=== PATIENT | female | born 1955 | race Caucasian/White ===

== ENCOUNTER 2021-12-20 07:31 | Outpatient (CLI) | payer MEDICARE, BC, SELFPAY ==
[2021-12-20 11:45] LABS: Albumin* 3.9 g/dL (3.3-5.0); Chloride* 104 mmol/L (96-114)
[2021-12-20 11:46] LABS: Potassium* 4.4 mmol/L (3.6-5.1); Sodium* 138 mmol/L (135-149)
[2021-12-20 11:48] LABS: Alkaline Phosphatase* 66 U/L (40-150); Aspartate Amino Transferase* 27 U/L (12-35); Bilirubin Total* 0.7 mg/dL (0.1-1.5); Blood Urea Nitrogen* 19 mg/dL (7-30); Carbon Dioxide* 28 mmol/L (20-32); Cholesterol* 215 mg/dL (90-199); Creatinine* 0.9 mg/dL (0.5-1.5); Estimated Glomerular Filt Rate 71 ml/min; Glucose* 87 mg/dL (60-115); Total Protein* 6.8 g/dL (6.0-8.3)
[2021-12-20 11:49] LABS: Alanine Aminotransferase* 17 U/L (4-35); Calcium* 8.9 mg/dL (8.4-10.6); Triglycerides* 49 mg/dL (40-149)
[2021-12-20 12:05] LABS: HDL Cholesterol* 75 mg/dL (>=50); LDL Cholesterol Calculated 130 mg/dL (<100)
[2021-12-20 15:29] LABS: Free T4 Free Thyroxine* 1.28 ng/dL (0.70-1.85)
== END 2021-12-20 07:32 | disposition home or self-care (01) ==
PROVIDERS: PCP Family Medicine; Visit Provider Family Medicine
DX: Z01.419 Encounter for gynecological examination (general) (routine) without abnormal findings (principal); E78.5 Hyperlipidemia, unspecified; G56.00 Carpal tunnel syndrome, unspecified upper limb; I10 Essential (primary) hypertension; E03.9 Hypothyroidism, unspecified
CPT/HCPCS: 80053; 80061; 84439; 84443

== ENCOUNTER 2022-01-04 15:16 | Outpatient (CLI) | payer MEDICARE, BC, SELFPAY ==
--- OUTSIDE RECORDS SUMMARY | 2022-01-04 15:18 | XMS_ITS | Encounter Summary ---
:1955 Author [facility] Address [address] [place] [id number] Care Team Providers Name Role Phone Micki Arzate MD Primary Care Provider Reason for Visit Reason Comments Revisit Encounter Details Date Type Department Care Team Description 04/11/2021 Office Visit [facility] [address] Albarado, ropositive [facility] rheumatoid arthritis [address] [facility] (Primary Dx) [place] [address] [place], [place] [phone] Social History Tobacco Use Types Packs/Day Years Used Date Smoking Tobacco: Never Smokeless Tobacco: Never Alcohol Use Standard Drinks/Week Comments Not Currently 0 (1 standard drink = 0.6 oz pure alcoho l) Sex Assigned at Date Recorded Not on file documented as of this encounter Last Filed Vital Signs Vital Sign Reading Time Taken Comments Blood Pressure 161/89 04/11/2021 1:18 PM MANAGER APPLICATION Pulse 62 04/11/2021 1:18 PM MANAGER APPLICATION Temperature - - Respiratory Rate - - Oxygen Saturation - - Inhaled Oxygen Concentration - - Weight 63 kg (139 lb) 04/11/2021 1:18 PM MANAGER APPLICATION Height 154.9 cm (5' 1) 04/11/2021 1:18 PM MANAGER APPLICATION Body Mass Index 26.26 04/11/2021 1:18 PM MANAGER APPLICATION documented in this encounter Patient Instructions Patient InstructionsGiorgio Albarado MD - 04/11/2021 1:20 PM CST Would increase methotrexate to 10 tabs (25mg) per week Can use prednisone if needed Consider Ezetemibe (Zetia) for lowering cholesterol as alternative to statins. For fun also look up PCSK9 inhibitors Call me if you're not improving. GER APPLICATION documented in this encounter Progress Notes Giorgio Ablarado MD - 04/11/2021 1:20 PM CST 66 y.o. old female following up for seropositive rheumatoid arthritis. Current therapy from rheumatology: Methotrexate 17.5 mg weekly, hydroxychloroquine 300mg daily started 02/2020. Prior therapies from rheumatology: Humira stopped 02/2020 when she switched to Medicare Had flare after holding methotrexate for Covid vaccine booster 01/20/21. Took short course prednisone.Joint symptoms have not completely improved and she notes some ongoing left 3rd MCP swelling. Also had flu vaccine 03/16 Has concerns about CVD risk. Exam: BP (!) 161/89 (BP Location: Right Arm, BP Cuff Size: Regular) Pulse 62 Ht 5' 1 (1.549 m) Wt 139 lb (63 kg) BMI 26.26 kg/m?? Gen: No acute distress MSK: Trace to 1+ synovitis at the left 3rd MCP. Question some scattered trace synovitis elsewhere inher MCPs and PIP is. No synovitis bilateral wrists, elbows, knees, ankles. Lab Results Component Value Date/Time WBC 6.5 03/15/2021 09:19 AM HGB 13.9 03/15/2021 09:19 AM MCV 92.3 03/15/2021 09:19 AM PLTS 206 03/15/2021 09:19 AM AST 19 03/15/2021 09:19 AM ALT 14 03/15/2021 09:19 AM CREATININE 0.80 03/15/2021 09:19 AM Assessment/plan: Seropositive rheumatoid arthritis. He has ongoing problems, suggested increasing methotrexate up to 25 mg weekly. Continue hydroxychloroquine. Can use prednisone if needed for ongoing symptoms. Follow up 3 months Orders Placed This Encounter ??? methotrexate 2.5 MG tablet ??? hydroxychloroquine (PLAQUENIL) 200 MG tablet Giorgio Albarado MD GER APPLICATION documented in this encounter Plan of Treatment Upcoming Encounters Date Type Specialty Care Team Description 01/15/2022 Appointment Laboratory 02/22/2022 Appointment Rheumatology Giorgio Albarado M D [address] [place] [address] [phone] (Wo rk) documented as of this encounter Visit Diagnoses Diagnosis Seropositive rheumatoid arthritis ([facility]) - Primary Rheumatoid arthritis documented in this encounter Care Teams [employer] Consultant Relationship Specialty Start Date End Date Micki Arzate MD PCP - General Internal Medicine 01/29/[address] [place] [address] documented as of this encounter
--- OUTSIDE RECORDS SUMMARY | 2022-01-04 15:18 | XMS_ITS | Encounter Summary ---
:1955 Author Organization [facility] Address [address], [place] [address] Care Team Providers Name Role Phone Micki Arzate MD Primary Care Provider Reason for Visit Reason Comments Consult, New Patient Encounter Details Date Type Department Care Team Description 03/14/2020 Office Visit Specialty Center 401 Giorgio Albarado, ropositive [facility]umatology Clinic rheumatoid arthritis [address] [facility] ([facility] Dx[facility] [place] [address] [place], [place] [phone] [id number] Social History Tobacco Use Types Packs/Day Years Used Date Smoking Tobacco: Never Smokeless Tobacco: Never Alcohol Use Standard Drinks/Week Comments Not Currently 0 (1 standard drink = 0.6 oz pure alcoho l) Sex Assigned at Date Recorded Not on file documented as of this encounter Patient Instructions Patient InstructionsSuGiorgio celaya MD - 03/14/2020 9:00 AM CDT Meds: - methotrexate 17.5mg weekly - hydroxychloroquine 1.5 tabs per day [email or web address] - covid studies in rheumatology [email or web address] - med info [email or web address] - watch when Covid vaccines are coming out for recommendations Our clinic number - [phone] Next do labs April documented in this encounter Progress Notes Giorgio Albarado MD - 03/14/2020 9:00 AM CDT 65 y.o. old female who is here to establish ongoing care regarding seropositive rheumatoid arthritis. Current therapy from rheumatology: Methotrexate 15 mg weekly, Humira 40 mg every 2 weeks States that over time she has reduced her dose of methotrexate because she felt it made her nose run. She did have increased joint pain when she had reduce to 12 5 mg per week however. She is concernedthat Humira has extremely helpful, however she is now on Medicare and only has 2 doses left. She wonders about options from this point. She currently denies any significant joint, swelling, stiffness. No side effects Humira. No past medical history on file. Patient Active Problem List Diagnosis ??? Hypothyroidism (HRC) ??? Essential hypertension (HRC) ??? Obesity (HRC) ??? Hyperlipidemia (HRC) ??? S/p nephrectomy ??? Rheumatoid arthritis (HRC) ??? Rheumatoid factor positive ??? Positive anti-CCP test ??? High risk medication use ??? Rheumatoid arthritis with positive rheumatoid factor (HRC) No past surgical history on file. Outpatient Medications Prior to Visit Medication Sig Dispense Refill ??? acetaminophen (TYLENOL EXTRA STRENGTH) 500 MG tablet Take 500-1,000 mg by mouth every 4 hours asneeded for Pain. Maximum acetaminophen dose is 4000 mg in 24 hours ??? Adalimumab 40 MG/0.4ML PNKT Inject 40 mg subcutaneously every 14 days. Please inform patient that this medication is citrate free 2 Each ??? Bioflavonoid Products (VITAMIN C PLUS) 1000 MG 1,000 mg. Once daily ??? Cholecalciferol (VITAMIN D) 50 MCG (2000 UT) CAPS 2,000 mg. Every other day ??? folic acid 1 MG tablet Take 1 Tablet by mouth daily. 90 Tablet 3 ??? lisinopril (ZESTRIL) 10 MG tablet 5 mg/d (Rxed by primary). ??? methotrexate 2.5 MG tablet All at once, one time a week: 17.5 mg/week (8 tabs). New dose instruction, patient will call when needed. 108 Tablet 1 ??? predniSONE (DELTASONE) 5 MG tablet As needed for a flare, all in am: 4 tabs/d x 3 d, 3 tabs/d x 3 d, 2 tabs/d x 3 d, 1 tab/d x 3 d then stop. (Patient not taking: Reported on 03/14/2020) 60 Tablet 2 No facility-administered medications prior to visit. Social History Socioeconomic History ??? Marital status: Spouse name: Not on file ??? Number of children: Not on file ??? Years of education: Not on file ??? Highest education level: Not on file Occupational History ??? Not on file Social Needs ??? Financial resource strain: Not on file ??? Food insecurity Worry: Not on file Inability: Not on file ??? Transportation needs Medical: Not on file Non-medical: Not on file Tobacco Use ??? Smoking status: Never Smoker ??? Smokeless tobacco: Never Used Substance and Sexual Activity ??? Alcohol use: Not Currently ??? Drug use: Not on file ??? Sexual activity: Not on file Lifestyle ??? Physical activity Days per week: Not on file Minutes per session: Not on file ??? Stress: Not on file Relationships ??? Social connections Talks on phone: Not on file Gets together: Not on file Attends scientologist service: Not on file Active member of club or organization: Not on file Attends meetings of clubs or organizations: Not on file Relationship status: Not on file ??? Intimate partner violence Fear of current or ex partner: Not on file Emotionally abused: Not on file Physically abused: Not on file Forced sexual activity: Not on file Other Topics Concern ??? Not on file Social History Narrative ??? Not on file Exam: There were no vitals taken for this visit. Gen: No acute distress MSK: No synovitis of bilateral hands, wrists, elbows, shoulders, knees, ankles. Lab Results Component Value Date/Time WBC 6.1 01/21/2020 10:07 AM HGB 13.8 01/21/2020 10:07 AM MCV 94.1 01/21/2020 10:07 AM PLTS 219 01/21/2020 10:07 AM PMN 3.3 01/21/2020 10:07 AM LYMA 1.9 01/21/2020 10:07 AM MONOA 0.6 01/21/2020 10:07 AM EOSA 0.2 01/21/2020 10:07 AM BASA 0.1 01/21/2020 10:07 AM ALT 17 01/21/2020 10:07 AM CREATININE 0.80 01/21/2020 10:07 AM ESR 64 (H) 02/20/2017 08:47 AM CRP 16.4 (H) 02/20/2017 08:47 AM Lab Results Component Value Date/Time HBSAG Nonreactive 02/20/2017 08:47 AM HBVCOREAB Nonreactive 02/20/2017 08:47 AM Assessment/plan: Seropositive rheumatoid arthritis. She recently switched to Medicare, and will not be able to continue to afford Humira. She hopes to avoid infusions if possible. Suggested continuing methotrexate slightly increasing her dose to 17.5 mg weekly which she tolerated well, and adding hydroxychloroquine 300 mg day. Discussed usage side effects of hydroxychloroquine and eventual need eye exam, and we also discussed other options such as infliximab detail. Answered number of questions regarding vaccinations. If she would have difficulty with hydroxychloroquine, she would be interested infliximab in the future. Update labs in the April. Follow-up 2 months TT 50 min, >30 min spent counseling patient on plan as noted above. Giorgio Albarado MD documented in this encounter Plan of Treatment Upcoming Encounters Date Type Specialty Care Team Description 01/15/2022 Appointment Laboratory 02/22/2022 Appointment Rheumatology Giorgio Albarado M D [address] [place] [address] [phone] (Wo rk) Scheduled Orders Name Type Priority Associated Diagnoses Order S chedule Complete Blood Count-No Lab Routine Seropositive rheu matoid Monthly for 99 Diff arthritis (HRC) Occurrences starting 03/14/2020 unti l 12/09/2022, 6 c ompleted AST Lab Routine Seropositive rheumatoid Berny hly for 99 arthritis (HRC) Occurrences starting 03/14/2020 unti l 12/09/2022, 6 c ompleted ALT (SGPT) Lab Routine Seropositive rheumatoid Berny hly for 99 arthritis (HRC) Occurrences starting 03/14/2020 unti l 12/09/2022, 6 c ompleted Creatinine / GFR Lab Routine Seropositive rheumatoid Monthly for 99 arthritis (HRC) Occurrences starting 03/14/2020 unti l 12/09/2022, 6 c ompleted documented as of this encounter Results Creatinine / GFR (10/13/2021 7:40 AM CDT) athologist Signature Creatinine 0.90 0.55 - 10/13/2021 [facility] 1.02 mg/dL 11:32 AM CDT LABORATORY GFR, Estimated >60 >60 10/13/2021 [facility] mL/min/1.7 11:32 AM CDT LABORATORY 3m2 Specimen Anatomical Collection Method / Collection Time Recei rg Time (Source) Location / Volume Laterality Blood Venipuncture / 10/13/2021 7:40 10/13/2021 7:40 Unknown AM CDT AM CDT Giorgio Albarado MD LAB_1 Performing Organization Address [facility] Code Phon e [facility] LABORATORY [address] [phone] ALT (SGPT) (10/13/2021 7:40 AM CDT) athologist Signature ALT (SGPT) 17 0 - 55 U/L 10/13/2021 [facility] 11:32 AM CDT LABORATORY Specimen Anatomical Collection Method / Collection Time Recei rg Time (Source) Location / Volume Laterality Blood Venipuncture / 10/13/2021 7:40 10/13/2021 7:40 Unknown AM CDT AM CDT Giorgio Albarado MD LAB_1 Performing Organization Address City/[facility]/ZIP Code Phon e Number [facility] [address] [place] [address] AST (10/13/2021 7:40 AM CDT) athologist Signature AST (SGOT) 20 10 - 40 U/L 10/13/2021 [facility] 11:32 AM CDT LABORATORY Specimen Anatomical Collection Method / Collection Time Recei rg Time (Source) Location / Volume Laterality Blood Venipuncture / 10/13/2021 7:40 10/13/2021 7:40 Unknown AM CDT AM CDT Giorgio Albaardo MD LAB_1 Performing Organization Address City/[facility]/ZIP Code Phon e Number [facility] [address] [place], [place] [phone] Complete Blood Count-No Diff (10/13/2021 7:40 AM CDT) athologist Signature WBC 5.5 3.5 - 10.5 10/13/2021 [facility] x10(9)/L 8:05 AM CDT LABORATORY RBC 4.30 3.90 - 10/13/2021 [facility] 5.03 8:05 AM CDT LABORATORY x10(12)/L Hemoglobin 13.2 12.0 - 10/13/2021 [facility] 15.5 g/dL 8:05 AM CDT LABORATORY HCT 39.9 34.9 - 10/13/2021 [facility] 44.5 % 8:05 AM CDT LABORATORY MCV 92.8 80.0 - 10/13/2021 [facility] 100.0 fL 8:05 AM CDT LABORATORY MCH 30.7 27.6 - 10/13/2021 [facility] 33.3 pg 8:05 AM CDT LABORATORY MCHC 33.1 31.5 - 10/13/2021 [facility] 35.2 g/dL 8:05 AM CDT LABORATORY RDW 13.5 11.9 - 10/13/2021 [facility] 15.5 % 8:05 AM CDT LABORATORY Platelets 219 150 - 450 10/13/2021 [facility] x10(9)/L 8:05 AM CDT LABORATORY Automated NRBC 0 <=0 /100 10/13/2021 [facility] WBC 8:05 AM CDT LABORATORY Specimen Anatomical Collection Method / Collection Time Recei rg Time (Source) Location / Volume Laterality Blood Venipuncture / 10/13/2021 7:40 10/13/2021 7:40 Unknown AM CDT AM CDT Giorgio Albarado MD LAB_1 Performing Organization Address City/State/ZIP Code Phon e Number [facility] [address] [place], [place] [phone] Creatinine / GFR (07/04/2021 10:12 AM AUTOMOBILE MECHANIC HELPER) athologist Signature Creatinine 0.90 0.55 - 07/04/2021 [facility] 1.02 mg/dL 11:57 AM AUTOMOBILE MECHANIC HELPER LABORATORY GFR, Estimated >60 >60 07/04/2021 [facility] mL/min/1.7 11:57 AM AUTOMOBILE MECHANIC HELPER LABORATORY 3m2 Specimen Anatomical Collection Method / Collection Time Recei rg Time (Source) Location / Volume Laterality Blood Venipuncture / 07/04/2021 10:12 2 Unknown AM AUTOMOBILE MECHANIC HELPER 10:12 AM AUTOMOBILE MECHANIC HELPER Giorgio Albarado MD LAB_1 Performing Organization Address City/[facility]/ZIP Code Phon e Jyoti [facility] [address] [place] [phone] ALT (SGPT) (07/04/2021 10:12 AM AUTOMOBILE MECHANIC HELPER) athologist Signature ALT (SGPT) 19 0 - 55 U/L 07/04/2021 [facility] 11:57 AM AUTOMOBILE MECHANIC HELPER LABORATORY Specimen Anatomical Collection Method / Collection Time Recei rg Time (Source) Location / Volume Laterality Blood Venipuncture / 07/04/2021 10:12 2 Unknown AM AUTOMOBILE MECHANIC HELPER 10:12 AM AUTOMOBILE MECHANIC HELPER Giorgio Albarado MD LAB_1 Performing Organization Address City/[facility] Phon e Jyoti [facility] [address] [place] [phone] AST (07/04/2021 10:12 AM AUTOMOBILE MECHANIC HELPER) athologist Signature AST (SGOT) 18 10 - 40 U/L 07/04/2021 [facility] 11:57 AM AUTOMOBILE MECHANIC HELPER LABORATORY Specimen Anatomical Collection Method / Collection Time Recei rg Time (Source) Location / Volume Laterality Blood Venipuncture / 07/04/2021 10:12 2 Unknown AM AUTOMOBILE MECHANIC HELPER 10:12 AM AUTOMOBILE MECHANIC HELPER Giorgio Albarado MD LAB_1 Performing Organization Address City/[facility]/ZIP Code Phon e J[facility] [address] [place] [phone] Complete Blood Count-No Diff (07/04/2021 10:12 AM AUTOMOBILE MECHANIC HELPER) athologist Signature WBC 6.0 3.5 - 10.5 07/04/2021 [facility] x10(9)/L 10:15 AM AUTOMOBILE MECHANIC HELPER LABORATORY RBC 4.66 3.90 - 07/04/2021 [facility] 5.03 10:15 AM AUTOMOBILE MECHANIC HELPER LABORATORY x10(12)/L Hemoglobin 14.1 12.0 - 07/04/2021 [facility] 15.5 g/dL 10:15 AM AUTOMOBILE MECHANIC HELPER LABORATORY HCT 43.2 34.9 - 07/04/2021 [facility] 44.5 % 10:15 AM AUTOMOBILE MECHANIC HELPER LABORATORY MCV 92.7 80.0 - 07/04/2021 [facility] 100.0 fL 10:15 AM AUTOMOBILE MECHANIC HELPER LABORATORY MCH 30.3 27.6 - 07/04/2021 [facility] 33.3 pg 10:15 AM AUTOMOBILE MECHANIC HELPER LABORATORY MCHC 32.6 31.5 - 07/04/2021 [facility] 35.2 g/dL 10:15 AM AUTOMOBILE MECHANIC HELPER LABORATORY RDW 13.2 11.9 - 07/04/2021 [facility] 15.5 % 10:15 AM AUTOMOBILE MECHANIC HELPER LABORATORY Platelets 224 150 - 450 07/04/2021 [facility] x10(9)/L 10:15 AM AUTOMOBILE MECHANIC HELPER LABORATORY Automated NRBC 0 <=0 /100 07/04/2021 [facility] WBC 10:15 AM AUTOMOBILE MECHANIC HELPER LABORATORY Specimen Anatomical Collection Method / Collection Time Recei rg Time (Source) Location / Volume Laterality Blood Venipuncture / 07/04/2021 10:12 2 Unknown AM AUTOMOBILE MECHANIC HELPER 10:12 AM AUTOMOBILE MECHANIC HELPER Giorgio Albarado MD LAB_1 Performing Organization Address City/State/ZIP Code Phon e Number [facility] [address] [place] [phone] Creatinine / GFR (03/15/2021 9:19 AM CDT) P athologist Signature Creatinine 0.80 0.55 - 03/15/2021 [facility] 1.02 mg/dL 10:23 AM CDT LABORATORY GFR, Estimated >60 >60 03/15/2021 [facility] mL/min/1.7 10:23 AM CDT LABORATORY 3m2 Specimen Anatomical Collection Method / Collection Time Recei rg Time (Source) Location / Volume Laterality Blood Venipuncture / 03/15/2021 9:19 03/15/2021 9:19 Unknown AM CDT AM CDT Giorgio Albarado MD LAB_1 Performing Organization Address City/[facility]/ZIP Code Phon e [facility] [address] [place], [place] [phone] ALT (SGPT) (03/15/2021 9:19 AM CDT) P athologist Signature ALT (SGPT) 14 0 - 55 U/L 03/15/2021 [facility] 10:23 AM CDT LABORATORY Specimen Anatomical Collection Method / Collection Time Recei rg Time (Source) Location / Volume Laterality Blood Venipuncture / 03/15/2021 9:19 03/15/2021 9:19 Unknown AM CDT AM CDT Giorgio Albarado MD LAB_1 Performing Organization Address [facility]/ZIP Code Phon e J[facility] [address] [place] [phone] AST (03/15/2021 9:19 AM CDT) athologist Signature AST (SGOT) 19 10 - 40 U/L 03/15/2021 [facility] 10:23 AM CDT LABORATORY Specimen Anatomical Collection Method / Collection Time Recei rg Time (Source) Location / Volume Laterality Blood Venipuncture / 03/15/2021 9:19 03/15/2021 9:19 Unknown AM CDT AM CDT Giorgio Albarado MD LAB_1 Performing Organization Address City/[facility] Phon e J[facility] [address] [place], [place] [phone] Complete Blood Count-No Diff (03/15/2021 9:19 AM CDT) P athologist Signature WBC 6.5 3.5 - 10.5 03/15/2021 [facility] x10(9)/L 9:26 AM CDT LABORATORY RBC 4.67 3.90 - 03/15/2021 [facility] 5.03 9:26 AM CDT LABORATORY x10(12)/L Hemoglobin 13.9 12.0 - 03/15/2021 [facility] 15.5 g/dL 9:26 AM CDT LABORATORY HCT 43.1 34.9 - 03/15/2021 [facility] 44.5 % 9:26 AM CDT LABORATORY MCV 92.3 80.0 - 03/15/2021 [facility] 100.0 fL 9:26 AM CDT LABORATORY MCH 29.8 27.6 - 03/15/2021 [facility] 33.3 pg 9:26 AM CDT LABORATORY MCHC 32.3 31.5 - 03/15/2021 [facility] 35.2 g/dL 9:26 AM CDT LABORATORY RDW 13.6 11.9 - 03/15/2021 [facility] 15.5 % 9:26 AM CDT LABORATORY Platelets 206 150 - 450 03/15/2021 [facility] x10(9)/L 9:26 AM CDT LABORATORY Automated NRBC 0 <=0 /100 03/15/2021 [facility] WBC 9:26 AM CDT LABORATORY Specimen Anatomical Collection Method / Collection Time Recei rg Time (Source) Location / Volume Laterality Blood Venipuncture / 03/15/2021 9:19 03/15/2021 9:19 Unknown AM CDT AM CDT Giorgio Albarado MD LAB_1 Performing Organization Address City/[facility] Code Phon e Number [facility] [address] [place], [place] [phone] Creatinine / GFR (11/09/2020 2:28 PM CDT) athologist Signature Creatinine 0.90 0.55 - 11/09/2020 [facility] 1.02 mg/dL 3:33 PM CDT LABORATORY GFR, Estimated >60 >60 11/09/2020 [facility] mL/min/1.7 3:33 PM CDT LABORATORY 3m2 Specimen Anatomical Collection Method / Collection Time Recei rg Time (Source) Location / Volume Laterality Blood Venipuncture / 11/09/2020 2:28 11/09/2020 2:28 Unknown PM CDT PM CDT Giorgio Albarado MD LAB_1 Performing Organization Address City/[facility]/ZIP Code Phon e Number [facility] [address] [place] [address] ALT (SGPT) (11/09/2020 2:28 PM CDT) athologist Signature ALT (SGPT) 17 0 - 55 U/L 11/09/2020 [facility] 3:33 PM CDT LABORATORY Specimen Anatomical Collection Method / Collection Time Recei rg Time (Source) Location / Volume Laterality Blood Venipuncture / 11/09/2020 2:28 11/09/2020 2:28 Unknown PM CDT PM CDT Giorgio Albarado MD LAB_1 Performing Organization Address [facility]/ZIP Code Phon e Number [facility] [address] [place] [phone] AST (11/09/2020 2:28 PM CDT) athologist Signature AST (SGOT) 20 10 - 40 U/L 11/09/2020 [facility] 3:33 PM CDT LABORATORY Specimen Anatomical Collection Method / Collection Time Recei rg Time (Source) Location / Volume Laterality Blood Venipuncture / 11/09/2020 2:28 11/09/2020 2:28 Unknown PM CDT PM CDT Giorgio Albarado MD LAB_1 Performing Organization Address City/[facility] e Number [facility] [address] [place] [address] Complete Blood Count-No Diff (11/09/2020 2:28 PM CDT) athologist Signature WBC 6.2 3.5 - 10.5 11/09/2020 [facility] x10(9)/L 2:31 PM CDT LABORATORY RBC 4.42 3.90 - 11/09/2020 [facility] 5.03 2:31 PM CDT LABORATORY x10(12)/L Hemoglobin 13.3 12.0 - 11/09/2020 [facility] 15.5 g/dL 2:31 PM CDT LABORATORY HCT 40.6 34.9 - 11/09/2020 [facility] 44.5 % 2:31 PM CDT LABORATORY MCV 91.9 80.0 - 11/09/2020 [facility] 100.0 fL 2:31 PM CDT LABORATORY MCH 30.1 27.6 - 11/09/2020 [facility] 33.3 pg 2:31 PM CDT LABORATORY MCHC 32.8 31.5 - 11/09/2020 [facility] 35.2 g/dL 2:31 PM CDT LABORATORY RDW 13.3 11.9 - 11/09/2020 [facility] 15.5 % 2:31 PM CDT LABORATORY Platelets 197 150 - 450 11/09/2020 [facility] x10(9)/L 2:31 PM CDT LABORATORY Automated NRBC 0 <=0 /100 11/09/2020 [facility] WBC 2:31 PM CDT LABORATORY Specimen Anatomical Collection Method / Collection Time Recei rg Time (Source) Location / Volume Laterality Blood Venipuncture / 11/09/2020 2:28 11/09/2020 2:28 Unknown PM CDT PM CDT Giorgio Albarado MD LAB_1 Performing Organization Address City/[facility] e J[facility]oti [facility] [address] [place], [place] [phone] Creatinine / GFR (07/28/2020 9:10 AM AUTOMOBILE MECHANIC HELPER) athologist Signature Creatinine 0.90 0.55 - 07/28/2020 [facility] 1.02 mg/dL 9:42 AM AUTOMOBILE MECHANIC HELPER LABORATORY GFR, Estimated >60 >60 07/28/2020 [facility] mL/min/1.7 9:42 AM AUTOMOBILE MECHANIC HELPER LABORATORY 3m2 Specimen Anatomical Collection Method / Collection Time Recei rg Time (Source) Location / Volume Laterality Blood Venipuncture / 07/28/2020 9:10 07/28/2020 9:10 Unknown AM AUTOMOBILE MECHANIC HELPER AM AUTOMOBILE MECHANIC HELPER Giorgio Albarado MD LAB_1 Performing Organization Address City/[facility] e Number [facility] [address] [place] [address] ALT (SGPT) (07/28/2020 9:10 AM AUTOMOBILE MECHANIC HELPER) P athologist Signature ALT (SGPT) 13 0 - 55 U/L 07/28/2020 [facility] 9:42 AM AUTOMOBILE MECHANIC HELPER LABORATORY Specimen Anatomical Collection Method / Collection Time Recei rg Time (Source) Location / Volume Laterality Blood Venipuncture / 07/28/2020 9:10 07/28/2020 9:10 Unknown AM AUTOMOBILE MECHANIC HELPER AM AUTOMOBILE MECHANIC HELPER Giorgio Albarado MD LAB_1 Performing Organization Address City/[facility]/ZIP Code Phon e Number [facility] [address] [place] [address] AST (07/28/2020 9:10 AM AUTOMOBILE MECHANIC HELPER) athologist Signature AST (SGOT) 16 10 - 40 U/L 07/28/2020 [facility] 9:42 AM AUTOMOBILE MECHANIC HELPER LABORATORY Specimen Anatomical Collection Method / Collection Time Recei rg Time (Source) Location / Volume Laterality Blood Venipuncture / 07/28/2020 9:10 07/28/2020 9:10 Unknown AM AUTOMOBILE MECHANIC HELPER AM AUTOMOBILE MECHANIC HELPER Giorgio Albarado MD LAB_1 Performing Organization Address City/[facility] Code Phon e Number [facility] [address] [place] [address] Complete Blood Count-No Diff (07/28/2020 9:10 AM AUTOMOBILE MECHANIC HELPER) athologist Signature WBC 5.9 3.5 - 10.5 07/28/2020 [facility] x10(9)/L 9:18 AM AUTOMOBILE MECHANIC HELPER LABORATORY RBC 4.44 3.90 - 07/28/2020 [facility] 5.03 9:18 AM AUTOMOBILE MECHANIC HELPER LABORATORY x10(12)/L Hemoglobin 13.6 12.0 - 07/28/2020 [facility] 15.5 g/dL 9:18 AM AUTOMOBILE MECHANIC HELPER LABORATORY HCT 40.8 34.9 - 07/28/2020 [facility] 44.5 % 9:18 AM AUTOMOBILE MECHANIC HELPER LABORATORY MCV 91.9 80.0 - 07/28/2020 [facility] 100.0 fL 9:18 AM AUTOMOBILE MECHANIC HELPER LABORATORY MCH 30.6 27.6 - 07/28/2020 [facility] 33.3 pg 9:18 AM AUTOMOBILE MECHANIC HELPER LABORATORY MCHC 33.3 31.5 - 07/28/2020 [facility] 35.2 g/dL 9:18 AM AUTOMOBILE MECHANIC HELPER LABORATORY RDW 13.0 11.9 - 07/28/2020 [facility] 15.5 % 9:18 AM AUTOMOBILE MECHANIC HELPER LABORATORY Platelets 220 150 - 450 07/28/2020 [facility] x10(9)/L 9:18 AM AUTOMOBILE MECHANIC HELPER LABORATORY Automated NRBC 0 <=0 /100 07/28/2020 [facility] WBC 9:18 AM AUTOMOBILE MECHANIC HELPER LABORATORY Specimen Anatomical Collection Method / Collection Time Recei rg Time (Source) Location / Volume Laterality Blood Venipuncture / 07/28/2020 9:10 07/28/2020 9:10 Unknown AM AUTOMOBILE MECHANIC HELPER AM AUTOMOBILE MECHANIC HELPER Giorgio Albarado MD LAB_1 Performing Organization Address City/[facility]/ZIP Code Phon e Number [facility] [address] [place], [place] [phone] Creatinine / GFR (04/18/2020 9:57 AM AUTOMOBILE MECHANIC HELPER) [facility] gist Method Time Signature Creatinine 0.77 0.55 - 04/18/2020 [facility] 1.02 1:09 PM AUTOMOBILE MECHANIC HELPER CENTRAL LAB mg/dL GFR, Estimated >60 >60 04/18/2020 [facility] mL/min/1. 1:09 PM AUTOMOBILE MECHANIC HELPER CENTRAL LAB 73m2 Specimen Anatomical Collection Method / Collection Time Recei rg Time (Source) Location / Volume Laterality Blood Venipuncture / 04/18/2020 9:57 04/18/2020 9:57 Unknown AM AUTOMOBILE MECHANIC HELPER AM AUTOMOBILE MECHANIC HELPER Giorgio Albarado MD LAB_1 Performing Organization Address [facility] Phon e Number WP EngineUNIVERSITY OF NEW MEXICO HOSPITALSIm[facility] [employer] CENTRAL LAB [address] [address] ALT (SGPT) (04/18/2020 9:57 AM AUTOMOBILE MECHANIC HELPER) athologist Signature ALT (SGPT) 15 0 - 55 U/L 04/18/2020 [facility] 1:09 PM AUTOMOBILE MECHANIC HELPER CENTRAL LAB Specimen Anatomical Collection Method / Collection Time Recei rg Time (Source) Location / Volume Laterality Blood Venipuncture / 04/18/2020 9:57 04/18/2020 9:57 Unknown AM AUTOMOBILE MECHANIC HELPER AM AUTOMOBILE MECHANIC HELPER Giorgio Albarado MD LAB_1 Performing Organization Address City/[facility] Code Phon e Number [facility] CENTRAL LAB [address] [address] AST (04/18/2020 9:57 AM AUTOMOBILE MECHANIC HELPER) athologist Signature AST (SGOT) 19 10 - 40 04/18/2020 [facility]/L 1:09 PM AUTOMOBILE MECHANIC HELPER CENTRAL LAB Specimen Anatomical Collection Method / Collection Time Recei rg Time (Source) Location / Volume Laterality Blood Venipuncture / 04/18/2020 9:57 04/18/2020 9:57 Unknown AM AUTOMOBILE MECHANIC HELPER AM AUTOMOBILE MECHANIC HELPER Giorgio Albarado MD LAB_1 Performing Organization Address [place] [facility]/ZIP [facility] Phon e Number [facility] [address] [address] Complete Blood Count-No Diff (04/18/2020 9:57 AM AUTOMOBILE MECHANIC HELPER) P athologist Signature WBC 6.4 3.5 - 10.5 04/18/2020 [facility] x10(9)/L 10:09 AM [facility] RBC 4.50 3.90 - 5.03 04/18/2020 [facility] x10(12)/L 10:09 AM [facility] Hemoglobin 13.8 12.0 - 15.5 04/18/2020 [facility] g/dL 10:09 AM [facility] HCT 40.8 34.9 - 44.5 04/18/2020 [facility] % 10:09 AM [facility] MCV 90.7 80.0 - 04/18/2020 [facility] 100.0 fL 10:09 AM [facility] MCH 30.7 27.6 - 33.3 04/18/2020 [facility] pg 10:09 AM [facility] MCHC 33.8 31.5 - 35.2 04/18/2020 [facility] g/dL 10:09 AM [facility] RDW 13.6 11.9 - 15.5 04/18/2020 [facility] % 10:09 AM [facility] Platelets 232 150 - 450 04/18/2020 [facility] x10(9)/L 10:09 AM [facility] Specimen Anatomical Collection Method / Collection Time Recei rg Time (Source) Location / Volume Laterality Blood Venipuncture / 04/18/2020 9:57 04/18/2020 9:57 Unknown AM AUTOMOBILE MECHANIC HELPER AM AUTOMOBILE MECHANIC HELPER Giorgio Albarado MD LAB_1 Performing Organization Address City/[place]/ZIP [facility] Phon e Number [facility] [address] [place] [address] documented in this encounter Visit Diagnoses Diagnosis Seropositive rheumatoid arthritis (HRC) - Primary Rheumatoid arthritis documented in this encounter Care Teams Hand Assembler For Puller Over Relationship Specialty Start Date End Date Micki Arzate MD PCP - General Internal Medicine [address] [place] [address] documented as of this encounter
--- OUTSIDE RECORDS SUMMARY | 2022-01-04 15:18 | XMS_ITS | Encounter Summary ---
:1955 Author Organization [facility] Address [address], [place] [address] Care Team Providers Name Role Phone Micki Arzate MD Primary Care Provider Reason for Visit Reason Comments Symptoms Encounter Details Date Type Department Care Team Description 04/12/2020 Telephone Specialty Center 401 Manuel Albarado MD Symptoms [facility] [address] [facility] [place] [address] [place] [address] [phone] Social History Tobacco Use Types Packs/Day Years Used Date Smoking Tobacco: Never Smokeless Tobacco: Never Alcohol Use Standard Drinks/Week Comments Not Currently 0 (1 standard drink = 0.6 oz pure alcoho l) Sex Assigned at Date Recorded Not on file documented as of this encounter Nursing Notes Nanette Sanchez RN - 04/12/2020 1:53 PM CST Client returns call. Accepts appointment time date and location. Darya HUGHES to add client to schedule. Client declines prednisone at this time. States her sx are tolerable and she would rather not take prednisone as she is concerned regarding immunosuppression and covid 19. Advised client to remain diligent with hand washing, masking and social distancing. Nanette Sanchez RN SHOP CLERK Joe, Max Mclaughlin CMA - 04/12/2020 1:32 PM CST Left message for patient to return call back to clinic. Please inform patient with provider's message and offer appt time. Max Diaz CMA 04/12/2020, 1:32 PM SHOP CLERK Giorgio Albarado MD - 04/12/2020 12:50 PM CST Can have her do a short course of prednisone, and then have her schedule next Wednesday 04/18 at 9am for possible injection and/or change or meds. Let me know if she would like the prednisone sent. SHOP CLERK Krissy Ybarra RN - 04/12/2020 11:44 AM CST Routing to Dr. Albarado's care team. Krissy Ybarra RN 04/12/2020, 11:44 AM SHOP CLERK Tee Bray - 04/12/2020 8:11 AM CST Miscellaneous Questions & FYI's [ Appt Center/Non Destructive Testing Inspector: If this call is after 3 p.m., communicate to patient: If we are not able to get back to you by the end of the day and your symptoms worsen please contact the Careline at [phone] OR at .] Is this a symptom? No What is your question or concern? Pt calling reporting swelling and fluid in her left knee. She says the end of Feb. is when she firstnoticed it but it sort of went away. Then last week it came back very Have you recently been seen for this? No Is it okay to leave a detailed message on your voicemail? Yes Tee Bray SHOP CLERK documented in this encounter Plan of Treatment Upcoming Encounters Date Type Specialty Care Team Description 01/15/2022 Appointment Laboratory 02/22/2022 Appointment Rheumatology Giorgio Albarado M D [address] [place], [place] [address] (Wo rk) documented as of this encounter Visit Diagnoses Not on filedocumented in this encounter Care Teams Corporate Librarian Relationship Specialty Start Date End Date Micki Arzate MD PCP - General Internal Medicine 01/[address] [place] [address] documented as of this encounter
--- OUTSIDE RECORDS SUMMARY | 2022-01-04 15:18 | XMS_ITS | Encounter Summary ---
:1955 Author Organization [facility] Address [address] [place] [address] Care Team Providers Name Role Phone Micki Arzate MD Primary Care Provider Encounter Details Date Type Department Care Team Description 10/13/2021 Lab Visit [facility] Seropositive rheumatoid [address] [facility] arthritis ([facility] [place] [address] Social History Tobacco Use Types Packs/Day Years Used Date Smoking Tobacco: Never Smokeless Tobacco: Never Alcohol Use Standard Drinks/Week Comments Not Currently 0 (1 standard drink = 0.6 oz pure alcoho l) Sex Assigned at Date Recorded Not on file documented as of this encounter Plan of Treatment Upcoming Encounters Date Type Specialty Care Team Description 01/15/2022 Appointment Laboratory 02/22/2022 Appointment Rheumatology Giorgio Albarado M D [address] [place] [phone] (Wo rk) documented as of this encounter Procedures Procedure Name Priority Date/Time Associated Diagnosis Comme nts CREATININE / GFR Routine 10/13/2021 7:40 AM Seropositive Resul ts for this CDT rheumatoid arthritis procedu re are in ([facility]) the results section. COMPLETE BLOOD Routine 10/13/2021 7:40 AM Seropositive Results for this COUNT-NO DIFF CDT rheumatoid arthritis proced ure are in ([facility]) the results section. ALT (SGPT) Routine 10/13/2021 7:40 AM Seropositive Results f or this CDT rheumatoid arthritis procedu re are in ([facility]) the results section. AST Routine 10/13/2021 7:40 AM Seropositive Results f or this CDT rheumatoid arthritis procedu re are in (HRC) the results section. documented in this encounter Results Creatinine / GFR (10/13/2021 7:40 AM CDT) athologist Signature Creatinine 0.90 0.55 - 10/13/2021 [place] 1.02 mg/dL 11:32 AM CDT LABORATORY GFR, Estimated >60 >60 10/13/2021 [place] mL/min/1.7 11:32 AM CDT LABORATORY 3m2 Specimen Anatomical Collection Method / Collection Time Recei rg Time (Source) Location / Volume Laterality Blood Venipuncture / 10/13/2021 7:40 10/13/2021 7:40 Unknown AM CDT AM CDT Giorgio Albarado MD LAB_1 Performing Organization Address [facility] LABORATORY [id number] [place] [phone] ALT (SGPT) (10/13/2021 7:40 AM CDT) athologist Signature ALT (SGPT) 17 0 - 55 U/L 10/13/2021 [place] 11:32 AM CDT LABORATORY Specimen Anatomical Collection Method / Collection Time Recei rg Time (Source) Location / Volume Laterality Blood Venipuncture / 10/13/2021 7:40 10/13/2021 7:40 Unknown AM CDT AM CDT Giorgio Albarado MD LAB_1 Performing Organization Address [facility] LABORATORY [address] [place] [address] 57 AST (10/13/2021 7:40 AM CDT) athologist Signature AST (SGOT) 20 10 - 40 U/L 10/13/2021 [place] 11:32 AM CDT LABORATORY Specimen Anatomical Collection Method / Collection Time Recei rg Time (Source) Location / Volume Laterality Blood Venipuncture / 10/13/2021 7:40 10/13/2021 7:40 Unknown AM CDT AM CDT Giorgio Albarado MD LAB_1 Performing Organization Address [facility] Phon e Number [facility] [address] [place] [address] Complete Blood Count-No Diff (10/13/2021 7:40 AM CDT) P athologist Signature WBC 5.5 3.5 - 10.5 10/13/2021 [place] x10(9)/L 8:05 AM CDT LABORATORY RBC 4.30 3.90 - 10/13/2021 [place] 5.03 8:05 AM CDT LABORATORY x10(12)/L Hemoglobin 13.2 12.0 - 10/13/2021 [place] 15.5 g/dL 8:05 AM CDT LABORATORY HCT 39.9 34.9 - 10/13/2021 [place] 44.5 % 8:05 AM CDT LABORATORY MCV 92.8 80.0 - 10/13/2021 [place] 100.0 fL 8:05 AM CDT LABORATORY MCH 30.7 27.6 - 10/13/2021 [place] 33.3 pg 8:05 AM CDT LABORATORY MCHC 33.1 31.5 - 10/13/2021 [place] 35.2 g/dL 8:05 AM CDT LABORATORY RDW 13.5 11.9 - 10/13/2021 [place] 15.5 % 8:05 AM CDT LABORATORY Platelets 219 150 - 450 10/13/2021 [place] x10(9)/L 8:05 AM CDT LABORATORY Automated NRBC 0 <=0 /100 10/13/2021 [place] WBC 8:05 AM CDT LABORATORY Specimen Anatomical Collection Method / Collection Time Recei rg Time (Source) Location / Volume Laterality Blood Venipuncture / 10/13/2021 7:40 10/13/2021 7:40 Unknown AM CDT AM CDT Giorgio Albarado MD LAB_1 Performing Organization Address City/[facility] Code Phon e Number [facility] [address] [place], [place] [phone] documented in this encounter Visit Diagnoses Diagnosis Seropositive rheumatoid arthritis (HRC) Rheumatoid arthritis documented in this encounter Care Teams Tooth Clerk Relationship Specialty Start Date End Date Micki Arzate MD PCP - General Internal Medicine 01/29/[address] [place] [address] documented as of this encounter
--- OUTSIDE RECORDS SUMMARY | 2022-01-04 15:18 | XMS_ITS | Clinical Summary ---
:1955 Author Organization [facility] Address [address] [address] Care Team Providers Name Role Phone Micki Arzate MD Primary Care Provider Source Comments You are receiving this document as you are listed as the primary care provider,follow-up provider, or the patient has been referred to you for consultation.This is in compliance with the Medicare and Medicaid EHR Incentive Program,which states Providers who transition their patient to another setting of careor provider of care or refers their patient to another provider of care shouldprovide summarycare record for each transition of care or referral. [facility] Allergies Active Allergy Reactions Severity Noted Date Comments Penicillins Rash Medium 02/20/2017 Medications Medication Sig Dispensed Refills Start Date End Date Status Bioflavonoid Products 1,000 mg. Once 0 Active (VITAMIN C PLUS) 1000 MG daily Cholecalciferol (VITAMIN 2,000 mg. Every 0 Active D) 50 MCG (2000 UT) CAPS other day folic acid 1 MG tablet Take 1 Tablet 90 Tablet 3 03/14/2020 Active by mouth daily. hydroxychloroquine Take 1.5 135 Tablet 3 04/11/2021 Active (PLAQUENIL) 200 MG Tablets by 2 tablet mouth daily. predniSONE (DELTASONE) 5 5-10mg daily as 60 Tablet 1 1 Active MG tablet needed for arthritis methotrexate 2.5 MG Take 10 Tablets 120 Tablet 0 10/17/2021 Active tablet by mouth once every week Active Problems Problem Noted Date Rheumatoid arthritis with positive rheumatoid factor 0 06/25/2017 High risk medication use 04/23/2017 Hypothyroidism 02/20/2017 Essential hypertension 02/20/2017 Obesity 02/20/2017 Hyperlipidemia 02/20/2017 S/p nephrectomy 02/20/2017 Rheumatoid arthritis 02/20/2017 Rheumatoid factor positive 02/20/2017 Positive anti-CCP test 02/20/2017 Encounters Date Type Specialty Care Team Description 10/13/2021 Lab Visit Laboratory Seropositive rh eumatoid arthritis (HRC) 10/07/2021 Refill Rheumatology Giorgio Albarado MD Refill (me thotrexate 2.5 MG tablet [Pharmac y Med Name: Methotrexate So dium Oral Tablet 2.5 MG]) from Last 3 Months Immunizations Name Administration Dates Next Due Influenza IIV4 (Quadrivalent) 0.5mL (80382) 03/03/2019, 08/2016 Moderna (Spikevax) COVID-19, 12+ Yrs 08/19/2020, 07/22/2020 PPSV23 (Pneumovax) 03/03/2019 Zoster RZV (Shingrix) 11/18/2018, 08/05/2018 Social History Tobacco Use Types Packs/Day Years Used Date Smoking Tobacco: Never Smokeless Tobacco: Never Alcohol Use Standard Drinks/Week Comments Not Currently 0 (1 standard drink = 0.6 oz pure alcoho l) Sex Assigned at Date Recorded Not on file Last Filed Vital Signs Vital Sign Reading Time Taken Comments Blood Pressure 161/89 04/11/2021 1:18 PM DENSITOMETER READER Pulse 62 04/11/2021 1:18 PM DENSITOMETER READER Temperature - - Respiratory Rate - - Oxygen Saturation - - Inhaled Oxygen Concentration - - Weight 63 kg (139 lb) 04/11/2021 1:18 PM DENSITOMETER READER Height 154.9 cm (5' 1) 04/11/2021 1:18 PM DENSITOMETER READER Body Mass Index 26.26 04/11/2021 1:18 PM DENSITOMETER READER Plan of Treatment Upcoming Encounters Date Type Specialty Care Team Description 01/15/2022 Appointment Laboratory 02/22/2022 Appointment Rheumatology Giorgio Albarado M D [address] [place] [phone] (Wo rk) Health Maintenance Due Date Last Done Comments Colon Cancer Screening Plan 1955 Due Medicare Annual Wellness 1955 Visit Mammogram 1955 Cholesterol 01/23/2000 Dexa 01/23/2020 COVID-19 Vaccine (3 - 01/19/2021 08/19/2020, 07/22/2020 Booster for Moderna series) Influenza (#1) 2022 02/13/2020, 03/03/2019, 02/20/2017, Additional history exists Pneumococcal 65+ Yrs (2 - 03/03/2024 03/03/2019, 03/25/2018 PPSV23) DTaP/Tdap/Td (3 - Tdap) 01/01/2029 01/01/2019, 05/22/2007 Hep C Screening (Preventive Completed 02/20/2017 Services) Zoster/Shingles Completed 11/18/2018, 08/05/2018 HepA Aged Out No longer eligib le based on patient 's age to complete this topic HepB Aged Out No longer eligib le based on patient 's age to complete this topic Hib Aged Out No longer eligib le based on patient 's age to complete this topic IPV (Polio) Aged Out No longer eligib le based on patient 's age to complete this topic MCV4 Aged Out No longer eligib le based on patient 's age to complete this topic Procedures Procedure Name Priority Date/Time Associated Diagnosis Comme nts CREATININE / GFR Routine 10/13/2021 7:40 AM Seropositive Resul ts for this CDT rheumatoid arthritis procedu re are in ([facility]) the results section. ALT (SGPT) Routine 10/13/2021 7:40 AM Seropositive Results f or this CDT rheumatoid arthritis procedu re are in ([facility]) the results section. AST Routine 10/13/2021 7:40 AM Seropositive Results f or this CDT rheumatoid arthritis procedu re are in ([facility]) the results section. COMPLETE BLOOD Routine 10/13/2021 7:40 AM Seropositive Results for this COUNT-NO DIFF CDT rheumatoid arthritis proced ure are in ([facility]) the results section. from Last 3 Months Results Creatinine / GFR (10/13/2021 7:40 AM CDT) P athologist Signature Creatinine 0.90 0.55 - 10/13/2021 [facility] 1.02 mg/dL 11:32 AM CDT LABORATORY GFR, Estimated >60 >60 10/13/2021 [facility] mL/min/1.7 11:32 AM CDT LABORATORY 3m2 Specimen Anatomical Collection Method / Collection Time Recei rg Time (Source) Location / Volume Laterality Blood Venipuncture / 10/13/2021 7:40 10/13/2021 7:40 Unknown AM CDT AM CDT Giorgio Albarado MD LAB_1 Performing Organization Address [facility] [address]/ZIP Code Phon e Number [facility] [facility] [address] [place] [phone] Complete Blood Count-No Diff (10/13/2021 7:40 AM CDT) P athologist Signature WBC 5.5 3.5 - 10.5 10/13/2021 [place] x10(9)/L 8:05 AM CDT LABORATORY RBC 4.30 3.90 - 10/13/2021 [place] 5.03 8:05 AM CDT LABORATORY x10(12)/L Hemoglobin 13.2 12.0 - 10/13/2021 [place] 15.5 g/dL 8:05 AM CDT LABORATORY HCT 39.9 34.9 - 10/13/2021 [place] 44.5 % 8:05 AM CDT LABORATORY MCV 92.8 80.0 - 10/13/2021 [place] 100.0 fL 8:05 AM CDT LABORATORY MCH 30.7 27.6 - 10/13/2021 [place] 33.3 pg 8:05 AM CDT LABORATORY MCHC 33.1 31.5 - 10/13/2021 [place] 35.2 g/dL 8:05 AM CDT LABORATORY RDW 13.5 11.9 - 10/13/2021 [place] 15.5 % 8:05 AM CDT LABORATORY Platelets 219 150 - 450 10/13/2021 [place] x10(9)/L 8:05 AM CDT LABORATORY Automated NRBC 0 <=0 /100 10/13/2021 [place] WBC 8:05 AM CDT LABORATORY Specimen Anatomical Collection Method / Collection Time Recei rg Time (Source) Location / Volume Laterality Blood Venipuncture / 10/13/2021 7:40 10/13/2021 7:40 Unknown AM CDT AM CDT Giorgio Albarado MD LAB_1 Performing Organization Address City/State/ZIP Code Phon e Number [facility] [address] [place] [address] ALT (SGPT) (10/13/2021 7:40 AM CDT) athologist Signature ALT (SGPT) 17 0 - 55 U/L 10/13/2021 [place] 11:32 AM CDT LABORATORY Specimen Anatomical Collection Method / Collection Time Recei rg Time (Source) Location / Volume Laterality Blood Venipuncture / 10/13/2021 7:40 10/13/2021 7:40 Unknown AM CDT AM CDT Giorgio Albarado MD LAB_1 Performing Organization Address City/[facility] [address]/ZIP Code Phon e Number [facility] [address] [place] [address] AST (10/13/2021 7:40 AM CDT) athologist Signature AST (SGOT) 20 10 - 40 U/L 10/13/2021 [place] 11:32 AM CDT LABORATORY Specimen Anatomical Collection Method / Collection Time Recei rg Time (Source) Location / Volume Laterality Blood Venipuncture / 10/13/2021 7:40 10/13/2021 7:40 Unknown AM CDT AM CDT Giorgio Albarado MD LAB_1 Performing Organization Address City/[facility] [address]/ZIP Code Phon e Jyoti [facility] [address] [place] [address] from Last 3 Months Insurance Payer Benefit Plan / Subscriber ID Effective Dates Phone Addre ss Type Group MEDICARE MEDICARE [id number] 2020-Presen [phone] M edicare MANAGED CARE t 65 BCBS BCBS BCBS ATQASUK [id number] 2020-Presen [phone] [address] Medicare BLUE t 65 [place] [phone] [address] [facility] (Home[facility] [place] Paez [address] [place], [place] Personal/Famil Self 1955 [phone] [address] [facility] ([facility] [place]aez [address] [address] Care Teams Graphic Design Teacher Relationship Specialty Start Date End Date Micki Arzate MD PCP - General Internal Medicine 01/29/[address] [place] [address]
--- OUTSIDE RECORDS SUMMARY | 2022-01-04 15:18 | XMS_ITS | Encounter Summary ---
:1955 Author Organization [facility] Address [address] [place] [address] Care Team Providers Name Role Phone Micki Arzate MD Primary Care Provider Reason for Visit Reason Comments Refill methotrexate 2.5 MG tablet [ Pharmacy Med Name: Methotrexate Sodium Oral Tablet 2.5 MG] Encounter Details Date Type Department Care Team Description 12/31/2020 Refill Specialty Center [address] Manuel Stevenson MD Refill (methotrexate 2.5 Rheumatology Clinic [address] MG tablet [Pharmacy Med [address] [place], [place] Name: [place] [address] Sodium Oral Tablet 2.5 [phone] MG]) (Work) Social History Tobacco Use Types Packs/Day Years Used Date Smoking Tobacco: Never Smokeless Tobacco: Never Alcohol Use Standard Drinks/Week Comments Not Currently 0 (1 standard drink = 0.6 oz pure alcoho l) Sex Assigned at Date Recorded Not on file documented as of this encounter Nursing Notes Jazmin Mccall RN - 01/02/2021 3:51 PM CDT Filled per standing orders. Jazmin Garcia RN ....01/02/2021 3:51 PM Interface, Out Surescripts Prov Query - 12/31/2020 7:51 AM CDT methotrexate 2.5 MG tablet [Pharmacy Med Name: Methotrexate Sodium Oral Tablet 2.5 MG] Immunosuppressants -> Refill x 3 months (until due for a(n) ALT check, AST check, Cr check, HCT check, HGB check, PLT check, RBC check and WBC check) Last qualifying visit: 05/18/2020 (in Rheumatology) Next scheduled visit: 03/02/2021 (in Rheumatology) Last ordered by GIORGIO STEVENSON H: 09/03/2020 (119 days ago) QTY: 84, Refills: 0, Sig: take 7 tablets bymouth once every week. (changed but equivalent) Cr: 0.9 mg/dL on 11/09/2020 AST: 20 U/L on 11/09/2020 ALT: 17 U/L on 11/09/2020 HCT: 40.6 % on 11/09/2020 HGB: 13.3 g/dL on 11/09/2020 PLT: 197 k/cmm on 11/09/2020 RBC: 4.42 m/cmm on 11/09/2020 WBC: 6.2 k/cmm on 11/09/2020 Powered by [employer], Reference: [id number], 12/31/2020 7:51:26 AM CDT, Pool:Per [place] Care Team ([id number]) documented in this encounter Plan of Treatment Upcoming Encounters Date Type Specialty Care Team Description 01/15/2022 Appointment Laboratory 02/22/2022 Appointment Rheumatology Giorgio Stevenson M D [address] [place] [phone] (Wo rk) documented as of this encounter Visit Diagnoses Not on filedocumented in this encounter Care Teams Drag Seiner Relationship Specialty Start Date End Date Micki Arzate MD PCP - General Internal Medicine 01/29/[address] [place] [address] documented as of this encounter
--- OUTSIDE RECORDS SUMMARY | 2022-01-04 15:18 | XMS_ITS | Encounter Summary ---
:1955 Author Organization [facility] Address [address] [place] [address] Care Team Providers Name Role Phone Micki Arzate MD Primary Care Provider Encounter Details Date Type Department Care Team Description 01/21/2020 Lab Visit [facility] r isk medication use Laboratory [address] [place] [address] Social History Tobacco Use Types Packs/Day Years Used Date Smoking Tobacco: Never Smokeless Tobacco: Never Alcohol Use Standard Drinks/Week Comments Yes 0 (1 standard drink = 0.6 oz pure alcoho l) Sex Assigned at Date Recorded Not on file documented as of this encounter Plan of Treatment Upcoming Encounters Date Type Specialty Care Team Description 01/15/2022 Appointment Laboratory 02/22/2022 Appointment Rheumatology Giorgio Albarado M D [address] [place] [phone] (Wo rk) documented as of this encounter Procedures Procedure Name Priority Date/Time Associated Comments Diagnosis CBC AND DIFFERENTIAL Routine 01/21/2020 10:07 High risk Res ults for this PANEL AM CDT medication use procedure are in the results section. CREATININE / GFR Routine 01/21/2020 10:07 High risk Results for this AM CDT medication use procedure are in the results section. COMPLETE BLOOD Routine 01/21/2020 10:07 High risk Results f or this COUNT-W/DIFF AM CDT medication use procedure are in the results section. ALT (SGPT) Routine 01/21/2020 10:07 High risk Results for this AM CDT medication use procedure are in the results section. documented in this encounter Results Complete Blood Count-W/Diff (01/21/2020 10:07 AM CDT) P athologist Signature WBC 6.1 3.5 - 10.5 01/21/2020 [facility] x10(9)/L 10:29 AM CDT LABORATORY RBC 4.41 3.90 - 01/21/2020 [facility] 5.03 10:29 AM CDT LABORATORY x10(12)/L Hemoglobin 13.8 12.0 - 01/21/2020 [facility] 15.5 g/dL 10:29 AM CDT LABORATORY HCT 41.5 34.9 - 01/21/2020 [facility] 44.5 % 10:29 AM CDT LABORATORY MCV 94.1 80.0 - 01/21/2020 [facility] 100.0 fL 10:29 AM CDT LABORATORY MCH 31.3 27.6 - 01/21/2020 [facility] 33.3 pg 10:29 AM CDT LABORATORY MCHC 33.3 31.5 - 01/21/2020 [facility] 35.2 g/dL 10:29 AM CDT LABORATORY RDW 13.6 11.9 - 01/21/2020 [facility] 15.5 % 10:29 AM CDT LABORATORY Platelets 219 150 - 450 01/21/2020 [facility] x10(9)/L 10:29 AM CDT LABORATORY Automated NRBC 0 <=0 /100 01/21/2020 [facility] WBC 10:29 AM CDT LABORATORY Neutrophil 3.3 1.7 - 7.0 01/21/2020 [facility] Absolute 10(9)/L 10:29 AM CDT LABORATORY Lymphocyte 1.9 1.0 - 4.8 01/21/2020 [facility] Absolute 10(9)/L 10:29 AM CDT LABORATORY Monocytes 0.6 0.2 - 0.9 01/21/2020 [facility] Absolute 10(9)/L 10:29 AM CDT LABORATORY Eosinophil 0.2 0.0 - 0.5 01/21/2020 [facility] Absolute 10(9)/L 10:29 AM CDT LABORATORY Basophil 0.1 0.0 - 0.3 01/21/2020 [facility] Absolute 10(9)/L 10:29 AM CDT LABORATORY Immature Gran % 0.3 0.0 - 0.5 01/21/2020 [facility] % 10:29 AM CDT LABORATORY Specimen Anatomical Collection Method / Collection Time Recei rg Time (Source) Location / Volume Laterality Blood Venipuncture / 01/21/2020 10:07 0 Unknown AM CDT 10:25 AM CDT Hugh Chaudhary MD LAB_1 Performing Organization Address [facility]/ZIP Code Phon e Number [facility] [address] [place] [phone] CREAT - Creatinine - standing Q3 months (01/21/2020 10:07 AM CDT) P athologist Signature Creatinine 0.80 0.55 - 01/21/2020 [facility] 1.02 mg/dL 11:34 AM CDT LABORATORY GFR, Estimated >60 >60 01/21/2020 [facility] mL/min/1.7 11:34 AM CDT LABORATORY 3m2 Specimen Anatomical Collection Method / Collection Time Recei rg Time (Source) Location / Volume Laterality Blood Venipuncture / 01/21/2020 10:07 0 Unknown AM CDT 10:25 AM CDT Hugh Chaudhary MD LAB_1 Performing Organization Address [facility] Code Phon e Number [facility] [id number] [place] [phone] ALT - Alanine Aminotransferase - standing Q3 months (01/21/2020 10:07 AM CDT) P athologist Signature ALT (SGPT) 17 0 - 55 U/L 01/21/2020 [facility] 11:34 AM CDT LABORATORY Specimen Anatomical Collection Method / Collection Time Recei rg Time (Source) Location / Volume Laterality Blood Venipuncture / 01/21/2020 10:07 0 Unknown AM CDT 10:25 AM CDT Hugh Chaudhary MD LAB_1 Performing Organization Address City/[facility]/ZIP Code Phon e Number [facility] [address] [place] [phone] documented in this encounter Visit Diagnoses Diagnosis High risk medication use Encounter for long-term (current) use of other medications documented in this encounter Care Teams Computing Systems Mechanic Relationship Specialty Start Date End Date Micki Arzate MD PCP - General Internal Medicine 01/29/[address] [place] [address] documented as of this encounter
--- OUTSIDE RECORDS SUMMARY | 2022-01-04 15:18 | XMS_ITS | Encounter Summary ---
:1955 Author Organization [facility] Address [address] [place] [address] Care Team Providers Name Role Phone Micki Arzate MD Primary Care Provider Encounter Details Date Type Department Care Team Description 05/18/2020 Telemedicine Specialty Center 401 Giorgio Albarado, Se ropositive Rheumatology Clinic rheumatoid arthritis [address] [facility] ([facility]) (Primary Dx) [place] [address] [place], [place] [phone] [address] Social History Tobacco Use Types Packs/Day Years Used Date Smoking Tobacco: Never Smokeless Tobacco: Never Alcohol Use Standard Drinks/Week Comments Not Currently 0 (1 standard drink = 0.6 oz pure alcoho l) Sex Assigned at Date Recorded Not on file documented as of this encounter Progress Notes Giorgio Albarado MD - 05/18/2020 2:00 PM CST Video visit 65 y.o. old female following up for seropositive rheumatoid arthritis. Current therapy from rheumatology: Methotrexate 17.5 mg weekly, hydroxychloroquine 300mg daily started 02/2020. Prior therapies from rheumatology: Humira stopped 02/2020 when she switched to Medicare Was seen 04/18/20 and has left prepatellar bursitis which was aspirated. About 5 days this has resolved. States that joints are doing well without significant pain, swelling, stiffness. No side effects of medications, although MTX gives her somewhat of a runny nose. No infections. Exam: There were no vitals taken for this visit. Gen: No acute distress Lab Results Component Value Date/Time WBC 6.4 04/18/2020 09:57 AM HGB 13.8 04/18/2020 09:57 AM MCV 90.7 04/18/2020 09:57 AM PLTS 232 04/18/2020 09:57 AM AST 19 04/18/2020 09:57 AM ALT 15 04/18/2020 09:57 AM CREATININE 0.77 04/18/2020 09:57 AM Assessment/plan: Seropositive rheumatoid arthritis. Doing well on current regimen. Labs every 3 months. Follow up 6 months This visit was conducted via video. Location of clinician home. Location of patient home. Billing based on: Complexity. Giorgio Albarado MD [place] PRODUCT DEMO SPECIALIST documented in this encounter Plan of Treatment Upcoming Encounters Date Type Specialty Care Team Description 01/15/2022 Appointment Laboratory 02/22/2022 Appointment Rheumatology Giorgio Albarado M D [address] [place] [phone] (Wo rk) documented as of this encounter Visit Diagnoses Diagnosis Seropositive rheumatoid arthritis (HRC) - Primary Rheumatoid arthritis documented in this encounter Care Teams Computer Education Professor Relationship Specialty Start Date End Date Micki Arzate MD PCP - General Internal Medicine 01/29/[address] [place] [address] documented as of this encounter
--- OUTSIDE RECORDS SUMMARY | 2022-01-04 15:18 | XMS_ITS | Encounter Summary ---
:1955 Author Organization [facility] Address [address] [place] [address] Care Team Providers Name Role Phone Micki Arzate MD Primary Care Provider Reason for Visit Reason Comments Refill methotrexate 2.5 MG tablet [ Pharmacy Med Name: Methotrexate Sodium Oral Tablet 2.5 MG] Encounter Details Date Type Department Care Team Description 10/07/2021 Refill Special[facility] Center 401 Manuel Stevenson MD Refill (methotrexate 2.5 Rheumatology Clinic [address] MG tablet [Pharmacy Med [address] [place], [place] [address] Sodium Oral Tablet 2.5 [phone] MG]) (Work) Social History Tobacco Use Types Packs/Day Years Used Date Smoking Tobacco: Never Smokeless Tobacco: Never Alcohol Use Standard Drinks/Week Comments Not Currently 0 (1 standard drink = 0.6 oz pure alcoho l) Sex Assigned at Date Recorded Not on file documented as of this encounter Nursing Notes Jazmin Mccall RN - 10/17/2021 8:46 AM CDT Labs completed. Filled per standing orders. Jazmin Garcia RN ....10/17/2021 8:46 AM Padma Lockhart - 10/13/2021 3:15 PM CDT Medication Refill - Overdue Visit Called patient, was: Unable to reach patient 1st call attempted. Left message to call back. Padma Lockhart Jazmin Mccall RN - 10/09/2021 10:10 AM CDT Overdue for labs. Last labs done: 07/04/21 Please call patient and schedule for lab visit and route back to refill pool when scheduled. Jazmin Garcia RN ....10/09/2021 10:10 AM Interface, Out Surescripts Prov Query - 10/07/2021 6:02 PM CDT methotrexate 2.5 MG tablet [Pharmacy Med Name: Methotrexate Sodium Oral Tablet 2.5 MG] Immunosuppressants -> ALT, AST, Cr, HCT, HGB, PLT, RBC, and WBC are overdue (performed over 3 months ago, required every 2 months) -> Refill x 3 months (courtesy refill, overdue for a(n) ALT check, AST check, Cr check, HCT check, HGB check, PLT check, RBC check and WBC check) Last qualifying visit: 04/11/2021 (in Rheumatology) Next scheduled visit: None Last ordered by GIORGIO STEVENSON H: 07/13/2021 (86 days ago) QTY: 120, Refills: 0, Sig: take 10 tablets by mouth once every week (unchanged) Cr: 0.9 mg/dL on 07/04/2021 AST: 18 U/L on 07/04/2021 ALT: 19 U/L on 07/04/2021 HCT: 43.2 % on 07/04/2021 HGB: 14.1 g/dL on 07/04/2021 PLT: 224 k/cmm on 07/04/2021 RBC: 4.66 m/cmm on 07/04/2021 WBC: 6 k/cmm on 07/04/2021 [employer] Embedded Refills, Reference: [id number], 10/07/2021 6:02:49 PM CDT, Pool: Per [facility] Care Team ([id number]) documented in this encounter Plan of Treatment Upcoming Encounters Date Type Specialty Care Team Description 01/15/2022 Appointment Laboratory 02/22/2022 Appointment Rheumatology Giorgio Stevenson M D [address] [place] [phone] (Wo rk) documented as of this encounter Visit Diagnoses Not on filedocumented in this encounter Care Teams Sergeant Of Officers Relationship Specialty Start Date End Date Micki Arzate MD PCP - General Internal Medicine 01/29/17[address] [place] [address] documented as of this encounter
--- OUTSIDE RECORDS SUMMARY | 2022-01-04 15:18 | XMS_ITS | Encounter Summary ---
:1955 Author Organization [facility] Address [address], [place] [address] Care Team Providers Name Role Phone Micki Arzate MD Primary Care Provider Reason for Visit Reason Onset Date Comments Refill 07/13/2019 Encounter Details Date Type Department Care Team Description 07/13/2019 Refill [place] [facility] Hugh Hinojosa, Refill [address] [facility] [place] [address] [address] [facility] [phone] [facility] N [address] (Wo rk) Social History Tobacco Use Types Packs/Day Years Used Date Smoking Tobacco: Never Smokeless Tobacco: Never Alcohol Use Standard Drinks/Week Comments Yes 0 (1 standard drink = 0.6 oz pure alcoho l) Sex Assigned at Date Recorded Not on file documented as of this encounter Nursing Notes Melba Orlando RN - 07/14/2019 11:16 AM CST LV 05-12-2019 FV 12-08-2019 Lab Results Component Value Date/Time WBC 6.4 06/09/2019 10:41 AM RBC 4.66 06/09/2019 10:41 AM HGB 14.2 06/09/2019 10:41 AM HCT 43.5 06/09/2019 10:41 AM MCV 93.3 06/09/2019 10:41 AM MCH 30.5 06/09/2019 10:41 AM MCHC 32.6 06/09/2019 10:41 AM PLTS 229 06/09/2019 10:41 AM RDW 13.5 06/09/2019 10:41 AM Medication refill approved per protocol CTOR OF MARKETING Karime Schuster - 07/13/2019 2:47 PM CST Last Visit: 05/12/19 Future Visit: 12/08/19 [employer]OR OF MARKETING documented in this encounter Plan of Treatment Upcoming Encounters Date Type Specialty Care Team Description 01/15/2022 Appointment Laboratory 02/22/2022 Appointment Rheumatology Giorgio Albarado M D [address] [place] [phone] (Wo rk) documented as of this encounter Visit Diagnoses Diagnosis Rheumatoid arthritis with positive rheum atoid factor, involving unspecified site (HRC) documented in this encounter Care Teams Supervisor Drawing Relationship Specialty Start Date End Date Micki Arzate MD PCP - General Internal Medicine 01/29/17[address] [place] [address] documented as of this encounter
--- OUTSIDE RECORDS SUMMARY | 2022-01-04 15:18 | XMS_ITS | Encounter Summary ---
:1955 Author Organization [employer] [employer] [facility]Re[facility] ServicesAtt[facility] Address [address], [place] [address] Care Team Providers Name Role Phone Micki Arzate MD Primary Care Provider Reason for Visit Reason Comments Prior Authorization Request Encounter Details Date Type Department Care Team Description 05/10/2020 Telephone [facility] [address], Au thorization Rheumatology MD Hugh Request [address] [facility] [address] [facility] [place] [address] [phone] (Wo rk) Social History Tobacco Use Types Packs/Day Years Used Date Smoking Tobacco: Never Smokeless Tobacco: Never Alcohol Use Standard Drinks/Week Comments Not Currently 0 (1 standard drink = 0.6 oz pure alcoho l) Sex Assigned at Date Recorded Not on file documented as of this encounter Nursing Notes Carlota Stanley LPN - 05/10/2020 3:10 PM CST Pharmacy informed no longer our patient. SLIDE MACHINE SETTER Darlyn Fowler - 05/10/2020 1:18 PM CST Per my note from early today- Received a PA request for Humira for this patient. She is no longer followed by Dr. Chaudhary and per her new Registered Pharmacy Technician ( Giorgio Albarado MD) she stopped Humira in Feb when she switch to Medicare. No Further action needed. Informed [facility] of this. SLIDE MACHINE SETTER Franca Oseguera LPN - 05/10/2020 1:09 PM CST Pharmacy called. Pt has moved from commercial to medicare insurance. Pt will need a new PA for her Humira. SLIDE MACHINE SETTER documented in this encounter Plan of Treatment Upcoming Encounters Date Type Specialty Care Team Description 01/15/2022 Appointment Laboratory 02/22/2022 Appointment Rheumatology Giorgio Albarado M D [address] [place] [phone] (Wo rk) documented as of this encounter Visit Diagnoses Not on filedocumented in this encounter Care Teams Night Cleaner Relationship Specialty Start Date End Date Micki Arzate MD PCP - General Internal Medicine 01/29/[address] [place] [address] documented as of this encounter
--- OUTSIDE RECORDS SUMMARY | 2022-01-04 15:18 | XMS_ITS | Encounter Summary ---
:1955 Author Organization [employer] Address [address], [place] [address] Care Team Providers Name Role Phone Micki Arzate MD Primary Care Provider Reason for Visit Reason Comments Prior Authorization Request Encounter Details Date Type Department Care Team Description 10/15/2019 Telephone [facility] [address] [place], Prior Au thorization Rheumatology MD Hugh Request [address] [facility] [address] [facility] [place] [address] [phone] (Wo rk) Social History Tobacco Use Types Packs/Day Years Used Date Smoking Tobacco: Never Smokeless Tobacco: Never Alcohol Use Standard Drinks/Week Comments Yes 0 (1 standard drink = 0.6 oz pure alcoho l) Sex Assigned at Date Recorded Not on file documented as of this encounter Nursing Notes Cece He - 10/15/2019 4:18 PM CDT LM with the information below. Darlyn Fowler - 10/15/2019 12:54 PM CDT This PA was already submitted, I can not resubmit because it is review 7-10 days from 10/13/19. Patient does not meet urgent request guidelinse per [employer]. I am sorry she is out of medication. Patient will have to wait for outcome. Franca Oseguera LPN - 10/15/2019 10:21 AM CDT Pt called asking if PA on her humira could be resubmitted as Urgent as she is completely out. Pharmacy PA dept told her to contact us as they do not have to look at it for one week if it is not urgent.Please advise. documented in this encounter Plan of Treatment Upcoming Encounters Date Type Specialty Care Team Description 01/15/2022 Appointment Laboratory 02/22/2022 Appointment Rheumatology Giorgio Albarado M D [address] [place] [phone] (Wo rk) documented as of this encounter Visit Diagnoses Not on filedocumented in this encounter Care Teams Leguillon Debeader Relationship Specialty Start Date End Date Micki Arzate MD PCP - General Internal Medicine 01/29/[address] [place] [address] documented as of this encounter
--- OUTSIDE RECORDS SUMMARY | 2022-01-04 15:18 | XMS_ITS | Encounter Summary ---
:1955 Author Organization [facility] Address [address] [place] [address] Care Team Providers Name Role Phone Micki Arzate MD Primary Care Provider Encounter Details Date Type Department Care Team Description 11/09/2020 Lab Visit [facility] Seropositive rheumatoid [address] [facility] arthritis ([facility]) [place] [address] Social History Tobacco Use Types [...] Appointment Rheumatology Giorgio Albarado M D [address] [place] [phone] (Wo rk) documented as of this encounter Procedures Procedure Name Priority Date/Time Associated Diagnosis Comme nts CREATININE / GFR Routine 11/09/2020 2:28 PM Seropositive Resul ts for this CDT rheumatoid arthritis procedu re are in ([facility]) the results section. COMPLETE BLOOD Routine 11/09/2020 2:28 PM Seropositive Results for this COUNT-NO DIFF CDT rheumatoid arthritis proced ure are in ([facility]) the results section. ALT (SGPT) Routine 11/09/2020 2:28 PM Seropositive Results f or this CDT rheumatoid arthritis procedu re are in ([facility]) the results section. AST Routine 11/09/2020 2:28 PM Seropositive Results f or this CDT rheumatoid arthritis procedu re are in (HRC) the results section. documented in this encounter Results Creatinine / GFR (11/09/2020 2:28 PM CDT) athologist Signature Creatinine 0.90 0.55 - 11/09/2020 [facility] 1.02 mg/dL 3:33 PM CDT LABORATORY GFR, Estimated >60 >60 11/09/2020 [facility] mL/min/1.7 3:33 PM CDT LABORATORY 3m2 Specimen Anatomical Collection Method / Collection Time Recei rg Time (Source) Location / Volume Laterality Blood Venipuncture / 11/09/2020 2:28 11/09/2020 2:28 Unknown PM CDT PM CDT Giorgio Albarado MD LAB_1 Performing Organization Address [facility] LABORATORY [address] [place] [phone] ALT (SGPT) (11/09/2020 2:28 PM CDT) athologist Signature ALT (SGPT) 17 0 - 55 U/L 11/09/2020 [facility] 3:33 PM CDT LABORATORY Specimen Anatomical Collection Method / Collection Time Recei rg Time (Source) Location / Volume Laterality Blood Venipuncture / 11/09/2020 2:28 11/09/2020 2:28 Unknown PM CDT PM CDT Giorgio Albarado MD LAB_1 Performing Organization Address [facility] LABORATORY [address] [place] [address] AST (11/09/2020 2:28 PM CDT) athologist Signature AST (SGOT) 20 10 - 40 U/L 11/09/2020 [facility] 3:33 PM CDT LABORATORY Specimen Anatomical Collection Method / Collection Time Recei rg Time (Source) Location / Volume Laterality Blood Venipuncture / 11/09/2020 2:28 11/09/2020 2:28 Unknown PM CDT PM CDT Giorgio Albarado MD LAB_1 Performing Organization Address City/[facility] Phon e Number [facility] [address] [place] [phone] Complete Blood Count-No Diff (11/09/2020 2:28 PM CDT) P athologist Signature WBC 6.2 3.5 - 10.5 11/09/2020 [facility] x10(9)/L 2:31 PM CDT LABORATORY RBC 4.42 3.90 - 11/09/2020 [facility] 5.03 2:31 PM CDT LABORATORY x10(12)/L Hemoglobin 13.3 12.0 - 11/09/2020 [facility] 15.5 g/dL 2:31 PM CDT LABORATORY HCT 40.6 34.9 - 11/09/2020 [facility] 44.5 % 2:31 PM CDT LABORATORY MCV 91.9 80.0 - 11/09/2020 [facility] 100.0 fL 2:31 PM CDT LABORATORY MCH 30.1 27.6 - 11/09/2020 [facility] 33.3 pg 2:31 PM CDT LABORATORY MCHC 32.8 31.5 - 11/09/2020 [facility] 35.2 g/dL 2:31 PM CDT LABORATORY RDW 13.3 11.9 - 11/09/2020 [facility] 15.5 % 2:31 PM CDT LABORATORY Platelets 197 150 - 450 11/09/2020 [facility] x10(9)/L 2:31 PM CDT LABORATORY Automated NRBC 0 <=0 /100 11/09/2020 [facility] WBC 2:31 PM CDT LABORATORY Specimen Anatomical Collection Method / Collection Time Recei rg Time (Source) Location / Volume Laterality Blood Venipuncture / 11/09/2020 2:28 11/09/2020 2:28 Unknown PM CDT PM CDT Giorgio Albarado MD LAB_1 Performing Organization Address City/[facility] Code Phon e Number [facility] [address] [place], [place] [phone] documented in this encounter Visit Diagnoses Diagnosis Seropositive rheumatoid arthritis (HRC) Rheumatoid arthritis documented in this encounter Care Teams Client Relations Representative Relationship Specialty Start Date End Date Micki Arzate MD PCP - General Internal Medicine 01/29/17[address] [place] [address] documented as of this encounter
--- OUTSIDE RECORDS SUMMARY | 2022-01-04 15:18 | XMS_ITS | Encounter Summary ---
:1955 Author Organization [employer] [facility] Address [address] [place] [address] Care Team Providers Name Role Phone Micki Arzate MD Primary Care Provider Reason for Visit Reason Onset Date Comments Refill 09/02/2020 methotrexate Encounter Details Date Type Department Care Team Description 09/02/2020 Refill Specialty Center 401 Manuel Stevenson MD Refill (methotrexate) Rheumatology Clinic [address] [place] [address]. [place] [address] [phone] (Wo rk) Social History Tobacco Use Types Packs/Day Years Used Date Smoking Tobacco: Never Smokeless Tobacco: Never Alcohol Use Standard Drinks/Week Comments Not Currently 0 (1 standard drink = 0.6 oz pure alcoho l) Sex Assigned at Date Recorded Not on file documented as of this encounter Nursing Notes Interface, Out Surescripts Prov Query - 09/02/2020 12:42 PM CDT methotrexate 2.5 MG tablet Immunosuppressants -> Refill x 3 months (until due for a(n) ALT check, AST check, Cr check, HCT check, HGB check, PLT check, RBC check and WBC check) Last qualifying visit: 05/18/2020 (in Rheumatology) Next scheduled visit: 12/06/2020 (in Rheumatology) Last ordered by ELLIE STEVENSON H: 06/22/2020 (72 days ago) QTY: 84, Refills: 0, Sig: take 7 tablets by mouth once every week. (unchanged) Cr: 0.9 mg/dL on 07/28/2020 AST: 16 U/L on 07/28/2020 ALT: 13 U/L on 07/28/2020 HCT: 40.8 % on 07/28/2020 HGB: 13.6 g/dL on 07/28/2020 PLT: 220 k/cmm on 07/28/2020 RBC: 4.44 m/cmm on 07/28/2020 WBC: 5.9 k/cmm on 07/28/2020 Powered by [employer], Reference: [id number], 09/02/2020 12:42:23 PM CDT, Pool: Per [facility] Care Team ([id number]) Anne Hull - 09/02/2020 12:41 PM CDT Images from the original note were not included. documented in this encounter Plan of Treatment Upcoming Encounters Date Type Specialty Care Team Description 01/15/2022 Appointment Laboratory 02/22/2022 Appointment Rheumatology Ellie Stevenson M D [address] [place] [phone] (Wo rk) documented as of this encounter Visit Diagnoses Not on filedocumented in this encounter Care Teams Financial Internship Relationship Specialty Start Date End Date Micki Arzate MD PCP - General Internal Medicine 01/29/17[address] [place] [address] documented as of this encounter
--- OUTSIDE RECORDS SUMMARY | 2022-01-04 15:18 | XMS_ITS | Encounter Summary ---
:1955 Author Organization [facility] Address [address] [place] [address] Care Team Providers Name Role Phone Micki Arzate MD Primary Care Provider Reason for Visit Reason Comments Revisit Encounter Details Date Type Department Care Team Description 04/18/2020 Office Visit Specialty Center 401 Manuel Albarado MD Prepatellar bursitis Rheumatology Clinic [address] of left knee (Primary [address] [place], [place] Dx) [place] [address] [phone] Social History Tobacco Use Types Packs/Day Years Used Date Smoking Tobacco: Never Smokeless Tobacco: Never Alcohol Use Standard Drinks/Week Comments Not Currently 0 (1 standard drink = 0.6 oz pure alcoho l) Sex Assigned at Date Recorded Not on file documented as of this encounter Progress Notes Giorgio Albarado MD - 04/18/2020 9:00 AM CST 65 y.o. old female following up for seropositive rheumatoid arthritis. Current therapy from rheumatology: Methotrexate 17.5 mg weekly, hydroxychloroquine 300mg daily started 02/2020. Prior therapies from rheumatology: Humira stopped 02/2020 when she switched to Medicare She called on 04/12 with left knee swelling. She was offered a course of prednisone, but declined totake it. She denies any significant pain. She has been icing it to help try make it go down. Denies any injury. She does do some gardening and occasional kneeling. Remainder of her joints are doing well. Exam: There were no vitals taken for this visit. Gen: No acute distress MSK: Swelling over the left prepatellar bursa without warmth or erythema or tenderness. No knee effusion, swelling warmth. Lab Results Component Value Date/Time WBC 6.4 04/18/2020 09:57 AM HGB 13.8 04/18/2020 09:57 AM MCV 90.7 04/18/2020 09:57 AM PLTS 232 04/18/2020 09:57 AM PMN 3.3 01/21/2020 10:07 AM LYMA 1.9 01/21/2020 10:07 AM MONOA 0.6 01/21/2020 10:07 AM EOSA 0.2 01/21/2020 10:07 AM BASA 0.1 01/21/2020 10:07 AM ALT 17 01/21/2020 10:07 AM CREATININE 0.80 01/21/2020 10:07 AM ESR 64 (H) 02/20/2017 08:47 AM CRP 16.4 (H) 02/20/2017 08:47 AM Procedure Note: Left knee prepatellar bursa aspiration After risks and benefits were explained to the patient, using sterile technique and cleansing the site with chlorhexidine and ethyl chloride spray for local anesthesia, the bursa was aspirated using a 22 ga 1.5 inch needle. 9 cc of orangish-reddish fluid was obtained. The patient tolerated the procedure well without immediate complications. Assessment/plan: Left knee prepatellar bursitis. Aspirated above. Suggested applying, compression. Fluid was sent forcell count culture. Call with ongoing problems. Follow-up 05/18 as scheduled Orders Placed This Encounter ??? Body Fluid Cell Count and Differential ? ? Cell Count & Diff, Body Fluid ??? Body Fluid Aerobic Culture ??? INJECT/ASP MAJOR JOINT/BURSA HIP KNEE SHOULDER () Giorgio Albarado MD INE HEEL SPRAYER documented in this encounter Plan of Treatment Upcoming Encounters Date Type Specialty Care Team Description 01/15/2022 Appointment Laboratory 02/22/2022 Appointment Rheumatology Giorgio Albarado M D [address] [place] [phone] (Wo rk) documented as of this encounter Procedures Procedure Name Priority Date/Time Associated Diagnosis Comme nts BODY FLUID AEROBIC Routine 04/18/2020 10:05 Prepatellar bursit is Results for this CULTURE AM MACHINE HEEL SPRAYER of left knee procedure are i n the results section. BODY FLUID CELL COUNT Routine 04/18/2020 10:04 Prepatellar bur sitis Results for this AND DIFFERENTIAL AM MACHINE HEEL SPRAYER of left knee procedure a re in the results section. BODY FLUID, Routine 04/18/2020 10:04 Prepatellar bursitis Res ults for this DIFFERENTIAL AM MACHINE HEEL SPRAYER of left knee procedure are i n the results section. CELL COUNT & DIFF, Routine 04/18/2020 10:04 Prepatellar bursit is Results for this BODY FLUID AM MACHINE HEEL SPRAYER of left knee procedure are i n the results section. documented in this encounter Results Body Fluid Aerobic Culture (04/18/2020 10:05 AM MACHINE HEEL SPRAYER) Patholo gist Method Time Signature Body Fluid No Growth 04/21/2020 [facility] Culture After 3 Days 3:53 PM [facility] Gram Smear No PMN's 04/21/2020 [facility] Present 3:53 PM [facility] Gram Smear No Organisms 04/21/2020 [facility] Seen 3:53 PM [facility] Specimen Anatomical Collection Method Collection Time Receive d Time (Source) Location / / Volume Laterality Synovial Fluid ENTIRE KNEE REGION 04/18/2020 10:05 / Unknown AM MACHINE HEEL SPRAYER 10:41 AM MACHINE HEEL SPRAYER Giorgio Albarado MD LAB_1 Performing Organization Address City/State/[place] [address] Body Fluid, Differential (04/18/2020 10:04 AM MACHINE HEEL SPRAYER) P athologist Signature Body Fluid 4 % 04/18/2020 [facility] Neutrophils % 1:39 PM [facility] Body Fluid 17 % 04/18/2020 [facility] Lymphocytes % 1:39 PM [facility] Body Fluid 79 % 04/18/2020 [facility] Mononuclear 1:39 PM [facility] Cells % Body Fluid 2 % 04/18/2020 [facility] Eosinophils % 1:39 PM [facility] TOTAL CELLS 200 04/18/2020 [facility] COUNTED IN BODY 1:39 PM [facility] FLUID Specimen Anatomical Collection Method Collection Time Receive d Time (Source) Location / / Volume Laterality Synovial Fluid ENTIRE KNEE REGION 04/18/2020 10:04 / Unknown AM MACHINE HEEL SPRAYER 10:41 AM MACHINE HEEL SPRAYER Giorgio Albarado MD LAB_1 Performing Organization Address [facility] Phon e Number [address] [address] (ABNORMAL) Cell Count & Diff, Body Fluid (04/18/2020 10:04 AM MACHINE HEEL SPRAYER) [facility] gist Method Time Signature Body Fluid Synovial 04/18/2020 [facility] Type Fluid 1:39 PM [facility] BF Source Knee, left 04/18/2020 [facility] 1:39 PM [facility] Body Fluid Bloody (A) Clear 04/18/2020 [facility] Appearance 1:39 PM [facility] Body Fluid RBC 12,076 /uL 04/18/2020 [facility] 1:39 PM [facility] Comment: The reference interval is unava ilable for this body fluid. Comparison of the result with concentration in the blood i s recommended. Body Fluid WBC 447 (H) 0 - 200 /ul 04/18/2020 1:39 PM [facility] Specimen Anatomical Collection Method Collection Time Receive d Time (Source) Location / / Volume Laterality Synovial Fluid ENTIRE KNEE REGION 04/18/2020 10:04 / Unknown AM MACHINE HEEL SPRAYER 10:41 AM MACHINE HEEL SPRAYER Giorgio Albarado MD LAB_1 Performing Organization Address [facility] Phon e Number [address] [address] documented in this encounter Visit Diagnoses Diagnosis Prepatellar bursitis of left knee - Prim maral Prepatellar bursitis documented in this encounter Care Teams Industrial Energy Engineer Relationship Specialty Start Date End Date Micki Arzate MD PCP - General Internal Medicine 01/29/[address] [place] [address] documented as of this encounter
--- OUTSIDE RECORDS SUMMARY | 2022-01-04 15:18 | XMS_ITS | Encounter Summary ---
:1955 Author Organization [facility] Address [address] [place] [address] Care Team Providers Name Role Phone Micki Arzate MD Primary Care Provider Reason for Visit Reason Comments Refill MTX Encounter Details Date Type Department Care Team Description 07/08/2021 Refill Specialty Center 401 Manuel Stevenson MD Refill (MTX) [facility] [place] [place] [address] [place] [address] [phone] Social History Tobacco Use Types Packs/Day Years Used Date Smoking Tobacco: Never Smokeless Tobacco: Never Alcohol Use Standard Drinks/Week Comments Not Currently 0 (1 standard drink = 0.6 oz pure alcoho l) Sex Assigned at Date Recorded Not on file documented as of this encounter Nursing Notes Jazmin Mccall RN - 07/13/2021 9:21 AM CST Filled per standing orders. Jazmin Garcia RN ....07/13/2021 9:21 AM RATION MANAGER Interface, Out Surescripts Prov Query - 07/08/2021 9:11 AM CST methotrexate 2.5 MG tablet [Pharmacy Med Name: Methotrexate Sodium Oral Tablet 2.5 MG] Immunosuppressants -> Refill x 3 months (until due for a(n) ALT check, AST check, Cr check, HCT check, HGB check, PLT check, RBC check and WBC check) Last qualifying visit: 04/11/2021 (in Rheumatology) Next scheduled visit: None Last ordered by GIORGIO STEVENSON H: 04/11/2021 (88 days ago) QTY: 120, Refills: 0, Sig: take 10 tablets by mouth once every week. (unchanged) Cr: 0.9 mg/dL on 07/04/2021 AST: 18 U/L on 07/04/2021 ALT: 19 U/L on 07/04/2021 HCT: 43.2 % on 07/04/2021 HGB: 14.1 g/dL on 07/04/2021 PLT: 224 k/cmm on 07/04/2021 RBC: 4.66 m/cmm on 07/04/2021 WBC: 6 k/cmm on 07/04/2021 Powered by [employer], Reference: [id number], 07/08/2021 9:11:30 AM ALTERATION MANAGER, Robin:Per Arias Team ([id number]) RATION MANAGER documented in this encounter Plan of Treatment Upcoming Encounters Date Type Specialty Care Team Description 01/15/2022 Appointment Laboratory 02/22/2022 Appointment Rheumatology Giorgio Stevenson M D [address] [place] [phone] (Wo rk) documented as of this encounter Visit Diagnoses Not on filedocumented in this encounter Care Teams Spiral Binder Relationship Specialty Start Date End Date Micki Arzate MD PCP - General Internal Medicine [address] [place] [address] documented as of this encounter
--- OUTSIDE RECORDS SUMMARY | 2022-01-04 15:18 | XMS_ITS | Encounter Summary ---
:1955 Author Organization [facility] Address [address] [place] [address] Care Team Providers Name Role Phone Micki Arzate MD Primary Care Provider Reason for Visit Reason Onset Date Comments Refill 06/22/2020 Methotrexate Encounter Details Date Type Department Care Team Description 06/22/2020 Refill Specialty Center 401 JackelynManuel crook MD Refill (Methotrexate) Rheumatology Clinic [address] [place] [address]. [place] [phone] (Wo rk) Social History Tobacco Use Types Packs/Day Years Used Date Smoking Tobacco: Never Smokeless Tobacco: Never Alcohol Use Standard Drinks/Week Comments Not Currently 0 (1 standard drink = 0.6 oz pure alcoho l) Sex Assigned at Date Recorded Not on file documented as of this encounter Nursing Notes Nanette Sanchez RN - 06/22/2020 10:49 AM CST Per standing order Nanette Sanchez RN NKLER FITTER HELPER Interface, Out Surescripts Prov Query - 06/22/2020 10:18 AM CST methotrexate 2.5 MG tablet Immunosuppressants -> ALT, AST, Cr, HCT, HGB, PLT, RBC, and WBC are overdue (performed over 2 months ago, required every 2 months) -> Refill x 3 months (courtesy katia morales for a(n) ALT check, AST check, Cr check, HCT check, HGB check, PLT check, RBC check and WBC check) Last qualifying visit: 05/18/2020 (in Rheumatology) Next scheduled visit: None Last ordered by ELLIE STEVENSON H: 03/14/2020 (100 days ago) QTY: 108, Refills: 0, Sig: take 7 tablets by mouth once every week. (unchanged) Cr: 0.77 mg/dL on 04/18/2020 AST: 19 U/L on 04/18/2020 ALT: 15 U/L on 04/18/2020 HCT: 40.8 % on 04/18/2020 HGB: 13.8 g/dL on 04/18/2020 PLT: 232 k/cmm on 04/18/2020 RBC: 4.5 m/cmm on 04/18/2020 WBC: 6.4 k/cmm on 04/18/2020 Powered by [employer], Reference: [id number], 06/22/2020 10:18:19 AM Robin QURESHI: Per [facility] Care Team ([id number]) Anne Snider - 06/22/2020 10:17 AM CST Patient is hoping to pick this up today. NKLER FITTER HELPER documented in this encounter Plan of Treatment Upcoming Encounters Date Type Specialty Care Team Description 01/15/2022 Appointment Laboratory 02/22/2022 Appointment Rheumatology Ellie Stevenson M D [address] [place] [phone] (Wo rk) documented as of this encounter Visit Diagnoses Not on filedocumented in this encounter Care Teams Outsole Cementer Machine Relationship Specialty Start Date End Date Micki Arzate MD PCP - General Internal Medicine [address] [place] [address] documented as of this encounter
--- OUTSIDE RECORDS SUMMARY | 2022-01-04 15:18 | XMS_ITS | Encounter Summary ---
:1955 Author Organization [facility] Address [address] [address] Care Team Providers Name Role Phone Micki Arzate MD Primary Care Provider Reason for Visit Reason Comments Prior Authorization For Medication Humira Encounter Details Date Type Department Care Team Description 05/10/2020 Telephone [facility] [address]ena Au thorization For Rheumatology MD Hugh Medication (Humira) [address] [facility] [address] [facility] [place] [address] [phone] (Wo rk) Social History Tobacco Use Types Packs/Day Years Used Date Smoking Tobacco: Never Smokeless Tobacco: Never Alcohol Use Standard Drinks/Week Comments Not Currently 0 (1 standard drink = 0.6 oz pure alcoho l) Sex Assigned at Date Recorded Not on file documented as of this encounter Nursing Notes Darlyn Fowler - 05/10/2020 8:42 AM CST Received a PA request for Humira for this patient. She is no longer followed by Dr. Chaudhary andper her new Washery Boss ( Giorgio Albarado MD) she stopped Humira in Feb when she switch to Medicare. No Further action needed. ATED PAD BUFFER documented in this encounter Plan of Treatment Upcoming Encounters Date Type Specialty Care Team Description 01/15/2022 Appointment Laboratory 02/22/2022 Appointment Rheumatology Giorgio Albarado M D [address] [place], [place] [phone] (Wo rk) documented as of this encounter Visit Diagnoses Not on filedocumented in this encounter Care Teams Clinical Documentation Clerk Relationship Specialty Start Date End Date Micki Arzate MD PCP - General Internal Medicine [address] [place] [address] documented as of this encounter
--- OUTSIDE RECORDS SUMMARY | 2022-01-04 15:18 | XMS_ITS | Encounter Summary ---
:1955 Author Organization [facility] Address [address] [address] Care Team Providers Name Role Phone Micki Arzate MD Primary Care Provider Encounter Details Date Type Department Care Team Description 06/09/2019 Lab Visit [facility] High risk medication use [address] [place] [address] Social History Tobacco Use Types [...] 02/22/2022 Appointment Rheumatology Giorgio Albarado M D [address] [place] [phone] (Wo rk) documented as of this encounter Procedures Procedure Name Priority Date/Time Associated Comments Diagnosis CBC AND DIFFERENTIAL Routine 06/09/2019 10:41 High risk Res ults for this PANEL AM DELINQUENCY PREVENTION SOCIAL WORKER medication use procedure are in the results section. CREATININE / GFR Routine 06/09/2019 10:41 High risk Results for this AM DELINQUENCY PREVENTION SOCIAL WORKER medication use procedure are in the results section. COMPLETE BLOOD Routine 06/09/2019 10:41 High risk Results f or this COUNT-W/DIFF AM DELINQUENCY PREVENTION SOCIAL WORKER medication use procedure are in the results section. ALT (SGPT) Routine 06/09/2019 10:41 High risk Results for this AM DELINQUENCY PREVENTION SOCIAL WORKER medication use procedure are in the results section. documented in this encounter Results Complete Blood Count-W/Diff (06/09/2019 10:41 AM DELINQUENCY PREVENTION SOCIAL WORKER) P athologist Signature WBC 6.4 3.5 - 10.5 06/09/2019 [facility] x10(9)/L 10:45 AM DELINQUENCY PREVENTION SOCIAL WORKER LABORATORY RBC 4.66 3.90 - 06/09/2019 [facility] 5.03 10:45 AM DELINQUENCY PREVENTION SOCIAL WORKER LABOR[facility]ORY x10(12)/L Hemoglobin 14.2 12.0 - 06/09/2019 [facility] 15.5 g/dL 10:45 AM DELINQUENCY PREVENTION SOCIAL WORKER [facility] HCT 43.5 34.9 - 06/09/2019 [facility] 44.5 % 10:45 AM DELINQUENCY PREVENTION SOCIAL WORKER [facility] MCV 93.3 80.0 - 06/09/2019 [facility] 100.0 fL 10:45 AM DELINQUENCY PREVENTION SOCIAL WORKER [facility] MCH 30.5 27.6 - 06/09/2019 [facility] 33.3 pg 10:45 AM DELINQUENCY PREVENTION SOCIAL WORKER [facility] MCHC 32.6 31.5 - 06/09/2019 [facility] 35.2 g/dL 10:45 AM DELINQUENCY PREVENTION SOCIAL WORKER [facility] RDW 13.5 11.9 - 06/09/2019 [facility] 15.5 % 10:45 AM DELINQUENCY PREVENTION SOCIAL WORKER [facility] Platelets 229 150 - 450 06/09/2019 [facility] x10(9)/L 10:45 AM DELINQUENCY PREVENTION SOCIAL WORKER [facility] Automated NRBC 0 <=0 /100 06/09/2019 [facility] WBC 10:45 AM DELINQUENCY PREVENTION SOCIAL WORKER LAB[facility]ORY Neutrophil 3.3 1.7 - 7.0 06/09/2019 [facility] Absolute 10(9)/L 10:45 AM DELINQUENCY PREVENTION SOCIAL WORKER [facility] Lymphocyte 2.3 1.0 - 4.8 06/09/2019 [facility] Absolute 10(9)/L 10:45 AM DELINQUENCY PREVENTION SOCIAL WORKER [facility] Monocytes 0.6 0.2 - 0.9 06/09/2019 [facility] Absolute 10(9)/L 10:45 AM DELINQUENCY PREVENTION SOCIAL WORKER [facility] Eosinophil 0.2 0.0 - 0.5 06/09/2019 [facility] Absolute 10(9)/L 10:45 AM DELINQUENCY PREVENTION SOCIAL WORKER LAB[facility] Basophil 0.1 0.0 - 0.3 06/09/2019 [facility] Absolute 10(9)/L 10:45 AM DELINQUENCY PREVENTION SOCIAL WORKER [facility] Immature Gran % 0.3 0.0 - 0.5 06/09/2019 [facility] % 10:45 AM DELINQUENCY PREVENTION SOCIAL WORKER LABORATORY Specimen Anatomical Collection Method / Collection Time Recei rg Time (Source) Location / Volume Laterality Blood Venipuncture / 06/09/2019 10:41 0 Unknown AM DELINQUENCY PREVENTION SOCIAL WORKER 10:41 AM DELINQUENCY PREVENTION SOCIAL WORKER Hugh Chaudhary MD LAB_1 Performing Organization Address [facility]/ZIP Code Phon e Number [facility] [address] [place] [address] CREAT - Creatinine - standing Q3 months (06/09/2019 10:41 AM DELINQUENCY PREVENTION SOCIAL WORKER) P athologist Signature Creatinine 0.90 0.55 - 06/09/2019 [facility] 1.02 mg/dL 11:03 AM DELINQUENCY PREVENTION SOCIAL WORKER LABOR[facility]ORY GFR, Estimated >60 >60 06/09/2019 [facility] mL/min/1.7 11:03 AM DELINQUENCY PREVENTION SOCIAL WORKER LABORATORY 3m2 GFR, Est If >60 >60 06/09/2019 [facility] mL/min/1.7 11:03 AM DELINQUENCY PREVENTION SOCIAL WORKER LABORATORY Greek 3m2 Specimen Anatomical Collection Method / Collection Time Recei rg Time (Source) Location / Volume Laterality Blood Venipuncture / 06/09/2019 10:41 0 Unknown AM DELINQUENCY PREVENTION SOCIAL WORKER 10:41 AM DELINQUENCY PREVENTION SOCIAL WORKER Hugh Chaudhary MD LAB_1 Performing Organization Address [facility] Phon e Number [facility] [address] [place] [address] ALT - Alanine Aminotransferase - standing Q3 months (06/09/2019 10:41 AM DELINQUENCY PREVENTION SOCIAL WORKER) P athologist Signature ALT (SGPT) 23 0 - 55 U/L 06/09/2019 [facility] 11:03 AM DELINQUENCY PREVENTION SOCIAL WORKER LABORATORY Specimen Anatomical Collection Method / Collection Time Recei rg Time (Source) Location / Volume Laterality Blood Venipuncture / 06/09/2019 10:41 0 Unknown AM DELINQUENCY PREVENTION SOCIAL WORKER 10:41 AM DELINQUENCY PREVENTION SOCIAL WORKER Hugh Chaudhary MD LAB_1 Performing Organization Address [facility] Phon e Number [facility] [address] [place] [address] documented in this encounter Visit Diagnoses Diagnosis High risk medication use Encounter for long-term (current) use of other medications documented in this encounter Care Teams Deputy General Counsel Relationship Specialty Start Date End Date Micki Arzate MD PCP - General Internal Medicine [address] [place] [address] documented as of this encounter
--- OUTSIDE RECORDS SUMMARY | 2022-01-04 15:18 | XMS_ITS | Encounter Summary ---
:1955 Author Organization [facility] Address [address] [place] [address] Care Team Providers Name Role Phone Micki Arzate MD Primary Care Provider Encounter Details Date Type Department Care Team Description 07/28/2020 Lab Visit [facility] Seropositive rheumatoid [address] [facility] arthritis ([facility]) [place] [address] Social History Tobacco Use Types [...] 02/22/2022 Appointment Rheumatology Giorgio Albarado M D [address] [place] [phone] (Wo rk) documented as of this encounter Procedures Procedure Name Priority Date/Time Associated Diagnosis Comme nts CREATININE / GFR Routine 07/28/2020 9:10 AM Seropositive Resul ts for this IT APPLICATION SUPPORT ANALYST rheumatoid arthritis procedu re are in ([facility]) the results section. COMPLETE BLOOD Routine 07/28/2020 9:10 AM Seropositive Results for this COUNT-NO DIFF IT APPLICATION SUPPORT ANALYST rheumatoid arthritis proced ure are in ([facility]) the results section. ALT (SGPT) Routine 07/28/2020 9:10 AM Seropositive Results f or this IT APPLICATION SUPPORT ANALYST rheumatoid arthritis procedu re are in ([facility]) the results section. AST Routine 07/28/2020 9:10 AM Seropositive Results f or this IT APPLICATION SUPPORT ANALYST rheumatoid arthritis procedu re are in ([facility]) the results section. documented in this encounter Results Creatinine / GFR (07/28/2020 9:10 AM IT APPLICATION SUPPORT ANALYST) athologist Signature Creatinine 0.90 0.55 - 07/28/2020 [facility] 1.02 mg/dL 9:42 AM IT APPLICATION SUPPORT ANALYST LABORATORY GFR, Estimated >60 >60 07/28/2020 [facility] mL/min/1.7 9:42 AM IT APPLICATION SUPPORT ANALYST LABORATORY 3m2 Specimen Anatomical Collection Method / Collection Time Recei rg Time (Source) Location / Volume Laterality Blood Venipuncture / 07/28/2020 9:10 07/28/2020 9:10 Unknown AM IT APPLICATION SUPPORT ANALYST AM IT APPLICATION SUPPORT ANALYST Giorgio Albarado MD LAB_1 Performing Organization Address [facility] Code Phon e Jyoti [facility] [address] [place] [address] ALT (SGPT) (07/28/2020 9:10 AM IT APPLICATION SUPPORT ANALYST) athologist Signature ALT (SGPT) 13 0 - 55 U/L 07/28/2020 [facility] 9:42 AM IT APPLICATION SUPPORT ANALYST LABORATORY Specimen Anatomical Collection Method / Collection Time Recei rg Time (Source) Location / Volume Laterality Blood Venipuncture / 07/28/2020 9:10 07/28/2020 9:10 Unknown AM IT APPLICATION SUPPORT ANALYST AM IT APPLICATION SUPPORT ANALYST Giorgio Albarado MD LAB_1 Performing Organization Address [facility]/ZIP Code Phon e Number [facility] [address] [place] [address] AST (07/28/2020 9:10 AM IT APPLICATION SUPPORT ANALYST) athologist Signature AST (SGOT) 16 10 - 40 U/L 07/28/2020 [facility] 9:42 AM IT APPLICATION SUPPORT ANALYST LABORATORY Specimen Anatomical Collection Method / Collection Time Recei rg Time (Source) Location / Volume Laterality Blood Venipuncture / 07/28/2020 9:10 07/28/2020 9:10 Unknown AM IT APPLICATION SUPPORT ANALYST AM IT APPLICATION SUPPORT ANALYST Giorgio Albarado MD LAB_1 Performing Organization Address [facility] Phon e Number [facility] [address] [place], [place] [phone] Complete Blood Count-No Diff (07/28/2020 9:10 AM IT APPLICATION SUPPORT ANALYST) P athologist Signature WBC 5.9 3.5 - 10.5 07/28/2020 [facility] x10(9)/L 9:18 AM IT APPLICATION SUPPORT ANALYST LABORATORY RBC 4.44 3.90 - 07/28/2020 [facility] 5.03 9:18 AM IT APPLICATION SUPPORT ANALYST LABORATORY x10(12)/L Hemoglobin 13.6 12.0 - 07/28/2020 [facility] 15.5 g/dL 9:18 AM IT APPLICATION SUPPORT ANALYST LABORATORY HCT 40.8 34.9 - 07/28/2020 [facility] 44.5 % 9:18 AM IT APPLICATION SUPPORT ANALYST LABORATORY MCV 91.9 80.0 - 07/28/2020 [facility] 100.0 fL 9:18 AM IT APPLICATION SUPPORT ANALYST LABORATORY MCH 30.6 27.6 - 07/28/2020 [facility] 33.3 pg 9:18 AM IT APPLICATION SUPPORT ANALYST LABORATORY MCHC 33.3 31.5 - 07/28/2020 [facility] 35.2 g/dL 9:18 AM IT APPLICATION SUPPORT ANALYST LABORATORY RDW 13.0 11.9 - 07/28/2020 [facility] 15.5 % 9:18 AM IT APPLICATION SUPPORT ANALYST LABORATORY Platelets 220 150 - 450 07/28/2020 [facility] x10(9)/L 9:18 AM IT APPLICATION SUPPORT ANALYST LABORATORY Automated NRBC 0 <=0 /100 07/28/2020 [facility] WBC 9:18 AM IT APPLICATION SUPPORT ANALYST LABORATORY Specimen Anatomical Collection Method / Collection Time Recei rg Time (Source) Location / Volume Laterality Blood Venipuncture / 07/28/2020 9:10 07/28/2020 9:10 Unknown AM IT APPLICATION SUPPORT ANALYST AM IT APPLICATION SUPPORT ANALYST Giorgio Albarado MD LAB_1 Performing Organization Address City/State/ZIP Code Phon e Number [facility] [address] [place] [address] documented in this encounter Visit Diagnoses Diagnosis Seropositive rheumatoid arthritis (HRC) Rheumatoid arthritis documented in this encounter Care Teams Forensic Artist Relationship Specialty Start Date End Date Micki Arzate MD PCP - General Internal Medicine 01/29/171999 [place] [address] documented as of this encounter
--- OUTSIDE RECORDS SUMMARY | 2022-01-04 15:18 | XMS_ITS | Encounter Summary ---
:1955 Author Organization [facility] Address [address] [place] [address] Care Team Providers Name Role Phone Micki Arzate MD Primary Care Provider Encounter Details Date Type Department Care Team Description 07/04/2021 Lab Visit [facility] Seropositive rheumatoid [address] [facility] arthritis ([facility]) [place] [address] Social History Tobacco Use Types [...] 02/22/2022 Appointment Rheumatology Giorgio Albarado M D [address] [place] [phone] (Wo rk) documented as of this encounter Procedures Procedure Name Priority Date/Time Associated Diagnosis Comme nts CREATININE / GFR Routine 07/04/2021 10:12 Seropositive Results for this AM REPORTING MANAGER rheumatoid arthritis procedu re are in ([facility]) the results section. COMPLETE BLOOD Routine 07/04/2021 10:12 Seropositive Results f or this COUNT-NO DIFF AM REPORTING MANAGER rheumatoid arthritis proced ure are in ([facility]) the results section. ALT (SGPT) Routine 07/04/2021 10:12 Seropositive Results for this AM REPORTING MANAGER rheumatoid arthritis procedu re are in ([facility]) the results section. AST Routine 07/04/2021 10:12 Seropositive Results for this AM REPORTING MANAGER rheumatoid arthritis procedu re are in ([facility]) the results section. documented in this encounter Results Creatinine / GFR (07/04/2021 10:12 AM REPORTING MANAGER) athologist Signature Creatinine 0.90 0.55 - 07/04/2021 [place] 1.02 mg/dL 11:57 AM REPORTING MANAGER LABORATORY GFR, Estimated >60 >60 07/04/2021 [place] mL/min/1.7 11:57 AM REPORTING MANAGER LABORATORY 3m2 Specimen Anatomical Collection Method / Collection Time Recei rg Time (Source) Location / Volume Laterality Blood Venipuncture / 07/04/2021 10:12 2 Unknown AM REPORTING MANAGER 10:12 AM REPORTING MANAGER Giorgio Albarado MD LAB_1 Performing Organization Address [facility] Phon e [facility]ATORY [address] [place] [phone] ALT (SGPT) (07/04/2021 10:12 AM REPORTING MANAGER) athologist Signature ALT (SGPT) 19 0 - 55 U/L 07/04/2021 [place] 11:57 AM REPORTING MANAGER LABORATORY Specimen Anatomical Collection Method / Collection Time Recei rg Time (Source) Location / Volume Laterality Blood Venipuncture / 07/04/2021 10:12 2 Unknown AM REPORTING MANAGER 10:12 AM REPORTING MANAGER Giorgio Albarado MD LAB_1 Performing Organization Address [facility]/ZIP Code Phon e Number [facility] [address] [place] [address] AST (07/04/2021 10:12 AM REPORTING MANAGER) athologist Signature AST (SGOT) 18 10 - 40 U/L 07/04/2021 [place] 11:57 AM REPORTING MANAGER LABORATORY Specimen Anatomical Collection Method / Collection Time Recei rg Time (Source) Location / Volume Laterality Blood Venipuncture / 07/04/2021 10:12 2 Unknown AM REPORTING MANAGER 10:12 AM REPORTING MANAGER Giorgio Albarado MD LAB_1 Performing Organization Address [facility] Phon e Number [facility] [address] [place] [address] Complete Blood Count-No Diff (07/04/2021 10:12 AM REPORTING MANAGER) P athologist Signature WBC 6.0 3.5 - 10.5 07/04/2021 [place] x10(9)/L 10:15 AM REPORTING MANAGER LABORATORY RBC 4.66 3.90 - 07/04/2021 [place] 5.03 10:15 AM REPORTING MANAGER LABORATORY x10(12)/L Hemoglobin 14.1 12.0 - 07/04/2021 [place] 15.5 g/dL 10:15 AM REPORTING MANAGER LABORATORY HCT 43.2 34.9 - 07/04/2021 [place] 44.5 % 10:15 AM REPORTING MANAGER LABORATORY MCV 92.7 80.0 - 07/04/2021 [place] 100.0 fL 10:15 AM REPORTING MANAGER LABORATORY MCH 30.3 27.6 - 07/04/2021 [place] 33.3 pg 10:15 AM REPORTING MANAGER LABORATORY MCHC 32.6 31.5 - 07/04/2021 [place] 35.2 g/dL 10:15 AM REPORTING MANAGER LABORATORY RDW 13.2 11.9 - 07/04/2021 [place] 15.5 % 10:15 AM REPORTING MANAGER LABORATORY Platelets 224 150 - 450 07/04/2021 [place] x10(9)/L 10:15 AM REPORTING MANAGER LABORATORY Automated NRBC 0 <=0 /100 07/04/2021 [place] WBC 10:15 AM REPORTING MANAGER LABORATORY Specimen Anatomical Collection Method / Collection Time Recei rg Time (Source) Location / Volume Laterality Blood Venipuncture / 07/04/2021 10:12 2 Unknown AM REPORTING MANAGER 10:12 AM REPORTING MANAGER Giorgio Albarado MD LAB_1 Performing Organization Address City/State/ZIP Code Phon e Number [facility] [address] [place] [address] documented in this encounter Visit Diagnoses Diagnosis Seropositive rheumatoid arthritis (HRC) Rheumatoid arthritis documented in this encounter Care Teams Dye Boarding Machine Operator Relationship Specialty Start Date End Date Micki Arzate MD PCP - General Internal Medicine 01/29/[address] [place] [address] documented as of this encounter
--- OUTSIDE RECORDS SUMMARY | 2022-01-04 15:18 | XMS_ITS | Encounter Summary ---
:1955 Author Organization [facility] Address [address] [address] Care Team Providers Name Role Phone Micki Arzate MD Primary Care Provider Encounter Details Date Type Department Care Team Description 04/18/2020 Lab Visit [facility] Seroposi tive rheumatoid Laboratory arthritis (HRC) [address] [facility] [place] [address] Social History Tobacco Use Types Packs/Day Years [...] 02/22/2022 Appointment Rheumatology Giorgio Albarado M D [address] [place] [phone] (Wo rk) documented as of this encounter Procedures Procedure Name Priority Date/Time Associated Diagnosis Comme nts CREATININE / GFR Routine 04/18/2020 9:57 AM Seropositive Resul ts for this CREDIT REFERENCE CLERK rheumatoid arthritis procedu re are in ([facility]) the results section. COMPLETE BLOOD Routine 04/18/2020 9:57 AM Seropositive Results for this COUNT-NO DIFF CREDIT REFERENCE CLERK rheumatoid arthritis proced ure are in ([facility]) the results section. ALT (SGPT) Routine 04/18/2020 9:57 AM Seropositive Results f or this CREDIT REFERENCE CLERK rheumatoid arthritis procedu re are in ([facility]) the results section. AST Routine 04/18/2020 9:57 AM Seropositive Results f or this CREDIT REFERENCE CLERK rheumatoid arthritis procedu re are in ([facility]) the results section. documented in this encounter Results Creatinine / GFR (04/18/2020 9:57 AM CREDIT REFERENCE CLERK) [facility] Method Time Signature Creatinine 0.77 0.55 - 04/18/2020 [facility] 1.02 1:09 PM CREDIT REFERENCE CLERK CENTRAL LAB mg/dL GFR, Estimated >60 >60 04/18/2020 [facility] mL/min/1. 1:09 PM CREDIT REFERENCE CLERK CENTRAL LAB 73m2 Specimen Anatomical Collection Method / Collection Time Recei rg Time (Source) Location / Volume Laterality Blood Venipuncture / 04/18/2020 9:57 04/18/2020 9:57 Unknown AM CREDIT REFERENCE CLERK AM CREDIT REFERENCE CLERK Giorgio Albarado MD LAB_1 Performing Organization Address [facility] e Number [email or web address] CENTRAL LAB [address] [place] [address] ALT (SGPT) (04/18/2020 9:57 AM CREDIT REFERENCE CLERK) athologist Signature ALT (SGPT) 15 0 - 55 U/L 04/18/2020 [facility] 1:09 PM CREDIT REFERENCE CLERK CENTRAL LAB Specimen Anatomical Collection Method / Collection Time Recei rg Time (Source) Location / Volume Laterality Blood Venipuncture / 04/18/2020 9:57 04/18/2020 9:57 Unknown AM CREDIT REFERENCE CLERK AM CREDIT REFERENCE CLERK Giorgio Albarado MD LAB_1 Performing Organization Address [facility] Phon e Number [facility] [address] [address] AST (04/18/2020 9:57 AM CREDIT REFERENCE CLERK) athologist Signature AST (SGOT) 19 10 - 40 04/18/2020 [facility] U/L 1:09 PM CREDIT REFERENCE CLERK CENTRAL LAB Specimen Anatomical Collection Method / Collection Time Recei rg Time (Source) Location / Volume Laterality Blood Venipuncture / 04/18/2020 9:57 04/18/2020 9:57 Unknown AM CREDIT REFERENCE CLERK AM CREDIT REFERENCE CLERK Giorgio Albarado MD LAB_1 Performing Organization Address [facility] Phon e Number [email or web address] CENTRAL LAB [address] [place] [phone] Complete Blood Count-No Diff (04/18/2020 9:57 AM CREDIT REFERENCE CLERK) P athologist Signature WBC 6.4 3.5 - 10.5 04/18/2020 [facility] x10(9)/L 10:09 AM CREDIT REFERENCE CLERK [facility] LABORATORY RBC 4.50 3.90 - 5.03 04/18/2020 [facility] x10(12)/L 10:09 AM CREDIT REFERENCE CLERK [facility] LAB[facility] Hemoglobin 13.8 12.0 - 15.5 04/18/2020 [facility] g/dL 10:09 AM CREDIT REFERENCE CLERK [facility] HCT 40.8 34.9 - 44.5 04/18/2020 [facility] % 10:09 AM CREDIT REFERENCE CLERK [facility] LAB[facility] MCV 90.7 80.0 - 04/18/2020 [facility] 100.0 fL 10:09 AM CREDIT REFERENCE CLERK [facility] MCH 30.7 27.6 - 33.3 04/18/2020 [facility] pg 10:09 AM CREDIT REFERENCE CLERK [facility] MCHC 33.8 31.5 - 35.2 04/18/2020 [facility] g/dL 10:09 AM CREDIT REFERENCE CLERK [facility] RDW 13.6 11.9 - 15.5 04/18/2020 [facility] % 10:09 AM CREDIT REFERENCE CLERK [facility] LAB[facility] Platelets 232 150 - 450 04/18/2020 [facility] x10(9)/L 10:09 AM CREDIT REFERENCE CLERK [facility] LAB[facility] Specimen Anatomical Collection Method / Collection Time Recei rg Time (Source) Location / Volume Laterality Blood Venipuncture / 04/18/2020 9:57 04/18/2020 9:57 Unknown AM CREDIT REFERENCE CLERK AM CREDIT REFERENCE CLERK Giorgio Albarado MD LAB_1 Performing Organization Address City/State/ZIP Code Phon e Number [facility] [address] [place] [address] documented in this encounter Visit Diagnoses Diagnosis Seropositive rheumatoid arthritis (HRC) Rheumatoid arthritis documented in this encounter Care Teams Pari Mutuel Ticket Cashier Relationship Specialty Start Date End Date Micki Arzate MD PCP - General Internal Medicine 01/29/[address] [place] [address] documented as of this encounter
--- OUTSIDE RECORDS SUMMARY | 2022-01-04 15:18 | XMS_ITS | Encounter Summary ---
:1955 Author Organization [facility] Address [address] [place] [address] Care Team Providers Name Role Phone Micki Arzate MD Primary Care Provider Encounter Details Date Type Department Care Team Description 03/15/2021 Lab Visit [facility] Seropositive rheumatoid [address] [facility] arthritis ([facility]) [place] [address] Social History Tobacco Use Types [...] 02/22/2022 Appointment Rheumatology Giorgio Albarado M D [address] [place] [phone] (Wo rk) documented as of this encounter Procedures Procedure Name Priority Date/Time Associated Diagnosis Comme nts CREATININE / GFR Routine 03/15/2021 9:19 AM Seropositive Resul ts for this CDT rheumatoid arthritis procedu re are in ([facility]) the results section. COMPLETE BLOOD Routine 03/15/2021 9:19 AM Seropositive Results for this COUNT-NO DIFF CDT rheumatoid arthritis proced ure are in ([facility]) the results section. ALT (SGPT) Routine 03/15/2021 9:19 AM Seropositive Results f or this CDT rheumatoid arthritis procedu re are in ([facility]) the results section. AST Routine 03/15/2021 9:19 AM Seropositive Results f or this CDT rheumatoid arthritis procedu re are in ([facility]) the results section. documented in this encounter Results Creatinine / GFR (03/15/2021 9:19 AM CDT) athologist Signature Creatinine 0.80 0.55 - 03/15/2021 [facility] 1.02 mg/dL 10:23 AM CDT LABORATORY GFR, Estimated >60 >60 03/15/2021 [facility] mL/min/1.7 10:23 AM CDT LABORATORY 3m2 Specimen Anatomical Collection Method / Collection Time Recei rg Time (Source) Location / Volume Laterality Blood Venipuncture / 03/15/2021 9:19 03/15/2021 9:19 Unknown AM CDT AM CDT Giorgio Albarado MD LAB_1 Performing Organization Address [facility] LABORATORY [id number] [place] [phone] ALT (SGPT) (03/15/2021 9:19 AM CDT) athologist Signature ALT (SGPT) 14 0 - 55 U/L 03/15/2021 [facility] 10:23 AM CDT LABORATORY Specimen Anatomical Collection Method / Collection Time Recei rg Time (Source) Location / Volume Laterality Blood Venipuncture / 03/15/2021 9:19 03/15/2021 9:19 Unknown AM CDT AM CDT Giorgio Albarado MD LAB_1 Performing Organization Address [facility] LABORATORY [address] [place] [address] AST (03/15/2021 9:19 AM CDT) athologist Signature AST (SGOT) 19 10 - 40 U/L 03/15/2021 [facility] 10:23 AM CDT LABORATORY Specimen Anatomical Collection Method / Collection Time Recei rg Time (Source) Location / Volume Laterality Blood Venipuncture / 03/15/2021 9:19 03/15/2021 9:19 Unknown AM CDT AM CDT Giorgio Albarado MD LAB_1 Performing Organization Address [facility] Code Phon e Number [facility] [address] [place] [address] Complete Blood Count-No Diff (03/15/2021 9:19 AM CDT) P athologist Signature WBC 6.5 3.5 - 10.5 03/15/2021 [facility] x10(9)/L 9:26 AM CDT LABORATORY RBC 4.67 3.90 - 03/15/2021 [place] 5.03 9:26 AM CDT LABORATORY x10(12)/L Hemoglobin 13.9 12.0 - 03/15/2021 [facility] 15.5 g/dL 9:26 AM CDT LABORATORY HCT 43.1 34.9 - 03/15/2021 [place] 44.5 % 9:26 AM CDT LABORATORY MCV 92.3 80.0 - 03/15/2021 [facility] 100.0 fL 9:26 AM CDT LABORATORY MCH 29.8 27.6 - 03/15/2021 [place] 33.3 pg 9:26 AM CDT LABORATORY MCHC 32.3 31.5 - 03/15/2021 [facility] 35.2 g/dL 9:26 AM CDT LABORATORY RDW 13.6 11.9 - 03/15/2021 [facility] 15.5 % 9:26 AM CDT LABORATORY Platelets 206 150 - 450 03/15/2021 [facility] x10(9)/L 9:26 AM CDT LABORATORY Automated NRBC 0 <=0 /100 03/15/2021 [facility] WBC 9:26 AM CDT LABORATORY Specimen Anatomical Collection Method / Collection Time Recei rg Time (Source) Location / Volume Laterality Blood Venipuncture / 03/15/2021 9:19 03/15/2021 9:19 Unknown AM CDT AM CDT Giorgio Albarado MD LAB_1 Performing Organization Address [facility] Code Phon e Number [facility] [address] [place], [place] [phone] documented in this encounter Visit Diagnoses Diagnosis Seropositive rheumatoid arthritis (HRC) Rheumatoid arthritis documented in this encounter Care Teams Director Of People Relationship Specialty Start Date End Date Micki Arzate MD PCP - General Internal Medicine 01/29/171999 [place] [address] documented as of this encounter
--- OUTSIDE RECORDS SUMMARY | 2022-01-04 15:19 | XMS_ITS | Encounter Summary ---
:1955 Author Organization [facility] Address [address] [place] [address] Care Team Providers Name Role Phone Micki Arzate MD Primary Care Provider Reason for Visit Reason Comments Follow-up Encounter Details Date Type Department Care Team Description 11/15/2017 Office Visit [facility] Nimco Chaudhary art hritis with positive rheumatoid factor, involving unspecified site (HRC) (Primary Dx); Rheumatology MD Hugh Positive anti-CCP test; [id number] [place] [address] [facility] [phone] [place], [place] [phone] (Wo rk) Social History Tobacco Use Types Packs/Day Years Used Date Smoking Tobacco: Never Smokeless Tobacco: Never Sex Assigned at Date Recorded Not on file documented as of this encounter Last Filed Vital Signs Vital Sign Reading Time Taken Comments Blood Pressure 121/72 11/15/2017 11:18 AM CDT Pulse 70 11/15/2017 11:18 AM CDT Temperature - - Respiratory Rate - - Oxygen Saturation - - Inhaled Oxygen Concentration - - Weight 55.5 kg (122 lb 6.4 oz) 11/15/2017 11:18 AM CDT Height - - Body Mass Index 23.13 02/20/2017 7:26 AM CDT documented in this encounter Progress Notes Hugh Chaudhary MD - 11/15/2017 11:30 AM CDT SUBJECTIVE: Follow-up for seropositive rheumatoid arthritis. History of present illness: This is a 2 month follow-up for her. She currently takes methotrexate 22.5 mg weekly. Last clinic visit, her disease was still active and we were not able to taper her off prednisone. We mutually agreed to start Humira 40 mg every other week. She has been on Humira for the past 6 weeks. They have been well tolerated. She cannot say that she has a significant improvement. She has decided to cut down the dose of prednisone herself to 5 mg a day as she is concerned about side effects of prednisone including skin bruises, diabetes as diabetes runs in her family. She still notices swelling and puffy joints especially over her left more than right wrist. Past medical history, family and social history, current medications and adverse reactions were updated in EMR. Physical exams: BP 121/72 (BP Location: Left Arm, BP Cuff Size: Adult Regular) Pulse 70 Wt 122 lb 6.4 oz (55.5 kg) BMI 23.13 kg/m2 General appearance: A middle-aged female who was not in acute physical distress. Musculoskeletal exams: All 4 extremities were examined. Moderate synovitis both wrists, bilateral 2nd MCP joints. No significant synovitis/inflammatory arthritis/dactylitis or effusion in any other remaining joints. Assessment and plan: 1. Seropositive RA, still active. 2. Chronic long-term high-risk medication monitoring. Pain and RAPID 3 score could not be calculated due to incompletion. 28 joint count: Total swollen joint 4 (was 5). Total tender joint 4 (was 8). She has reduced swollen joint count by 1 and 5 less tender joints. So overall, they are some objective improvement although they are not as drastic. She has been on Humira only 3 doses and it might take up to 3 months for maximal benefit before we can call that she has failed Humira. In the meantime, I told her that we could consider intra-articular cortisone injections into both wrists joints which are most symptomatic for her. This will help to accelerate improvement. She declined this procedure today I would like to think about it 1st. She does not want to increase the dose of prednisone further but I told her that it is not advisable to reduce the dose prednisone at this timewhen her disease is still active. We mutually agreed to stay on the current dose of 5 mg prednisone a day. She will continue methotrexate 22.5 mg weekly, Humira 40 mg every other week. I would like to see her back again for close follow-up in 6 weeks when she will have been on Humira for total 3 months. If she still has clinically detectable synovitis on examination at that time, I will replace Humana with different other options which will be discussed with her. She will have blood test monitoring for methotrexate today before leaving the clinic. Follow-up again in 6 weeks as above. If she would like to have intra-articular cortisone injection before, she will let us know. Total time is 25 minutes, 20 minutes counseling. documented in this encounter Plan of Treatment Upcoming Encounters Date Type Specialty Care Team Description 01/15/2022 Appointment Laboratory 02/22/2022 Appointment Rheumatology Giorgio Albarado M D [address] [place] [phone] (Wo rk) documented as of this encounter Results (ABNORMAL) CBC - Complete Blood Count W/Diff (11/15/2017 12:18 PM CDT) [facility] gist Method Time Signature White Blood Cell 8.6 3.8 - 11.0 PN SOFT Count k/cmm Red Blood Cell 4.40 3.70 - PN SOFT Count 5.20 m/cmm Hemoglobin 13.1 11.8 - PN SOFT 15.5 g/dL Hematocrit 38.9 35.0 - PN SOFT 46.0 % Mean Corpuscular 88.4 80.0 - PN SOFT Volume 100.0 fL RDW 15.4 (H) 11.0 - PN SOFT 15.0 % Platelet Count 224 140 - 450 PN SOFT k/cmm Specimen Anatomical Collection Method Collection Time Receive d Time (Source) Location / / Volume Laterality 11/15/2017 12:18 11/15/2017 PM CDT 12:18 PM CDT Narrative PN SOFT - 11/15/2017 12:20 PM CDT Performed at [facility], [address] [place] [address] CLIA number [id number] Hugh Chaudhary MD LAB_1 Performing Organization Address City/State/ZIP Code Phon e Number PN SOFT [address] [place] [address] ALT - Alanine Aminotransferase (11/15/2017 12:18 PM CDT) Patholo gist Method Time Signature Alanine 16 9 - 55 PN SOFT Aminotransferase U/L Specimen Anatomical Collection Method Collection Time Receive d Time (Source) Location / / Volume Laterality 11/15/2017 12:18 11/15/2017 PM CDT 12:18 PM CDT Narrative PN SOFT - 11/15/2017 2:54 PM CDT Performed at [facility], [address] [place] [id number] CLIA number [id number] Hugh Chaudhary MD LAB_1 Performing Organization Address [facility] Code Phon e Number PN SOFT [address] [place] [address] CREAT - Creatinine (11/15/2017 12:18 PM CDT) P athologist Signature Creatinine Serum 0.90 0.55 - PN SOFT 1.02 mg/dL Est GFR >60 >60 PN SOFT Am mL/min/1.7 3m2 Est GFR Non-Afr >60 >60 PN SOFT Am mL/min/1.7 3m2 Comment: Normal>60, moderate decrease 30 - 59, se garry decrease 15 - 29, renal failure <15 mL/min/1.73 m2 NOTE: ??Choose the eGFR result above linwood ropriate for the race of the patient. Specimen Anatomical Collection Method Collection Time Receive d Time (Source) Location / / Volume Laterality 11/15/2017 12:18 11/15/2017 PM CDT 12:18 PM CDT Narrative PN SOFT - 11/15/2017 2:54 PM CDT Performed at [facility], [address] [place] [address] CLIA number [id number] Hugh Chaudhary MD LAB_1 Performing Organization Address [facility]/ZIP Code Phon e Number PN SOFT [address] [place] [address] documented in this encounter Visit Diagnoses Diagnosis Rheumatoid arthritis with positive rheum atoid factor, involving unspecified site (HRC) - Primary Positive anti-CCP test High risk medication use Encounter for long-term (current) use of other medications High risk medication use Encounter for long-term (current) use of other medications documented in this encounter Care Teams Pvc Monitor Relationship Specialty Start Date End Date Micki Arzate MD PCP - General Internal Medicine 01/29/[address] [place] [address] documented as of this encounter
--- OUTSIDE RECORDS SUMMARY | 2022-01-04 15:19 | XMS_ITS | Encounter Summary ---
:1955 Author Organization [facility] Address [address] [place] [address] Care Team Providers Name Role Phone Micki Arzate MD Primary Care Provider Encounter Details Date Type Department Care Team Description 03/03/2019 Lab Visit [facility] High risk medication use [address] [place] [address] Social History Tobacco Use Types Packs/Day Years Used Date Smoking Tobacco: Never Smokeless Tobacco: Never Sex Assigned at Date Recorded Not on file documented as of this encounter Plan of Treatment Upcoming Encounters Date Type Specialty Care Team Description 01/15/2022 Appointment Laboratory 02/22/2022 Appointment Rheumatology Giorgio Albarado M D [address] [place] [phone] (Wo rk) documented as of this encounter Procedures Procedure Name Priority Date/Time Associated Comments Diagnosis COMPLETE BLOOD Routine 03/03/2019 9:13 AM High risk Results for this COUNT-W/DIFF CDT medication use procedure are in the results section. CREATININE / GFR Routine 03/03/2019 9:12 AM High risk Resul ts for this CDT medication use procedure are in the results section. ALT (SGPT) Routine 03/03/2019 9:12 AM High risk Results f or this CDT medication use procedure are in the results section. documented in this encounter Results CBC - Complete Blood Count W/Diff - standing every 2 - 3 months (03/03/2019 9:13 AM CDT) P athologist Signature WBC 5.7 3.5 - 10.5 03/03/2019 [facility] x10(9)/L 9:21 AM CDT LABORATORY RBC 4.42 3.90 - 03/03/2019 [facility] 5.03 9:21 AM CDT LABORATORY x10(12)/L Hemoglobin 13.4 12.0 - 03/03/2019 [facility] 15.5 g/dL 9:21 AM CDT LABORATORY HCT 40.8 34.9 - 03/03/2019 [facility] 44.5 % 9:21 AM CDT LABORATORY MCV 92.3 80.0 - 03/03/2019 [facility] 100.0 fL 9:21 AM CDT LABORATORY MCH 30.3 27.6 - 03/03/2019 [facility] 33.3 pg 9:21 AM CDT LABORATORY MCHC 32.8 31.5 - 03/03/2019 [facility] 35.2 g/dL 9:21 AM CDT LABORATORY RDW 14.3 11.9 - 03/03/2019 [facility] 15.5 % 9:21 AM CDT LABORATORY Platelets 212 150 - 450 03/03/2019 [facility] x10(9)/L 9:21 AM CDT LABORATORY Automated NRBC 0 <=0 /100 03/03/2019 [facility] WBC 9:21 AM CDT LABORATORY Neutrophil 3.1 1.7 - 7.0 03/03/2019 [facility] Absolute 10(9)/L 9:21 AM CDT LABORATORY Lymphocyte 1.8 1.0 - 4.8 03/03/2019 [facility] Absolute 10(9)/L 9:21 AM CDT LABORATORY Monocytes 0.6 0.2 - 0.9 03/03/2019 [facility] Absolute 10(9)/L 9:21 AM CDT LABORATORY Eosinophil 0.1 0.0 - 0.5 03/03/2019 [facility] Absolute 10(9)/L 9:21 AM CDT LABORATORY Basophil 0.0 0.0 - 0.3 03/03/2019 [facility] Absolute 10(9)/L 9:21 AM CDT LABORATORY Immature Gran % 0.4 0.0 - 0.5 03/03/2019 [facility] % 9:21 AM CDT LABORATORY Specimen Anatomical Collection Method Collection Time Receive d Time (Source) Location / / Volume Laterality Blood 03/03/2019 9:13 AM 9 9:13 CDT AM CDT Hugh Chaudhary MD LAB_1 Performing Organization Address City/[facility]/ZIP Code Phon e Number [facility] [address] [place], [place] [phone] CREAT - Creatinine - standing every 2 - 3 months (03/03/2019 9:12 AM CDT) athologist Signature Creatinine 0.90 0.55 - 03/03/2019 [facility] 1.02 mg/dL 11:38 AM CDT LABORATORY GFR, Estimated >60 >60 03/03/2019 [facility] mL/min/1.7 11:38 AM CDT LABORATORY 3m2 GFR, Est If >60 >60 03/03/2019 [facility] mL/min/1.7 11:38 AM CDT LABORATORY Malaysian 3m2 Specimen Anatomical Collection Method Collection Time Receive d Time (Source) Location / / Volume Laterality Blood 03/03/2019 9:12 AM 9 9:13 CDT AM CDT Hugh Chaudhary MD LAB_1 Performing Organization Address City/[facility]/ZIP Code Phon e Number [facility] [address] [place], [place] [phone] ALT - Alanine Aminotransferase - standing every 2 - 3 months (03/03/2019 9:12 AM CDT) athologist Signature ALT (SGPT) 23 0 - 55 U/L 03/03/2019 [facility] 11:38 AM CDT LABORATORY Specimen Anatomical Collection Method Collection Time Receive d Time (Source) Location / / Volume Laterality Blood 03/03/2019 9:12 AM 9 9:13 CDT AM CDT Hugh Chaudhary MD LAB_1 Performing Organization Address City/[facility] Code Phon e Number [facility] [address] [place], [place] [phone] documented in this encounter Visit Diagnoses Diagnosis High risk medication use Encounter for long-term (current) use of other medications documented in this encounter Care Teams Tactical Intelligence Officer Relationship Specialty Start Date End Date Micki Arzate MD PCP - General Internal Medicine 01/29/171999 [place] [address] documented as of this encounter
--- OUTSIDE RECORDS SUMMARY | 2022-01-04 15:19 | XMS_ITS | Encounter Summary ---
:1955 Author Organization [facility] Address [address] [place] [address] Care Team Providers Name Role Phone Micki Arzate MD Primary Care Provider Encounter Details Date Type Department Care Team Description 09/04/2017 Lab Visit [facility] High risk medication use [address] [place] [address] Social History Tobacco Use Types Packs/Day Years Used Date Smoking Tobacco: Never Smokeless Tobacco: Never Sex Assigned at Date Recorded Not on file documented as of this encounter Plan of Treatment Upcoming Encounters Date Type Specialty Care Team Description 01/15/2022 Appointment Laboratory 02/22/2022 Appointment Rheumatology Giorgio Albarado M D [address] [place] [phone] (Wo rk) documented as of this encounter Procedures Procedure Name Priority Date/Time Associated Comments Diagnosis T SPOT TB TEST Routine 09/04/2017 8:46 AM High risk Results for this CDT medication use procedure are in the results section. CREATININE / GFR Routine 09/04/2017 8:46 AM High risk Resul ts for this CDT medication use procedure are in the results section. COMPLETE BLOOD Routine 09/04/2017 8:46 AM High risk Results for this COUNT-W/DIFF CDT medication use procedure are in the results section. DIFFERENTIAL Routine 09/04/2017 8:46 AM Results f or this CDT procedure are i n the results section. ALT (SGPT) Routine 09/04/2017 8:46 AM High risk Results f or this CDT medication use procedure are in the results section. documented in this encounter Results (ABNORMAL) Differential (09/04/2017 8:46 AM CDT) Patholo gist Method Time Signature Absolute 6.7 1.8 - 8.0 PN [facility] Neutrophils k/cmm Absolute 0.7 (L) 1.1 - 4.0 PN [facility] Lymphocytes k/cmm Absolute 0.5 0.2 - 0.8 PN [facility] Monocytes k/cmm Absolute 0.0 0.0 - 0.5 PN SOFT Eosinophils k/cmm Absolute 0.0 0.0 - 0.2 PN SOFT Basophils k/cmm Immature 0.4 0.0 - 0.5 PN SOFT Granulocytes % Specimen Anatomical Collection Method Collection Time Receive d Time (Source) Location / / Volume Laterality 09/04/2017 8:46 AM 8 8:46 CDT AM CDT Narrative PN SOFT - 09/04/2017 8:56 AM CDT Performed at [facility], [facility] [address] [place] [address] CLIA number [id number] Hugh Chaudhary MD LAB_1 Performing Organization Address City/State/ZIP Code Phon e Number PN SOFT [address] [place] [address] Creatinine / GFR (09/04/2017 8:46 AM CDT) P athologist Signature Creatinine Serum 0.80 0.55 - PN SOFT 1.02 mg/dL Est [...] Time (Source) Location / / Volume Laterality 09/04/2017 8:46 AM 8 8:46 CDT AM CDT Narrative PN SOFT - 09/04/2017 10:10 AM CDT Performed at [facility], [employer] [address] [place] [address] CLIA number [id number] Hugh Chaudhary MD LAB_1 Performing Organization Address [facility] Phon e Number PN SOFT [address] [place] [address] Alanine Aminotransferase - ALT (SGPT) (09/04/2017 8:46 AM CDT) Patholo gist Method Time Signature Alanine 14 9 - 55 PN [facility] Aminotransferase U/L Specimen Anatomical Collection Method Collection Time Receive d Time (Source) Location / / Volume Laterality 09/04/2017 8:46 AM 8 8:46 CDT AM CDT Narrative PN SOFT - 09/04/2017 10:10 AM CDT Performed at [facility], [address] [place] [address] CLIA number [id number] Hugh Chaudhary MD LAB_1 Performing Organization Address [facility] Phon e Number PN SOFT [address] [place] [address] CBC - Complete Blood Count-W/Diff (09/04/2017 8:46 AM CDT) P athologist Signature White Blood Cell 8.0 3.8 - 11.0 PN SOFT Count k/cmm Red Blood Cell 4.34 3.70 - PN SOFT Count 5.20 m/cmm Hemoglobin 13.2 11.8 - PN SOFT 15.5 g/dL Hematocrit 39.1 35.0 - PN SOFT 46.0 % Mean Corpuscular 90.1 80.0 - PN SOFT Volume 100.0 fL RDW 14.5 11.0 - PN SOFT 15.0 % Platelet Count 286 140 - 450 PN SOFT k/cmm Specimen Anatomical Collection Method Collection Time Receive d Time (Source) Location / / Volume Laterality 09/04/2017 8:46 AM 8 8:46 CDT AM CDT Narrative PN SOFT - 09/04/2017 8:56 AM CDT Performed at [facility], [facility] [address] [place] [address] CLIA number [id number] Hugh Chaudhary MD LAB_1 Performing Organization Address City/[facility] Phon e Number PN SOFT [address] [place] [address] T SPOT TB Test (09/04/2017 8:46 AM CDT) athologist Signature T SPOT TB Negative Negative PN SOFT Nil (Neg) 4 <5 PN SOFT Control Spot Count Panel A Spot 0 <5 PN SOFT Count Panel B Spot 0 <5 PN SOFT Count Positive >20 PN SOFT Control Spot Count Comment: Testing for latent TB is done via the T- Spot assay, which is an FDA approved Interferon Gamma Rele ase Assay (IGRA). When compared to QuantiFeron TB Gold, mu ltiple studies show a more favorable sensitivity, similar sp ecificity, and less boderline results with the T-Spot TB Jennifer t. Specimen Anatomical Collection Method Collection Time Receive d Time (Source) Location / / Volume Laterality 09/04/2017 8:46 AM 8 CDT 12:39 PM CDT Narrative PN SOFT - 09/09/2017 4:11 PM CDT Performed at [facility], [address] [place] [address] CLIA number [id number] Hugh Chaudhary MD LAB_1 Performing Organization Address City/[facility] Phon e Number MEL[facility] [address] [place] [address] [phone] documented in this encounter Visit Diagnoses Diagnosis High risk medication use Encounter for long-term (current) use of other medications documented in this encounter Care Teams Soldering Machine Operator Relationship Specialty Start Date End Date Micki Arzate MD PCP - General Internal Medicine 01/29/171999 [place] [address] documented as of this encounter
--- OUTSIDE RECORDS SUMMARY | 2022-01-04 15:19 | XMS_ITS | Encounter Summary ---
:1955 Author [address] [facility] Address [address] [place] [address] Care Team Providers Name Role Phone Micki Arzate MD Primary Care Provider Reason for Visit Reason Comments Follow-up Encounter Details Date Type Department Care Team Description 05/12/2019 Office Visit [facility] art hritis involving multiple joints (HRC) (Primary Dx); Rheumatology MD Hugh High risk medication use [address] [address] [facility] [phone] [place] [address] (Wo rk) Social History Tobacco Use Types Packs/Day Years Used Date Smoking Tobacco: Never Smokeless Tobacco: Never Alcohol Use Standard Drinks/Week Comments Yes 0 (1 standard drink = 0.6 oz pure alcoho l) Sex Assigned at Date Recorded Not on file documented as of this encounter Last Filed Vital Signs Vital Sign Reading Time Taken Comments Blood Pressure - - Pulse - - Temperature - - Respiratory Rate - - Oxygen Saturation - - Inhaled Oxygen Concentration - - Weight 64 kg (141 lb) 05/12/2019 10:42 AM GROUNDSKEEPING MAINTENANCE Height - - Body Mass Index 26.64 02/20/2017 7:26 AM CDT documented in this encounter Patient Instructions Patient InstructionsHugh Chaudhary MD - 05/12/2019 11:00 AM GROUNDSKEEPING MAINTENANCE Please remind yourself in the calendar that you have standing order blood test monitoring for methotrexate approximately every 3 months. The orders are in the computer but you need to go to the labs tohave them done. Next time is 06/03/2019. Call Health Information Management ([facility]). They can transfer records to your doctor in [place]. NDSKEEPING MAINTENANCE documented in this encounter Progress Notes Hugh Chaudhary MD - 05/12/2019 11:00 AM CST SUBJECTIVE: Follow-up for seropositive RA. History of present illness: This is a 6 month follow-up for the patient. She felt very well started in November of 2018 and decided to cut down the dose of methotrexate from 22.5 mg a week down to 20 mg a week. She has continued Humira 40 mg every other week. She has continued to do well. She rates joint pain as 0.5/10. She has developed skin rashes over left index. 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 This is improved with the use of topical steroid. No skin rash anywhere else. She does not have palmoplantar psoriasis which could sometimes be rarely present in patients on to a TNF manny. Her recent blood test monitoring less than 2 months ago was unremarkable. She is updated with annualinfluenza pneumococcal vaccinations. Past medical history, family and social history, current medications and adverse reactions were updated in EMR. Physical exams: Wt 141 lb (64 kg) BMI 26.64 kg/m?? General appearance: A middle-aged female who was not in acute physical distress. Musculoskeletal exams: All 4 extremities were examined. There is a slight tenderness over the right thumb MCP joint without clinical synovitis. No synovitis/inflammatory arthritis/dactylitis or effusion in any other remaining joints. Osteoarthritic changes finger knuckles. Assessment and plan: 1. Seropositive RA, in clinical remission. 2. Chronic long-term high-risk medication and monitoring. Pain is rated as 0.5. RAPID 3 score is 5.5. 28 joint count: Total swollen joint 0. Total tender joint 1. The patient is doing well and has no clinically detectable synovitis on examination. The RAPID 3 score is low suggesting that the disease is in remission or at a low-disease activity. The current regimen of DMARDs is well tolerated and recent monitoring labs are unremarkable. We discussed about continuing the current regimen of DMARDs or possible cutting down the dose of current regimen with possibleflare. Pros and Cons of both approaches were discussed. Patient was engaged to make a decision taking into consideration of patient???s preference/goal through shared-decision making process. After the discussion, we mutually agreed to cut down the dose of methotrexate to 17.5 mg weekly while continuing Humira 40 mg every other week. Reminded her to continue to have a blood test monitoring approximately every 3 months for standing orders. Follow-up again in 6 months, earlier if she is not feeling well. Total time is 15 minutes, 10 minutes counseling. NDSKEEPING MAINTENANCE documented in this encounter Plan of Treatment Upcoming Encounters Date Type Specialty Care Team Description 01/15/2022 Appointment Laboratory 02/22/2022 Appointment Rheumatology Giorgio Albarado M D [address] [place] [phone] (Wo rk) documented as of this encounter Visit Diagnoses Diagnosis Rheumatoid arthritis involving multiple joints (HRC) - Primary High risk medication use Encounter for long-term (current) use of other medications documented in this encounter Care Teams Process Design Chemical Engineer Relationship Specialty Start Date End Date Micki Arzate MD PCP - General Internal Medicine 01/29/171999 [place] [address] documented as of this encounter
--- OUTSIDE RECORDS SUMMARY | 2022-01-04 15:19 | XMS_ITS | Encounter Summary ---
:1955 Author Organization [facility] Address [address], [place] [address] Care Team Providers Name Role Phone Micki Arzate MD Primary Care Provider Reason for Visit Reason Comments Injection shingrix Encounter Details Date Type Department Care Team Description 11/18/2018 Nursing Visit [place] [facility] Encounter for Rheumatology immunization (Primary [address] Dx) [place] [address] Social History Tobacco Use Types Packs/Day Years Used Date Smoking Tobacco: Never Smokeless Tobacco: Never Sex Assigned at Date Recorded Not on file documented as of this encounter Plan of Treatment Upcoming Encounters Date Type Specialty Care Team Description 01/15/2022 Appointment Laboratory 02/22/2022 Appointment Rheumatology Giorgio Albarado M D [address] [place] [phone] (Wo rk) documented as of this encounter Visit Diagnoses Diagnosis Encounter for immunization - Primary Need for other specified prophylactic va ccination against single bacterial disease documented in this encounter Care Teams Sole Stainer Relationship Specialty Start Date End Date Micki Arzate MD PCP - General Internal Medicine 01/29/[address] [place] [address] documented as of this encounter
--- OUTSIDE RECORDS SUMMARY | 2022-01-04 15:19 | XMS_ITS | Encounter Summary ---
:1955 Author Organization [facility] Address [address] [place] [address] Care Team Providers Name Role Phone Micki Arzate MD Primary Care Provider Reason for Visit Reason Comments Follow-up Encounter Details Date Type Department Care Team Description 09/03/2017 Office Visit [facility] Nimco Chaudhary art hritis with positive rheumatoid factor, involving unspecified site (HRC) (Primary Dx); Rheumatology MD Hugh High risk medication use [address] [address] [facility] [phone] [place] [address] (Wo rk) Social History Tobacco Use Types Packs/Day Years Used Date Smoking Tobacco: Never Smokeless Tobacco: Never Sex Assigned at Date Recorded Not on file documented as of this encounter Last Filed Vital Signs Vital Sign Reading Time Taken Comments Blood Pressure 114/68 09/03/2017 11:42 AM CDT Pulse 78 09/03/2017 11:42 AM CDT Temperature - - Respiratory Rate - - Oxygen Saturation - - Inhaled Oxygen Concentration - - Weight 62.1 kg (137 lb) 09/03/2017 11:42 AM CDT Height - - Body Mass Index 25.89 02/20/2017 7:26 AM CDT documented in this encounter Progress Notes Hugh Chaudhary MD - 09/03/2017 11:45 AM CDT SUBJECTIVE: Follow-up for seropositive rheumatoid arthritis. History of present illness: This is a 2 month follow-up for her. She was still found to have a significant disease activity and we decided to increase the dose of methotrexate to 25 mg weekly. This hasbeen well tolerated with a slight hairloss. I also increased the dose of prednisone temporarily witha tapering instruction down to the current dose of 7.5 mg a day. She was better until about 2 weeks ago when she started noticing recurrent swelling and stiffness over her wrists and MCP joints again. She would like to try to get rid of the prednisone completely as much as she can achieve is prediabetic. Past medical history, family and social history, current medications and adverse reactions were updated in EMR. Physical exams: BP 114/68 (BP Location: Left Arm, BP Cuff Size: Adult Regular) Pulse 78 Wt 137 lb (62.1 kg) BMI 25.89 kg/m2 General appearance: A middle-aged female who was not in acute physical distress. Musculoskeletal exams: All 4 extremities were examined. Moderate synovitis bilateral wrist, right 2nd and 3rd MCP joints, and right 3rd PIP joints. No significant synovitis/inflammatory arthritis in any other remaining joints. Assessment and plan: 1. Seropositive rheumatoid arthritis, continue to be active. 2. Chronic long-term high-risk medication and monitoring. Pain is rated as 8.5. RAPID 3 score is 15.8. 28 joint count: Total swollen joint 5. Total tender joint 8. The patient has continued to have clinically detectable synovitis despite methotrexate 25 mg weekly.She also has been prednisone dependent. And therefore, I suggested changing the regimen of disease modifying agents. We discussed about several choices including triple therapy, additionally leflunomide, Xeljanz, a biologic therapy such as a TNF manny. Pros and cons, side effects and benefits of each medication were discussed with her in details. Information was printed out for her to review. Throughshared decision making, she would like to spend more time reading about the medications and most importantly to talk with her insurance for the coverage. In the meantime, I will increase the dose of prednisone to 10 mg a day and stay at that dose until we are making the decision of the additional medication, and staying at the same dose of methotrexate 25 mg weekly. Asked the patient to give me a call within a few days about her decision. She will have blood test monitoring for methotrexate today and I will ab T spot as well. Suggested a follow-up again in about 2 months. We will make a decision about additional medication in the meantime. Total time is 25 minutes, 20 minutes counseling.. documented in this encounter Plan of Treatment Upcoming Encounters Date Type Specialty Care Team Description 01/15/2022 Appointment Laboratory 02/22/2022 Appointment Rheumatology Giorgio Albarado M D [address] [place] [phone] (Wo rk) documented as of this encounter Results T SPOT TB Test (09/04/2017 8:46 AM [...] - 09/09/2017 4:11 PM CDT Performed at [facility] Laboratory, [address] [place] [address] CLIA number [id number] Hugh Chaudhary MD LAB_1 Performing Organization Address City/State/ZIP Code Phon e Number PN SOFT [address] [place], [place] [address] documented in this encounter Visit Diagnoses Diagnosis Rheumatoid arthritis with positive rheum atoid factor, involving unspecified site (HRC) - Primary High risk medication use Encounter for long-term (current) use of other medications High risk medication use Encounter for long-term (current) use of other medications documented in this encounter Care Teams Chain Forming Machine Operator Relationship Specialty Start Date End Date Micki Arzate MD PCP - General Internal Medicine [address] [place] [address] documented as of this encounter
--- OUTSIDE RECORDS SUMMARY | 2022-01-04 15:19 | XMS_ITS | Encounter Summary ---
:1955 Author Organization [facility] Address [address] [place] [address] Care Team Providers Name Role Phone Micki Arzate MD Primary Care Provider Encounter Details Date Type Department Care Team Description 11/18/2018 Notes/Orders Nick Santo for shing les Rheumatology MD Hugh vaccine (Primary Dx) [address] [address] [facility] [phone] [place], [place] [id number] (Wo rk) Social History Tobacco Use Types Packs/Day Years Used Date Smoking Tobacco: Never Smokeless Tobacco: Never Sex Assigned at Date Recorded Not on file documented as of this encounter Progress Notes Franca Oseguera LPN - 11/18/2018 2:12 PM CDT Pt called asking for a Shingrix vaccine. This will be her second. First was given on 08/05/18 Hugh Chaudhary MD - 11/18/2018 2:12 PM CDT Order signed. documented in this encounter Plan of Treatment Upcoming Encounters Date Type Specialty Care Team Description 01/15/2022 Appointment Laboratory 02/22/2022 Appointment Rheumatology Giorgio Albarado M D [address] [place], [place] [phone] (Wo rk) documented as of this encounter Visit Diagnoses Diagnosis Need for shingles vaccine - Primary Need for prophylactic vaccination and in oculation against varicella documented in this encounter Care Teams Yarn Texturing Machine Operator Relationship Specialty Start Date End Date Micki Arzate MD PCP - General Internal Medicine 01/29/[address] [place] [address] documented as of this encounter
--- OUTSIDE RECORDS SUMMARY | 2022-01-04 15:19 | XMS_ITS | Encounter Summary ---
:1955 Author Organization [email or web address] Address [address] [place] [address] Care Team Providers Name Role Phone Micki Arzate MD Primary Care Provider Reason for Visit Reason Comments Follow-up Encounter Details Date Type Department Care Team Description 08/05/2018 Office Visit Temo Neena, Rheumatoid art hritis with positive rheumatoid factor, involving unspecified site (HRC) (Primary Dx); Rheumatology MD Hugh High risk medication use [address] [address] [facility] [phone] [place] [address] (Wo rk) Social History Tobacco Use Types Packs/Day Years Used Date Smoking Tobacco: Never Smokeless Tobacco: Never Sex Assigned at Date Recorded Not on file documented as of this encounter Last Filed Vital Signs Vital Sign Reading Time Taken Comments Blood Pressure 144/89 08/05/2018 4:10 PM CDT Pulse 68 08/05/2018 4:10 PM CDT Temperature - - Respiratory Rate - - Oxygen Saturation - - Inhaled Oxygen Concentration - - Weight 57.6 kg (127 lb) 08/05/2018 4:10 PM CDT Height - - Body Mass Index 24 02/20/2017 7:26 AM CDT documented in this encounter Patient Instructions Patient InstructionsHugh Chaudhary MD - 08/05/2018 3:45 PM CDT Please remind yourself in the calendar that you have standing order blood test monitoring for methotrexate approximately every 3 months. The orders are in the computer but you need to go to the labs tohave them done. documented in this encounter Progress Notes Hugh Chaudhary MD - 08/05/2018 3:45 PM CDT SUBJECTIVE: Follow-up for seropositive rheumatoid arthritis. History of present illness: This is a three-month follow-up for the patient. She currently takes methotrexate 22.5 mg weekly, Humira 40 mg every other week. Since I last saw her, she has tapered off prednisone completely since the end of February 2018. She has continued to do well without recurrent swollen joint. This winter time, she developed symptoms over her right 3rd finger suggestive of Raynaud. She neither smokes nor drinks. She has mild hypercholesterolemia which does not require long-term medication. She is not diabetic and her blood pressure is under good control. This has not progressed to involve other fingers and only has a white phasenot blue and rate face is of Raynaud. It is temporarily and goes away by itself. This is not associated with tightening of the skin and open-wound ulcer. She also reported a small nodule over the left plantar 1st MTP joint area. It is not always symptomatic and does not seem to bother her except for occasional morning when these areas slightly tender. Blood test monitoring less than 3 months ago was unremarkable. She would like to have inactivated shingles vaccination. Past medical history, family and social history, current medications and adverse reactions were updated in EMR. Physical exams: BP (!) 144/89 (BP Location: Left Arm, BP Cuff Size: Adult Regular) Pulse 68 Wt 127 lb (57.6 kg) BMI 24.00 kg/m?? General appearance: A middle-aged female who was not in acute physical distress. Skin: A small 0.25 cm movable firm nodule over the plantar left 1st MTP joint area. No similar nodular anywhere else. No sclerodermatous skin changes. Equal radial and ulnar arteries bilaterally. No open wound ulcers. Normal nailfold capillaries. Musculoskeletal exams: All 4 extremities were examined. No significant synovitis/inflammatory arthritis in any extremity joints. 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 Assessment and plan: 1. Seropositive RA, clinically inactive. 2. Most likely small rheumatoid nodule over the plantar left 1st MTP joint. 3. Mild Raynaud. 4. Chronic long-term high-risk medication and monitoring. Pain and rapid 3 score could not be calculated due to incompletion. 28 joint count: Total swollen joint 0. Total tender joint 1. I told her that I think her rheumatoid arthritis is under good control. This small nodule over the plantar left 1st MTP joints most likely rheumatoid nodule that is not usually gone away even when her disease is under good control. This can sometimes paradoxically be more with the use of methotrexate.At this is currently minimally symptomatic, I suggest that clinical observation only. If this is bigger or she has developed more nodules in the future, we might have to replace methotrexate with different other medications such as leflunomide. Surgical removal is usually the most effective treatment but she does not think this is needed at this point. She most likely has mild Raynaud. She does not seem to have significant cardiovascular risk. As the winter has ended and the temperature will become warmer, I suggest nonpharmacological treatment with maintaining warmth. Note that she has a borderline blood pressure currently with the use of lisinopril 5 mg a day. Her RA is under good control and she will continue methotrexate 22.5 mg weekly and Humira 40 mg every other week. She will continue to have a blood test monitoring approximately every 3 months per standing orders. The inactivated shingles vaccination was given to her today. We will give her the second dose 2-6 months after. I will see the patient back in 3 months. The patient will have the blood test monitoring before the next appointment. Total time is 15 minutes, 10 minutes counseling. documented in this encounter Plan of Treatment Upcoming Encounters Date Type Specialty Care Team Description 01/15/2022 Appointment Laboratory 02/22/2022 Appointment Rheumatology Giorgio Albarado M D [address] [place] [phone] (Wo rk) documented as of this encounter Visit Diagnoses Diagnosis Rheumatoid arthritis with positive rheum atoid factor, involving unspecified site (HRC) - Primary High risk medication use Encounter for long-term (current) use of other medications documented in this encounter Care Teams Mobile Solutions Architect Relationship Specialty Start Date End Date Micki Arzate MD PCP - General Internal Medicine [address] [place] [address] documented as of this encounter
--- OUTSIDE RECORDS SUMMARY | 2022-01-04 15:19 | XMS_ITS | Encounter Summary ---
:1955 Author Organization [facility] Address [address], [place] [address] Care Team Providers Name Role Phone Micki Arzate MD Primary Care Provider Encounter Details Date Type Department Care Team Description 08/27/2018 Lab Visit [facility] High risk medication use [address] [place] [address] Social History Tobacco Use Types Packs/Day Years Used Date Smoking Tobacco: Never Smokeless Tobacco: Never Sex Assigned at Date Recorded Not on file documented as of this encounter Plan of Treatment Upcoming Encounters Date Type Specialty Care Team Description 01/15/2022 Appointment Laboratory 02/22/2022 Appointment Rheumatology Giorgio Albarado M D [address] [place] [phone] (Wo rk) documented as of this encounter Procedures Procedure Name Priority Date/Time Associated Comments Diagnosis CREATININE / GFR Routine 08/27/2018 8:52 AM High risk Resul ts for this CDT medication use procedure are in the results section. COMPLETE BLOOD Routine 08/27/2018 8:52 AM High risk Results for this COUNT-W/DIFF CDT medication use procedure are in the results section. ALT (SGPT) Routine 08/27/2018 8:52 AM High risk Results f or this CDT medication use procedure are in the results section. documented in this encounter Results CREAT - Creatinine - standing every 2 - 3 months (08/27/2018 8:52 AM CDT) P athologist Signature Creatinine 0.80 0.55 - 08/27/2018 [facility] 1.02 mg/dL 9:16 AM CDT LABORATORY GFR, Estimated >60 >60 08/27/2018 [facility] mL/min/1.7 9:16 AM CDT LABORATORY 3m2 GFR, Est If >60 >60 08/27/2018 [facility] mL/min/1.7 9:16 AM CDT LABORATORY Martiniquais 3m2 Specimen Anatomical Collection Method Collection Time Receive d Time (Source) Location / / Volume Laterality Blood 08/27/2018 8:52 AM 9 8:52 CDT AM CDT Hugh Chaudhary MD LAB_1 Performing Organization Address City/State/ZIP Code Phon e Number [facility] [address] [place] [address] CBC - Complete Blood Count W/Diff - standing every 2 - 3 months (08/27/2018 8:52 AM CDT) P athologist Signature WBC 5.8 3.5 - 10.5 08/27/2018 [facility] x10(9)/L 9:04 AM CDT LABORATORY RBC 4.22 3.90 - 08/27/2018 [facility] 5.03 9:04 AM CDT LABORATORY x10(12)/L Hemoglobin 12.8 12.0 - 08/27/2018 [facility] 15.5 g/dL 9:04 AM CDT LABORATORY HCT 38.2 34.9 - 08/27/2018 [facility] 44.5 % 9:04 AM CDT LABORATORY MCV 90.5 80.0 - 08/27/2018 [facility] 100.0 fL 9:04 AM CDT LABORATORY MCH 30.3 27.6 - 08/27/2018 [facility] 33.3 pg 9:04 AM CDT LABORATORY MCHC 33.5 31.5 - 08/27/2018 [facility] 35.2 g/dL 9:04 AM CDT LABORATORY RDW 14.1 11.9 - 08/27/2018 [facility] 15.5 % 9:04 AM CDT LABORATORY Platelets 202 150 - 450 08/27/2018 [facility] x10(9)/L 9:04 AM CDT LABORATORY Automated NRBC 0 <=0 /100 08/27/2018 [facility] WBC 9:04 AM CDT LABORATORY Neutrophil 3.5 1.7 - 7.0 08/27/2018 [facility] Absolute 10(9)/L 9:04 AM CDT LABORATORY Lymphocyte 1.4 1.0 - 4.8 08/27/2018 [facility] Absolute 10(9)/L 9:04 AM CDT LABORATORY Monocytes 0.6 0.2 - 0.9 08/27/2018 [facility] Absolute 10(9)/L 9:04 AM CDT LABORATORY Eosinophil 0.2 0.1 - 0.5 08/27/2018 [facility] Absolute 10(9)/L 9:04 AM CDT LABORATORY Basophil 0.1 0.0 - 0.3 08/27/2018 [facility] Absolute 10(9)/L 9:04 AM CDT LABORATORY Immature Gran % 0.2 0.0 - 0.5 08/27/2018 [facility] % 9:04 AM CDT LABORATORY Specimen Anatomical Collection Method Collection Time Receive d Time (Source) Location / / Volume Laterality Blood 08/27/2018 8:52 AM 9 8:52 CDT AM CDT Hugh Chaudhary MD LAB_1 Performing Organization Address City/[facility]/ZIP Code Phon e Number [facility] [address] [place], [place] [phone] ALT - Alanine Aminotransferase - standing every 2 - 3 months (08/27/2018 8:52 AM CDT) P athologist Signature ALT (SGPT) 16 0 - 55 U/L 08/27/2018 [facility] 9:16 AM CDT LABORATORY Specimen Anatomical Collection Method Collection Time Receive d Time (Source) Location / / Volume Laterality Blood 08/27/2018 8:52 AM 9 8:52 CDT AM CDT Hugh Chaudhary MD LAB_1 Performing Organization Address City/[facility] Phon e Number [facility] [address] [place], [place] [phone] documented in this encounter Visit Diagnoses Diagnosis High risk medication use Encounter for long-term (current) use of other medications documented in this encounter Care Teams Tso Relationship Specialty Start Date End Date Micki Arzate MD PCP - General Internal Medicine 01/29/17[address] [place] [address] documented as of this encounter
--- OUTSIDE RECORDS SUMMARY | 2022-01-04 15:19 | XMS_ITS | Encounter Summary ---
:1955 Author Organization [facility] Address [address], [place] [address] Care Team Providers Name Role Phone Micki Arzate MD Primary Care Provider Reason for Visit Reason Comments ERRONEOUS ENTRY Encounter Details Date Type Department Care Team Description 11/18/2018 Telephone [facility] [address] Chaudhary ENTRY Rheumatology MD Hugh [address] [place] [address] [phone] Social History Tobacco Use Types Packs/Day Years Used Date Smoking Tobacco: Never Smokeless Tobacco: Never Sex Assigned at Date Recorded Not on file documented as of this encounter Nursing Notes Franca Oseguera LPN - 11/18/2018 2:11 PM CDT A user error has taken place: encounter opened in error, closed for administrative reasons. documented in this encounter Plan of Treatment Upcoming Encounters Date Type Specialty Care Team Description 01/15/2022 Appointment Laboratory 02/22/2022 Appointment Rheumatology Giorgio Albarado M D [address] [place] [phone] (Wo rk) documented as of this encounter Visit Diagnoses Not on filedocumented in this encounter Care Teams Bulk Fluids Handler Relationship Specialty Start Date End Date Micki Arzate MD PCP - General Internal Medicine 01/29/[address] [place] [address] documented as of this encounter
--- OUTSIDE RECORDS SUMMARY | 2022-01-04 15:19 | XMS_ITS | Encounter Summary ---
:1955 Author Organization [facility] Address [address] [place] [address] Care Team Providers Name Role Phone Micki Arzate MD Primary Care Provider Encounter Details Date Type Department Care Team Description 09/03/2017 Notes/Orders [facility] [place], High risk medication [id number] [facility] MD Hugh use (Primary Dx) [place] [address] [address] [facility] [phone] [place], [place] [phone] (Wo rk) Social History Tobacco Use Types Packs/Day Years Used Date Smoking Tobacco: Never Smokeless Tobacco: Never Sex Assigned at Date Recorded Not on file documented as of this encounter Plan of Treatment Upcoming Encounters Date Type Specialty Care Team Description 01/15/2022 Appointment Laboratory 02/22/2022 Appointment Rheumatology Giorgio Albarado M D [address] [place] [phone] (Wo rk) documented as of this encounter Results Creatinine / GFR (09/04/2017 8:46 AM CDT) [...] - 09/04/2017 10:10 AM CDT Performed at [facility], [facility] [address] [place] [id number] CLIA number [id number] Hugh Chaudhary MD LAB_1 Performing Organization Address [facility] Phon e Number PN SOFT [address] [place] [address] Alanine Aminotransferase - ALT (SGPT) (09/04/2017 8:46 AM CDT) Patholo gist Method Time Signature Alanine 14 9 - 55 PN SOFT Aminotransferase U/L Specimen Anatomical Collection Method Collection Time Receive d Time (Source) Location / / Volume Laterality 09/04/2017 8:46 AM 8 8:46 CDT AM CDT Narrative PN SOFT - 09/04/2017 10:10 AM CDT Performed at [facility], [facility] [address] [place] [address] CLIA number [id number] Hugh Chaudhary MD LAB_1 Performing Organization Address [facility] Phon e Number PN SOFT [address] [place] [address] CBC - Complete Blood Count-W/Diff (09/04/2017 8:46 [...] 8 8:46 CDT AM CDT Narrative PN TOD - 09/04/2017 8:56 AM CDT Performed at [facility], [address] [place] [address] CLIA number [id number] Hugh Chaudhary MD LAB_1 Performing Organization Address City/State/ZIP Code Phon e Number PN SOFT [address] [place] [address] documented in this encounter Visit Diagnoses Diagnosis High risk medication use - Primary Encounter for long-term (current) use of other medications High risk medication use Encounter for long-term (current) use of other medications documented in this encounter Care Teams Chuck Wagon Driver Relationship Specialty Start Date End Date Micki Arzate MD PCP - General Internal Medicine 01/29/17[address] [place] [address] documented as of this encounter
--- OUTSIDE RECORDS SUMMARY | 2022-01-04 15:19 | XMS_ITS | Encounter Summary ---
:1955 Author Organization [facility] Address [address] [place] [address] Care Team Providers Name Role Phone Micki Arzate MD Primary Care Provider Encounter Details Date Type Department Care Team Description 11/15/2017 Lab Visit [facility] High risk medication use [address] [place] [address] Social History Tobacco Use Types Packs/Day Years Used Date Smoking Tobacco: Never Smokeless Tobacco: Never Sex Assigned at Date Recorded Not on file documented as of this encounter Plan of Treatment Upcoming Encounters Date Type Specialty Care Team Description 01/15/2022 Appointment Laboratory 02/22/2022 Appointment Rheumatology Giorgio Albarado M D [address] [place] [phone] (Wo rk) documented as of this encounter Procedures Procedure Name Priority Date/Time Associated Comments Diagnosis CREATININE / GFR Routine 11/15/2017 12:18 High risk Results for this PM CDT medication use procedure are in the results section. COMPLETE BLOOD Routine 11/15/2017 12:18 High risk Results f or this COUNT-W/DIFF PM CDT medication use procedure are in the results section. DIFFERENTIAL Routine 11/15/2017 12:18 Results for this PM CDT procedure are i n the results section. ALT (SGPT) Routine 11/15/2017 12:18 High risk Results for this PM CDT medication use procedure are in the results section. documented in this encounter Results (ABNORMAL) Differential (11/15/2017 12:18 PM CDT) Patholo gist Method Time Signature Absolute 6.2 1.8 - 8.0 PN SOFT Neutrophils k/cmm Absolute 1.7 1.1 - 4.0 PN SOFT Lymphocytes k/cmm Absolute 0.6 0.2 - 0.8 PN SOFT Monocytes k/cmm Absolute 0.1 0.0 - 0.5 PN SOFT Eosinophils k/cmm Absolute 0.1 0.0 - 0.2 PN SOFT Basophils k/cmm Immature 0.6 (H) 0.0 - 0.5 PN SOFT Granulocytes % Specimen Anatomical Collection Method Collection Time Receive d Time (Source) Location / / Volume Laterality 11/15/2017 12:18 11/15/2017 PM CDT 12:18 PM CDT Narrative PN SOFT - 11/15/2017 12:20 PM CDT Performed at [facility], [address] [place], [place] [id number] CLIA number [id number] Hugh Chaudhary MD LAB_1 Performing Organization Address City/State/ZIP Code Phon e Number PN SOFT [address] [place] [address] (ABNORMAL) CBC - Complete Blood Count W/Diff (11/15/2017 12:18 PM CDT) [facility] gist Method Time Signature White Blood Cell [...] - 11/15/2017 12:20 PM CDT Performed at [place] [address] [address] [place] [address] CLIA number [id number] Hugh Chaudhary MD LAB_1 Performing Organization Address City/[facility]/ZIP Code Phon e Number PN SOFT [address] [place] [address] ALT - Alanine Aminotransferase (11/15/2017 12:18 PM CDT) Patholo gist Method Time Signature Alanine 16 9 - 55 PN SOFT Aminotransferase U/L Specimen Anatomical Collection Method Collection Time Receive d Time (Source) Location / / Volume Laterality 11/15/2017 12:18 11/15/2017 PM CDT 12:18 PM CDT Narrative PN SOFT - 11/15/2017 2:54 PM CDT Performed at [facility], Formerly [facility] [address] [place] [address] CLIA number [id number] Hugh Chaudhary MD LAB_1 Performing Organization Address [facility] Code Phon e Number PN SOFT [address] [place] [address] [phone] CREAT - Creatinine (11/15/2017 12:18 PM CDT) [...] - 11/15/2017 2:54 PM CDT Performed at [facility], [address] [place] [address] CLIA number [id number] Hugh Chaudhary MD LAB_1 Performing Organization Address [facility]/ZIP Code Phon e Number PN SOFT [address] [place] [address] documented in this encounter Visit Diagnoses Diagnosis High risk medication use Encounter for long-term (current) use of other medications documented in this encounter Care Teams Cementer Helper Relationship Specialty Start Date End Date Micki Arzate MD PCP - General Internal Medicine 01/29/[address] [place] [address] documented as of this encounter
--- OUTSIDE RECORDS SUMMARY | 2022-01-04 15:19 | XMS_ITS | Encounter Summary ---
:1955 Author Organization [email or web address] Address [address], [place] [address] Care Team Providers Name Role Phone Micki Arzate MD Primary Care Provider Reason for Visit Reason Comments Prior Authorization Request Encounter Details Date Type Department Care Team Description 09/16/[address] [facility] [address] Au thorbrisa Rheumatology MD Hugh Request [address] [facility] [address] [facility] [place] [address] [phone] (Wo rk) Social History Tobacco Use Types Packs/Day Years Used Date Smoking Tobacco: Never Smokeless Tobacco: Never Sex Assigned at Date Recorded Not on file documented as of this encounter Nursing Notes Hugh Chaudhary MD - 09/16/2017 8:46 AM CDT A Rx printed out and given to Darlyn. Carlota Stanley LPN - 09/16/2017 8:36 AM CDT Patient has decided that she would like to try Humira. Need prescription. Yellow form in your in boxto fill out and give to Darlyn to start the process. documented in this encounter Plan of Treatment Upcoming Encounters Date Type Specialty Care Team Description 01/15/2022 Appointment Laboratory 02/22/2022 Appointment Rheumatology Giorgio Albarado M D [address] [place] [phone] (Wo rk) documented as of this encounter Visit Diagnoses Diagnosis Rheumatoid arthritis with positive rheum atoid factor, involving unspecified site (HRC) - Primary documented in this encounter Care Teams Technology Professional Relationship Specialty Start Date End Date Micki Arzate MD PCP - General Internal Medicine 01/29/[address] [place] [address] documented as of this encounter
--- OUTSIDE RECORDS SUMMARY | 2022-01-04 15:19 | XMS_ITS | Encounter Summary ---
:1955 Author Organization [facility] Address [address], [place] [address] Care Team Providers Name Role Phone Micki Arzate MD Primary Care Provider Reason for Visit Reason Comments Nurse Visit flu shot and [email or web address] Encounter Details Date Type Department Care Team Description 03/03/2019 Nursing Visit [facility] Encounter for Rheumatology immunization (Primary [address] [place]x) [place] [address] Social History Tobacco Use Types Packs/Day Years Used Date Smoking Tobacco: Never Smokeless Tobacco: Never Sex Assigned at Date Recorded Not on file documented as of this encounter Plan of Treatment Upcoming Encounters Date Type Specialty Care Team Description 01/15/2022 Appointment Laboratory 02/22/2022 Appointment Rheumatology Giorgio Albarado M D [address] [place] [phone] (Wo rk) documented as of this encounter Visit Diagnoses Diagnosis Encounter for immunization - Primary Need for other specified prophylactic va ccination against single bacterial disease documented in this encounter Care Teams Brand Activation Manager Relationship Specialty Start Date End Date Micki Arzate MD PCP - General Internal Medicine 01/29/[address] [place] [address] documented as of this encounter
--- OUTSIDE RECORDS SUMMARY | 2022-01-04 15:19 | XMS_ITS | Encounter Summary ---
:1955 Author Organization [facility] Address [address], [place] [address] Care Team Providers Name Role Phone Micki Arzate MD Primary Care Provider Reason for Visit Reason Onset Date Comments Refill 04/30/2019 Encounter Details Date Type Department Care Team Description 04/30/2019 Refill [facility] [address] Cydney Chaudhary i, Refill Rheumatology [address] [place] [address] [place], [place] [phone] (Wo rk) Social History Tobacco Use Types Packs/Day Years Used Date Smoking Tobacco: Never Smokeless Tobacco: Never Sex Assigned at Date Recorded Not on file documented as of this encounter Nursing Notes Melba Orlando RN - 04/30/2019 2:56 PM CST LV 08-05-2018 FV 05-12-2019 Medication refill approved per protocol NSIC SERGEANT Carlota Stanley LPN - 04/30/2019 12:41 PM CST Refill folic acid. NSIC SERGEANT documented in this encounter Plan of Treatment Upcoming Encounters Date Type Specialty Care Team Description 01/15/2022 Appointment Laboratory 02/22/2022 Appointment Rheumatology [place], Giorgio H, M D [address] [place], [place] [phone] (Wo rk) documented as of this encounter Visit Diagnoses Not on filedocumented in this encounter Care Teams Assistant Chief Train Dispatcher Relationship Specialty Start Date End Date Micki Arzate MD PCP - General Internal Medicine 01/29/[address] [place] [address] documented as of this encounter
--- OUTSIDE RECORDS SUMMARY | 2022-01-04 15:19 | XMS_ITS | Encounter Summary ---
:1955 Author Organization [facility] Address [address], [place] [address] Care Team Providers Name Role Phone Micki Arzate MD Primary Care Provider Encounter Details Date Type Department Care Team Description 11/28/2018 Lab Visit [facility] High risk medication use [address] [place] [address] Social History Tobacco Use Types Packs/Day Years Used Date Smoking Tobacco: Never Smokeless Tobacco: Never Sex Assigned at Date Recorded Not on file documented as of this encounter Plan of Treatment Upcoming Encounters Date Type Specialty Care Team Description 01/15/2022 Appointment Laboratory 02/22/2022 Appointment Rheumatology Giorgio Albarado M D [address] [place] [phone] (Wo rk) documented as of this encounter Procedures Procedure Name Priority Date/Time Associated Comments Diagnosis CREATININE / GFR Routine 11/28/2018 9:06 AM High risk Resul ts for this CDT medication use procedure are in the results section. COMPLETE BLOOD Routine 11/28/2018 9:06 AM High risk Results for this COUNT-W/DIFF CDT medication use procedure are in the results section. ALT (SGPT) Routine 11/28/2018 9:06 AM High risk Results f or this CDT medication use procedure are in the results section. documented in this encounter Results CREAT - Creatinine - standing every 2 - 3 months (11/28/2018 9:06 AM CDT) P athologist Signature Creatinine 0.80 0.55 - 11/28/2018 [place] 1.02 mg/dL 10:12 AM CDT LABORATORY GFR, Estimated >60 >60 11/28/2018 [place] mL/min/1.7 10:12 AM CDT LABORATORY 3m2 GFR, Est If >60 >60 11/28/2018 [place] mL/min/1.7 10:12 AM CDT LABORATORY Ni[place]an 3m2 Specimen Anatomical Collection Method Collection Time Receive d Time (Source) Location / / Volume Laterality Blood 11/28/2018 9:06 AM 9 9:06 CDT AM CDT Hugh Chaudhary MD LAB_1 Performing Organization Address City/State/ZIP Code Phon e Number [facility] [address] [place] [address] CBC - Complete Blood Count W/Diff - standing every 2 - 3 months (11/28/2018 9:06 AM CDT) P athologist Signature WBC 6.7 3.5 - 10.5 11/28/2018 [place] x10(9)/L 9:12 AM CDT LABORATORY RBC 4.43 3.90 - 11/28/2018 [place] 5.03 9:12 AM CDT LABORATORY x10(12)/L Hemoglobin 13.3 12.0 - 11/28/2018 [place] 15.5 g/dL 9:12 AM CDT LABORATORY HCT 40.3 34.9 - 11/28/2018 [place] 44.5 % 9:12 AM CDT LABORATORY MCV 91.0 80.0 - 11/28/2018 [place] 100.0 fL 9:12 AM CDT LABORATORY MCH 30.0 27.6 - 11/28/2018 [place] 33.3 pg 9:12 AM CDT LABORATORY MCHC 33.0 31.5 - 11/28/2018 [place] 35.2 g/dL 9:12 AM CDT LABORATORY RDW 13.2 11.9 - 11/28/2018 [place] 15.5 % 9:12 AM CDT LABORATORY Platelets 238 150 - 450 11/28/2018 [place] x10(9)/L 9:12 AM CDT LABORATORY Automated NRBC 0 <=0 /100 11/28/2018 [place] WBC 9:12 AM CDT LABORATORY Neutrophil 3.8 1.7 - 7.0 11/28/2018 [place] Absolute 10(9)/L 9:12 AM CDT LABORATORY Lymphocyte 2.1 1.0 - 4.8 11/28/2018 [place] Absolute 10(9)/L 9:12 AM CDT LABORATORY Monocytes 0.5 0.2 - 0.9 11/28/2018 [place] Absolute 10(9)/L 9:12 AM CDT LABORATORY Eosinophil 0.2 0.0 - 0.5 11/28/2018 [place] Absolute 10(9)/L 9:12 AM CDT LABORATORY Basophil 0.1 0.0 - 0.3 11/28/2018 [place] Absolute 10(9)/L 9:12 AM CDT LABORATORY Immature Gran % 0.5 0.0 - 0.5 11/28/2018 [place] % 9:12 AM CDT LABORATORY Specimen Anatomical Collection Method Collection Time Receive d Time (Source) Location / / Volume Laterality Blood 11/28/2018 9:06 AM 9 9:06 CDT AM CDT Hugh Chaudhary MD LAB_1 Performing Organization Address City/[facility]/ZIP Code Phon e Number [facility] [address] [place], [place] [phone] ALT - Alanine Aminotransferase - standing every 2 - 3 months (11/28/2018 9:06 AM CDT) P athologist Signature ALT (SGPT) 14 0 - 55 U/L 11/28/2018 [place] 10:12 AM CDT LABORATORY Specimen Anatomical Collection Method Collection Time Receive d Time (Source) Location / / Volume Laterality Blood 11/28/2018 9:06 AM 9 9:06 CDT AM CDT Hugh Chaudhary MD LAB_1 Performing Organization Address City/[facility]/ZIP [facility] Phon e Number [facility] [address] [place], [place] [phone] documented in this encounter Visit Diagnoses Diagnosis High risk medication use Encounter for long-term (current) use of other medications documented in this encounter Care Teams Form Tamping Machine Operator Relationship Specialty Start Date End Date Micki Arzate MD PCP - General Internal Medicine 01/29/[address] [place] [address] documented as of this encounter
--- OUTSIDE RECORDS SUMMARY | 2022-01-04 15:19 | XMS_ITS | Encounter Summary ---
:1955 Author Organization [facility] Address [address] [place] [address] Care Team Providers Name Role Phone Micki Arzate MD Primary Care Provider Reason for Visit Reason Comments Refill Encounter Details Date Type Department Care Team Description 03/19/2018 Telephone [facility] [address] C[address] Chaudhary i, Refill Rheumatology [address] [place] [address] [place], [place] [address] (Wo rk) Social History Tobacco Use Types Packs/Day Years Used Date Smoking Tobacco: Never Smokeless Tobacco: Never Sex Assigned at Date Recorded Not on file documented as of this encounter Progress Notes Renetta Gomez RN - 03/20/2018 9:14 AM CDT Addended by: RENETTA GOMEZ on: 03/20/2018 09:14 AM Modules accepted: Orders documented in this encounter Nursing Notes Renetta Gomez RN - 03/20/2018 9:14 AM CDT Re-sent rx to patient's preferred pharmacy. Renetta Gomez RN - 03/19/2018 9:37 AM CDT Renewed medication per medication refill protocol. Carlota Stanley LPN - 03/19/2018 9:33 AM CDT Pharmacy requesting refill on Folic acid 1mg. Last refill 02-20-17 #90 refill x 3 Last OV 02-25-18 Next OV 06-20-18 Teed up. Thank you documented in this encounter Plan of Treatment Upcoming Encounters Date Type Specialty Care Team Description 01/15/2022 Appointment Laboratory 02/22/2022 Appointment Rheumatology Giorgio Albarado M D [address] [place] [phone] (Wo rk) documented as of this encounter Visit Diagnoses Not on filedocumented in this encounter Care Teams Rn Home Care Relationship Specialty Start Date End Date Micki Arzate MD PCP - General Internal Medicine 01/29/[address] [place] [address] documented as of this encounter
--- OUTSIDE RECORDS SUMMARY | 2022-01-04 15:19 | XMS_ITS | Encounter Summary ---
:1955 Author Organization [facility] Address [address] [address] Care Team Providers Name Role Phone Micki Arzate MD Primary Care Provider Encounter Details Date Type Department Care Team Description 09/03/2017 Notes/Orders [place] [facility] shahbaz Chaudhary, [address] [facility] [place] [address] [address] [facility] [phone] [facility] N [id number] (Wo rk) Social History Tobacco Use Types Packs/Day Years Used Date Smoking Tobacco: Never Smokeless Tobacco: Never Sex Assigned at Date Recorded Not on file documented as of this encounter Plan of Treatment Upcoming Encounters Date Type Specialty Care Team Description 01/15/2022 Appointment Laboratory 02/22/2022 Appointment Rheumatology Giorgio Albarado M D [address] [place] [phone] (Wo rk) documented as of this encounter Visit Diagnoses Not on filedocumented in this encounter Care Teams Director Of Women'S Services Relationship Specialty Start Date End Date Micki Arzate MD PCP - General Internal Medicine 01/29/[address] [place] [address] documented as of this encounter
--- OUTSIDE RECORDS SUMMARY | 2022-01-04 15:19 | XMS_ITS | Encounter Summary ---
:1955 Author Organization [facility] Address [address] [place] [address] Care Team Providers Name Role Phone Micki Arzate MD Primary Care Provider Reason for Visit Reason Onset Date Comments Refill 05/06/2018 Encounter Details Date Type Department Care Team Description 05/06/2018 Refill [facility] [address] Chaudhary i, Refill Rheumatology [address] [place] [address] [place], [place] [phone] (Wo rk) Social History Tobacco Use Types Packs/Day Years Used Date Smoking Tobacco: Never Smokeless Tobacco: Never Sex Assigned at Date Recorded Not on file documented as of this encounter Nursing Notes Franca Oseguera, AMRIT - 05/07/2018 8:44 AM CST Lab Results Component Value Date/Time WBC 5.0 02/25/2018 01:07 PM RBC 4.39 02/25/2018 01:07 PM HGB 13.2 02/25/2018 01:07 PM HCT 39.6 02/25/2018 01:07 PM MCV 90.2 02/25/2018 01:07 PM PLTS 227 02/25/2018 01:07 PM RDW 15.2 (H) 02/25/2018 01:07 PM Lab Results Component Value Date/Time Alanine Aminotransferase 21 02/25/2018 1307 Lab Results Component Value Date/Time Creatinine Serum 0.90 02/25/2018 1307 R READER INSPECTOR Karime Schuster - 05/06/2018 5:53 PM CST Last Visit: 02/25/18 Future Visit: 06/20/18 R READER INSPECTOR documented in this encounter Plan of Treatment Upcoming Encounters Date Type Specialty Care Team Description 01/15/2022 Appointment Laboratory 02/22/2022 Appointment Rheumatology Giorgio Albarado M D [address] [place] [phone] (Wo rk) documented as of this encounter Visit Diagnoses Not on filedocumented in this encounter Care Teams Technical Education Teacher Relationship Specialty Start Date End Date Micki Arzate MD PCP - General Internal Medicine 01/29/[address] [place] [address] documented as of this encounter
--- OUTSIDE RECORDS SUMMARY | 2022-01-04 15:19 | XMS_ITS | Encounter Summary ---
:1955 Author Organization [facility] Address [address] [address] Care Team Providers Name Role Phone Micki Arzate MD Primary Care Provider Encounter Details Date Type Department Care Team Description 09/16/2017 Notes/Orders [facility] [address], Rheumatology MD Hugh [address] [facility] [address] [place] [address] [place] [address] [phone] (Wo rk) Social History Tobacco Use Types Packs/Day Years Used Date Smoking Tobacco: Never Smokeless Tobacco: Never Sex Assigned at Date Recorded Not on file documented as of this encounter Plan of Treatment Upcoming Encounters Date Type Specialty Care Team Description 01/15/2022 Appointment Laboratory 02/22/2022 Appointment Rheumatology Giorgio Albarado M D [address] [place] [phone] (Wo rk) documented as of this encounter Visit Diagnoses Not on filedocumented in this encounter Care Teams Programmer Numerical Control Relationship Specialty Start Date End Date Micki Arzate MD PCP - General Internal Medicine 01/29/[address] [place] [address] documented as of this encounter
--- OUTSIDE RECORDS SUMMARY | 2022-01-04 15:19 | XMS_ITS | Encounter Summary ---
:1955 Author Organization [facility] Address [address], [place] [address] Care Team Providers Name Role Phone Micki Arzate MD Primary Care Provider Reason for Visit Reason Onset Date Comments Refill 11/12/2018 Encounter Details Date Type Department Care Team Description 11/12/2018 Refill [facility] Hugh Hinojosa, Refill [address] [facility] [place], [place] [address] [address] [facility] [phone] [facility] N [address] (Wo rk) Social History Tobacco Use Types Packs/Day Years Used Date Smoking Tobacco: Never Smokeless Tobacco: Never Sex Assigned at Date Recorded Not on file documented as of this encounter Nursing Notes Melba Orlando RN - 11/13/2018 8:51 AM CDT LV 08-05-2018 FV 12-16-2018 Patient had CBC, Creatinine, and ALT labs on 08-27-2018 and values were within refill range. Medication refill approved per protocol Pau Harris - 11/12/2018 1:02 PM CDT Last Visit - 08/05/2018 Future Visit - 12/16/2018 Last Filled - 07/30/2018 documented in this encounter Plan of Treatment Upcoming Encounters Date Type Specialty Care Team Description 01/15/2022 Appointment Laboratory 02/22/2022 Appointment Rheumatology Giorgio Albarado M D [address] [place] [phone] (Wo rk) documented as of this encounter Visit Diagnoses Not on filedocumented in this encounter Care Teams Production Estimator Relationship Specialty Start Date End Date Micki Arzate MD PCP - General Internal Medicine 01/29/[address] [place] [address] documented as of this encounter
--- OUTSIDE RECORDS SUMMARY | 2022-01-04 15:19 | XMS_ITS | Encounter Summary ---
:1955 Author Organization [facility] Address [address] [place] [address] Care Team Providers Name Role Phone Micki Arzate MD Primary Care Provider Encounter Details Date Type Department Care Team Description 05/30/2018 Lab Visit [facility] High risk medication use [address] [place] [address] Social History Tobacco Use Types Packs/Day Years Used Date Smoking Tobacco: Never Smokeless Tobacco: Never Sex Assigned at Date Recorded Not on file documented as of this encounter Plan of Treatment Upcoming Encounters Date Type Specialty Care Team Description 01/15/2022 Appointment Laboratory 02/22/2022 Appointment Rheumatology Giorgio Albarado M D [address] [place] [address] [phone] (Wo rk) documented as of this encounter Procedures Procedure Name Priority Date/Time Associated Comments Diagnosis CREATININE / GFR Routine 05/30/2018 9:54 AM High risk Resul ts for this GUIDANCE AND CONTROL SYSTEM ENGINEER medication use procedure are in the results section. COMPLETE BLOOD Routine 05/30/2018 9:54 AM High risk Results for this COUNT-W/DIFF GUIDANCE AND CONTROL SYSTEM ENGINEER medication use procedure are in the results section. DIFFERENTIAL Routine 05/30/2018 9:54 AM Results f or this GUIDANCE AND CONTROL SYSTEM ENGINEER procedure are i n the results section. ALT (SGPT) Routine 05/30/2018 9:54 AM High risk Results f or this GUIDANCE AND CONTROL SYSTEM ENGINEER medication use procedure are in the results section. documented in this encounter Results Differential (05/30/2018 9:54 AM GUIDANCE AND CONTROL SYSTEM ENGINEER) P athologist Signature Absolute 4.7 1.8 - 8.0 PN SOFT Neutrophils k/cmm Absolute 1.5 1.1 - 4.0 PN SOFT Lymphocytes k/cmm Absolute 0.5 0.2 - 0.8 PN SOFT Monocytes k/cmm Absolute 0.2 0.0 - 0.5 PN SOFT Eosinophils k/cmm Absolute 0.1 0.0 - 0.2 PN SOFT Basophils k/cmm Immature 0.3 0.0 - 0.5 PN SOFT Granulocytes % Specimen Anatomical Collection Method Collection Time Receive d Time (Source) Location / / Volume Laterality 05/30/2018 9:54 AM 9 9:54 GUIDANCE AND CONTROL SYSTEM ENGINEER AM GUIDANCE AND CONTROL SYSTEM ENGINEER Narrative PN SOFT - 05/30/2018 10:04 AM GUIDANCE AND CONTROL SYSTEM ENGINEER Performed at [facility], [facility] [address] [place] [address] CLIA number [id number] Hugh Chaudhary MD LAB_1 Performing Organization Address [facility] Phon e Number PN SOFT [address] [place] [address] [phone] CREAT - Creatinine - standing every 2 - 3 months (05/30/2018 9:54 AM GUIDANCE AND CONTROL SYSTEM ENGINEER) athologist Signature Creatinine Serum 0.80 0.55 - [...] Time (Source) Location / / Volume Laterality 05/30/2018 9:54 AM 9 9:54 GUIDANCE AND CONTROL SYSTEM ENGINEER AM GUIDANCE AND CONTROL SYSTEM ENGINEER Narrative PN SOFT - 05/30/2018 10:27 AM GUIDANCE AND CONTROL SYSTEM ENGINEER Performed at [facility], [address] [place] [address] CLIA number [id number] Hugh Chaudhary MD LAB_1 Performing Organization Address [facility] Phon e Number PN SOFT [address] [place] [address] CBC - Complete Blood Count W/Diff - standing every 2 - 3 months (05/30/2018 9:54 AM GUIDANCE AND CONTROL SYSTEM ENGINEER) P athologist Signature White Blood Cell 6.9 3.8 - 11.0 PN SOFT Count k/cmm Red Blood Cell 4.48 3.70 - PN SOFT Count 5.20 m/cmm Hemoglobin 13.6 11.8 - PN SOFT 15.5 g/dL Hematocrit 40.9 35.0 - PN SOFT 46.0 % Mean Corpuscular 91.3 80.0 - PN SOFT Volume 100.0 fL RDW 13.2 11.0 - PN SOFT 15.0 % Platelet Count 247 140 - 450 PN SOFT k/cmm Specimen Anatomical Collection Method Collection Time Receive d Time (Source) Location / / Volume Laterality 05/30/2018 9:54 AM 9 9:54 GUIDANCE AND CONTROL SYSTEM ENGINEER AM GUIDANCE AND CONTROL SYSTEM ENGINEER Narrative PN SOFT - 05/30/2018 10:04 AM GUIDANCE AND CONTROL SYSTEM ENGINEER Performed at [facility], [address] [place] [address] CLIA number [id number] Hugh Chaudhary MD LAB_1 Performing Organization Address City/[facility] Code Phon e Number PN SOFT [address] [place] [address] ALT - Alanine Aminotransferase - standing every 2 - 3 months (05/30/2018 9:54 AM GUIDANCE AND CONTROL SYSTEM ENGINEER) Patholo gist Method Time Signature Alanine 18 9 - 55 PN SOFT Aminotransferase U/L Specimen Anatomical Collection Method Collection Time Receive d Time (Source) Location / / Volume Laterality 05/30/2018 9:54 AM 9 9:54 GUIDANCE AND CONTROL SYSTEM ENGINEER AM GUIDANCE AND CONTROL SYSTEM ENGINEER Narrative PN SOFT - 05/30/2018 10:27 AM GUIDANCE AND CONTROL SYSTEM ENGINEER Performed at [facility], [address] [place] [address] CLIA number [id number] Hugh Chaudhary MD LAB_1 Performing Organization Address City/[facility]/ZIP Code Phon e Number PN SOFT [address] [place] [address] documented in this encounter Visit Diagnoses Diagnosis High risk medication use Encounter for long-term (current) use of other medications documented in this encounter Care Teams Slitting Machine Feeder Relationship Specialty Start Date End Date Micki Arzate MD PCP - General Internal Medicine 01/29/[address] [place] [address] documented as of this encounter
--- OUTSIDE RECORDS SUMMARY | 2022-01-04 15:19 | XMS_ITS | Encounter Summary ---
:1955 Author Organization [facility] Address [address], [place] [address] Care Team Providers Name Role Phone Micki Arzate MD Primary Care Provider Encounter Details Date Type Department Care Team Description 05/12/2019 Notes/Orders [facility] [facility] shahbaz Chaudhary, [address] [place] [facility] MD Hugh [place], [place] [phone] [address] [facility] [phone] [facility] N [id number] (Wo rk) Social History Tobacco Use Types [...] 02/22/2022 Appointment Rheumatology Giorgio Albarado M D [address] [place] [phone] (Wo rk) documented as of this encounter Visit Diagnoses Not on filedocumented in this encounter Care Teams Family Consumer Scientist Relationship Specialty Start Date End Date Micki Arzate MD PCP - General Internal Medicine 01/29/[address] [place] [address] documented as of this encounter
--- OUTSIDE RECORDS SUMMARY | 2022-01-04 15:19 | XMS_ITS | Encounter Summary ---
:1955 Author Organization [facility] Address [address] [address] Care Team Providers Name Role Phone Micki Arzate MD Primary Care Provider Encounter Details Date Type Department Care Team Description 02/25/2018 Lab Visit [facility] High risk medication use [address] [place] [address] Social History Tobacco Use Types Packs/Day Years Used Date Smoking Tobacco: Never Smokeless Tobacco: Never Sex Assigned at Date Recorded Not on file documented as of this encounter Plan of Treatment Upcoming Encounters Date Type Specialty Care Team Description 01/15/2022 Appointment Laboratory 02/22/2022 Appointment Rheumatology Giorgio Albarado M D [address] [place] [address] [phone] (Wo rk) documented as of this encounter Procedures Procedure Name Priority Date/Time Associated Comments Diagnosis CREATININE / GFR Routine 02/25/2018 1:07 PM High risk Resul ts for this CDT medication use procedure are in the results section. COMPLETE BLOOD Routine 02/25/2018 1:07 PM High risk Results for this COUNT-W/DIFF CDT medication use procedure are in the results section. DIFFERENTIAL Routine 02/25/2018 1:07 PM Results f or this CDT procedure are i n the results section. ALT (SGPT) Routine 02/25/2018 1:07 PM High risk Results f or this CDT medication use procedure are in the results section. documented in this encounter Results Differential (02/25/2018 1:07 PM CDT) athologist Signature Absolute 2.6 1.8 - 8.0 PN SOFT Neutrophils k/cmm Absolute 1.8 1.1 - 4.0 PN SOFT Lymphocytes k/cmm Absolute 0.3 0.2 - 0.8 PN SOFT Monocytes k/cmm Absolute 0.2 0.0 - 0.5 PN SOFT Eosinophils k/cmm Absolute 0.0 0.0 - 0.2 PN SOFT Basophils k/cmm Immature 0.4 0.0 - 0.5 PN SOFT Granulocytes % Specimen Anatomical Collection Method Collection Time Receive d Time (Source) Location / / Volume Laterality 02/25/2018 1:07 PM 8 1:07 CDT PM CDT Narrative PN SOFT - 02/25/2018 1:11 PM CD[place] [address] CLIA number [id number] Hugh Chaudhary MD LAB_1 Performing Organization Address [facility] [place] [facility] Phon e Number PN SOFT [address] [place] [address] [phone] CREAT - Creatinine - standing every 2 - 3 months (02/25/2018 1:07 PM CDT) athologist Signature Creatinine Serum 0.90 0.55 - [...] Time (Source) Location / / Volume Laterality 02/25/2018 1:07 PM 8 1:07 CDT PM CDT Narrative PN SOFT - 02/25/2018 2:23 PM CDT Performed at [facility], [facility] [address] [place] [address] CLIA number [id number] Hugh Chaudhary MD LAB_1 Performing Organization Address City/[facility]/ZIP Code Phon e Number PN SOFT [address] [place] [address] [phone] (ABNORMAL) CBC - Complete Blood Count W/Diff - standing every 2 - 3 months (02/25/2018 1:07 PM CDT) [facility] Method Time Signature White Blood Cell 5.0 3.8 - 11.0 PN SOFT Count k/cmm Red Blood Cell 4.39 3.70 - PN SOFT Count 5.20 m/cmm Hemoglobin 13.2 11.8 - PN SOFT 15.5 g/dL Hematocrit 39.6 35.0 - PN SOFT 46.0 % Mean Corpuscular 90.2 80.0 - PN SOFT Volume 100.0 fL RDW 15.2 (H) 11.0 - PN SOFT 15.0 % Platelet Count 227 140 - 450 PN SOFT k/cmm Specimen Anatomical Collection Method Collection Time Receive d Time (Source) Location / / Volume Laterality 02/25/2018 1:07 PM 8 1:07 CDT PM CDT Narrative PN SOFT - 02/25/2018 1:11 PM CDT Performed at [facility], [address] [place] [address] CLIA number [id number] Hugh Chaudhary MD LAB_1 Performing Organization Address [facility] [place] [facility] Phon e Number PN SOFT [address] [employer] [place] [address] ALT - Alanine Aminotransferase - standing every 2 - 3 months (02/25/2018 1:07 PM CDT) [facility] Method Time Signature Alanine 21 9 - 55 PN SOFT Aminotransferase U/L Specimen Anatomical Collection Method Collection Time Receive d Time (Source) Location / / Volume Laterality 02/25/2018 1:07 PM 8 1:07 CDT PM CDT Narrative PN SOFT - 02/25/2018 2:23 PM CDT Performed at [facility], [address] [place] [address] CLIA number [id number] Hugh Chaudhary MD LAB_1 Performing Organization Address City/[facility]/ZIP Code Phon e Number PN SOFT [address] [place] [address] [phone] documented in this encounter Visit Diagnoses Diagnosis High risk medication use Encounter for long-term (current) use of other medications documented in this encounter Care Teams Health Care Liaison Relationship Specialty Start Date End Date Micki Arzate MD PCP - General Internal Medicine 01/29/[address] [place] [address] documented as of this encounter
--- OUTSIDE RECORDS SUMMARY | 2022-01-04 15:19 | XMS_ITS | Encounter Summary ---
:1955 Author Organization [facility] Address [address], [place] [address] Care Team Providers Name Role Phone Micki Arzate MD Primary Care Provider Encounter Details Date Type Department Care Team Description 09/03/2017 Lab Visit [facility] High risk medication use [address] [place] [address] Social History Tobacco Use Types Packs/Day Years Used Date Smoking Tobacco: Never Smokeless Tobacco: Never Sex Assigned at Date Recorded Not on file documented as of this encounter Plan of Treatment Upcoming Encounters Date Type Specialty Care Team Description 01/15/2022 Appointment Laboratory 02/22/2022 Appointment Rheumatology Giorgio Albarado M D [address] [place] [phone] (Wo rk) documented as of this encounter Visit Diagnoses Diagnosis High risk medication use Encounter for long-term (current) use of other medications documented in this encounter Care Teams Customer Counter Associate Relationship Specialty Start Date End Date Micki Arzate MD PCP - General Internal Medicine 01/29/[address] [place] [address] documented as of this encounter
--- OUTSIDE RECORDS SUMMARY | 2022-01-04 15:19 | XMS_ITS | Encounter Summary ---
:1955 Author Organization [facility] Address [address] [address] Care Team Providers Name Role Phone Micki Arzate MD Primary Care Provider Reason for Visit Reason Comments Medication Questions Encounter Details Date Type Department Care Team Description 09/11/2017 Telephone [facility] [address] Chaudhary on Questions Rheumatology MD Hugh [address] [address] [phone] (Wo rk) Social History Tobacco Use Types Packs/Day Years Used Date Smoking Tobacco: Never Smokeless Tobacco: Never Sex Assigned at Date Recorded Not on file documented as of this encounter Nursing Notes Hugh Chaudhary MD - 09/12/2017 6:10 PM CDT Called the patient about pros and cons of Actemra, as well as TNFis and triple Rx. She has smaller copayment with Actemra but she has private insurance and any biologics could potentially have copayment assistant restaurant general manager programs for her. She will read about these more and will call me back with her decisions. Carlota Stanley LPN - 09/11/2017 3:13 PM CDT Patient wants to discuss Actemra with you. This is the best number to reach her.[phone] Okay for . documented in this encounter Plan of Treatment Upcoming Encounters Date Type Specialty Care Team Description 01/15/2022 Appointment Laboratory 02/22/2022 Appointment Rheumatology Giorgio Albarado M D [address] [place] [phone] (Wo rk) documented as of this encounter Visit Diagnoses Not on filedocumented in this encounter Care Teams Coremaker Supervisor Relationship Specialty Start Date End Date Micki Arzate MD PCP - General Internal Medicine 01/29/[address] [place] [address] documented as of this encounter
--- OUTSIDE RECORDS SUMMARY | 2022-01-04 15:19 | XMS_ITS | Encounter Summary ---
:1955 Author Organization [facility] Address [address], [place] [address] Care Team Providers Name Role Phone Micki Arzate MD Primary Care Provider Reason for Visit Reason Comments Orders Needed Encounter Details Date Type Department Care Team Description 02/06/2019 Telephone [facility] Hugh Hinojosa, Orders Needed [address] [facility] [place] [address] 2[address] [facility] [phone] [facility] [address] (Wo rk) Social History Tobacco Use Types Packs/Day Years Used Date Smoking Tobacco: Never Smokeless Tobacco: Never Sex Assigned at Date Recorded Not on file documented as of this encounter Nursing Notes Carlota Stanley LPN - 02/06/2019 10:53 AM CDT Patient informed. Hugh De La Torre MD - 02/06/2019 9:38 AM CDT Orders signed for Pneumovax and flu shots. Carlota Salazar LPN - 02/06/2019 9:29 AM CDT Patient is on the nurse schedule for 10-15. She is wanting a Prevnar 23 (she received the Prevnar 13at her primary doctor on 03-25-18) and a flu shot. Please sign orders if you agree. Thank you. documented in this encounter Plan of Treatment Upcoming Encounters Date Type Specialty Care Team Description 01/15/2022 Appointment Laboratory 02/22/2022 Appointment Rheumatology Giorgio Albarado M D [address] [place] [phone] (Wo rk) documented as of this encounter Visit Diagnoses Diagnosis Rheumatoid arthritis involving multiple joints (HRC) - Primary documented in this encounter Care Teams Cafe Cook Relationship Specialty Start Date End Date Micki Arzate MD PCP - General Internal Medicine 01/29/[address] [place] [address] documented as of this encounter
--- OUTSIDE RECORDS SUMMARY | 2022-01-04 15:19 | XMS_ITS | Encounter Summary ---
:1955 Author Organization [facility] Address [address] [place] [address] Care Team Providers Name Role Phone Micki Arzate MD Primary Care Provider Reason for Visit Reason Comments Follow-up Encounter Details Date Type Department Care Team Description 02/25/2018 Office Visit [facility] Rheumatoid art hritis with positive rheumatoid factor, involving unspecified site (HRC) (Primary Dx); Rheumatology MD Hugh Positive anti-CCP test; [address] [place] [address] [facility] [phone] [place], [place] [address] (Wo rk) Social History Tobacco Use Types Packs/Day Years Used Date Smoking Tobacco: Never Smokeless Tobacco: Never Sex Assigned at Date Recorded Not on file documented as of this encounter Last Filed Vital Signs Vital Sign Reading Time Taken Comments Blood Pressure 119/74 02/25/2018 12:08 PM CDT Pulse 75 02/25/2018 12:08 PM CDT Temperature - - Respiratory Rate - - Oxygen Saturation - - Inhaled Oxygen Concentration - - Weight 54.9 kg (121 lb) 02/25/2018 12:08 PM CDT Height - - Body Mass Index 22.86 02/20/2017 7:26 AM CDT documented in this encounter Patient Instructions Patient InstructionsHugh Chaudhary MD - 02/25/2018 12:15 PM CDT Get flu shot yourself. You have not had a pneumonia vaccine. There are 2 choices of pneumonia vaccines. The first one is called Prevnar (PCV13) and you should get this first and this is only required once in your left time. The second one is called Pneumovax, should be given a year after Prevnar and that will be it. You can also get inactivated () Shingles vaccine (Shingrix) vaccination. This requires 2 doses, two to six months apart. documented in this encounter Progress Notes Hugh Chaudhary MD - 02/25/2018 12:15 PM CDT SUBJECTIVE: Follow-up for seropositive rheumatoid arthritis. History of present illness: This is a three-month follow-up for the patient. She currently takes methotrexate 22.5 mg weekly and Humira 40 mg every other week. She has been on this combination for about 4 months. The combination has been well-tolerated. She has reduced the dose of prednisone down to the current dose of 2.5 mg a day. She has had a significant improvement. There is no more swollen joint. She has not had a pneumococcal an annual influenza vaccinations. She would like to do these herself through her employee her local pharmacy as they would be cheaper. She also would like to have inactivated shingles vaccination herself. She is due to have the blood test monitoring today. Past medical history, family and social history, current medications and adverse reactions were updated in EMR. Physical exams: BP 119/74 (BP Location: Right Arm, BP Cuff Size: Adult Regular/Long) Pulse 75 Wt121 lb (54.9 kg) BMI 22.86 kg/m2 General appearance: A middle-aged female who was not in acute physical distress. Musculoskeletal exams: All 4 extremities were examined. There was no significant synovitis/inflammatory arthritis in any joints. Assessment and plan: 1. Seropositive RA, clinically inactive. 2. Chronic long-term high-risk medication and monitoring. Pain and RAPID 3 score could not be calculated due to incompletion. 28 joint count: Total swollen joint 0. Total tender joint 0. She is doing much better. She has no more clinically detectable synovitis. I suggested to continue on the current doses of methotrexate 22.5 mg weekly and Humira 40 mg every other week. I will cut downprednisone to 2.5 mg every other day and to the end of February and then she can discontinue it. She will let me know if she is having a flare off prednisone. Reminded her to have annual influenza vaccination and Prevnar. Pneumovax will be given a year later.She is also a candidate for an inactivated shingles vaccine and she would like to have these herselfto her local pharmacy/employer. She will have blood test monitoring for methotrexate today and I would like to see her back in 3 months or earlier if there is a problem. Total time is 15 minutes, 10 minutes counseling. documented in this encounter Plan of Treatment Upcoming Encounters Date Type Specialty Care Team Description 01/15/2022 Appointment Laboratory 02/22/2022 Appointment Rheumatology Giorgio Albarado M D [address] [place] [phone] ( rk) documented as of this encounter Visit Diagnoses Diagnosis Rheumatoid arthritis with positive rheum atoid factor, involving unspecified site (HRC) - Primary Positive anti-CCP test High risk medication use Encounter for long-term (current) use of other medications documented in this encounter Care Teams Claims Specialist Relationship Specialty Start Date End Date Micki Arzate MD PCP - General Internal Medicine 01/29/[address] [place] [address] documented as of this encounter
--- OUTSIDE RECORDS SUMMARY | 2022-01-04 15:20 | XMS_ITS | Encounter Summary ---
:1955 Author Organization [facility] Address [address] [place] [address] Care Team Providers Name Role Phone Unavailable Primary Care Provider Unavailable Encounter Details Date Type Department Care Team Description 09/08/2008 Hospital Encounter HX NO MAPPING Melba Flannery M.D. [address] [place] [address]21 (Wo rk) Social History Tobacco Use Types Packs/Day Years Used Date Smoking Tobacco: Never Assessed Sex Assigned at Date Recorded Not on file documented as of this encounter Plan of Treatment Not on filedocumented as of this encounter Procedures Procedure Name Priority Date/Time Associated Diagnosis Comme nts BI BREAST SCREENING Routine 09/08/2008 7:10 AM Re sults for this BILATERAL CDT procedure are i n the results section. documented in this encounter Results BI Breast Screening Bilateral (09/08/2008 7:10 AM CDT) Anatomical Region Laterality Modality Breast Bilateral Mammography Specimen (Source) Anatomical Collection Method Collection Time Re ceived Time Location / / Volume Laterality 09/08/2008 7:10 AM CDT Impressions 09/08/2008 7:10 AM CDT Stable fatty breasts, no radiographic evidence of malignancy. Recommend regular yearly fol lowup screening mammography in this age group. ?? ACR CODE: One, negative mammogram. Narrative 09/08/2008 7:10 AM CDT Originally Signed By UNKNOWN, PERSONNEL Reason for exam: YEARLY HISTORY: Routine screening. ?? COMPARISON: 05/28/2005. ?? FINDINGS: Breasts are generally decrease d fatty density. No suspicious dominant mass or clustered microcalcific ations suspicious for malignancy identified. Axillary lymph no solo are imaged bilaterally. There is no suspicious interval change c ompared with 05/28/2005. ?? CAD was utilized in the interpretation o f this exam. ? Procedure Note Provider, Maryanne Jon - 10/23/2016F ormatting of this note might be different from the original. Originally Signed By UNKNOWN, PERSONNEL Reason for exam: YEARLY HISTORY: Routine screening. COMPARISON: 05/28/2005. FINDINGS: Breasts are generally decrease d fatty density. No suspicious dominant mass or clustered microcalcific ations suspicious for malignancy identified. Axillary lymph no solo are imaged bilaterally. There is no suspicious interval change c ompared with 05/28/2005. CAD was utilized in the interpretation o f this exam. IMPRESSION: Stable fatty breasts, no rad iographic evidence of malignancy. Recommend regular yearly fol lowup screening mammography in this age group. ACR CODE: One, negative mammogram. Historical Provider IMG BI PROCEDURES documented in this encounter Visit Diagnoses Not on filedocumented in this encounter
--- OUTSIDE RECORDS SUMMARY | 2022-01-04 15:20 | XMS_ITS | Encounter Summary ---
:1955 Author Organization [facility] Address [address] [place] [address] Care Team Providers Name Role Phone Micki Arzate MD Primary Care Provider Reason for Visit Reason Comments CONSULT Encounter Details Date Type Department Care Team Description 02/20/2017 Initial Consult [facility] [address], Rheum atoid arthritis, involving unspecified site, unspecified rheumatoid factor presence (HRC) (Primary Dx); Rheumatology MD Hugh Rheumatoid factor positive; [address] Pos itive anti-CCP test; [facility]. [facility] [place] [address] [phone] Social History Tobacco Use Types Packs/Day Years Used Date Smoking Tobacco: Never Assessed Sex Assigned at Date Recorded Not on file documented as of this encounter Last Filed Vital Signs Vital Sign Reading Time Taken Comments Blood Pressure 125/77 02/20/2017 7:26 AM CDT Pulse 82 02/20/2017 7:26 AM CDT Temperature - - Respiratory Rate - - Oxygen Saturation - - Inhaled Oxygen Concentration - - Weight 76 kg (167 lb 8 oz) 02/20/2017 7:26 AM CDT Height 154.9 cm (5' 1) 02/20/2017 7:26 AM CDT Body Mass Index 31.65 02/20/2017 7:26 AM CDT documented in this encounter Progress Notes Hugh Chaudhary MD - 02/20/2017 7:30 AM CDT Subjective: I was requested by Dr. Micki Arzate to evaluate the patient for arthritis. History of present illness: A pleasant 62-year-old female who came in here accompanied by her for an evaluation of arthritis. The patient was in her usual health until 12/27/2016 when she started having severe left shoulder pain in the absence of injury or trauma around noon time. On the following day as the left shoulder symptoms got better, similar symptoms were present over the right shoulder. They came on alternating between right and left shoulder for a few days. Over the subsequent few weeks, similar symptoms also started to involve her left wrist, left thumb and index PIP joints, both feet, both ankles, right more than left knee and subsequently right hand and finger knuckle joints. Her wrist, finger knuckles in both feet and ankle have been swollen for the past few weeks. She was evaluated by her primary care marioi nishant and subsequently urgent care. Blood tests were performed and the patient was found to have a markedly elevated rheumatoid factor and CCP. She was then referred here for further evaluation. The use of ibuprofen was not helpful. She was put on prednisone 20 mg a day for 2 weeks, the last dose was on 02/09/2017. She was feeling much better while taking prednisone. Her symptoms have come backto her baseline since she stopped prednisone. She did not recall of having had an obvious injury or trauma, acute viral illness or unusual skin rash prior to the onset of the joint symptoms. The symptoms are associated with significant morning stiffness which lasts longer than 2 hours. She is otherwise in her good health. She has no history of psoriasis, bleeding tendency, peptic ulcer disease/GI bleeding, thrombotic events, known ischemic heart disease/congestive heart failure, known hepatic/renal disease. 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 No prior history of jaundice, or blood transfusion. There is no lumbar skin to suggest rheumatoid nodule, shortness of breath, PND or orthopnea. A complete review of the systems is otherwise unremarkable except for hair thinning over the years, intermittent swollen glands, ankle swelling, increased urinary frequency at night, difficulty sleeping and tight skin over the swollen joint areas. Past Medical History: Hypothyroidism. Hypertension. Bilateral carpal tunnel syndrome. Hyperlipidemia. Obesity. Colon polyps. History of section, status post nephrectomy at age 4. 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 Nonsmoker. Social drinker once a week. with one child. Current medications: Please see the most updated medication lists in the EMR. These are reviewed. Adverse drug reactions: Penicillin V. Physical exams: BP 125/77 Pulse 82 Ht 5' 1 (1.549 m) Wt 167 lb 8 oz (76 kg) BMI 31.65 kg/m2 General appearance: A middle-aged female who was not in acute physical distress. She seemed to be in discomfort due to the joint pain. Skin: No rash, tophus, nodules, open-wound ulcers, Raynaud changes, telangiectasia, sclerodermatous and dermatomyositis skin changes, psoriasis, psoriatic nail or anything suggesting vasculitis, erythema nodosum. Normal nailfold capillaries. HEENT: No psoriasis on the scalp. No conjunctivitis, scleritis or active uveitis or synaechia. Normal extra ocular movements. No sinus tenderness. No malar rash, discoid rash, oral or nasal mucosal ulcers. No nasal septal perforation. Respiratory: Normal respiratory effort. Lungs are clear with good breath sounds. Heart: RR without audible murmurs, rubs, or gallops. Musculoskeletal exams: All 4 extremities were examined. Moderate synovitis of both wrists joints, all of her MCPs and PIPs, left elbow, bilateral ankles, small right knee effusion. No significant synovitis/inflammatory arthritis/dactylitis or effusion in any other remaining joints. Laboratory exams: No laboratory evaluation within [facility] system. Outside records: On 01/20/2017, rheumatoid factor 155 (0-14). CCP 182 (0-19). Negative MATTHEW. Negative Lyme antibody. White blood cell 9.9. Hemoglobin 13.9. Platelet count 338. ESR 43. Serum uric acid 5.3. Assessment and plans: 1. Seropositive rheumatoid arthritis. 2. Expected long-term use of high-risk medication and monitoring. Pain is rated as 10. RAPID 3 score is 27. Total 28-joint counts: Total swollen 24, total tender joints 10. Patient has objective clinical synovitis clinically detectable in all of her MCPs, PIPs, both wrists, left elbow, right knee and both ankle joints. The disease duration has been approximately 8 weeks. This is associated with markedly elevated rheumatoid factor and CCP. This clinical presentation is typ ical for seropositive rheumatoid arthritis. I discussed with the patient about the diagnosis. We discussed about the difference between osteoarthritis and autoimmune inflammatory arthritis like rheumatoid arthritis. Information was given. I discussed with her about management of rheumatoid arthritis including the use of nonsteroidal anti-inflammatory medication, low-dose prednisone for joint inflammation, the importance of taking a disease modifying agent especially methotrexate-based regimen, the importance of having good compliance with medication/follow-up visit in the blood test monitoring. We also discussed about retqheodn-ug-gxjaeq approach and association of rheumatoid arthritis with cardiovascular comorbid conditions. I would recommend the followin. Start methotrexate 15 mg weekly and folic acid 1 mg a day. Side effects and benefits were discussed. Information was given. Blood test monitoring was emphasized. 2. Awaiting methotrexate start working, I also gave her a prescription of prednisone. She will take prednisone 20 mg a day for 2 weeks, then 17.5 mg a day for 2 weeks, then 15 mg a day for 2 weeks, then 12.5 mg a day for 2 weeks, then she will stay at 10 mg a day. 3. Flu vaccination was recommended and given to her today. The patient will have blood tests today for CBC, ALT, serum creatinine, sed rate and CRP, hepatitis B and C serologies. I would like to see her back for clinical follow-up in about 2 months or earlier if there is a problem. Total time 60 minutes, 40 minutes counseling. CC: Micki Arzate M.D. [address] [address] documented in this encounter Plan of Treatment Upcoming Encounters Date Type Specialty Care Team Description 01/15/2022 Appointment Laboratory 02/22/2022 Appointment Rheumatology Giorgio Albarado M D [address] [place] [phone] (Wo rk) documented as of this encounter Results HCAB - Hepatitis C Virus Kimberly with Reflex In-House (02/20/2017 8:47 AM CDT) [facility] gist Method Time Signature Hepatitis C Nonreactive Nonreactive PN SOFT Antibody Specimen Anatomical Collection Method Collection Time Receive d Time (Source) Location / / Volume Laterality 02/20/2017 8:47 AM 7 CDT 11:21 AM CDT Narrative PN SOFT - 02/20/2017 12:52 PM CDT Performed at [address] [address] CLIA number [id number] Hugh Chaudhary MD LAB_1 Performing Organization Address [facility] Phon e Number PN SOFT [address] [place] [address] HBAG - Hepatitis B Surf Ag (02/20/2017 8:47 AM CDT) [facility] Method Time Signature Hep B Surf Ag Nonreactive Nonreactive PN SOFT Specimen Anatomical Collection Method Collection Time Receive d Time (Source) Location / / Volume Laterality 02/20/2017 8:47 AM 7 CDT 11:20 AM CDT Narrative PN SOFT - 02/20/2017 12:46 PM CDT Performed at [address] [address] CLIA number [id number] Hugh Chaudhary MD LAB_1 Performing Organization Address [facility] Phon e Number PN SOFT [address] [place] [address] HBCB - Hepatitis B Core Antibody Total (02/20/2017 8:47 AM CDT) [facility] Method Time Signature Hepatitis B Nonreactive PN SOFT Core Total Antibody Specimen Anatomical Collection Method Collection Time Receive d Time (Source) Location / / Volume Laterality 02/20/2017 8:47 AM 7 CDT 11:20 AM CDT Narrative PN SOFT - 02/20/2017 12:46 PM CDT Performed at [address] [address] CLIA number [id number] Hugh Chaudhary MD LAB_1 Performing Organization Address [facility] Phon e Number PN SOFT [address] [place] [address] (ABNORMAL) ESR - Sedimentation Rate (02/20/2017 8:47 AM CDT) Patholo gist Method Time Signature Sedimentation Rate 64 (H) 0 - 20 PN SOFT mm/hr Specimen Anatomical Collection Method Collection Time Receive d Time (Source) Location / / Volume Laterality 02/20/2017 8:47 AM 7 8:47 CDT AM CDT Narrative PN SOFT - 02/20/2017 9:29 AM CDT Performed at [facility], [address] [place] [address] CLIA number [id number] Hugh Chaudhary MD LAB_1 Performing Organization Address [facility] Phon e Number PN SOFT [address] [place] [address] (ABNORMAL) CRP - C Reactive Protein (02/20/2017 8:47 AM CDT) athologist Signature CRP 16.4 (H) 0.0 - 0.5 PN SOFT mg/dL Specimen Anatomical Collection Method Collection Time Receive d Time (Source) Location / / Volume Laterality 02/20/2017 8:47 AM 7 8:47 CDT AM CDT Narrative PN SOFT - 02/20/2017 10:21 AM CDT Performed at [facility], [address] [place] [address] CLIA number [id number] Hugh Chaudhary MD LAB_1 Performing Organization Address [facility] Phon e Number PN SOFT [address] [place] [address] CBC - Complete Blood Count W/Diff (02/20/2017 8:47 AM CDT) P athologist Signature White Blood Cell 8.6 3.8 - 11.0 PN SOFT Count k/cmm Red Blood Cell 4.57 3.70 - PN SOFT Count 5.20 m/cmm Hemoglobin 12.7 11.8 - PN SOFT 15.5 g/dL Hematocrit 37.9 35.0 - PN SOFT 46.0 % Mean Corpuscular 82.9 80.0 - PN SOFT Volume 100.0 fL RDW 13.2 11.0 - PN SOFT 15.0 % Platelet Count 286 140 - 450 PN SOFT k/cmm Specimen Anatomical Collection Method Collection Time Receive d Time (Source) Location / / Volume Laterality 02/20/2017 8:47 AM 7 8:47 CDT AM CDT Narrative PN SOFT - 02/20/2017 8:56 AM CDT Performed at [facility], [address] [place] [address] CLIA number [id number] Hugh Chaudhary MD LAB_1 Performing Organization Address [facility] Phon e Number PN SOFT [address] [place] [address] [phone] CREAT - Creatinine (02/20/2017 8:47 AM CDT) P athologist Signature Creatinine Serum 0.70 0.55 - PN SOFT 1.02 mg/dL Est [...] Time (Source) Location / / Volume Laterality 02/20/2017 8:47 AM 7 8:47 CDT AM CDT Narrative PN SOFT - 02/20/2017 10:21 AM CDT Performed at [facility], [address] [place] [address] CLIA number [id number] Hugh Chaudhary MD LAB_1 Performing Organization Address [facility] Phon e Number PN SOFT [address] [place] [address] ALT - Alanine Aminotransferase (02/20/2017 8:47 AM CDT) Patholo gist Method Time Signature Alanine 20 9 - 55 PN SOFT Aminotransferase U/L Specimen Anatomical Collection Method Collection Time Receive d Time (Source) Location / / Volume Laterality 02/20/2017 8:47 AM 7 8:47 CDT AM CDT Narrative PN SOFT - 02/20/2017 10:21 AM CDT Performed at [facility], [address] [place] [address] CLIA number [id number] Hugh Chaudhary MD LAB_1 Performing Organization Address City/State/ZIP Code Phon e Number PN SOFT [address] [place] [address] documented in this encounter Visit Diagnoses Diagnosis Rheumatoid arthritis, involving unspecif ied site, unspecified rheumatoid factor presence - Primary Rheumatoid factor positive Other and unspecified nonspecific immuno logical findings Positive anti-CCP test High risk medication use Encounter for long-term (current) use of other medications Rheumatoid arthritis, involving unspecif ied site, unspecified rheumatoid factor presence High risk medication use Encounter for long-term (current) use of other medications documented in this encounter Care Teams Envelope Maker Relationship Specialty Start Date End Date iMcki Arzate MD PCP - General Internal Medicine 01/29/[address] [place] [address] documented as of this encounter
--- OUTSIDE RECORDS SUMMARY | 2022-01-04 15:20 | XMS_ITS | Encounter Summary ---
:1955 Author [facility] Address [address], [place] [address] Care Team Providers Name Role Phone Micki Arzate MD Primary Care Provider Reason for Visit Reason Onset Date Comments Refill 07/16/2017 Encounter Details Date Type Department Care Team Description 07/16/2017 Refill [facility] [address] Chaudhary i, Refill Rheumatology [address] [place] [address] [place], [place] [phone] (Wo rk) Social History Tobacco Use Types Packs/Day Years Used Date Smoking Tobacco: Never Smokeless Tobacco: Never Sex Assigned at Date Recorded Not on file documented as of this encounter Nursing Notes Franca Oseguera LPN - 07/16/2017 1:31 PM CST Pt called asking for prescription of prednisone. New instructions from phone encounter dated 07/16/17. Last visit: 06/25/17 Future visit: 09/03/17 Pharmacy verified. Please check, sign and send. Thank you. L FABRICATION SUPERVISOR documented in this encounter Plan of Treatment Upcoming Encounters Date Type Specialty Care Team Description 01/15/2022 Appointment Laboratory 02/22/2022 Appointment Rheumatology Giorgio Albarado M D [address] [place] [phone] (Wo rk) documented as of this encounter Visit Diagnoses Not on filedocumented in this encounter Care Teams Staffing Administrator Relationship Specialty Start Date End Date Micki Arzate MD PCP - General Internal Medicine [address] [place] [address] documented as of this encounter
--- OUTSIDE RECORDS SUMMARY | 2022-01-04 15:20 | XMS_ITS | Encounter Summary ---
:1955 Author Organization [facility] Address [address] [place] [address] Care Team Providers Name Role Phone Unavailable Primary Care Provider Unavailable Reason for Referral Specialty Diagnoses / Procedures Referred By Contact Refer red To Contact Coni Mendoza M.D. [facility] Region [address] [place] [address] Referral ID Status Reason Start Date Expiration Date Visits Requ ested Visits Authorized Encounter Details Date Type Department Care Team Description 01/03/2021 Orders Only [facility] PCP [facility] Sa lux Mendoza M.D. [address] [place] [phone] (Wo rk) Social History Tobacco Use Types Packs/Day Years Used Date Smoking Tobacco: Never Sex Assigned at Date Recorded Not on file documented as of this encounter Plan of Treatment Scheduled Referrals Name Type Priority Associated Order Schedule Diagnoses Covid immunization Outpatient Referral Routine Ex pected: office visit Booster 021 (Approximate), Expires: 01/03/2022 documented as of this encounter Visit Diagnoses Not on filedocumented in this encounter
--- OUTSIDE RECORDS SUMMARY | 2022-01-04 15:20 | XMS_ITS | Encounter Summary ---
:1955 Author Organization [facility] Address [address] [place] [address] Care Team Providers Name Role Phone Unavailable Primary Care Provider Unavailable Encounter Details Date Type Department Care Team Description 07/20/2020 Orders Only [facility] PCP [facility] Sa lux Morgan M.D. [address] [place], [place] [phone] (Wo rk) Social History Tobacco Use Types Packs/Day Years Used Date Smoking Tobacco: Never Sex Assigned at Date Recorded Not on file documented as of this encounter Plan of Treatment Not on filedocumented as of this encounter Visit Diagnoses Not on filedocumented in this encounter
--- OUTSIDE RECORDS SUMMARY | 2022-01-04 15:20 | XMS_ITS | Encounter Summary ---
:1955 Author Organization [facility] Address [address] [place] [address] Care Team Providers Name Role Phone Micki Arzate MD Primary Care Provider Reason for Visit Reason Comments Follow-up Encounter Details Date Type Department Care Team Description 04/23/2017 Office Visit [place], Rheumatoid art hritis, involving unspecified site, unspecified rheumatoid factor presence (HRC) (Primary Dx); Rheumatology MD Hugh Positive anti-CCP test; [address] [employer] [place] [address] [place] [address] [facility] [phone] [place], [place] [address] (Wo rk) Social History Tobacco Use Types Packs/Day Years Used Date Smoking Tobacco: Never Smokeless Tobacco: Never Sex Assigned at Date Recorded Not on file documented as of this encounter Last Filed Vital Signs Vital Sign Reading Time Taken Comments Blood Pressure 134/79 04/23/2017 3:34 PM MATCHBOOK MAKER Pulse 71 04/23/2017 3:34 PM MATCHBOOK MAKER Temperature - - Respiratory Rate - - Oxygen Saturation - - Inhaled Oxygen Concentration - - Weight 67.5 kg (148 lb 14.4 oz) 04/23/2017 3:34 PM MATCHBOOK MAKER Height - - Body Mass Index 28.13 02/20/2017 7:26 AM CDT documented in this encounter Progress Notes Renetta Gomez RN - 04/23/2017 4:14 PM MATCHBOOK MAKER Addended by: RENETTA GOMEZ on: 04/23/2017 04:14 PM Modules accepted: Orders HBOOK MAKER Hugh Chaudhary MD - 04/23/2017 3:45 PM CST SUBJECTIVE: Follow-up for seropositive rheumatoid arthritis. History of present illness: I made a diagnosis of rheumatoid arthritis for her 2 months ago. I put her on methotrexate 15 mg weekly and a course of prednisone. Wire tapering prednisone, swollen joints recurred. I increased the dose of methotrexate to 20 mg weekly which she currently takes and this is well tolerated. She has reduced the dose of prednisone down to current dose of 15 mg a day. She has had a remarkable improvement. She has trigger finger over her right 3rd and 4th fingers in the morning. I do not have any symptoms in any other joints. Past medical history, family and social history, current medications and adverse reactions were updated in EMR. Physical exams: BP 134/79 Pulse 71 Wt 148 lb 14.4 oz (67.5 kg) BMI 28.13 kg/m2 General appearance: A middle-aged female who was not in acute physical distress. Musculoskeletal exams: All 4 extremities were examined. Mild synovitis right thumb MCP joint. No significant synovitis/inflammatory arthritis/dactylitis or effusion in any other remaining joints. Assessment and plan: 1. Seropositive rheumatoid arthritis, low-disease activity. 2. Chronic long-term high-risk medication monitoring. Pain is rated as. RAPID 3 score is. 28 joint count: Total swollen joint 1 (was 24). Total tender joint 0 (was 10). She has had a marked improvement subjectively and objectively. The amount of swollen joint has come down to only one when this was 24 in the past. This is suggestive of low-disease activity. I suggested that she maximize the dose of methotrexate to 25 mg weekly. I will continue prednisone 15 mg a day for one more week, then 2.5 mg a day for 3 weeks, then 10 mg a day for 3 weeks, then she will stay 7.5 mg a day. For triggered fingers, I asked the patient to john the affected fingers to the nearby fingers to minimize flexing her right fingers at night time. If this is not improved further, I can provide cortisone injection at that time. Follow-up again in 2 months or earlier if there is a problem. Blood test monitoring on the same day. Total time is 15 minutes, 10 minutes counseling. HBOOK MAKER Renetta Gomez, RN - 04/23/2017 3:45 PM CST There was an E-prescribing Error for patient's methotrexate. I called pharmacy and they did not receive the new rx that was sent over today. Pharmacy is requesting that a new RX be e-prescribed to them. Please sign order if appropriate. Thank you. HBOOK MAKER documented in this encounter Plan of Treatment Upcoming Encounters Date Type Specialty Care Team Description 01/15/2022 Appointment Laboratory 02/22/2022 Appointment Rheumatology Giorgio Albarado M D [address] [place] [phone] (Wo rk) documented as of this encounter Visit Diagnoses Diagnosis Rheumatoid arthritis, involving unspecif ied site, unspecified rheumatoid factor presence - Primary Positive anti-CCP test High risk medication use Encounter for long-term (current) use of other medications documented in this encounter Care Teams Brass Cutter Relationship Specialty Start Date End Date Micki Arzate MD PCP - General Internal Medicine [address]/29/[address] [place] [address] documented as of this encounter
--- OUTSIDE RECORDS SUMMARY | 2022-01-04 15:20 | XMS_ITS | Encounter Summary ---
:1955 Author Organization [facility] Address [address], [place] [address] Care Team Providers Name Role Phone Micki Arzate MD Primary Care Provider Reason for Visit Reason Onset Date Comments Refill 04/23/2017 Encounter Details Date Type Department Care Team Description 04/23/2017 Refill [facility] [address]hary i, Refill Rheumatology [address] [place] [address] [place], [place] [phone] (Wo rk) Social History Tobacco Use Types Packs/Day Years Used Date Smoking Tobacco: Never Smokeless Tobacco: Never Sex Assigned at Date Recorded Not on file documented as of this encounter Nursing Notes Renetta Gomez RN - 04/23/2017 4:28 PM CST There was an E-prescribing Error for patient's methotrexate. I called pharmacy and they did not receive the new rx that was sent over today. Pharmacy is requesting that a new RX be e-prescribed to them. Please sign order if appropriate. Thank you. Y TRUCK MECHANIC documented in this encounter Plan of Treatment Upcoming Encounters Date Type Specialty Care Team Description 01/15/2022 Appointment Laboratory 02/22/2022 Appointment Rheumatology Giorgio Albarado M D [address] [place] [phone] (Wo rk) documented as of this encounter Visit Diagnoses Diagnosis Rheumatoid arthritis, involving unspecif ied site, unspecified rheumatoid factor presence - Primary High risk medication use Encounter for long-term (current) use of other medications documented in this encounter Care Teams Hospice Nurse Practitioner Relationship Specialty Start Date End Date Micki Arzate MD PCP - General Internal Medicine 01/29/[address] [place] [address] documented as of this encounter
--- OUTSIDE RECORDS SUMMARY | 2022-01-04 15:20 | XMS_ITS | Encounter Summary ---
:1955 Author Organization [employer] Address [address] [address] Care Team Providers Name Role Phone Micki Arzate MD Primary Care Provider Reason for Visit Reason Comments Medication Questions Encounter Details Date Type Department Care Team Description 07/16/2017 Telephone [facility] [address] Chaudhary on Questions Rheumatology MD Hugh [address] [address] [facility] [place] [address] [phone] (Wo rk) Social History Tobacco Use Types Packs/Day Years Used Date Smoking Tobacco: Never Smokeless Tobacco: Never Sex Assigned at Date Recorded Not on file documented as of this encounter Nursing Notes Mary Gross MA - 07/16/2017 9:50 AM CST I called and left a message for patient with this information. [employer] Hugh Chaudhary MD - 07/16/2017 9:30 AM CST I will increase prednisone to 15 mg/d x 1 wk, 10 mg/d x 1 wk then stay at 7.5 mg/d for now. If this is recurring while tapering prednisone, I want to see her earlier and we will have to add more medication on top of methotrexate. If she needs prednisone, ask Renetta to fax it with above instruction. [employer] Mary Gross MA - 07/16/2017 9:19 AM CST Evangelina is calling, she states that when she decreased her daily prednisone dose from 7.5 MG dailyto 5 MG daily she started to experience wrist pain with swelling and redness. Also, she states that her left knee started hurting her yesterday but no redness or swelling as of yet. Afebrile. She wonders if she should increase her prednisone however, she does NOT want to increase back to 20 MG daily. Please advise. [employer] documented in this encounter Plan of Treatment Upcoming Encounters Date Type Specialty Care Team Description 01/15/2022 Appointment Laboratory 02/22/2022 Appointment Rheumatology Giorgio Albarado M D [address] [place] [phone] (Wo rk) documented as of this encounter Visit Diagnoses Not on filedocumented in this encounter Care Teams Health Promotion Officer Relationship Specialty Start Date End Date Micki Arzate MD PCP - General Internal Medicine 01/29/[address] [place] [address] documented as of this encounter
--- OUTSIDE RECORDS SUMMARY | 2022-01-04 15:20 | XMS_ITS | Encounter Summary ---
:1955 Author Organization [email or web address] Address [address] [place] [address] Care Team Providers Name Role Phone Micki Arzate MD Primary Care Provider Encounter Details Date Type Department Care Team Description 06/19/2017 Lab Visit [facility] High risk medication use [address] [place] [address] Social History Tobacco Use Types Packs/Day Years Used Date Smoking Tobacco: Never Smokeless Tobacco: Never Sex Assigned at Date Recorded Not on file documented as of this encounter Plan of Treatment Upcoming Encounters Date Type Specialty Care Team Description 01/15/2022 Appointment Laboratory 02/22/2022 Appointment Rheumatology Giorgio Albarado M D [address] [place] [phone] (Wo rk) documented as of this encounter Procedures Procedure Name Priority Date/Time Associated Comments Diagnosis CREATININE / GFR Routine 06/19/2017 3:47 PM High risk Resul ts for this [employer] medication use procedure are in the results section. COMPLETE BLOOD Routine 06/19/2017 3:47 PM High risk Results for this COUNT-W/DIFF [employer] medication use procedure are in the results section. DIFFERENTIAL Routine 06/19/2017 3:47 PM Results f or this [employer] MATE procedure are i n the results section. ALT (SGPT) Routine 06/19/2017 3:47 PM High risk Results f or this [employer] medication use procedure are in the results section. documented in this encounter Results Differential (06/19/2017 3:47 PM COASTAL TUG MATE) P athologist Signature Absolute 4.5 1.8 - 8.0 PN SOFT Neutrophils k/cmm [...] Time (Source) Location / / Volume Laterality 06/19/2017 3:47 PM 8 3:47 COASTAL TUG MATE PM COASTAL TUG MATE Narrative PN SOFT - 06/19/2017 3:55 PM COASTAL TUG MATE Performed at [facility], [address] [place] [address] CLIA number [id number] Hugh Chaudhary MD LAB_1 Performing Organization Address [facility] Phon e Number PN SOFT [address] [place] [address] CREAT - Creatinine - standing every 2 - 3 months (06/19/2017 3:47 PM COASTAL TUG MATE) athologist Signature Creatinine Serum 0.90 0.55 - [...] Time (Source) Location / / Volume Laterality 06/19/2017 3:47 PM 8 3:47 COASTAL TUG MATE PM COASTAL TUG MATE Narrative PN SOFT - 06/19/2017 4:17 PM COASTAL TUG MATE Performed at [facility], [facility] [address] [place] [address] CLIA number [id number] Hugh Chaudhary MD LAB_1 Performing Organization Address [facility] Phon e Number PN SOFT [address] [place] [address] (ABNORMAL) CBC - Complete Blood Count W/Diff - standing every 2 - 3 months (06/19/2017 3:47 PM COASTAL TUG MATE) [facility] Method Time Signature White Blood Cell 6.8 3.8 - 11.0 PN SOFT Count k/cmm Red Blood Cell 4.33 3.70 - PN SOFT Count 5.20 m/cmm Hemoglobin 13.0 11.8 - PN SOFT 15.5 g/dL Hematocrit 38.5 35.0 - PN SOFT 46.0 % Mean Corpuscular 88.9 80.0 - PN SOFT Volume 100.0 fL RDW 15.2 (H) 11.0 - PN SOFT 15.0 % Platelet Count 236 140 - 450 PN SOFT k/cmm Specimen Anatomical Collection Method Collection Time Receive d Time (Source) Location / / Volume Laterality 06/19/2017 3:47 PM 8 3:47 COASTAL TUG MATE PM COASTAL TUG MATE Narrative PN SOFT - 06/19/2017 3:55 PM COASTAL TUG MATE Performed at [facility], [address] [place] [address] CLIA number [id number] Hugh Chaudhary MD LAB_1 Performing Organization Address [facility] Phon e Number PN SOFT [address] [place] [address] ALT - Alanine Aminotransferase - standing every 2 - 3 months (06/19/2017 3:47 PM COASTAL TUG MATE) [facility] Time Signature Alanine 17 9 - 55 PN SOFT Aminotransferase U/L Specimen Anatomical Collection Method Collection Time Receive d Time (Source) Location / / Volume Laterality 06/19/2017 3:47 PM 8 3:47 COASTAL TUG MATE PM COASTAL TUG MATE Narrative PN SOFT - 06/19/2017 4:17 PM COASTAL TUG MATE Performed at [facility], [facility] [address] [place] [address] CLIA number [id number] Hugh Chaudhary MD LAB_1 Performing Organization Address [facility]/ZIP Code Phon e Number PN SOFT [address] [place] [address] documented in this encounter Visit Diagnoses Diagnosis High risk medication use Encounter for long-term (current) use of other medications documented in this encounter Care Teams Stick Feeder Relationship Specialty Start Date End Date Micki Arzate MD PCP - General Internal Medicine 01/29/17[address] [place] [address] documented as of this encounter
--- OUTSIDE RECORDS SUMMARY | 2022-01-04 15:20 | XMS_ITS | Encounter Summary ---
:1955 Author Organization [facility] Address [address] [place] [address] Care Team Providers Name Role Phone Unavailable Primary Care Provider Unavailable Encounter Details Date Type Department Care Team Description 10/25/2009 Hospital Encounter HX [facility] Darrick Flannery M.D. [address] [place] [address] (Wo rk) Social History Tobacco Use Types Packs/Day Years Used Date Smoking Tobacco: Never Assessed Sex Assigned at Date Recorded Not on file documented as of this encounter Plan of Treatment Not on filedocumented as of this encounter Visit Diagnoses Not on filedocumented in this encounter
--- OUTSIDE RECORDS SUMMARY | 2022-01-04 15:20 | XMS_ITS | Clinical Summary ---
:1955 Author Organization [facility] Address [address] [place] [address] Care Team Providers Name Role Phone Unavailable Primary Care Provider Unavailable Source Comments Patient records contain information from all sites at [facility]. For routine questions regarding patient records, call [phone] during business hours, M-F 8:00 AM - 5:00 PM Central Time. Record requests for emergency care only can be directed to [phone] at any time.[facility] Allergies Active Allergy Reactions Severity Noted Date Comments Penicillins Rash Medium 02/06/2010 Medications Medication Sig Dispensed Refills Start Date End Date Status folic acid 1 mg tablet Take 1 mg by 0 01/14/2018 Active mouth. methotrexate 2.5 mg 0 03/14/2020 Active tablet hydrOXYchloroQUINE 0 03/14/2020 Active (PLAQUENIL) 200 mg tablet cholecalciferol (VITAMIN 2,000 mg. 0 Active D3) 2,000 Unit capsule ascorbic acid, vitamin Take 1,000 mg by 0 Active C, (Vitamin C) 1,000 mg mouth daily. tablet lisinopriL Take 5 mg by 0 Active (PRINIVIL,ZESTRIL) 5 mg mouth daily. tablet mupirocin (BACTROBAN) 2 Apply 1 0 Active % ointment application topically as needed. Active Problems Problem Noted Date Hypertension 02/06/2010 Overview: Hypertension Family History Medical History Relation Name Comments Skin cancer Father Skin cancer Mother Relation Name Status Comments Father Mother Social History Tobacco Use Types Packs/Day Years Used Date Smoking Tobacco: Never Sex Assigned at Date Recorded Not on file Last Filed Vital Signs Vital Sign Reading Time Taken Comments Blood Pressure 104/66 08/14/2013 3:00 PM CDT Pulse - - Temperature - - Respiratory Rate - - Oxygen Saturation - - Inhaled Oxygen Concentration - - Weight 72.8 kg (160 lb 7.9 oz) 08/14/2013 3:00 PM CDT Height - - Body Mass Index - - Plan of Treatment Health Maintenance Due Date Last Done Comments Bone Density Scan (Osteoporosis 1955 Screen) CT Colonography 1955 Cologuard 1955 Colonoscopy 1955 Colorectal Cancer Screening 1955 Creatinine Level 1955 FIT 1955 Fasting Glucose for Diabetes 1955 Screening Hepatitis C Screening 1955 Office Visit for Blood Pressure 1955 Check / Re-check Potassium Level 1955 Sodium Level 1955 Mammogram 09/08/2009 09/08/2008 Depression Screening (Annual 05/20/2021 PHQ-2) Fall Risk Screen (Annual) 05/20/2021 Influenza Vaccine (#1) 2022 03/16/2021, 02/13/2020, 03/03/2019, Additional history exists Pneumococcal vaccine (65+ years) 03/03/2024 03/03/2019, 10/2017 (3 - PPSV23 or PCV20) DTaP,Tdap,and Td Vaccines (3 - Td 01/01/2029 01/01/2019, or Tdap) Zoster Vaccines Completed 11/18/2018, 08/05/2018 COVID-19 Vaccine Completed 11/10/2021, 07/10/2021, 01/20/2021, Additional history exists Insurance Payer Benefit Plan Subscriber ID Effective Phone Address Typ e / Group Dates MEDICARE MEDICARE A [id number] 2020-Pre [address] Medicare AND [place] [facility] [place] [address] [employer] [place] [id number] 2020-Pres [phone] PO [place] X Cost Share BLUE SHIELD BLUE COST ent [phone] [address] [place] [id number]
--- OUTSIDE RECORDS SUMMARY | 2022-01-04 15:20 | XMS_ITS | Encounter Summary ---
:1955 Author [facility] Address [address], [place] [address] Care Team Providers Name Role Phone Micki Arzate MD Primary Care Provider Encounter Details Date Type Department Care Team Description 04/23/2017 Notes/Orders [facility] [address], Rheumatology MD Hugh [address] [place] [facility] [address] [place] [address] [place] [address] [phone] (Wo rk) Social History Tobacco Use Types Packs/Day Years Used Date Smoking Tobacco: Never Smokeless Tobacco: Never Sex Assigned at Date Recorded Not on file documented as of this encounter Plan of Treatment Upcoming Encounters Date Type Specialty Care Team Description 01/15/2022 Appointment Laboratory 02/22/2022 Appointment Rheumatology Giorgio Albarado M D [address] [place] [phone] (Wo rk) documented as of this encounter Visit Diagnoses Not on filedocumented in this encounter Care Teams Aluminum Sheet Cutter Relationship Specialty Start Date End Date Micki Arzate MD PCP - General Internal Medicine 01/29/[address] [place] [address] documented as of this encounter
--- OUTSIDE RECORDS SUMMARY | 2022-01-04 15:20 | XMS_ITS | Encounter Summary ---
:1955 Author Organization [facility] Address [address] [place] [address] Care Team Providers Name Role Phone Unavailable Primary Care Provider Unavailable Encounter Details Date Type Department Care Team Description 05/25/2009 Hospital Encounter HX NO MAPPING Melba Flannery M.D. [address] [place] [address] (Wo rk) Social History Tobacco Use Types Packs/Day Years Used Date Smoking Tobacco: Never Assessed Sex Assigned at Date Recorded Not on file documented as of this encounter Plan of Treatment Not on filedocumented as of this encounter Procedures Procedure Name Priority Date/Time Associated Diagnosis Comme nts DX TIBIA FIBULA Routine 05/25/2009 4:25 PM Result s for this LEFT 2 VIEWS DIRECTOR OF MEDICAL EDUCATION procedure are i n the results section. DX KNEE LEFT 1 VIEW Routine 05/25/2009 4:25 PM Re sults for this DIRECTOR OF MEDICAL EDUCATION procedure are i n the results section. documented in this encounter Results DX Knee Left 1 View (05/25/2009 4:25 PM DIRECTOR OF MEDICAL EDUCATION) Anatomical Region Laterality Modality Lower Extremity, Knee Left Radiographic Imagi ng Specimen (Source) Anatomical Collection Method Collection Time Re ceived Time Location / / Volume Laterality 05/25/2009 4:25 PM DIRECTOR OF MEDICAL EDUCATION Addenda Addendum by ProviderDontrell M.D. o n 05/25/2009 4:25 PM DIRECTOR OF MEDICAL EDUCATION RAD^^^OW XR Knee Left 2 or less views 05/25/2009 16:25:00 Addendum by ProviderDontrell M.D. o n 05/25/2009 4:25 PM DIRECTOR OF MEDICAL EDUCATION RAD^^^MA XR KNEE LEFT 2 OR LESS VIEWS 05/25/2009 16:25:00 Impressions 05/25/2009 4:54 PM DIRECTOR OF MEDICAL EDUCATION No acute findings. Minimal degenerative change. Narrative 05/25/2009 4:54 PM DIRECTOR OF MEDICAL EDUCATION HISTORY: Left knee pain. ?? FINDINGS: There is no evidence of an acu te displaced fracture, dislocation, or significant/concerning i ncidental lytic/blastic osseous lesion. Joint spaces appear pres erved although minimal osteophytes involve the patella on the l ateral view. No focal soft tissue abnormality is evident. ?? Procedure Note Abdirizak Zeng M.D. / Haris Kiser M.D. - 10/11/2016 HISTORY: Left knee pain. FINDINGS: There is no evidence of an acu te displaced fracture, dislocation, or significant/concerning i ncidental lytic/blastic osseous lesion. Joint spaces appear pres erved although minimal osteophytes involve the patella on the l ateral view. No focal soft tissue abnormality is evident. IMPRESSION: No acute findings. Minimal d egenerative change. Rocky Arroyo Jr., R.Alejandrina.M.S. IMG DIAGNOSTIC IMAGI NG PROCEDURES DX Tibia Fibula Left 2 Views (05/25/2009 4:25 PM DIRECTOR OF MEDICAL EDUCATION) Anatomical Region Laterality Modality Lower Extremity, TibFib Left Radiographic Viridiana ging Specimen (Source) Anatomical Collection Method Collection Time Re ceived Time Location / / Volume Laterality 05/25/2009 4:25 PM DIRECTOR OF MEDICAL EDUCATION Addenda Addendum by Dontrell Kiser M.D. o n 05/25/2009 4:25 PM DIRECTOR OF MEDICAL EDUCATION RAD^^^OW XR Tibia and Fibula Left 2 views 05/25/2009 16:25:00 Addendum by Dontrell Kiser M.D. o n 05/25/2009 4:25 PM DIRECTOR OF MEDICAL EDUCATION RAD^^^MA XR TIBIA AND FIBULA LEFT 2 VIEWS 05/25/2009 16:25:00 Impressions 05/25/2009 4:55 PM DIRECTOR OF MEDICAL EDUCATION No acute findings. Minimal ankle degenerative change. Narrative 05/25/2009 4:55 PM DIRECTOR OF MEDICAL EDUCATION HISTORY: Left lower leg pain. ?? FINDINGS: There is no evidence of an acu te displaced fracture, dislocation, or significant incidental l ytic/blastic osseous lesion. Minimal ankle degenerative change. No fo annetta soft tissue abnormality is evident. ?? Procedure Note Abdirizak Zeng M.D. / Haris Kiser M.D. - 10/11/2016 HISTORY: Left lower leg pain. FINDINGS: There is no evidence of an acu te displaced fracture, dislocation, or significant incidental l ytic/blastic osseous lesion. Minimal ankle degenerative change. No fo annetta soft tissue abnormality is evident. IMPRESSION: No acute findings. Minimal a nkle degenerative change. Rocky Arroyo Jr., R.D.M.S. IMG DIAGNOSTIC IMAGI NG PROCEDURES documented in this encounter Visit Diagnoses Not on filedocumented in this encounter
--- OUTSIDE RECORDS SUMMARY | 2022-01-04 15:20 | XMS_ITS | Encounter Summary ---
:1955 Author [facility] Address [address], [place] [address] Care Team Providers Name Role Phone Micki Arzate MD Primary Care Provider Encounter Details Date Type Department Care Team Description 02/20/2017 Lab Visit [facility] [address] Rhe[address] d arthritis, involving unspecified site, unspecified rheumatoid factor presence (HRC); Laboratory High risk medication use [address] [place], [place] [id number] Social History Tobacco Use Types Packs/Day Years Used Date Smoking Tobacco: Never Assessed Sex Assigned at Date Recorded Not on file documented as of this encounter Plan of Treatment Upcoming Encounters Date Type Specialty Care Team Description 01/15/2022 Appointment Laboratory 02/22/2022 Appointment Rheumatology Giorgio Albarado M D [address] [place], [place] [address] (Wo rk) documented as of this encounter Procedures Procedure Name Priority Date/Time Associated Diagnosis Comme nts HEP B SURFACE Routine 02/20/2017 8:47 AM Rheumatoid Results for this ANTIGEN, NO REFLEX CDT arthritis, involving p rocedure are in unspecified site, the result s unspecified section. rheumatoid factor presence (HRC) High risk medication use CREATININE / GFR Routine 02/20/2017 8:47 AM Rheumatoid Resul ts for this CDT arthritis, involving procedu re are in unspecified site, the result s unspecified section. rheumatoid factor presence (HRC) High risk medication use COMPLETE BLOOD Routine 02/20/2017 8:47 AM Rheumatoid Results for this COUNT-W/DIFF CDT arthritis, involving procedu re are in unspecified site, the result s unspecified section. rheumatoid factor presence (HRC) High risk medication use DIFFERENTIAL Routine 02/20/2017 8:47 AM Results f or this CDT procedure are i n the results section. HEPATITIS C ANTIBODY, Routine 02/20/2017 8:47 AM Rheumatoid Results for this WITH REFLEX CDT arthritis, involving procedu re are in unspecified site, the result s unspecified section. rheumatoid factor presence (HRC) High risk medication use C-REACTIVE PROTEIN Routine 02/20/2017 8:47 AM Rheumatoid Res ults for this CDT arthritis, involving procedu re are in unspecified site, the result s unspecified section. rheumatoid factor presence (HRC) High risk medication use HEPATITIS B CORE,AB Routine 02/20/2017 8:47 AM Rheumatoid Re sults for this CDT arthritis, involving procedu re are in unspecified site, the result s unspecified section. rheumatoid factor presence (HRC) High risk medication use ALT (SGPT) Routine 02/20/2017 8:47 AM Rheumatoid Results f or this CDT arthritis, involving procedu re are in unspecified site, the result s unspecified section. rheumatoid factor presence (HRC) High risk medication use ESR Routine 02/20/2017 8:47 AM Rheumatoid Results f or this CDT arthritis, involving procedu re are in unspecified site, the result s unspecified section. rheumatoid factor presence (HRC) High risk medication use documented in this encounter Results (ABNORMAL) Differential (02/20/2017 8:47 AM CDT) [facility] gist Method Time Signature Absolute 6.9 1.8 - 8.0 PN SOFT Neutrophils k/cmm Absolute 0.9 (L) 1.1 - 4.0 PN SOFT Lymphocytes k/cmm Absolute 0.5 0.2 - 0.8 PN SOFT Monocytes k/cmm Absolute 0.2 0.0 - 0.5 PN SOFT Eosinophils k/cmm Absolute 0.0 0.0 - 0.2 PN SOFT Basophils k/cmm Immature 0.7 (H) 0.0 - 0.5 PN SOFT Granulocytes % Specimen Anatomical Collection Method Collection Time Receive d Time (Source) Location / / Volume Laterality 02/20/2017 8:47 AM 7 8:47 CDT AM CDT Narrative PN SOFT - 02/20/2017 8:56 AM CDT Performed at [facility], [address] [place] [address] CLIA number [id number] Hugh Chaudhary MD LAB_1 Performing Organization Address [facility] Phon e Number PN SOFT [address] [place] [address] HCAB - Hepatitis C Virus Kimberly with Reflex In-House (02/20/2017 8:47 AM CDT) [facility] Method Time Signature Hepatitis C Nonreactive Nonreactive PN SOFT Antibody Specimen Anatomical Collection Method Collection Time Receive d Time (Source) Location / / Volume Laterality 02/20/2017 8:47 AM 7 CDT 11:21 AM CDT Narrative PN SOFT - 02/20/2017 12:52 PM CDT Performed at [address] [address] CLIA number [id number] Hugh Chaudhary MD LAB_1 Performing Organization Address [facility] Phon e Number PN SOFT [address] [place] [address] HBAG - Hepatitis B Surf Ag (02/20/2017 8:47 AM CDT) [facility] Method Time Signature Hep B Surf Ag Nonreactive Nonreactive PN SOFT Specimen Anatomical Collection Method Collection Time Receive d Time (Source) Location / / Volume Laterality 02/20/2017 8:47 AM 7 CDT 11:20 AM CDT Narrative PN SOFT - 02/20/2017 12:46 PM CDT Performed at [address] [address] CLIA number [id number] Hugh Chaudhary MD LAB_1 Performing Organization Address [facility] Phon e Number PN SOFT [address] [place] [address] HBCB - Hepatitis B Core Antibody Total (02/20/2017 8:47 AM CDT) [facility] Method Time Signature Hepatitis B Nonreactive PN SOFT Core Total Antibody Specimen Anatomical Collection Method Collection Time Receive d Time (Source) Location / / Volume Laterality 02/20/2017 8:47 AM 7 CDT 11:20 AM CDT Narrative PN SOFT - 02/20/2017 12:46 PM CDT Performed at [facility], [facility] [place] [address] CLIA number [id number] Hugh Chaudhary MD LAB_1 Performing Organization Address [facility] Phon e Number PN SOFT [address] [place] [address] (ABNORMAL) ESR - Sedimentation Rate (02/20/2017 8:47 AM CDT) [facility] Method Time Signature Sedimentation Rate 64 (H) 0 - 20 PN SOFT mm/hr Specimen Anatomical Collection Method Collection Time Receive d Time (Source) Location / / Volume Laterality 02/20/2017 8:47 AM 7 8:47 CDT AM CDT Narrative PN SOFT - 02/20/2017 9:29 AM CDT Performed at [facility], [address] [place] [address] CLIA number [id number] Hugh Chaudhary MD LAB_1 Performing Organization Address [facility] Phon e Number PN SOFT [address] [place] [address] (ABNORMAL) CRP - C Reactive Protein (02/20/2017 8:47 AM CDT) P athologist Signature CRP 16.4 (H) 0.0 - 0.5 PN SOFT mg/dL Specimen Anatomical Collection Method Collection Time Receive d Time (Source) Location / / Volume Laterality 02/20/2017 8:47 AM 7 8:47 CDT AM CDT Narrative PN SOFT - 02/20/2017 10:21 AM CDT Performed at [facility], [address] [place], [place] [id number] CLIA number [id number] Hugh Chaudhary MD LAB_1 Performing Organization Address [facility] Phon e Number PN SOFT [address] [place] [address] CBC - Complete Blood Count W/Diff (02/20/2017 8:47 AM CDT) athologist Signature White Blood Cell 8.6 3.8 [...] - 02/20/2017 8:56 AM CDT Performed at [facility], [address] [place] [address] CLIA number [id number] Hugh Chaudhary MD LAB_1 Performing Organization Address [facility] Phon e Number PN SOFT [address] [place] [address] CREAT - Creatinine (02/20/2017 8:47 AM CDT) athologist Signature Creatinine Serum 0.70 0.55 - [...] - 02/20/2017 10:21 AM CDT Performed at [facility], [address] [place] [address] CLIA number [id number] Hugh Chaudhary MD LAB_1 Performing Organization Address [facility] Phon e Number PN SOFT [address] [place] [address] [phone] ALT - Alanine Aminotransferase (02/20/2017 8:47 AM CDT) [facility] gist Method Time Signature Alanine 20 9 - 55 PN SOFT Aminotransferase U/L Specimen Anatomical Collection Method Collection Time Receive d Time (Source) Location / / Volume Laterality 02/20/2017 8:47 AM 7 8:47 CDT AM CDT Narrative PN SOFT - 02/20/2017 10:21 AM CDT Performed at [facility], [address] [place] [address] CLIA number [id number] Hugh Chaudhary MD LAB_1 Performing Organization Address [facility] Phon e Number PN SOFT [address] [place] [address] documented in this encounter Visit Diagnoses Diagnosis Rheumatoid arthritis, involving unspecif ied site, unspecified rheumatoid factor presence High risk medication use Encounter for long-term (current) use of other medications documented in this encounter Care Teams Kiln Furniture Caster Relationship Specialty Start Date End Date Micki Arzate MD PCP - General Internal Medicine 01/29/[address] [place] [address] documented as of this encounter
--- OUTSIDE RECORDS SUMMARY | 2022-01-04 15:20 | XMS_ITS | Encounter Summary ---
:1955 Author Organization [facility] Address [address] [place] [address] Care Team Providers Name Role Phone Unavailable Primary Care Provider Unavailable Encounter Details Date Type Department Care Team Description 02/07/2010 Hospital Encounter HX [facility] Darrick Flannery M.D. [address] [place] [address] 021 (Wo rk) Social History Tobacco Use Types Packs/Day Years Used Date Smoking Tobacco: Never Assessed Sex Assigned at Date Recorded Not on file documented as of this encounter Progress Notes Melba Flannery M.D. - 02/07/2010 12:00 AM CDT [id number] IMPRESSION/REPORT/PLAN 1. Hypertension. 2. Hyperlipidemia. 3. Hypothyroidism. 4. Overweight. 5. History of proteinuria. 6. Allergic rhinitis. Plan Encourage patient to reconsider regular health care maintenance. She declines at this time. She is agreeable to some laboratory evaluation including CBC, basic metabolic profile, AST and urinalysis. Signs and symptoms to lead to a more urgent evaluation are reviewed. Will refill prescriptions if assessment is stable. Signs and symptoms to lead to a more urgent evaluation are reviewed. Otherwise as noted. CHIEF COMPLAINT/REASON FOR VISIT Follow up HISTORY OF PRESENT ILLNESS This 55 year-old female presents today with multiple health issues, presents today for follow up. While she does have insurance, her co-pay is significant and financial issues are a problem at this time therefore she is not interested in anything except for the bare minimum of care. She would like to prefer any preventive health care maintenance. She verbalizes understanding in regards to this choice. She states she is feeling quite well. She is planning a trip out of town and would like to have a 90 day supply of her lisinopril. CURRENT MEDICATIONS Post-visit Medication Reconciliation 1. Lisinopril 10 mg orally each day. 2. Synthroid 0.05 mg orally each day. ALLERGIES Penicillin. SYSTEMS REVIEW Constitutional: No fevers, chills, night sweats. Slow weight gain over the years. Eyes: No difficulties with blurred vision. Last ophthalmic exam 2008. Wears glasses. ENT: No hearing loss or oral problems. Last dental exam . CV: No chest pain, palpitations, edema or true claudication. See the chart. Respiratory: No cough, wheeze, hemoptysis or shortness of breath. GI: No abdominal pain, hematemesis, melena, dysphagia or change in daily bowel habits. : No nocturia, hematuria, incontinence or dysuria. Musculoskeletal: No swelling, stiffness or obvious deformities. The knee pain the patient experienced earlier in the year has resolved with her unemployment. Integumentary: No rashes or pruritus. See the chart. Neuro: No seizures or syncopal events. Psychiatric: No history of anxiety or depression. No problems with sleep. Endocrine: No history of diabetes. Hematologic/lymphatic: No history of anemia or bleeding. Allergic/immunologic: Please see the chart. PAST MEDICAL/SURGICAL HISTORY Surgeries Past surgical history 1. 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 C section secondary to induced hypertension post-dates Other hospitalizations None. Other injuries Laceration on the left thumb in 1974 Other major illnesses 1. Hypertension, 01/1997 2. Proteinuria, 01/1996 with stabilization 3. Hyperlipidemia 4. Allergic rhinitis 5. Hypothyroidism since 1996 6. Overweight 7. Resolved knee pain. PREVENTIVE SERVICES Tobacco: None. Mammogram: 09-08-2008. Advised. Patient declines. Pap smear: 09-07-2008. Chlamydia: Non applicable secondary to stated age. Colon screening: Advised. Patient declines. Depression: No. Asthma: No. Lipids: 07-14-2008. Tetanus: 05/22/07. Pneumovax: Non applicable secondary to stated age. Influenza vaccine: At place of employment in the past. DEXA scan: None advised. SOCIAL HISTORY Alcohol: Weekly. Caffeine use: Three cups of coffee a day. A cup of tea a week. Seatbelt use: Wears a seatbelt. Calcium intake: Adequate. Exercise: Walking four times a week 2 miles. FAMILY HISTORY Mother: Coronary artery disease, CABG, MRSA, diabetes mellitus, age 77. Father: Congenital valvular heart defect. Maternal grandmother: secondary to pancreatic cancer at age 70. Maternal grandfather: secondary to congestive heart failure in his 70s. Paternal grandmother: Was in a half-way with dementia dying in her 90s. Paternal grandfather: secondary to brain tumor, type not clear, in his 70s. Brothers and sisters: Three brothers, one who has hypertension and diabetes; the other two are in good health. A sister in good health. Children: Alive. VITAL SIGNS DATE/TIME 02-07-2010 WEIGHT 88.7 kg TEMPERATURE 37 degreesC RESP RATE 12 / min PULSE 76 SYSTOLIC 114 DIASTOLIC 78 PHYSICAL EXAM AREA EXAM TEXT GENERAL Neatly dressed. Well groomed. HEAD No evidence of trauma, tenderness or masses. EYES PERRL. Full EOM. Funduscopic exam grossly normal. ENT Ears: Tympanic membranes are driscoll. Subjectively intact hearing. Nose: Mucosal membranes pink and moist. Septum is midline. Oral: No exudates. Teeth in good repair. No pharyngeal erythema. Neck: Supple. Trachea midline. LYMPH NODES No cervical or femoral adenopathy. THYROID No thyroid masses, tenderness or enlargement. PERIPHERAL Positive radial, ulnar, femoral posterior tib dorsalis pulses. VESSELS HEART Regular rate and rhythm. No clicks, rubs or murmurs. LUNGS Clear to auscultation. No palpable chest wall masses. ABDOMEN Soft, nontender, bowel sounds present, no organomegaly. EXTREMITIES No ankle edema. MENTAL Oriented times three NEURO Reflexes 2+ triceps, biceps, knees and ankles. [facility]/kmk Signed Melba Flannery M.D. Family Medicine Electronically Signed By:MELBA FLANNERY MD On 02/20/2010 07:33 pm Modified by:MELBA FLANNERY MD On 02/20/2010 07:33 pm Source: [facility] MHSDOLBEYNONRADSYS Document Id: [id number] documented in this encounter Nursing Notes Rai Romo L.P.N. - 02/09/2010 11:25 AM CDT Labs 02-07-10 Result card sent per Dr. Flannery. Electronically Signed By:RAI ROMO LPN On 02/09/2010 11:25 am Source: [facility] [employer] [facility] [employer] Document Id: [id number] documented in this encounter Miscellaneous Notes Miscellaneous - Rai Romo L.P.N. - 02/07/2010 9:15 AM CDT Adult Transitions Manager Rn Intake/History Adult Transitions Manager Rn Intake/History Entered On: 02/07/2010 9:16 CDT Performed On: 02/07/2010 9:15 CDT by RAI ROMO LPN Intake Chief Complaint: med check Temperature Core: 37.0C(Converted to: 98.6DegF) Peripheral Pulse Rate: 76/min Respiratory Rate: 12/min (LOW) Systolic Blood Pressure: 114mmHg Diastolic Blood Pressure: 78mmHg NIBP Mean: 90mmHg BP Location: Left upper extremity Actual Weight: 88.700kg(Converted to: 195lb 9oz) Dosing Weight Clinic: 88.70kg RAI ROMO LPN - 02/07/2010 9:15 CDT Subjective Pain Symptoms: No RAI ROMO LPN - 02/07/2010 9:15 CDT Dependent Habits Tobacco Use/Currently Using: No RAI ROMO LPN - 02/07/2010 9:15 CDT Allergies Allergies (Active) penicillins Estimated Onset Date: Unspecified ; Reactions: rash ; Created By: MELBA FLANNERY MD; Reaction Status: Active ; Category: Drug ; Substance: penicillins ; Type: Allergy ; Updated By: MELBA FLANNERY MD; Reviewed Date: 02/06/2010 17:09 CDT Source: [facility] Document Id: [id number] documented in this encounter Plan of Treatment Not on filedocumented as of this encounter Visit Diagnoses Not on filedocumented in this encounter
--- OUTSIDE RECORDS SUMMARY | 2022-01-04 15:20 | XMS_ITS | Encounter Summary ---
:1955 Author Organization [facility] Address [address] [place] [address] Care Team Providers Name Role Phone Unavailable Primary Care Provider Unavailable Reason for Visit Reason Comments Skin Problem left cheek and right eye Appointment Request (Routine) - Closed Specialty Diagnoses / Procedures Referred By Contact Refer red To Contact Dermatology Referral ID Status Reason Start Date Expiration Date Visits Requ ested Visits Authorized [id number] Closed 01/20/2020 01/19/2021 1 1 Encounter Details Date Type Department Care Team Description 03/22/2020 Office Visit Department of Herminia Parkinson, Keratosis Seborrheic Dermatology in [place] (Primary Dx) [place], [place] [address] [id number] [phone] Social History Tobacco Use Types Packs/Day Years Used Date Smoking Tobacco: Never Sex Assigned at Date Recorded Not on file documented as of this encounter Consult Notes Herminia Parkinson M.D. - 03/22/2020 3:30 PM CST SUBJECTIVE CHIEF COMPLAINT / REASON FOR VISIT Skin lesions HISTORY OF PRESENT ILLNESS Ms. Evangelina Garcia is a 65 y.o. female who presents today for an evaluation several skin lesionsinvolving the face.This is my first time seeing this patient in Dermatology clinic today. She was last seen by [facility] in 2013. The patient denies a personal history of skin cancer or family history for melanoma. Today she states that the raised area involving the left upper cheek has been present for two years and has been asymptomatic, is aggravated by sun and sweat. She was previously on Humira and is currently on plaquenil and methotrexate for treatment of rheumatoid arthritis. Not on File MEDICAL HISTORY No history of skin cancer History of rheumatoid arthritis on methotrexate and Plaquenil FAMILY HISTORY No family history for melanoma Mother with history of basal cell carcinoma OBJECTIVE PHYSICAL EXAMINATION General: Awake, alert, in no acute distress, and with appropriate affect. Eyes: No scleral injection or icterus. No eyelid abnormalities. Skin: Limited skin exam done today of the face. Examination of the left upper cheek reveals a flesh colored small verrucous papule compatible with aSK. Examination of the right upper medial eyelid reveals an approximately 3 x 2 mm skin colored cystic papule with minimal overlying scale and she does state that it was irritated recently. Examination of the area above central upper lip reveals a small focal area of blanchable erythema with no lesion visible or palpable. ASSESSMENT / PLAN #1 Left upper cheek : Seborrheic keratosis The benign nature of the skin lesion(s) was discussed with the patient. No treatment is required. I recommend continued observation. Should symptoms or changes develop related to this condition, I would recommend a return visit for reassessment. #2 Right upper medial eyelid: Probable cyst with slight overlying scale Patient states that this lesion did get slightly irritated recently and likely explains the minimal scaling. My index for suspicion for skin cancer such as squamous cell cancer is very low on clinical exam and dermoscopy today. I think the scale that I am seeing is from the slight irritation she recently had to the lesion and I have asked her to avoid picking at it are applying anything to it. However, to be safe, I have recommended she follow up with her drying equipment operator for evaluation of this lesion and potential biopsy only if needed. She will do so and agrees with the plan. PATIENT EDUCATION: Ready to learn. No apparent learning barriers were identified. Learning preferences include listening. Explained diagnosis and treatment plan; patient/guardian of patient expressed understanding of thecontent. By signing my name below, I, Charla Chapin, attest that this documentation has been prepared underthe direction and in the presence of Herminia Parkinson M.D. Electronically Signed: jesse De La Cruz. 03/22/2020. Herminia Vadlez M.D., personally performed the services described in this documentation. All medical record entries made by the scribe were at my direction and in my presence. I have reviewed the chart and discharge instructions (if applicable) and agree that the record reflects my personal performance and is accurate and complete. Herminia Parkinson M.D. 03/22. D BANK SPECIALIST documented in this encounter Plan of Treatment Not on filedocumented as of this encounter Visit Diagnoses Diagnosis Keratosis Seborrheic - Primary documented in this encounter
--- OUTSIDE RECORDS SUMMARY | 2022-01-04 15:20 | XMS_ITS | Encounter Summary ---
:1955 Author Organization [facility] Address [address] [address] Care Team Providers Name Role Phone Micki Arzate MD Primary Care Provider Reason for Visit Reason Comments Other Encounter Details Date Type Department Care Team Description 03/29/2017 Telephone [facility] [address] i, Other Rheumatology [address] [place] [address] [place], [place] [address] (Wo rk) Social History Tobacco Use Types Packs/Day Years Used Date Smoking Tobacco: Never Assessed Sex Assigned at Date Recorded Not on file documented as of this encounter Nursing Notes Franca Oseguera LPN - 03/29/2017 10:31 AM CST Contacted patient. States she understands. Will start the increased dose of methotrexate today. NTRY WEAPONS CREWMEMBER Hugh Chaudhary MD - 03/29/2017 10:12 AM CST She will increase prednisone to 20 mg/d x 2 wk, 17.5 mg/d x 2 wk, then stay at 15 mg/d. At the same time, increase methotrexate to 20 mg/week (8 tabs). Faxed Rx of methotrexate to her Rx. [employer] CREWMEMBER Lanny Spence LPN - 03/29/2017 9:41 AM CST Franca tells me that while on the taper of prednisone she has been experiencing some recurrent symptoms. Currently she is taking 15 mg daily and wonders if she should increase her current dose while waiting for the methotrexate to kick in. NTRY WEAPONS CREWMEMBER documented in this encounter Plan of Treatment Upcoming Encounters Date Type Specialty Care Team Description 01/15/2022 Appointment Laboratory 02/22/2022 Appointment Rheumatology Giorgio Albarado M D [address] [place] [address] (Wo rk) documented as of this encounter Visit Diagnoses Not on filedocumented in this encounter Care Teams Pc Analyst Relationship Specialty Start Date End Date Micki Arzate MD PCP - General Internal Medicine 01/29/[address] [place] [address] documented as of this encounter
--- OUTSIDE RECORDS SUMMARY | 2022-01-04 15:20 | XMS_ITS | Encounter Summary ---
:1955 Author Organization [facility] Address [address] [place] [address] Care Team Providers Name Role Phone Micki Arzate MD Primary Care Provider Reason for Visit Reason Comments Follow-up Encounter Details Date Type Department Care Team Description 06/25/2017 Office Visit Temo Nimco Chaudhary art hritis with positive rheumatoid factor, involving unspecified site (HRC) (Primary Dx); Rheumatology MD Hugh Rheumatoid factor positive; [address] [place] [address] High risk medication use; [place] [address] [facility] Positive anti-CCP test [phone] [place], [place] [id number] (Wo rk) Social History Tobacco Use Types Packs/Day Years Used Date Smoking Tobacco: Never Smokeless Tobacco: Never Sex Assigned at Date Recorded Not on file documented as of this encounter Last Filed Vital Signs Vital Sign Reading Time Taken Comments Blood Pressure 135/78 06/25/2017 3:[address] WORKPLACE RELATIONS ADVISER Pulse 72 06/25/2017 3:26 [address] WORKPLACE RELATIONS ADVISER Temperature - - Respiratory Rate - - Oxygen Saturation - - Inhaled Oxygen Concentration - - Weight 61.2 kg (135 lb) 06/25/2017 3:[address] WORKPLACE RELATIONS ADVISER Height - - Body Mass Index 25.51 02/20/2017 7:26 AM CDT documented in this encounter Progress Notes Hugh Chaudhary MD - 06/25/2017 3:30 PM CST SUBJECTIVE: Follow-up for seropositive rheumatoid arthritis. History of present illness: This is a 2 month follow-up for the patient. I increase the dose of methotrexate to 25 mg weekly when I last saw her when she was found to have low disease activity despite improvement. This has been well tolerated. Prednisone dose has been reduced to the current dose of 7.5 mg a day. She has had a significant improvement. There is very minimal morning stiffness in the morning and there is no obvious swollen joint anymore. Two days ago, she had a slight tenderness over her left 3rd finger but this went away in 24 hours. No obvious swollen joint over this area. Her recentblood test monitoring a week ago was unremarkable. She is updated with annual flu vaccine. Past medical history, family and social history, current medications and adverse reactions were updated in EMR. Physical exams: BP 135/78 Pulse 72 Wt 135 lb (61.2 kg) BMI 25.51 kg/m2 General appearance: A middle-aged female who was not in acute physical distress. Musculoskeletal exams: All 4 extremities were examined. There was no significant synovitis/inflammatory arthritis/dactylitis or effusion in any joints. Assessment and plan: 1. Seropositive rheumatoid arthritis, clinically inactive. 2. Chronic long-term high-risk medication monitoring. 28 joint count: Total swollen joint 0. Total tender joint 0. She is doing much better subjectively and objectively. She has no more swollen joint to suggest ongoing active synovitis. Hopefully, this will be sustained and will be able to taper her off prednisone completely. She will continue methotrexate 25 mg weekly, folic acid 1 mg a day. I gave her a tapering instruction of the prednisone. Follow-up again in 2 months or earlier if there is a problem. Total time is 15 minutes, [address] RELATIONS ADVISER documented in this encounter Plan of Treatment Upcoming Encounters Date Type Specialty Care Team Description 01/15/2022 Appointment Laboratory 02/22/2022 Appointment Rheumatology Giorgio Albarado M D [address] [place] [phone] (Wo rk) documented as of this encounter Visit Diagnoses Diagnosis Rheumatoid arthritis with positive rheum atoid factor, involving unspecified site (HRC) - Primary Rheumatoid factor positive Other and unspecified nonspecific immuno logical findings High risk medication use Encounter for long-term (current) use of other medications Positive anti-CCP test documented in this encounter Care Teams Cloth Bleaching Range Back Tender Relationship Specialty Start Date End Date Micki Arzate MD PCP - General Internal Medicine 01/29/[address] [place] [address] documented as of this encounter
--- OUTSIDE RECORDS SUMMARY | 2022-01-04 15:20 | XMS_ITS | Encounter Summary ---
:1955 Author Organization [facility] Address [address] [place] [address] Care Team Providers Name Role Phone Unavailable Primary Care Provider Unavailable Encounter Details Date Type Department Care Team Description 08/14/2013 Hospital Encounter HX [facility] [address] Joshi M.D. [address] [place] [address], [address] [place] [address] (Wo rk) Social History Tobacco Use Types [...] - - Body Mass Index - - documented in this encounter Miscellaneous Notes Miscellaneous - Feroz Joshi M.D. - 08/14/2013 4:02 PM CDT Ambulatory Patient Summary [facility] [address] [place] [id number] Visit Information Name: EVANGELINA GONZALEZ [facility] Number: [id number] Current Date: 08/14/2013 16:02:09 Physicians Attending Provider: FEROZ JOSHI MD Primary Care Provider: PCP, ELSEWHERE EVANGELINA GONZALEZ has been given the following list of follow-up instructions, medication list, and patient education materials: Follow-up Instructions Your Medications Here is a list of your medications. It is important to take your medications as directed. Use a pillbox or chart to help remind you to take your medications. Please let your doctor or nurse know if you have problems taking your medications. Medication/Strength How to Take Indications/Special Instructions/Comments/Notes for Patient Medication Changes/Routing *aspirin (aspirin 81 mg oral tablet) *calcium carbonate (Tums) calcium-vitamin D (Calcium 600+D) *fexofenadine (Angle 180 mg oral tablet) 1 Tablet(s), Oral, once a day *hydrochlorothiazide-triamterene (triamterene - hydrochlorothiazide 37.5mg-25mg) 1, Oral, once a day levothyroxine (levothyroxine 50 mcg (0.05 mg) oral tablet) 1 Tablet(s), Oral, once a day levothyroxine (levothyroxine 50 mcg (0.05 mg) oral tablet) 1 Tablet(s), Oral, once a day needs follow up lisinopril (lisinopril 10 mg oral tablet) 1 Tablet(s), Oral, once a day needs labs lisinopril (lisinopril 10 mg oral tablet) 1 Tablet(s), Oral, once a day needs follow up *omega-3 polyunsaturated fatty acids (Fish Oil) * You have let us know that you are not taking this medication as listed. Please talk with your primary care provider or the health care provider who prescribed the medication as soon as possible. Stop Taking the Following Medications: Medication list as of 08-14-13 16:02 Attention: If you have any medications at home that are not on this list, DO NOT take them until youcontact your provider for clarification. Give a copy of your medication list to your primary care provider. Update your medication list any time medications or doses are changed and carry your medication list at all times in case of emergency. 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 Your Goals/Additional instructions: Source: [facility] POWERCHART Document Id: [id number] Miscellaneous - Feroz Joshi M.D. - 08/14/2013 4:02 PM CDT Ambulatory Discharge Medication List [address] [id number] Visit Information Name: EVANGELINA GONZALEZ [facility] Number: [id number] Visit Date: 08/14/2013 16:02:08 Attending Provider: FEROZ JOSHI MD Primary Care Provider: PCP, ELSEWHERE EVANGELINA GONZALEZ has been given the following list of medications: Your Medications It is important to take your medications as directed. Use a pill box or chart to help remind you to take your medications. Please let your doctor or nurse know if you have problems taking your medications. Medication/Strength How to Take Indications/Special Instructions/Comments/Notes for Patient Medication Changes/Routing *aspirin (aspirin 81 mg oral tablet) *calcium carbonate (Tums) calcium-vitamin D (Calcium 600+D) *fexofenadine (Angle 180 mg oral tablet) 1 Tablet(s), Oral, once a day *hydrochlorothiazide-triamterene (triamterene - hydrochlorothiazide 37.5mg-25mg) 1, Oral, once a day levothyroxine (levothyroxine 50 mcg (0.05 mg) oral tablet) 1 Tablet(s), Oral, once a day levothyroxine (levothyroxine 50 mcg (0.05 mg) oral tablet) 1 Tablet(s), Oral, once a day needs follow up lisinopril (lisinopril 10 mg oral tablet) 1 Tablet(s), Oral, once a day needs labs lisinopril (lisinopril 10 mg oral tablet) 1 Tablet(s), Oral, once a day needs follow up *omega-3 polyunsaturated fatty acids (Fish Oil) * You have let us know that you are not taking this medication as listed. Please talk with your primary care provider or the health care provider who prescribed the medication as soon as possible. Stop Taking the Following Medications: Medication list as of 08-14-13 16:02 Attention: If you have any medications at home that are not on this list, DO NOT take them until youcontact your provider for clarification. Give a copy of your medication list to your primary care provider. Update your medication list any time medications or doses are changed and carry your medication list at all times in case of emergency. Additional Information: Source: [facility] LigandalCHART Document Id: [id number] Miscellaneous - Lucio Travis P.A.-C. - 08/14/2013 3:00 PM CDT Adult Appeals Coordinator Intake/History Adult Appeals Coordinator Intake/History Entered On: 08/14/2013 15:01 CDT Performed On: 08/14/2013 15:00 CDT by LUCIO TRAVIS Intake Systolic Blood Pressure : 104 mmHg Diastolic Blood Pressure : 66 mmHg NIBP Mean : 79 mmHg BP Location : Left upper extremity Blood Pressure Cuff Size : Regular Actual Weight : 72.8 kg(Converted to: 160 lb 8 oz) Weight Source : Standing scale Dosing Weight Clinic : 72.8 kg LUCIO TRAVIS - 08/14/2013 15:00 CDT General Info Information Given By : Patient Preferred Communication Mode : Verbal Languages : Irish LUCIO TRAVIS - 08/14/2013 15:00 CDT Subjective Pain Symptoms : No LUCIO TRAVIS - 08/14/2013 15:00 CDT Dependent Habits Tobacco Use/Currently Using : No Exposure to Tobacco Smoke : Other: never Smoking Status : Never smoker LUCIO TRAVIS - 08/14/2013 15:00 CDT [facility] Document Id: [id number] CDT!20 documented in this encounter Plan of Treatment Not on filedocumented as of this encounter Visit Diagnoses Not on filedocumented in this encounter
--- OUTSIDE RECORDS SUMMARY | 2022-01-04 15:20 | XMS_ITS | Encounter Summary ---
:1955 Author Organization [facility] Address [address] [place] [address] Care Team Providers Name Role Phone Unavailable Primary Care Provider Unavailable Encounter Details Date Type Department Care Team Description 01/20/2009 Hospital Encounter HX NO MAPPING Melba Flannery M.D. [address] [place] [address] (Wo rk) Social History Tobacco Use Types Packs/Day Years Used Date Smoking Tobacco: Never Assessed Sex Assigned at Date Recorded Not on file documented as of this encounter Plan of Treatment Not on filedocumented as of this encounter Procedures Procedure Name Priority Date/Time Associated Diagnosis Comme nts DX FOOT RIGHT 3+ Routine 01/20/2009 9:54 AM Resul ts for this VIEWS CDT procedure are i n the results section. documented in this encounter Results DX Foot Right 3+ Views (01/20/2009 9:54 AM CDT) Anatomical Region Laterality Modality Lower Extremity, Foot Right Radiographic Imagi ng Specimen (Source) Anatomical Collection Method Collection Time Re ceived Time Location / / Volume Laterality 01/20/2009 9:54 AM CDT Addenda Addendum by ProviderDontrell M.D. o n 01/20/2009 9:54 AM CDT RAD^^^OW XR Foot Right 3 or more views 01/20/2009 09:54:00 Addendum by Dontrell Kiser M.D. o n 01/20/2009 9:54 AM CDT RAD^^^MA XR Foot Right 3 or more views 01/20/2009 09:54:00 Impressions 01/20/2009 10:20 AM CDT 1. Mild degenerative changes at the medi al aspect of the midfoot as described. 2. Calcaneal spur. Narrative 01/20/2009 10:20 AM CDT HISTORY: Pain. ?? COMPARISON: None. ?? FINDINGS: There is some mild soft tissue swelling over the dorsal aspect of the midfoot. No fracture is id entified. There is mild degenerative spurring of the articulatio n of the navicular and cuneiforms as well as the 1st tarsometat arsal joint. Remaining joint spaces are relatively preserved. There i s a small calcaneal spur. ?? Procedure Note Randall Gale Jr., M.D. / Dontrell Álvarez M.D. - 10/22/2016 HISTORY: Pain. COMPARISON: None. FINDINGS: There is some mild soft tissue swelling over the dorsal aspect of the midfoot. No fracture is id entified. There is mild degenerative spurring of the articulatio n of the navicular and cuneiforms as well as the 1st tarsometat arsal joint. Remaining joint spaces are relatively preserved. There i s a small calcaneal spur. IMPRESSION: 1. Mild degenerative changes at the medi al aspect of the midfoot as described. 2. Calcaneal spur. Rocky Arroyo Jr. RSudhir.M.S. IMG DIAGNOSTIC IMAGI NG PROCEDURES documented in this encounter Visit Diagnoses Not on filedocumented in this encounter
--- OUTSIDE RECORDS SUMMARY | 2022-01-04 15:20 | XMS_ITS | Encounter Summary ---
:1955 Author Organization [facility] Address [address] [address] Care Team Providers Name Role Phone Micki Arzate MD Primary Care Provider Encounter Details Date Type Department Care Team Description 03/26/2017 Lab Visit [facility] High risk medication use [address] [place] [address] Social History Tobacco Use Types Packs/Day Years Used Date Smoking Tobacco: Never Assessed Sex Assigned at Date Recorded Not on file documented as of this encounter Plan of Treatment Upcoming Encounters Date Type Specialty Care Team Description 01/15/2022 Appointment Laboratory 02/22/2022 Appointment Rheumatology Giorgio Albarado M D [address] [place] [phone] (Wo rk) documented as of this encounter Procedures Procedure Name Priority Date/Time Associated Comments Diagnosis CREATININE / GFR Routine 03/26/2017 2:08 PM High risk Resul ts for this CANE PACKER medication use procedure are in the results section. COMPLETE BLOOD Routine 03/26/2017 2:08 PM High risk Results for this COUNT-W/DIFF CANE PACKER medication use procedure are in the results section. DIFFERENTIAL Routine 03/26/2017 2:08 PM Results f or this CANE PACKER procedure are i n the results section. ALT (SGPT) Routine 03/26/2017 2:08 PM High risk Results f or this CANE PACKER medication use procedure are in the results section. documented in this encounter Results Differential (03/26/2017 2:08 PM CANE PACKER) P athologist Signature Absolute 5.4 1.8 - 8.0 PN SOFT Neutrophils k/cmm [...] Time (Source) Location / / Volume Laterality 03/26/2017 2:08 PM 7 2:08 CANE PACKER PM CANE PACKER Narrative PN SOFT - 03/26/2017 2:11 PM CANE PACKER Performed at [facility], [address] [place] [address] CLIA number [id number] Hugh Chaudhary MD LAB_1 Performing Organization Address [facility] Phon e Number PN SOFT [address] [place] [address] [phone] CREAT - Creatinine - standing every 2 - 3 months (03/26/2017 2:08 PM CANE PACKER) athologist Signature Creatinine Serum 0.80 0.55 - [...] Time (Source) Location / / Volume Laterality 03/26/2017 2:08 PM 7 2:08 CANE PACKER PM CANE PACKER Narrative PN SOFT - 03/26/2017 4:08 PM CANE PACKER Performed at [facility], [facility] [address] [place] [address] CLIA number [id number] Hugh Chaudhary MD LAB_1 Performing Organization Address [facility] Phon e Number PN SOFT [address] [place] [address] (ABNORMAL) CBC - Complete Blood Count W/Diff - standing every 2 - 3 months (03/26/2017 2:08 PM CANE PACKER) [facility] Method Time Signature White Blood Cell 7.5 3.8 - 11.0 PN SOFT Count k/cmm Red Blood Cell 4.42 3.70 - PN SOFT Count 5.20 m/cmm Hemoglobin 12.8 11.8 - PN SOFT 15.5 g/dL Hematocrit 38.9 35.0 - PN SOFT 46.0 % Mean Corpuscular 88.0 80.0 - PN SOFT Volume 100.0 fL RDW 16.5 (H) 11.0 - PN SOFT 15.0 % Platelet Count 232 140 - 450 PN SOFT k/cmm Specimen Anatomical Collection Method Collection Time Receive d Time (Source) Location / / Volume Laterality 03/26/2017 2:08 PM 7 2:08 CANE PACKER PM CANE PACKER Narrative PN SOFT - 03/26/2017 2:11 PM CANE PACKER Performed at [facility], [address] [place] [address] CLIA number [id number] Hugh Chaudhary MD LAB_1 Performing Organization Address [facility] Code Phon e Number PN SOFT [address] [place] [address] ALT - Alanine Aminotransferase - standing every 2 - 3 months (03/26/2017 2:08 PM CANE PACKER) [facility] Time Signature Alanine 21 9 - 55 PN SOFT Aminotransferase U/L Specimen Anatomical Collection Method Collection Time Receive d Time (Source) Location / / Volume Laterality 03/26/2017 2:08 PM 7 2:08 CANE PACKER PM CANE PACKER Narrative PN SOFT - 03/26/2017 4:08 PM CANE PACKER Performed at [address] [address] CLIA number [id number] Hugh Chaudhary MD LAB_1 Performing Organization Address [facility] Code Phon e Number PN SOFT [address] [place] [address] documented in this encounter Visit Diagnoses Diagnosis High risk medication use Encounter for long-term (current) use of other medications documented in this encounter Care Teams Telecommunication Engineer Relationship Specialty Start Date End Date Micki Arzate MD PCP - General Internal Medicine 01/29/[address] [place] [address] documented as of this encounter
--- NOTE | 2022-01-04 15:30 | CRLHL7_ITS ---
For Patients: As a result of the Cures Act, medical imaging exams and procedure reports are released immediately into your electronic medical record. You may view this report before your referring provider. If you have questions, please contact your health care provider. DXA BONE MINERAL DENSITY STUDY, 01/04/2022 Current height (inches): 61.0 Weight (lbs.): 140.0 Menopause age: 54 Ethnicity: White 1. Have you had a previous hip or vertebral fracture? No. 2. Have you had any fractures during your adult life which did not result from significant trauma (e.g., auto accident)? No. 3. Did either of your parents have a hip fracture? No. 4. Do you smoke? No. 5. Have you ever taken Glucocorticoids? No. 6. Do you have rheumatoid arthritis? Yes. 7. Do you have secondary osteoporosis? No. 8. Do you drink 3 or more alcoholic drinks per day? No. 9. Are you being treated for osteoporosis? No. 10. Have you ever taken any of the following medications: Actonel, Evista, Fosamax, Miacalcin, Reclast, Boniva, Forteo, HRT (i.e., estrogen/hormone therapy), Protelos, Prolia, Vitamin D, Calcium, other ??? please specify. ANSWER: Yes; vitamin D, calcium. 11. Do you have any of the following medical conditions: Anorexia or bulimia, asthma or emphysema, end stage renal disease, hyperparathyroidism, any seizure disorders, cancer, inflammatory bowel diseases, hysterectomy, other ??? please specify. ANSWER: No. 12. What was your maximum height (inches)? Not provided. 13. Do you perform weight bearing exercise regularly? Yes. 14. Do you regularly consume dairy products? No. 15. Do you drink caffeinated beverages? Yes. If female: 16. At what age did your period start? 11. 17. Are you premenopausal? No. 18. How many full-term pregnancies have you had? 1. 19. Have you ever missed your period for more than 6 months in a row (not including or menopause)? No. TECHNIQUE: Bone mineral density study was performed using the [employer]. FINDINGS: The results of the study expressed as bone mineral density (BMD) are as follows: Lumbar Spine L1 to L3: BMD: 0.999 g/cm2. T-score: -0.2. Z-score: 1.7. Neck Left: BMD: 0.637 g/cm2. T-score: -1.9. Z-score: -0.3. Right: BMD: 0.599 g/cm2. T-score: -2.3. Z-score: -0.6. Total Left: BMD: 0.756 g/cm2. T-score: -1.5. Z-score: -0.2. Right: BMD: 0.789 g/cm2. T-score: -1.3. Z-score: 0.1. IMPRESSION: Osteopenia. FRAX 10-year Fracture Risk Major Osteoporotic Fracture: 16 percent Hip Fracture: 3.3 percent Reported Risk Factors: [place] () Neck BMD = 0.599, BMI = 26.5, rheumatoid arthritis. JUVENTINO LOWE M.D. Diagnostic Radiologist [email or web address] Transcribed: 10:[address]/Dictated by: Juventino Lowe MD @ 01/05/2022 8:22:00 AM (Electronically Signed)
== END 2022-01-04 15:17 | disposition home or self-care (01) ==
PROVIDERS: PCP Family Medicine; Visit Provider Family Medicine
DX: Z13.820 Encounter for screening for osteoporosis (principal); M85.89 Other specified disorders of bone density and structure, multiple sites; Z78.0 Asymptomatic menopausal state
CPT/HCPCS: 77080

== ENCOUNTER 2022-03-06 14:26 | Outpatient (CLI) | payer MEDICARE, BC, SELFPAY ==
--- OUTSIDE RECORDS SUMMARY | 2022-03-06 14:28 | XMS_ITS | Encounter Summary ---
:1955 Author Organization [facility] Address [address] [address] Care Team Providers Name Role Phone Micki Arzate MD Primary Care Provider Encounter Details Date Type Department Care Team Description 07/04/2021 Lab Visit [facility] Seropositive rheumatoid [address] [facility] arthritis ([facility]) [place] [address] Social History Tobacco Use Types [...] 07/04/2021 10:12 Seropositive Results for this AM OVEN HEATER HELPER rheumatoid arthritis procedu re are in ([facility]) the results section. COMPLETE BLOOD Routine 07/04/2021 10:12 Seropositive Results f or this COUNT-NO DIFF AM OVEN HEATER HELPER rheumatoid arthritis proced ure are in ([facility]) the results section. ALT (SGPT) Routine 07/04/2021 10:12 Seropositive Results for this AM OVEN HEATER HELPER rheumatoid arthritis procedu re are in ([facility]) the results section. AST Routine 07/04/2021 10:12 Seropositive Results for this AM OVEN HEATER HELPER rheumatoid arthritis procedu re are in ([facility]) the results section. documented in this encounter Results Creatinine / GFR (07/04/2021 10:12 AM OVEN HEATER HELPER) athologist Signature Creatinine 0.90 0.55 - 07/04/2021 [facility] 1.02 mg/dL 11:57 AM [facility]EN HE[facility] HELPER LABORATORY GFR, Estimated >60 >60 07/04/2021 [place] mL/min/1.7 11:57 AM OVEN HEATER HELPER LABORATORY 3m2 Specimen Anatomical Collection Method / Collection Time Recei rg Time (Source) Location / Volume Laterality Blood Venipuncture / 07/04/2021 10:12 2 Unknown AM OVEN HEATER HELPER 10:12 AM OVEN HEATER HELPER Giorgio Albarado MD LAB_1 Performing Organization Address [facility]/ZIP Code Phon e [facility] LABORATORY [address] [place], [place] [phone] ALT (SGPT) (07/04/2021 10:12 AM OVEN HEATER HELPER) athologist Signature ALT (SGPT) 19 0 - 55 U/L 07/04/2021 [place] 11:57 AM OVEN HEATER HELPER LABORATORY Specimen Anatomical Collection Method / Collection Time Recei rg Time (Source) Location / Volume Laterality Blood Venipuncture / 07/04/2021 10:12 2 Unknown AM OVEN HEATER HELPER 10:12 AM OVEN HEATER HELPER Giorgio Albarado MD LAB_1 Performing Organization Address [facility] e [facility] LABORATORY [address] [place] [phone] AST (07/04/2021 10:12 AM OVEN HEATER HELPER) athologist Signature AST (SGOT) 18 10 - 40 U/L 07/04/2021 [place] 11:57 AM OVEN HEATER HELPER LABORATORY Specimen Anatomical Collection Method / Collection Time Recei rg Time (Source) Location / Volume Laterality Blood Venipuncture / 07/04/2021 10:12 2 Unknown AM OVEN HEATER HELPER 10:12 AM OVEN HEATER HELPER Giorgio Albarado MD LAB_1 Performing Organization Address [facility] Phon e [facility] LABORATORY [address] [place] [address] Complete Blood Count-No Diff (07/04/2021 10:12 AM OVEN HEATER HELPER) athologist Signature WBC 6.0 3.5 - 10.5 07/04/2021 [place] x10(9)/L 10:15 AM OVEN HEATER HELPER LABORATORY RBC 4.66 3.90 - 07/04/2021 [place] 5.03 10:15 AM OVEN HEATER HELPER LABORATORY x10(12)/L Hemoglobin 14.1 12.0 - 07/04/2021 [place] 15.5 g/dL 10:15 AM OVEN HEATER HELPER LABORATORY HCT 43.2 34.9 - 07/04/2021 [place] 44.5 % 10:15 AM OVEN HEATER HELPER LABORATORY MCV 92.7 80.0 - 07/04/2021 [place] 100.0 fL 10:15 AM OVEN HEATER HELPER LABORATORY MCH 30.3 27.6 - 07/04/2021 [place] 33.3 pg 10:15 AM OVEN HEATER HELPER LABORATORY MCHC 32.6 31.5 - 07/04/2021 [place] 35.2 g/dL 10:15 AM OVEN HEATER HELPER LABORATORY RDW 13.2 11.9 - 07/04/2021 [place] 15.5 % 10:15 AM OVEN HEATER HELPER LABORATORY Platelets 224 150 - 450 07/04/2021 [place] x10(9)/L 10:15 AM OVEN HEATER HELPER LABORATORY Automated NRBC 0 <=0 /100 07/04/2021 [place] WBC 10:15 AM OVEN HEATER HELPER LABORATORY Specimen Anatomical Collection Method / Collection Time Recei rg Time (Source) Location / Volume Laterality Blood Venipuncture / 07/04/2021 10:12 2 Unknown AM OVEN HEATER HELPER 10:12 AM OVEN HEATER HELPER Giorgio Albarado MD LAB_1 Performing Organization Address City/State/ZIP Code Phon e Number [facility] [address] [place] [address] documented in this encounter Visit Diagnoses Diagnosis Seropositive rheumatoid arthritis (HRC) Rheumatoid arthritis documented in this encounter Care Teams County Assessor Relationship Specialty Start Date End Date Micki Arzate MD PCP - General Internal Medicine 01/29/[address] [place] [address] documented as of this encounter
--- OUTSIDE RECORDS SUMMARY | 2022-03-06 14:28 | XMS_ITS | Encounter Summary ---
:1955 Author Organization [facility] Address [address] [place] [address] Care Team Providers Name Role Phone Micki Arzate MD Primary Care Provider Reason for Visit Reason Comments Refill methotrexate 2.5 MG tablet [ Pharmacy Med Name: Methotrexate Sodium Oral Tablet 2.5 MG] Encounter Details Date Type Department Care Team Description 10/07/2021 Refill [facility] 401 Manuel Stevenson MD Refill (methotrexate 2.5 [facility] [address] MG tablet [Pharmacy Med [address] [place], [place] Name: [place] [address] Sodium Oral Tablet 2.5 [phone] MG]) (Work) Social History Tobacco Use Types [...] None Last ordered by ELLIE STEVENSON H: 07/13/2021 (86 days ago) QTY: 120, Refills: 0, Sig: take 10 tablets by mouth once every week (unchanged) Cr: 0.9 mg/dL on 07/04/2021 AST: 18 U/L on 07/04/2021 ALT: 19 U/L on 07/04/2021 HCT: 43.2 % on 07/04/2021 HGB: 14.1 g/dL on 07/04/2021 PLT: 224 k/cmm on 07/04/2021 RBC: 4.66 m/cmm on 07/04/2021 WBC: 6 k/cmm on 07/04/2021 Health [facility] Embedded Refills, Reference: [id number], 10/07/2021 6:02:49 PM CDT, Pool: Jackelynyomi Alvares Care Team ([id number]) documented in this encounter Plan of Treatment Not on filedocumented as of this encounter Visit Diagnoses Not on filedocumented in this encounter Care Teams Employment Evaluator/Case Manager Relationship Specialty Start Date End Date Micki Arzate MD PCP - General Internal Medicine [address] [place] [address] documented as of this encounter
--- OUTSIDE RECORDS SUMMARY | 2022-03-06 14:28 | XMS_ITS | Encounter Summary ---
:1955 Author Organization [facility] Address [address], [place] [address] Care Team Providers Name Role Phone Micki Arzate MD Primary Care Provider Encounter Details Date Type Department Care Team Description 03/15/2021 Lab Visit [facility] Seropositive rheumatoid [address] [facility] arthritis ([facility]) [place] [address] Social History Tobacco Use Types [...] HOSPITAL) the results section. COMPLETE BLOOD Routine 03/15/2021 9:19 AM Seropositive Results for this COUNT-NO DIFF CDT rheumatoid arthritis proced ure are in ([facility]) the results section. ALT (SGPT) Routine 03/15/2021 9:19 AM Seropositive Results f or this CDT rheumatoid arthritis procedu re are in ([facility]) the results section. AST Routine 03/15/2021 9:19 AM Seropositive Results f or this CDT rheumatoid arthritis procedu re are in ([facility]) the results section. documented in this encounter Results Creatinine / GFR (03/15/2021 9:19 AM CDT) athologist Signature Creatinine 0.80 0.55 - 03/15/2021 [facility] 1.02 mg/dL 10:23 AM CDT LABORATORY GFR, Estimated >60 >60 03/15/2021 [facility] mL/min/1.7 10:23 AM CDT LABORATORY 3m2 Specimen Anatomical Collection Method / Collection Time Recei rg Time (Source) Location / Volume Laterality Blood Venipuncture / 03/15/2021 9:19 03/15/2021 9:19 Unknown AM CDT AM CDT Giorgio Albarado MD LAB_1 Performing Organization Address City/[facility] Code Phon e Number [facility] [address] [place], [place] [phone] ALT (SGPT) (03/15/2021 9:19 AM CDT) athologist Signature ALT (SGPT) 14 0 - 55 U/L 03/15/2021 [facility] 10:23 AM CDT LABORATORY Specimen Anatomical Collection Method / Collection Time Recei rg Time (Source) Location / Volume Laterality Blood Venipuncture / 03/15/2021 9:19 03/15/2021 9:19 Unknown AM CDT AM CDT Giorgio Albarado MD LAB_1 Performing Organization Address [facility] e Number [facility] [address] [place] [address] AST (03/15/2021 9:19 AM CDT) athologist Signature AST (SGOT) 19 10 - 40 U/L 03/15/2021 [facility] 10:23 AM CDT LABORATORY Specimen Anatomical Collection Method / Collection Time Recei rg Time (Source) Location / Volume Laterality Blood Venipuncture / 03/15/2021 9:19 03/15/2021 9:19 Unknown AM CDT AM CDT Giorgio Albarado MD LAB_1 Performing Organization Address [facility] Phon e [facility] LABORATORY [address] [place] [address] Complete Blood Count-No Diff (03/15/2021 9:19 AM CDT) P athologist Signature WBC 6.5 3.5 - 10.5 03/15/2021 [facility] x10(9)/L 9:26 AM CDT LABORATORY RBC 4.67 3.90 - 03/15/2021 [facility] 5.03 9:26 AM CDT LABORATORY x10(12)/L Hemoglobin 13.9 12.0 - 03/15/2021 [facility] 15.5 g/dL 9:26 AM CDT LABORATORY HCT 43.1 34.9 - 03/15/2021 [facility] 44.5 % 9:26 AM CDT LABORATORY MCV 92.3 80.0 - 03/15/2021 [facility] 100.0 fL 9:26 AM CDT LABORATORY MCH 29.8 27.6 - 03/15/2021 [facility] 33.3 pg 9:26 AM CDT LABORATORY MCHC 32.3 31.5 - 03/15/2021 [facility] 35.2 g/dL 9:26 AM CDT LABORATORY RDW 13.6 11.9 - 03/15/2021 [facility] 15.5 % 9:26 AM CDT LABORATORY Platelets 206 150 - 450 03/15/2021 [facility] x10(9)/L 9:26 AM CDT LABORATORY Automated NRBC 0 <=0 /100 03/15/2021 [facility] WBC 9:26 AM CDT LABORATORY Specimen Anatomical Collection Method / Collection Time Recei rg Time (Source) Location / Volume Laterality Blood Venipuncture / 03/15/2021 9:19 03/15/2021 9:19 Unknown AM CDT AM CDT Giorgio Albarado MD LAB_1 Performing Organization Address City/State/ZIP Code Phon e Number [facility] [address] [place] [address] documented in this encounter Visit Diagnoses Diagnosis Seropositive rheumatoid arthritis (HRC) Rheumatoid arthritis documented in this encounter Care Teams Director Of Psychology Relationship Specialty Start Date End Date Micki Arzate MD PCP - General Internal Medicine [address] [place] [address] documented as of this encounter
--- OUTSIDE RECORDS SUMMARY | 2022-03-06 14:28 | XMS_ITS | Encounter Summary ---
:1955 Author Organization [facility] Address [address] [place] [address] Care Team Providers Name Role Phone Micki Arzate MD Primary Care Provider Reason for Visit Reason Comments Revisit Encounter Details Date Type Department Care Team Description 02/22/2022 Office Visit Specialty [facility] 401 Giorgio Albarado, ropositive rheumatoid arthritis (HRC) (Primary Dx); Rheumatology Clinic History of COVID-19 401 [facility]. [address] [place] [address] [place], [place] [phone] [address] Social History Tobacco Use Types Packs/Day Years Used Date Smoking Tobacco: Never Smokeless Tobacco: Never Alcohol Use Standard Drinks/Week Comments Not Currently 0 (1 standard drink = 0.6 oz pure alcoho l) Sex Assigned at Date Recorded Not on file documented as of this encounter Last Filed Vital Signs Vital Sign Reading Time Taken Comments Blood Pressure 151/90 02/22/2022 10:39 AM CDT Pulse 69 02/22/2022 10:39 AM CDT Temperature - - Respiratory Rate - - Oxygen Saturation - - Inhaled Oxygen Concentration - - Weight - - Height - - Body Mass Index - - documented in this encounter Patient Instructions Patient InstructionsGiorgio Albarado MD - 02/22/2022 10:40 AM CDT Let me know if any issues/problems Keep on methotrexate and hydroxychloroquine as you are Use prednisone if needed documented in this encounter Progress Notes Giorgio Albarado MD - 02/22/2022 10:40 AM CDT 67 y.o. old female following up for seropositive rheumatoid arthritis. Current therapy from rheumatology: Methotrexate 25 mg weekly, hydroxychloroquine 300mg daily. Had eye exam in past year with outside provoder. Prior therapies from rheumatology: Humira stopped 02/2020 when she switched to Medicare Recently had Covid and held methotrexate for 1 week. She had taken 1/2 dose of methotrexate when shewas exposed and her was sick. Says her symptoms were mild and she has recovered. Notes some swelling in the MCPs. Exam: There were no vitals taken for this visit. Gen: No acute distress MSK: Trace synovitis of the left 3rd MCP, slightly puffy around right 2-3 MCPs. No synovitis bilateral wrists, elbows, knees, ankles. Lab Results Component Value Date/Time WBC 6.4 01/15/2022 08:31 AM HGB 13.0 01/15/2022 08:31 AM MCV 92.0 01/15/2022 08:31 AM PLTS 195 01/15/2022 08:31 AM AST 26 01/15/2022 08:31 AM ALT 24 01/15/2022 08:31 AM CREATININE 0.90 01/15/2022 08:31 AM Assessment/plan: Seropositive rheumatoid arthritis. Ok to restart methotrexate 25mg weekly after having Covid recently. Continue hydroxychloroquine 300mg/d. Follow up 6 months Giorgio Albarado MD documented in this encounter Plan of Treatment Not on filedocumented as of this encounter Visit Diagnoses Diagnosis Seropositive rheumatoid arthritis (HRC) - Primary Rheumatoid arthritis History of COVID-19 documented in this encounter Care Teams Ditcher Operator Relationship Specialty Start Date End Date Micki Arzate MD PCP - General Internal Medicine [address] [place] [address] documented as of this encounter
--- OUTSIDE RECORDS SUMMARY | 2022-03-06 14:28 | XMS_ITS | Encounter Summary ---
:1955 Author Organization [facility] Address [address] [place] [address] Care Team Providers Name Role Phone Micki Arzate MD Primary Care Provider Reason for Visit Reason Comments Refill methotrexate 2.5 MG tablet [ Pharmacy Med Name: Methotrexate Sodium Oral Tablet 2.5 MG] Encounter Details Date Type Department Care Team Description 01/16/2022 Refill [facility] 401 Manuel Stevenson MD Refill (methotrexate 2.5 Rheumatology Clinic [address] MG tablet [Pharmacy Med [address] [place], [place] Name: [place] [address] Sodium Oral Tablet 2.5 [phone] MG]) (Work) Social History Tobacco Use Types Packs/Day Years Used Date Smoking Tobacco: Never Smokeless Tobacco: Never Alcohol Use Standard Drinks/Week Comments Not Currently 0 (1 standard drink = 0.6 oz pure alcoho l) Sex Assigned at Date Recorded Not on file documented as of this encounter Nursing Notes Jazmin Mccall RN - 01/16/2022 3:39 PM CDT Filled per standing orders. Jazmin Garcia RN ....01/16/2022 3:39 PM Interface, Out Surescripts Prov Query - 01/16/2022 5:46 AM CDT methotrexate 2.5 MG tablet [Pharmacy Med Name: Methotrexate Sodium Oral Tablet 2.5 MG] Immunosuppressants -> Refill x 3 months (until due for a(n) ALT check, AST check, Cr check, HCT check, HGB check, PLT check, RBC check and WBC check) Last qualifying visit: 04/11/2021 (in Rheumatology) Next scheduled visit: 02/22/2022 (in Rheumatology) Last ordered by ELLIE STEVENSON H: 10/17/2021 (91 days ago) QTY: 120, Refills: 0, Sig: take 10 tablets by mouth once every week (unchanged) Cr: 0.9 mg/dL on 01/15/2022 AST: 26 U/L on 01/15/2022 ALT: 24 U/L on 01/15/2022 HCT: 39.2 % on 01/15/2022 HGB: 13 g/dL on 01/15/2022 PLT: 195 k/cmm on 01/15/2022 RBC: 4.26 m/cmm on 01/15/2022 WBC: 6.4 k/cmm on 01/15/2022 Health [facility] Embedded Refills, Reference: [id number], 01/16/2022 5:46:52 AM CDT, Pool: Per Alvares Care Team ([id number]) documented in this encounter Plan of Treatment Not on filedocumented as of this encounter Visit Diagnoses Not on filedocumented in this encounter Care Teams Demurrage Man Relationship Specialty Start Date End Date Micki Arzate MD PCP - General Internal Medicine [address] [place] [address] documented as of this encounter
--- OUTSIDE RECORDS SUMMARY | 2022-03-06 14:28 | XMS_ITS | Clinical Summary ---
:1955 Author Organization [facility] Address [address], [place] [address] Care Team Providers Name Role Phone Micki [...] for each transition of care or referral. [facility] Allergies Active Allergy Reactions Severity Noted Date Comments Penicillins Rash Medium 02/20/2017 Medications Medication Sig Dispensed Refills Start End Status Date Date Bioflavonoid Products 1,000 mg. 0 Active (VITAMIN C PLUS) 1000 Once daily MG Cholecalciferol 2,000 mg. 0 Acti ve (VITAMIN D) 50 MCG Every other (1999) CAPS day folic acid 1 MG tablet Take 1 Tablet 90 Tablet 3 Active by mouth 0 daily. methotrexate 2.5 MG Take 10 120 Tablet 0 Active tablet Tablets by 2 mouth once every week lisinopril (ZESTRIL) 5 Take 5 mg by 0 Active MG tablet mouth daily. 2 Ddmjsmz-Bfavoogbq-Akvg 0 Active min D (CALCIUM 1200+D3 2 OR) hydroxychloroquine Take 1.5 135 Tablet 3 Active (PLAQUENIL) 200 MG Tablets (300 2 023 tablet mg) by mouth daily. predniSONE (DELTASONE) Take 2-4 60 Tablet 2 Active 2.5 MG tablet Tablets (5-10 2 mg) by mouth daily as needed (arthritis). hydroxychloroquine Take 1.5 135 Tablet 3 Discontinued (PLAQUENIL) 200 MG Tablets by 1 022 (*Med change OR tablet mouth daily. same me d OR reorder, n ew dose/direc tions ) predniSONE (DELTASONE) 5-10mg daily 60 Tablet 1 10/19 Discontinued 5 MG tablet as needed for 1 022 (*Me d change OR arthritis same med O R reorder, n ew dose/direc tions ) predniSONE (DELTASONE) Take 1-2 60 Tablet 2 Discontinued 2.5 MG tablet Tablets 2 022 (*Med change OR (2.5-5 mg) by same m ed OR mouth daily. reorder , new 5-10mg daily dose/di rections as needed for ) arthritis Active Problems Problem Noted Date Rheumatoid arthritis with positive rheumatoid factor 0 06/25/2017 High risk medication use 04/23/2017 Hypothyroidism 02/20/2017 Essential hypertension 02/20/2017 Obesity 02/20/2017 Hyperlipidemia 02/20/2017 S/p nephrectomy 02/20/2017 Rheumatoid arthritis 02/20/2017 Rheumatoid factor positive 02/20/2017 Positive anti-CCP test 02/20/2017 Encounters Date Type Specialty Care Team Description 03/05/2022 Refill Rheumatology Giorgio Albarado MD Refill (pr edniSONE (DELTASONE) 2.5 MG tablet) 02/28/2022 Orders Only Rheumatology Giorgio Albarado MD 02/22/2022 Office Visit Rheumatology Giorgio Albarado MD Seropositi ve rheumatoid arthritis (HRC) (Primary Dx); History of COVI D-19 01/16/2022 Refill Rheumatology Giorgio Albarado MD Refill (me thotrexate 2.5 MG tablet [Pharmac y Med Name: Methotrexate So dium Oral Tablet 2.5 MG]) from Last 3 Months Immunizations Name Administration Dates Next Due Influenza IIV4 (Quadrivalent) 0.5mL (52805) 03/03/2019, 08/2016 Moderna (Spikevax) COVID-19, 12+ Yrs [...] 63 kg (139 lb) 04/11/2021 1:18 PM TUB PULLER Height 154.9 cm (5' 1) 04/11/2021 1:18 PM TUB PULLER Body Mass Index 26.26 04/11/2021 1:18 PM TUB PULLER Plan of Treatment Health Maintenance Due Date Last Done Comments Colon Cancer Screening Plan 1955 Due Medicare Annual Wellness 1955 Visit Mammogram 1955 Cholesterol 01/23/2000 Dexa 01/23/2020 COVID-19 Vaccine (3 - 10/14/2020 08/19/2020, 07/22/2020 Booster for Moderna series) Influenza (#1) 2022 03/16/2021, 02/13/2020, 03/03/2019, Additional history exists Pneumococcal 65+ Yrs (3) 03/03/2024 03/03/2019, 03/25/2018 DTaP/Tdap/Td (3 - Tdap) 01/01/2029 01/01/2019, 05/22/2007 [...] Name Priority Date/Time Associated Diagnosis Comme nts BONE DENSITY 02/28/2022 Results for thi s procedure are i n the results section. CREATININE / GFR Routine 01/15/2022 8:31 AM Seropositive Resul ts for this CDT rheumatoid arthritis procedu re are in ([facility]) the results section. ALT (SGPT) Routine 01/15/2022 8:31 AM Seropositive Results f or this CDT rheumatoid arthritis procedu re are in ([facility]) the results section. AST Routine 01/15/2022 8:31 AM Seropositive Results f or this CDT rheumatoid arthritis procedu re are in ([facility]) the results section. COMPLETE BLOOD Routine 01/15/2022 8:31 AM Seropositive Results for this COUNT-NO DIFF CDT rheumatoid arthritis proced ure are in ([facility]) the results section. from Last 3 Months Results BONE DENSITY (02/28/2022) Anatomical Region Laterality Modality Other Narrative This result has an attachment that is no t available. Giorgio Albarado MD DUMMY/OTHER/AR Creatinine / GFR (01/15/2022 8:31 AM CDT) athologist Signature Creatinine 0.90 0.55 - 01/15/2022 [facility] 1.02 mg/dL 9:36 AM CDT LABORATORY GFR, Estimated >60 >60 01/15/2022 [facility] mL/min/1.7 9:36 AM CDT LABORATORY 3m2 Specimen Anatomical Collection Method / Collection Time Recei rg Time (Source) Location / Volume Laterality Blood Venipuncture / 01/15/2022 8:31 01/15/2022 8:31 Unknown AM CDT AM CDT Giorgio Albarado MD LAB_1 Performing Organization Address City/State/ZIP Code Phon e Number [facility] [address] [place] [address] Complete Blood Count-No Diff (01/15/2022 8:31 AM CDT) athologist Signature WBC 6.4 3.5 - 10.5 01/15/2022 [facility] x10(9)/L 8:35 AM CDT LABORATORY RBC 4.26 3.90 - 01/15/2022 [facility] 5.03 8:35 AM CDT LABORATORY x10(12)/L Hemoglobin 13.0 12.0 - 01/15/2022 [facility] 15.5 g/dL 8:35 AM CDT LABORATORY HCT 39.2 34.9 - 01/15/2022 [facility] 44.5 % 8:35 AM CDT LABORATORY MCV 92.0 80.0 - 01/15/2022 [facility] 100.0 fL 8:35 AM CDT LABORATORY MCH 30.5 27.6 - 01/15/2022 [facility] 33.3 pg 8:35 AM CDT LABORATORY MCHC 33.2 31.5 - 01/15/2022 [facility] 35.2 g/dL 8:35 AM CDT LABORATORY RDW 13.7 11.9 - 01/15/2022 [facility] 15.5 % 8:35 AM CDT LABORATORY Platelets 195 150 - 450 01/15/2022 [facility] x10(9)/L 8:35 AM CDT LABORATORY Automated NRBC 0 <=0 /100 01/15/2022 [facility] WBC 8:35 AM CDT LABORATORY Specimen Anatomical Collection Method / Collection Time Recei rg Time (Source) Location / Volume Laterality Blood Venipuncture / 01/15/2022 8:31 01/15/2022 8:31 Unknown AM CDT AM CDT Giorgio Albarado MD LAB_1 Performing Organization Address [facility]/ZIP Code Phon e Number [facility] [address] [place], [place] [phone] ALT (SGPT) (01/15/2022 8:31 AM CDT) P athologist Signature ALT (SGPT) 24 0 - 55 U/L 01/15/2022 [facility] 9:36 AM CDT LABORATORY Specimen Anatomical Collection Method / Collection Time Recei rg Time (Source) Location / Volume Laterality Blood Venipuncture / 01/15/2022 8:31 01/15/2022 8:31 Unknown AM CDT AM CDT Giorgio Albarado MD LAB_1 Performing Organization Address City/[facility]/ZIP [facility] Phon e Number [facility] [address] [place] [address] AST (01/15/2022 8:31 AM CDT) athologist Signature AST (SGOT) 26 10 - 40 U/L 01/15/2022 [facility] 9:36 AM CDT LABORATORY Specimen Anatomical Collection Method / Collection Time Recei rg Time (Source) Location / Volume Laterality Blood Venipuncture / 01/15/2022 8:31 01/15/2022 8:31 Unknown AM CDT AM CDT Giorgio Albarado MD LAB_1 Performing Organization Address City/State/ZIP Code Phon e Number [facility] [address] [place], [place] [phone] from Last 3 Months Insurance Payer Benefit Plan / Subscriber ID Effective Dates Phone Addre ss Type Group MEDICARE MEDICARE [id number] 2020-Presen [phone] M edicare MANAGED CARE t 65 BCBS BCBS BC[place] [id number] 2020-Presen [phone] [address] [address] Medicare BLUE t [address] [place] [address] [address] [facility] (Home) BETH Paez [address] [place] Personal/Famil Self 1955 [address] [facility] (Home) BETH Paez 286 19 Care Teams Ambulance Assistant Relationship Specialty Start Date End Date Micki Arzate MD PCP - General Internal Medicine 01/29/[address] [place] [id number]
--- OUTSIDE RECORDS SUMMARY | 2022-03-06 14:28 | XMS_ITS | Clinical Summary ---
:1955 Author Organization [facility] [place] [address] Care Team Providers Name Role Phone Micki Arzate MD Primary Care Provider Allergies Active Allergy Reactions Severity Noted Date Comments Penicillins Rash 10/09/2012 Medications Medication Sig Dispensed Refills Start Date End Date Status lisinopril Take 1 tablet by 30 tablet 0 10/09/2012 A ctive (PRINIVIL; ZESTRIL) mouth once daily. 10 mg tablet adalimumab (HUMIRA) Inject 0.8 mL 1 Kit 0 01/14/2018 Active 40 mg/0.8 mL subcutaneous every 2 injection weeks. methotrexate 2.5 Take 22.5 tablets by 60 Tab 0 01/14/2018 Active mg/mL soln mouth once weekly. predniSONE 1 tablet once daily 30 tablet 0 01/14/2018 Active (DELTASONE) 2.5 mg with a meal. tablet predniSONE 1 tablet once daily 30 tablet 0 01/14/2018 Active (DELTASONE) 5 mg with a meal. tablet folic acid 1 mg Take 1 tablet by 30 tablet 0 01/14/2018 Active tablet mouth once daily. Active Problems Problem Noted Date Adenomatous colon polyp 10/14/2012 Overview: Colonoscopy 09/2012 polyps repeat in 5 ye ars Colonoscopy 12/2017 polyp, repeat in 5 ye ars Social History Tobacco Use Types Packs/Day Years Used Date Never Smoker Smokeless Tobacco: Never Used Tobacco Cessation: Counseling Given: Yes Alcohol Use Standard Drinks/Week Comments Not Asked 0 (1 standard drink = 0.6 oz pure alcoho l) Sex Assigned at Date Recorded Not on file Obstetrics History Last Filed Vital Signs Vital Sign Reading Time Taken Comments Blood Pressure 122/76 10/09/2012 11:15 AM CDT Pulse 66 10/09/2012 11:15 AM CDT Temperature - - Respiratory Rate - - Oxygen Saturation 99% 10/09/2012 11:15 AM CDT Inhaled Oxygen Concentration - - Weight - - Height - - Body Mass Index - - Plan of Treatment Health Maintenance Due Date Last Done Comments COVID-19 vaccine series (#1) 1955 Tdap 1966 Depression screening for age 12+ 1967 BMI (ht and wt on same day) for age 0901/22/1973 18+ Hepatitis C screening for age 18-79 1973 Tetanus booster 1975 Lipids for age 45-75 01/23/2000 Mammogram for age 45-75 01/23/2000 Zoster (shingles) series for age 50+ 2005 (1 of 2) DEXA/DXA scan for age 65+ 01/23/2020 Pneumococcal series for age 65+ (1 - 01/23/2020 PCV) Influenza for age 65+ 01/18/2022 Colonoscopy through age 75 01/14/2023 01/14/2018, 8, 10/09/2012 Results Not on filefrom Last 3 Months Insurance Payer Benefit Plan / Subscriber ID Effective Dates Phone Addre ss Type Group [employer]UE [employer]OSS [employer] OF [id number] 2020-[employer]en [address] [place] [address] [phone] [id number] [facility] (Home) [place]OLD[place] [phone] Care Teams Trade Specialist Relationship Specialty Start Date End Date Micki Arzate MD PCP - General Internal Medicine 09/15/12
--- OUTSIDE RECORDS SUMMARY | 2022-03-06 14:28 | XMS_ITS | Encounter Summary ---
:1955 Author Organization [facility] Address [address] [address] Care Team Providers Name Role Phone Micki Arzate MD Primary Care Provider Encounter Details Date Type Department Care Team Description 02/28/2022 Orders Only Specialty Center 401 Manuel Albarado MD Rheumatology Clinic [address] [place] [address] [place] [address] [phone] Social History Tobacco Use Types Packs/Day Years [...] 02/28/2022 Results for thi s procedure are in the resu lts section. documented in this encounter Results BONE DENSITY (02/28/2022) Anatomical Region Laterality Modality Other Narrative This result has an attachment that is no t available. Giorgio Albarado MD DUMMY/OTHER/AR documented in this encounter Visit Diagnoses Not on filedocumented in this encounter Care Teams Fisheries Technician Relationship Specialty Start Date End Date Micki Arzate MD PCP - General Internal Medicine [address] [place] [address] documented as of this encounter
--- OUTSIDE RECORDS SUMMARY | 2022-03-06 14:28 | XMS_ITS | Encounter Summary ---
:1955 Author Organization [facility] Address [address] [place] [address] Care Team Providers Name Role Phone Micki Arzate MD Primary Care Provider Reason for Visit Reason Comments Refill MTX Encounter Details Date Type Department Care Team Description 07/08/2021 Refill Specialty Center 401 Manuel Stevenson MD Refill (MTX) [facility] [place], [place] [address] [place] [address] [phone] Social History Tobacco Use Types Packs/Day Years [...] orders. Jazmin Garcia RN ....07/13/2021 9:21 AM RY SHEAR WORKER HELPER Interface, Out Surescripts Prov Query - 07/08/2021 [...] None Last ordered by ELLIE STEVENSON H: 04/11/2021 (88 days ago) QTY: 120, Refills: 0, Sig: take 10 tablets by mouth once every week. (unchanged) Cr: 0.9 mg/dL on 07/04/2021 AST: 18 U/L on 07/04/2021 ALT: 19 U/L on 07/04/2021 HCT: 43.2 % on 07/04/2021 HGB: 14.1 g/dL on 07/04/2021 PLT: 224 k/cmm on 07/04/2021 RBC: 4.66 m/cmm on 07/04/2021 WBC: 6 k/cmm on 07/04/2021 Powered by [employer], Reference: [id number], 07/08/2021 9:11:30 AM ROTARY SHEAR WORKER HELPER, Robin:Per Arias Team ([id number]) RY SHEAR WORKER HELPER documented in this encounter Plan of Treatment Not on filedocumented as of this encounter Visit Diagnoses Not on filedocumented in this encounter Care Teams Client Application Support Engineer Relationship Specialty Start Date End Date Micki Arzate MD PCP - General Internal Medicine [address] [place] [address] documented as of this encounter
--- OUTSIDE RECORDS SUMMARY | 2022-03-06 14:28 | XMS_ITS | Encounter Summary ---
:1955 Author Organization [facility] Address [address] [place] [address] Care Team Providers Name Role Phone Micki Arzate MD Primary Care Provider Reason for Visit Reason Comments Revisit Encounter Details Date Type Department Care Team Description 04/11/2021 Office Visit Specialty Center 401 Giorgio Albarado, ropositive Rheumatology Clinic rheumatoid arthritis [address] [facility] [place] [address] [place], [place] [phone] Social History Tobacco Use Types Packs/Day Years Used Date Smoking Tobacco: Never Smokeless Tobacco: Never Alcohol Use Standard Drinks/Week Comments Not Currently 0 (1 standard drink = 0.6 oz pure alcoho l) Sex Assigned at Date Recorded Not on file documented as of this encounter Last Filed Vital Signs Vital Sign Reading Time Taken Comments Blood Pressure 161/89 04/11/2021 1:18 PM DUPLICATION SPECIALIST Pulse 62 04/11/2021 1:18 PM DUPLICATION SPECIALIST Temperature - - Respiratory Rate - - Oxygen Saturation - - Inhaled Oxygen Concentration - - Weight 63 kg (139 lb) 04/11/2021 1:18 PM DUPLICATION SPECIALIST Height 154.9 cm (5' 1) 04/11/2021 1:18 PM DUPLICATION SPECIALIST Body Mass Index 26.26 04/11/2021 1:18 PM DUPLICATION SPECIALIST documented in this encounter Patient Instructions Patient InstructionsGiorgio Albarado MD - 04/11/2021 1:20 PM CST Would increase methotrexate to 10 tabs (25mg) per week Can use prednisone if needed Consider Ezetemibe (Zetia) for lowering cholesterol as alternative to statins. For fun also look up PCSK9 inhibitors Call me if you're not improving. ICATION SPECIALIST documented in this encounter Progress Notes Giorgio Albarado MD - 04/11/2021 1:20 PM CST 66 [...] (PLAQUENIL) 200 MG tablet Giorgio Albarado MD ICATION SPECIALIST documented in this encounter Plan of Treatment Not on filedocumented as of this encounter Visit Diagnoses Diagnosis Seropositive rheumatoid arthritis ([facility]) - Primary Rheumatoid arthritis documented in this encounter Care Teams Cash Office Worker Relationship Specialty Start Date End Date Micki Arzate MD PCP - General Internal Medicine [address] [place] [address] documented as of this encounter
--- OUTSIDE RECORDS SUMMARY | 2022-03-06 14:28 | XMS_ITS | Encounter Summary ---
:1955 Author Organization [facility] Address [address], [place] [address] Care Team Providers Name Role Phone Micki Arzate MD Primary Care Provider Reason for Visit Reason Onset Date Comments Refill 03/05/2022 predniSONE (DELTASON E) 2.5 MG tablet Encounter Details Date Type Department Care Team Description 03/05/2022 Refill Specialty Center 401 Manuel Stevenson MD Refill (predniSONE Rheumatology Clinic [address] (DELTASONE) 2.[address] [place], [place] tablet) [place], [place] [id number] (Wo rk) Social History Tobacco Use Types Packs/Day Years Used Date Smoking Tobacco: Never Smokeless Tobacco: Never Alcohol Use Standard Drinks/Week Comments Not Currently 0 (1 standard drink = 0.6 oz pure alcoho l) Sex Assigned at Date Recorded Not on file documented as of this encounter Nursing Notes Interface, Out Surescripts Prov Query - 03/05/2022 9:02 AM CDT predniSONE (DELTASONE) 2.5 MG tablet None Exists -> A duplicate request was processed on 03/02/2022. -> Medication cannot be delegated. -> Medication cannot be delegated. Last qualifying visit: 02/22/2022 (in Rheumatology) Next scheduled visit: None Last ordered by ELLIE STEVENSON H: 03/02/2022 (3 days ago) QTY: 60, Refills: 2, Sig: take 2-4 tablets (5-10 mg) by mouth daily as needed (arthritis). (unchanged) [employer] Embedded Refills, Reference: [id number], 03/05/2022 9:02:25 AM CDT, Pool: [facility] [[id number]] ([id number]) Alana Magana - 03/05/2022 8:58 AM CDT Images from the original note were not included. documented in this encounter Plan of Treatment Not on filedocumented as of this encounter Visit Diagnoses Not on filedocumented in this encounter Care Teams Planning Feeder Relationship Specialty Start Date End Date Micki Arzate MD PCP - General Internal Medicine [address] [place] [address] documented as of this encounter
--- OUTSIDE RECORDS SUMMARY | 2022-03-06 14:29 | XMS_ITS | Encounter Summary ---
:1955 Author Organization [facility] Address [address], [place] [address] Care Team Providers Name Role Phone Micki Arzate MD Primary Care Provider Reason for Visit Reason Comments Orders Needed Encounter Details Date Type Department Care Team Description 02/06/2019 Telephone [facility] Hugh Hinojosa, Orders Needed [address] [facility] [place] [address] [address] [facility] [phone] [facility] [address] (Wo rk) Social History Tobacco Use [...] Primary documented in this encounter Care Teams Campaign Coordinator Relationship Specialty Start Date End Date Micki Arzate MD PCP - General Internal Medicine [address] [place] [address] documented as of this encounter
--- OUTSIDE RECORDS SUMMARY | 2022-03-06 14:29 | XMS_ITS | Encounter Summary ---
:1955 Author Organization [facility] Address [address], [place] [address] Care Team Providers Name Role Phone Micki Arzate MD Primary Care Provider Reason for Visit Reason Comments Consult, New Patient Encounter Details Date Type Department Care Team Description 03/14/2020 Office Visit [facility] [address] Gior[address] Albarado, ropositive [facility] rheumatoid arthritis [address] [facility] [place] [address] [place], [place] [phone] [address] Social History Tobacco Use Types Packs/Day Years [...] out for recommendations Our clinic number - [phone] Next do labs April documented in this [...] file Gets together: Not on file Attends jewish service: Not on file Active member of [...] documented in this encounter Plan of Treatment Scheduled Orders Name Type Priority Associated Diagnoses Order S chedule Complete Blood Count-No Lab Routine Seropositive rheu matoid Monthly for 99 Diff arthritis (HRC) Occurrences starting 03/14/2020 unti l 12/09/2022, 7 c ompleted AST Lab Routine Seropositive rheumatoid Berny hly for 99 arthritis (HRC) Occurrences starting 03/14/2020 unti l 12/09/2022, 7 c ompleted ALT (SGPT) Lab Routine Seropositive rheumatoid Berny hly for 99 arthritis (HRC) Occurrences starting 03/14/2020 unti l 12/09/2022, 7 c ompleted Creatinine / GFR Lab Routine Seropositive rheumatoid Monthly for 99 arthritis (HRC) Occurrences starting 03/14/2020 unti l 12/09/2022, 7 c ompleted documented as of this encounter Results Creatinine / GFR (01/15/2022 8:31 AM CDT) P athologist Signature Creatinine 0.90 0.55 - 01/15/2022 [place] 1.02 mg/dL 9:36 AM CDT LABORATORY GFR, Estimated >60 >60 01/15/2022 [place] mL/min/1.7 9:36 AM CDT LABORATORY 3m2 Specimen Anatomical Collection Method / Collection Time Recei rg Time (Source) Location / Volume Laterality Blood Venipuncture / 01/15/2022 8:31 01/15/2022 8:31 Unknown AM CDT AM CDT Giorgio Albarado MD LAB_1 Performing Organization Address [facility]/ZIP Code Phon e Number [facility] [address] [place] [address] ALT (SGPT) (01/15/2022 8:31 AM CDT) P athologist Signature ALT (SGPT) 24 0 - 55 U/L 01/15/2022 [place] 9:36 AM CDT LABORATORY Specimen Anatomical Collection Method / Collection Time Recei rg Time (Source) Location / Volume Laterality Blood Venipuncture / 01/15/2022 8:31 01/15/2022 8:31 Unknown AM CDT AM CDT Giorgio Albarado MD LAB_1 Performing Organization Address [facility] Phon e Number [facility] [address] [place] [address] AST (01/15/2022 8:31 AM CDT) P athologist Signature AST (SGOT) 26 10 - 40 U/L 01/15/2022 [place] 9:36 AM CDT LABORATORY Specimen Anatomical Collection Method / Collection Time Recei rg Time (Source) Location / Volume Laterality Blood Venipuncture / 01/15/2022 8:31 01/15/2022 8:31 Unknown AM CDT AM CDT Giorgio Albarado MD LAB_1 Performing Organization Address [facility] Phon e Number [facility] [address] [place] [address] Complete Blood Count-No Diff (01/15/2022 8:31 AM CDT) P athologist Signature WBC 6.4 3.5 - 10.5 01/15/2022 [place] x10(9)/L 8:35 AM CDT LABORATORY RBC 4.26 3.90 - 01/15/2022 [place] 5.03 8:35 AM CDT LABORATORY x10(12)/L Hemoglobin 13.0 12.0 - 01/15/2022 [place] 15.5 g/dL 8:35 AM CDT LABORATORY HCT 39.2 34.9 - 01/15/2022 [place] 44.5 % 8:35 AM CDT LABORATORY MCV 92.0 80.0 - 01/15/2022 [place] 100.0 fL 8:35 AM CDT LABORATORY MCH 30.5 27.6 - 01/15/2022 [place] 33.3 pg 8:35 AM CDT LABORATORY MCHC 33.2 31.5 - 01/15/2022 [place] 35.2 g/dL 8:35 AM CDT LABORATORY RDW 13.7 11.9 - 01/15/2022 [place] 15.5 % 8:35 AM CDT LABORATORY Platelets 195 150 - 450 01/15/2022 [place] x10(9)/L 8:35 AM CDT LABORATORY Automated NRBC 0 <=0 /100 01/15/2022 [place] WBC 8:35 AM CDT LABORATORY Specimen Anatomical Collection Method / Collection Time Recei rg Time (Source) Location / Volume Laterality Blood Venipuncture / 01/15/2022 8:31 01/15/2022 8:31 Unknown AM CDT AM CDT Giorgio Albarado MD LAB_1 Performing Organization Address City/State/ZIP Code Phon e Number [facility] [address] [place] [address] Creatinine / GFR (10/13/2021 7:40 AM CDT) P athologist Signature Creatinine 0.90 0.55 - 10/13/2021 [place] 1.02 mg/dL 11:32 AM CDT LABORATORY GFR, Estimated >60 >60 10/13/2021 [place] mL/min/1.7 11:32 AM CDT LABORATORY 3m2 Specimen Anatomical Collection Method / Collection Time Recei rg Time (Source) Location / Volume Laterality Blood Venipuncture / 10/13/2021 7:40 10/13/2021 7:40 Unknown AM CDT AM CDT Giorgio Albarado MD LAB_1 Performing Organization Address [facility] Phon e [facility] [address] [place] [address] ALT (SGPT) (10/13/2021 7:40 AM CDT) P athologist Signature ALT (SGPT) 17 0 - 55 U/L 10/13/2021 [place] 11:32 AM CDT LABORATORY Specimen Anatomical Collection Method / Collection Time Recei rg Time (Source) Location / Volume Laterality Blood Venipuncture / 10/13/2021 7:40 10/13/2021 7:40 Unknown AM CDT AM CDT Giorgio Albarado MD LAB_1 Performing Organization Address [facility] Phon e Number [facility] [address] [place] [address] AST (10/13/2021 7:40 AM CDT) P athologist Signature AST (SGOT) 20 10 - 40 U/L 10/13/2021 [place] 11:32 AM CDT LABORATORY Specimen Anatomical Collection Method / Collection Time Recei rg Time (Source) Location / Volume Laterality Blood Venipuncture / 10/13/2021 7:40 10/13/2021 7:40 Unknown AM CDT AM CDT Giorgio Albarado MD LAB_1 Performing Organization Address [facility] Phon e Number [facility] [address] [place] [address] Complete Blood Count-No Diff (10/13/2021 7:40 AM CDT) P athologist Signature WBC 5.5 3.5 - 10.5 10/13/2021 [place] x10(9)/L 8:05 AM CDT LABORATORY RBC 4.30 3.90 - 10/13/2021 [place] 5.03 8:05 AM CDT LABORATORY x10(12)/L Hemoglobin 13.2 12.0 - 10/13/2021 [place] 15.5 g/dL 8:05 AM CDT LABORATORY HCT 39.9 34.9 - 10/13/2021 [place] 44.5 % 8:05 AM CDT LABORATORY MCV 92.8 80.0 - 10/13/2021 [place] 100.0 fL 8:05 AM CDT LABORATORY MCH 30.7 27.6 - 10/13/2021 [place] 33.3 pg 8:05 AM CDT LABORATORY MCHC 33.1 31.5 - 10/13/2021 [place] 35.2 g/dL 8:05 AM CDT LABORATORY RDW 13.5 11.9 - 10/13/2021 [place] 15.5 % 8:05 AM CDT LABORATORY Platelets 219 150 - 450 10/13/2021 [place] x10(9)/L 8:05 AM CDT LABORATORY Automated NRBC 0 <=0 /100 10/13/2021 [place] WBC 8:05 AM CDT LABORATORY Specimen Anatomical Collection Method / Collection Time Recei rg Time (Source) Location / Volume Laterality Blood Venipuncture / 10/13/2021 7:40 10/13/2021 7:40 Unknown AM CDT AM CDT Giorgio Albarado MD LAB_1 Performing Organization Address City/[facility]/ZIP Code Phon e Number [facility] [address] [place] [address] Creatinine / GFR (07/04/2021 10:12 AM PROFESSIONAL SERVICES MANAGER) athologist Signature Creatinine 0.90 0.55 - 07/04/2021 [place] 1.02 mg/dL 11:57 AM PROFESSIONAL SERVICES MANAGER LABORATORY GFR, Estimated >60 >60 07/04/2021 [place] mL/min/1.7 11:57 AM PROFESSIONAL SERVICES MANAGER LABORATORY 3m2 Specimen Anatomical Collection Method / Collection Time Recei rg Time (Source) Location / Volume Laterality Blood Venipuncture / 07/04/2021 10:12 Unknown AM PROFESSIONAL SERVICES MANAGER 10:12 AM PROFESSIONAL SERVICES MANAGER Giorgio Albarado MD LAB_1 Performing Organization Address [facility]/ZIP Code Phon e Number [facility] [address] [place], [place] [phone] ALT (SGPT) (07/04/2021 10:12 AM PROFESSIONAL SERVICES MANAGER) athologist Signature ALT (SGPT) 19 0 - 55 U/L 07/04/2021 [place] 11:57 AM PROFESSIONAL SERVICES MANAGER LABORATORY Specimen Anatomical Collection Method / Collection Time Recei rg Time (Source) Location / Volume Laterality Blood Venipuncture / 07/04/2021 10:12 2 Unknown AM PROFESSIONAL SERVICES MANAGER 10:12 AM PROFESSIONAL SERVICES MANAGER Giorgio Albarado MD LAB_1 Performing Organization Address City/[facility]/ZIP Code Phon e Number [facility] [address] [place] [address] AST (07/04/2021 10:12 AM PROFESSIONAL SERVICES MANAGER) athologist Signature AST (SGOT) 18 10 - 40 U/L 07/04/2021 [place] 11:57 AM PROFESSIONAL SERVICES MANAGER LABORATORY Specimen Anatomical Collection Method / Collection Time Recei rg Time (Source) Location / Volume Laterality Blood Venipuncture / 07/04/2021 10:12 2 Unknown AM PROFESSIONAL SERVICES MANAGER 10:12 AM PROFESSIONAL SERVICES MANAGER Giorgio Albarado MD LAB_1 Performing Organization Address City/[facility] Phon e Number [facility] [address] [place] [phone] Complete Blood Count-No Diff (07/04/2021 10:12 AM PROFESSIONAL SERVICES MANAGER) athologist Signature WBC 6.0 3.5 - 10.5 07/04/2021 [place] x10(9)/L 10:15 AM PROFESSIONAL SERVICES MANAGER LABORATORY RBC 4.66 3.90 - 07/04/2021 [place] 5.03 10:15 AM PROFESSIONAL SERVICES MANAGER LABORATORY x10(12)/L Hemoglobin 14.1 12.0 - 07/04/2021 [place] 15.5 g/dL 10:15 AM PROFESSIONAL SERVICES MANAGER LABORATORY HCT 43.2 34.9 - 07/04/2021 [place] 44.5 % 10:15 AM PROFESSIONAL SERVICES MANAGER LABORATORY MCV 92.7 80.0 - 07/04/2021 [place] 100.0 fL 10:15 AM PROFESSIONAL SERVICES MANAGER LABORATORY MCH 30.3 27.6 - 07/04/2021 [place] 33.3 pg 10:15 AM PROFESSIONAL SERVICES MANAGER LABORATORY MCHC 32.6 31.5 - 07/04/2021 [place] 35.2 g/dL 10:15 AM PROFESSIONAL SERVICES MANAGER LABORATORY RDW 13.2 11.9 - 07/04/2021 [place] 15.5 % 10:15 AM PROFESSIONAL SERVICES MANAGER LABORATORY Platelets 224 150 - 450 07/04/2021 [place] x10(9)/L 10:15 AM PROFESSIONAL SERVICES MANAGER LABORATORY Automated NRBC 0 <=0 /100 07/04/2021 [place] WBC 10:15 AM PROFESSIONAL SERVICES MANAGER LABORATORY Specimen Anatomical Collection Method / Collection Time Recei gr Time (Source) Location / Volume Laterality Blood Venipuncture / 07/04/2021 10:12 Unknown AM PROFESSIONAL SERVICES MANAGER 10:12 AM PROFESSIONAL SERVICES MANAGER Giorgio Albarado MD LAB_1 Performing Organization Address [facility] Code [facility] e Number [facility] [address] [place], [place] [address] Creatinine / GFR (03/15/2021 9:19 AM CDT) athologist Signature Creatinine 0.80 0.55 - 03/15/2021 [place] 1.02 mg/dL 10:23 AM CDT LABORATORY GFR, Estimated >60 >60 03/15/2021 [place] mL/min/1.7 10:23 AM CDT LABORATORY 3m2 Specimen Anatomical Collection Method / Collection Time Recei rg Time (Source) Location / Volume Laterality Blood Venipuncture / 03/15/2021 9:19 03/15/2021 9:19 Unknown AM CDT AM CDT Giorgio Albarado MD LAB_1 Performing Organization Address City/[facility] Phon e Number [facility] [address] [place], [place] [phone] ALT (SGPT) (03/15/2021 9:19 AM CDT) P athologist Signature ALT (SGPT) 14 0 - 55 U/L 03/15/2021 [place] 10:23 AM CDT LABORATORY Specimen Anatomical Collection Method / Collection Time Recei rg Time (Source) Location / Volume Laterality Blood Venipuncture / 03/15/2021 9:19 03/15/2021 9:19 Unknown AM CDT AM CDT Giorgio Albarado MD LAB_1 Performing Organization Address City/[facility]/ZIP Code Phon e Number [facility] [address] [place], [place] [phone] AST (03/15/2021 9:19 AM CDT) athologist Signature AST (SGOT) 19 10 - 40 U/L 03/15/2021 [place] 10:23 AM CDT LABORATORY Specimen Anatomical Collection Method / Collection Time Recei rg Time (Source) Location / Volume Laterality Blood Venipuncture / 03/15/2021 9:19 03/15/2021 9:19 Unknown AM CDT AM CDT Giorgio Albarado MD LAB_1 Performing Organization Address [facility] Code Phon e Number [facility] [address] [place], [place] [phone] Complete Blood Count-No Diff (03/15/2021 9:19 AM CDT) athologist Signature WBC 6.5 3.5 - 10.5 03/15/2021 [place] x10(9)/L 9:26 AM CDT LABORATORY RBC 4.67 3.90 - 03/15/2021 [place] 5.03 9:26 AM CDT LABORATORY x10(12)/L Hemoglobin 13.9 12.0 - 03/15/2021 [place] 15.5 g/dL 9:26 AM CDT LABORATORY HCT 43.1 34.9 - 03/15/2021 [place] 44.5 % 9:26 AM CDT LABORATORY MCV 92.3 80.0 - 03/15/2021 [place] 100.0 fL 9:26 AM CDT LABORATORY MCH 29.8 27.6 - 03/15/2021 [place] 33.3 pg 9:26 AM CDT LABORATORY MCHC 32.3 31.5 - 03/15/2021 [place] 35.2 g/dL 9:26 AM CDT LABORATORY RDW 13.6 11.9 - 03/15/2021 [place] 15.5 % 9:26 AM CDT LABORATORY Platelets 206 150 - 450 03/15/2021 [place] x10(9)/L 9:26 AM CDT LABORATORY Automated NRBC 0 <=0 /100 03/15/2021 [place] WBC 9:26 AM CDT LABORATORY Specimen Anatomical Collection Method / Collection Time Recei rg Time (Source) Location / Volume Laterality Blood Venipuncture / 03/15/2021 9:19 03/15/2021 9:19 Unknown AM CDT AM CDT Giorgio Albarado MD LAB_1 Performing Organization Address City/[facility]/ZIP Code Phon e Number [facility] [address] [place], [place] [address] Creatinine / GFR (11/09/2020 2:28 PM CDT) athologist Signature Creatinine 0.90 0.55 - 11/09/2020 [place] 1.02 mg/dL 3:33 PM CDT LABORATORY GFR, Estimated >60 >60 11/09/2020 [place] mL/min/1.7 3:33 PM CDT LABORATORY 3m2 Specimen Anatomical Collection Method / Collection Time Recei rg Time (Source) Location / Volume Laterality Blood Venipuncture / 11/09/2020 2:28 11/09/2020 2:28 Unknown PM CDT PM CDT Giorgio Albarado MD LAB_1 Performing Organization Address [facility]/ZIP Code Phon e Number [facility] [address] [place], [place] [phone] ALT (SGPT) (11/09/2020 2:28 PM CDT) athologist Signature ALT (SGPT) 17 0 - 55 U/L 11/09/2020 [place] 3:33 PM CDT LABORATORY Specimen Anatomical Collection Method / Collection Time Recei rg Time (Source) Location / Volume Laterality Blood Venipuncture / 11/09/2020 2:28 11/09/2020 2:28 Unknown PM CDT PM CDT Giorgio Albarado MD LAB_1 Performing Organization Address City/[facility]/ZIP Code Phon e Number [facility] [address] [place], [place] [address] AST (11/09/2020 2:28 PM CDT) athologist Signature AST (SGOT) 20 10 - 40 U/L 11/09/2020 [place] 3:33 PM CDT LABORATORY Specimen Anatomical Collection Method / Collection Time Recei rg Time (Source) Location / Volume Laterality Blood Venipuncture / 11/09/2020 2:28 11/09/2020 2:28 Unknown PM CDT PM CDT Giorgio Albarado MD LAB_1 Performing Organization Address City/State/ZIP Code Phon e Number [facility] [address] [place] [address] Complete Blood Count-No Diff (11/09/2020 2:28 PM CDT) athologist Signature WBC 6.2 3.5 - 10.5 11/09/2020 [place] x10(9)/L 2:31 PM CDT LABORATORY RBC 4.42 3.90 - 11/09/2020 [place] 5.03 2:31 PM CDT LABORATORY x10(12)/L Hemoglobin 13.3 12.0 - 11/09/2020 [place] 15.5 g/dL 2:31 PM CDT LABORATORY HCT 40.6 34.9 - 11/09/2020 [place] 44.5 % 2:31 PM CDT LABORATORY MCV 91.9 80.0 - 11/09/2020 [place] 100.0 fL 2:31 PM CDT LABORATORY MCH 30.1 27.6 - 11/09/2020 [place] 33.3 pg 2:31 PM CDT LABORATORY MCHC 32.8 31.5 - 11/09/2020 [place] 35.2 g/dL 2:31 PM CDT LABORATORY RDW 13.3 11.9 - 11/09/2020 [place] 15.5 % 2:31 PM CDT LABORATORY Platelets 197 150 - 450 11/09/2020 [place] x10(9)/L 2:31 PM CDT LABORATORY Automated NRBC 0 <=0 /100 11/09/2020 [place] WBC 2:31 PM CDT LABORATORY Specimen Anatomical Collection Method / Collection Time Recei rg Time (Source) Location / Volume Laterality Blood Venipuncture / 11/09/2020 2:28 11/09/2020 2:28 Unknown PM CDT PM CDT Giorgio Albarado MD LAB_1 Performing Organization Address [facility]/ZIP Code Phon e Number [facility] [address] [place] [address] Creatinine / GFR (07/28/2020 9:10 AM PROFESSIONAL SERVICES MANAGER) athologist Signature Creatinine 0.90 0.55 - 07/28/2020 [place] 1.02 mg/dL 9:42 AM PROFESSIONAL SERVICES MANAGER LABORATORY GFR, Estimated >60 >60 07/28/2020 [place] mL/min/1.7 9:42 AM PROFESSIONAL SERVICES MANAGER LABORATORY 3m2 Specimen Anatomical Collection Method / Collection Time Recei rg Time (Source) Location / Volume Laterality Blood Venipuncture / 07/28/2020 9:10 07/28/2020 9:10 Unknown AM PROFESSIONAL SERVICES MANAGER AM PROFESSIONAL SERVICES MANAGER Giorgio Albarado MD LAB_1 Performing Organization Address [facility]/ZIP Code Phon e Number [facility] [address] [place] [address] ALT (SGPT) (07/28/2020 9:10 AM PROFESSIONAL SERVICES MANAGER) athologist Signature ALT (SGPT) 13 0 - 55 U/L 07/28/2020 [place] 9:42 AM PROFESSIONAL SERVICES MANAGER LABORATORY Specimen Anatomical Collection Method / Collection Time Recei rg Time (Source) Location / Volume Laterality Blood Venipuncture / 07/28/2020 9:10 07/28/2020 9:10 Unknown AM PROFESSIONAL SERVICES MANAGER AM PROFESSIONAL SERVICES MANAGER Giorgio Albarado MD LAB_1 Performing Organization Address [facility]/ZIP Code Phon e Number [facility] [address] [place] [address] AST (07/28/2020 9:10 AM PROFESSIONAL SERVICES MANAGER) athologist Signature AST (SGOT) 16 10 - 40 U/L 07/28/2020 [place] 9:42 AM PROFESSIONAL SERVICES MANAGER LABORATORY Specimen Anatomical Collection Method / Collection Time Recei rg Time (Source) Location / Volume Laterality Blood Venipuncture / 07/28/2020 9:10 07/28/2020 9:10 Unknown AM PROFESSIONAL SERVICES MANAGER AM PROFESSIONAL SERVICES MANAGER Giorgio Albarado MD LAB_1 Performing Organization Address City/State/ZIP Code Phon e Number [facility] [address] [place], [place] [phone] Complete Blood Count-No Diff (07/28/2020 9:10 AM PROFESSIONAL SERVICES MANAGER) P athologist Signature WBC 5.9 3.5 - 10.5 07/28/2020 [place] x10(9)/L 9:18 AM PROFESSIONAL SERVICES MANAGER LABORATORY RBC 4.44 3.90 - 07/28/2020 [place] 5.03 9:18 AM PROFESSIONAL SERVICES MANAGER LABORATORY x10(12)/L Hemoglobin 13.6 12.0 - 07/28/2020 [place] 15.5 g/dL 9:18 AM PROFESSIONAL SERVICES MANAGER LABORATORY HCT 40.8 34.9 - 07/28/2020 [place] 44.5 % 9:18 AM PROFESSIONAL SERVICES MANAGER LABORATORY MCV 91.9 80.0 - 07/28/2020 [place] 100.0 fL 9:18 AM PROFESSIONAL SERVICES MANAGER LABORATORY MCH 30.6 27.6 - 07/28/2020 [place] 33.3 pg 9:18 AM PROFESSIONAL SERVICES MANAGER LABORATORY MCHC 33.3 31.5 - 07/28/2020 [place] 35.2 g/dL 9:18 AM PROFESSIONAL SERVICES MANAGER LABORATORY RDW 13.0 11.9 - 07/28/2020 [place] 15.5 % 9:18 AM PROFESSIONAL SERVICES MANAGER LABORATORY Platelets 220 150 - 450 07/28/2020 [place] x10(9)/L 9:18 AM PROFESSIONAL SERVICES MANAGER LABORATORY Automated NRBC 0 <=0 /100 07/28/2020 [place] WBC 9:18 AM PROFESSIONAL SERVICES MANAGER LABORATORY Specimen Anatomical Collection Method / Collection Time Recei rg Time (Source) Location / Volume Laterality Blood Venipuncture / 07/28/2020 9:10 07/28/2020 9:10 Unknown AM PROFESSIONAL SERVICES MANAGER AM PROFESSIONAL SERVICES MANAGER Giorgio Albarado MD LAB_1 Performing Organization Address City/[facility]/ZIP Code Phon e Number [facility] [address] [place], [place] [phone] Creatinine / GFR (04/18/2020 9:57 AM PROFESSIONAL SERVICES MANAGER) [facility] gist Method Time Signature Creatinine 0.77 0.55 - 04/18/2020 [facility] 1.02 1:09 PM PROFESSIONAL SERVICES MANAGER CENTRAL LAB mg/dL GFR, Estimated >60 >60 04/18/2020 [facility] mL/min/1. 1:09 PM PROFESSIONAL SERVICES MANAGER CENTRAL LAB 73m2 Specimen Anatomical Collection Method / Collection Time Recei rg Time (Source) Location / Volume Laterality Blood Venipuncture / 04/18/2020 9:57 04/18/2020 9:57 Unknown AM PROFESSIONAL SERVICES MANAGER AM PROFESSIONAL SERVICES MANAGER Giorgio Albarado MD LAB_1 Performing Organization Address [facility] Phon e Number [facility] [address] [address] ALT (SGPT) (04/18/2020 9:57 AM PROFESSIONAL SERVICES MANAGER) athologist Signature ALT (SGPT) 15 0 - 55 U/L 04/18/2020 [facility] 1:09 PM PROFESSIONAL SERVICES MANAGER CENTRAL LAB Specimen Anatomical Collection Method / Collection Time Recei rg Time (Source) Location / Volume Laterality Blood Venipuncture / 04/18/2020 9:57 04/18/2020 9:57 Unknown AM PROFESSIONAL SERVICES MANAGER AM PROFESSIONAL SERVICES MANAGER Giorgio Albarado MD LAB_1 Performing Organization Address [facility] Phon e Number [facility] [address] [place] [address] AST (04/18/2020 9:57 AM PROFESSIONAL SERVICES MANAGER) athologist Signature AST (SGOT) 19 10 - 40 04/18/2020 [facility] U/L 1:09 PM PROFESSIONAL SERVICES MANAGER CENTRAL LAB Specimen Anatomical Collection Method / Collection Time Recei rg Time (Source) Location / Volume Laterality Blood Venipuncture / 04/18/2020 9:57 04/18/2020 9:57 Unknown AM PROFESSIONAL SERVICES MANAGER AM PROFESSIONAL SERVICES MANAGER Giorgio Albarado MD LAB_1 Performing Organization Address [facility] Phon e Number [facility] [address] [address] Complete Blood Count-No Diff (04/18/2020 9:57 AM PROFESSIONAL SERVICES MANAGER) P athologist Signature WBC 6.4 3.5 - 10.5 04/18/2020 [facility] x10(9)/L 10:09 AM PROFESSIONAL SERVICES MANAGER [facility] RBC 4.50 3.90 - 5.03 04/18/2020 [facility] x10(12)/L 10:09 AM PROFESSIONAL SERVICES MANAGER [facility] Hemoglobin 13.8 12.0 - 15.5 04/18/2020 [facility] g/dL 10:09 AM PROFESSIONAL SERVICES MANAGER [facility] HCT 40.8 34.9 - 44.5 04/18/2020 [facility] % 10:09 AM PROFESSIONAL SERVICES MANAGER [facility] MCV 90.7 80.0 - 04/18/2020 [facility] 100.0 fL 10:09 AM PROFESSIONAL SERVICES MANAGER [facility] MCH 30.7 27.6 - 33.3 04/18/2020 [facility] pg 10:09 AM PROFESSIONAL SERVICES MANAGER [facility] MCHC 33.8 31.5 - 35.2 04/18/2020 [facility] g/dL 10:09 AM PROFESSIONAL SERVICES MANAGER [facility] RDW 13.6 11.9 - 15.5 04/18/2020 [facility] % 10:09 AM PROFESSIONAL SERVICES MANAGER [facility] Platelets 232 150 - 450 04/18/2020 [facility] x10(9)/L 10:09 AM PROFESSIONAL SERVICES MANAGER [facility] Specimen Anatomical Collection Method / Collection Time Recei rg Time (Source) Location / Volume Laterality Blood Venipuncture / 04/18/2020 9:57 04/18/2020 9:57 Unknown AM PROFESSIONAL SERVICES MANAGER AM PROFESSIONAL SERVICES MANAGER Giorgio Albarado MD LAB_1 Performing Organization Address City/State/ZIP Code Phon e Number [facility] [address] [facility] [place] [address] documented in this encounter Visit Diagnoses Diagnosis Seropositive rheumatoid arthritis (HRC) - Primary Rheumatoid arthritis documented in this encounter Care Teams Websphere Consultant Relationship Specialty Start Date End Date Micki Arzate MD PCP - General Internal Medicine 01/29/171999 N [facility] [place] [address] documented as of this encounter
--- OUTSIDE RECORDS SUMMARY | 2022-03-06 14:29 | XMS_ITS | Encounter Summary ---
:1955 Author Organization [facility] Address [address], [place] [address] Care Team Providers Name Role Phone Micki Arzate MD Primary Care Provider Reason for Visit Reason Comments Prior Authorization Request Encounter Details Date Type Department Care Team Description 05/10/2020 Telephone [facility] [address] Neena, Au thorization Rheumatology MD Hugh Request 3800 [facility] 3800 [facility] [place] [address] [phone] (Wo rk) Social History Tobacco Use Types Packs/Day Years Used Date Smoking Tobacco: Never Smokeless Tobacco: Never Alcohol Use Standard Drinks/Week Comments Not Currently 0 (1 standard drink = 0.6 oz pure alcoho l) Sex Assigned at Date Recorded Not on file documented as of this encounter Nursing Notes Carlota Stanley LPN - 05/10/2020 3:10 PM CST Pharmacy informed no longer our patient. MOGRAPH OBSERVER Darlyn Fowler - 05/10/2020 1:18 PM CST Per my note from early today- Received a PA request for Humira for this patient. She is no longer followed by Dr. Chaudhary and per her new Welcome Center Attendant ( Giorgio Albarado MD) she stopped Humira in Feb when she switch to Medicare. No Further action needed. Informed [facility] of this. MOGRAPH OBSERVER Franca Oseguera LPN - 05/10/2020 1:09 PM CST Pharmacy called. Pt has moved from commercial to medicare insurance. Pt will need a new PA for her Humira. MOGRAPH OBSERVER documented in this encounter Plan of Treatment Not on filedocumented as of this encounter Visit Diagnoses Not on filedocumented in this encounter Care Teams Kosher Sealer Relationship Specialty Start Date End Date Micki Arzate MD PCP - General Internal Medicine 01/29/[address] [place] [address] documented as of this encounter
--- OUTSIDE RECORDS SUMMARY | 2022-03-06 14:29 | XMS_ITS | Encounter Summary ---
:1955 Author Organization [facility] Address [address] [place] [address] Care Team Providers Name Role Phone Micki Arzate MD Primary Care Provider Reason for Visit Reason Comments Follow-up Encounter Details Date Type Department Care Team Description 08/05/2018 Office Visit [place], Rheumatoid art hritis with positive rheumatoid factor, involving unspecified site (HRC) (Primary Dx); Rheumatology MD Hugh High risk medication use [address] [place] [address] [facility] [phone] [place] [address] (Wo rk) Social History Tobacco [...] medications documented in this encounter Care Teams It Security Analyst Relationship Specialty Start Date End Date Micki Arzate MD PCP - General Internal Medicine 01/29/[address] [place] [address] documented as of this encounter
--- OUTSIDE RECORDS SUMMARY | 2022-03-06 14:29 | XMS_ITS | Encounter Summary ---
:1955 Author Organization [facility] Address [address], [place] [address] Care Team Providers Name Role Phone Micki Arzate MD Primary Care Provider Reason for Visit Reason Onset Date Comments Refill 07/13/2019 Encounter Details Date Type Department Care Team Description 07/13/2019 Refill [place] [facility] Hugh Hinojosa, Refill [address] [facility] [place] [address] 7329 [facility] [phone] [facility] N [address] (Wo rk) Social History Tobacco [...] 10:41 AM Medication refill approved per protocol NCIAL INSTITUTION PRESIDENT Karime Schuster - 07/13/2019 2:47 PM CST Last Visit: 05/12/19 Future Visit: 12/08/19 NCIAL INSTITUTION PRESIDENT documented in this encounter Plan of Treatment Not on filedocumented as of this encounter Visit Diagnoses Diagnosis Rheumatoid arthritis with positive rheum atoid factor, involving unspecified site (HRC) documented in this encounter Care Teams Wad Compressor Operator Adjuster Relationship Specialty Start Date End Date Micki Arzate MD PCP - General Internal Medicine 01/29/[address] [place] [address] documented as of this encounter
--- OUTSIDE RECORDS SUMMARY | 2022-03-06 14:29 | XMS_ITS | Encounter Summary ---
:1955 Author Organization [facility] Address [address] [place] [address] Care Team Providers Name Role Phone Micki Arzate MD Primary Care Provider Reason for Visit Reason Onset Date Comments Refill 09/02/2020 methotrexate Encounter Details Date Type Department Care Team Description 09/02/2020 Refill [facility] 401 Manuel Stevenson MD Refill (methotrexate) [facility] [address] [place] [address]. [place] [address] [phone] (Wo rk) Social History Tobacco Use Types [...] WBC: 5.9 k/cmm on 07/28/2020 Powered by [employer], Reference: [id number], 09/02/2020 12:42:23 PM CDT, Pool: Per [facility] Care Team ([id number]) Anne Hull - 09/02/2020 12:41 PM CDT Images from the original note were not included. documented in this encounter Plan of Treatment Not on filedocumented as of this encounter Visit Diagnoses Not on filedocumented in this encounter Care Teams Health Counselor Relationship Specialty Start Date End Date Micki Arzate MD PCP - General Internal Medicine 01/[address] [place] [address] documented as of this encounter
--- OUTSIDE RECORDS SUMMARY | 2022-03-06 14:29 | XMS_ITS | Encounter Summary ---
:1955 Author Organization [facility] Address [address], [place] [address] Care Team Providers Name Role Phone Micki Arzate MD Primary Care Provider Encounter Details Date Type Department Care Team Description 05/12/2019 Notes/Orders [place] [facility] shahbaz Chaudhary, [address] [facility] [place] [address] 7769 [facility] [phone] [facility] N [address]186 (Wo rk) Social History Tobacco Use Types [...] on filedocumented in this encounter Care Teams Steam Clean Machine Operator Relationship Specialty Start Date End Date Micki Arzate MD PCP - General Internal Medicine 01/29/[address] [place] [address] documented as of this encounter
--- OUTSIDE RECORDS SUMMARY | 2022-03-06 14:29 | XMS_ITS | Encounter Summary ---
:1955 Author Organization [facility] Address [address], [place] [address] Care Team Providers Name Role Phone Micki Arzate MD Primary Care Provider Reason for Visit Reason Comments Prior Authorization For Medication Humira Encounter Details Date Type Department Care Team Description 05/10/2020 Telephone [facility] [address] Prior Neena Au thorization For Rheumatology MD Hugh Medication (Humira) 3800 [facility] 3800 [facility] [address] [phone] (Wo rk) Social History Tobacco Use Types [...] followed by Dr. Chaudhary andper her new Under Baster ( Giorgio Albarado MD) she stopped Humira in Feb when she switch to Medicare. No Further action needed. DER OPERATOR documented in this encounter Plan of Treatment Not on filedocumented as of this encounter Visit Diagnoses Not on filedocumented in this encounter Care Teams Fish Processor Relationship Specialty Start Date End Date Micki Arzate MD PCP - General Internal Medicine 01/29/[address] [place] [address] documented as of this encounter
--- OUTSIDE RECORDS SUMMARY | 2022-03-06 14:29 | XMS_ITS | Encounter Summary ---
:1955 Author Organization [facility] Address [address] [place] [address] Care Team Providers Name Role Phone Micki Arzate MD Primary Care Provider Encounter Details Date Type Department Care Team Description 03/03/2019 Lab Visit [facility] High risk medication use [address] [place] [address] Social History Tobacco Use Types [...] Signature WBC 5.7 3.5 - 10.5 03/03/2019 [facility] x10(9)/L 9:21 AM CDT LABORATORY RBC 4.42 3.90 - 03/03/2019 [facility] 5.03 9:21 AM CDT LABORATORY x10(12)/L Hemoglobin 13.4 12.0 - 03/03/2019 [facility] 15.5 g/dL 9:21 AM CDT LABORATORY HCT 40.8 34.9 - 03/03/2019 [facility] 44.5 % 9:21 AM CDT LABORATORY MCV 92.3 80.0 - 03/03/2019 [facility] 100.0 fL 9:21 AM CDT LABORATORY MCH 30.3 27.6 - 03/03/2019 [facility] 33.3 pg 9:21 AM CDT LABORATORY MCHC 32.8 31.5 - 03/03/2019 [facility] 35.2 g/dL 9:21 AM CDT LABORATORY RDW 14.3 11.9 - 03/03/2019 [facility] 15.5 % 9:21 AM CDT LABORATORY Platelets 212 150 - 450 03/03/2019 [facility] x10(9)/L 9:21 AM CDT LABORATORY Automated NRBC 0 <=0 /100 03/03/2019 [facility] WBC 9:21 AM CDT LABORATORY Neutrophil 3.1 1.7 - 7.0 03/03/2019 [facility] Absolute 10(9)/L 9:21 AM CDT LABORATORY Lymphocyte 1.8 1.0 - 4.8 03/03/2019 [facility] Absolute 10(9)/L 9:21 AM CDT LABORATORY Monocytes 0.6 0.2 - 0.9 03/03/2019 [facility] Absolute 10(9)/L 9:21 AM CDT LABORATORY Eosinophil 0.1 0.0 - 0.5 03/03/2019 [facility] Absolute 10(9)/L 9:21 AM CDT LABORATORY Basophil 0.0 0.0 - 0.3 03/03/2019 [facility] Absolute 10(9)/L 9:21 AM CDT LABORATORY Immature Gran % 0.4 0.0 - 0.5 03/03/2019 [facility] % 9:21 AM CDT LABORATORY Specimen Anatomical Collection Method Collection Time Receive d Time (Source) Location / / Volume Laterality Blood 03/03/2019 9:13 AM 9 9:13 CDT AM CDT Hugh Chaudhary MD LAB_1 Performing Organization Address City/State/ZIP Code Phon e Number [facility] [address] [place] [address] CREAT - Creatinine - standing every 2 - 3 months (03/03/2019 9:12 AM CDT) P athologist Signature Creatinine 0.90 0.55 - 03/03/2019 [facility] 1.02 mg/dL 11:38 AM CDT LABORATORY GFR, Estimated >60 >60 03/03/2019 [facility] mL/min/1.7 11:38 AM CDT LABORATORY 3m2 GFR, Est If >60 >60 03/03/2019 [facility] mL/min/1.7 11:38 AM CDT LABORATORY Monegasque 3m2 Specimen Anatomical Collection Method Collection Time Receive d Time (Source) Location / / Volume Laterality Blood 03/03/2019 9:12 AM 9 9:13 CDT AM CDT Hugh Chaudhary MD LAB_1 Performing Organization Address City/[facility]/ZIP Code Phon e Number [facility] [address] [place], [place] [phone] ALT - Alanine Aminotransferase - standing every 2 - 3 months (03/03/2019 9:12 AM CDT) P athologist Signature ALT (SGPT) 23 0 - 55 U/L 03/03/2019 [facility] 11:38 AM CDT LABORATORY Specimen Anatomical Collection Method Collection Time Receive d Time (Source) Location / / Volume Laterality Blood 03/03/2019 9:12 AM 9 9:13 CDT AM CDT Hugh Chaudhary MD LAB_1 Performing Organization Address City/[facility] Phon e Number [facility] [address] [place] [address] documented in this encounter Visit Diagnoses Diagnosis High risk medication use Encounter for long-term (current) use of other medications documented in this encounter Care Teams Audiovisual Equipment Operator Relationship Specialty Start Date End Date Micki Arzate MD PCP - General Internal Medicine 01/29/[address] [place] [address] documented as of this encounter
--- OUTSIDE RECORDS SUMMARY | 2022-03-06 14:29 | XMS_ITS | Encounter Summary ---
:1955 Author Organization [facility] Address [address] [address] Care Team Providers Name Role Phone Micki Arzate MD Primary Care Provider Encounter Details Date Type Department Care Team Description 01/21/2020 Lab Visit [facility] High r isk medication use Laboratory [address] [place] [address] Social History Tobacco Use [...] Signature WBC 6.1 3.5 - 10.5 01/21/2020 [facility] x10(9)/L 10:29 AM CDT LABORATORY RBC 4.41 3.90 - 01/21/2020 [facility] 5.03 10:29 AM CDT LABORATORY x10(12)/L Hemoglobin 13.8 12.0 - 01/21/2020 [facility] 15.5 g/dL 10:29 AM CDT LABORATORY HCT 41.5 34.9 - 01/21/2020 [facility] 44.5 % 10:29 AM CDT LABORATORY MCV 94.1 80.0 - 01/21/2020 [facility] 100.0 fL 10:29 AM CDT LABORATORY MCH 31.3 27.6 - 01/21/2020 [facility] 33.3 pg 10:29 AM CDT LABORATORY MCHC 33.3 31.5 - 01/21/2020 [facility] 35.2 g/dL 10:29 AM CDT LABORATORY RDW 13.6 11.9 - 01/21/2020 [facility] 15.5 % 10:29 AM CDT LABORATORY Platelets 219 150 - 450 01/21/2020 [facility] x10(9)/L 10:29 AM CDT LABORATORY Automated NRBC 0 <=0 /100 01/21/2020 [facility] WBC 10:29 AM CDT LABORATORY Neutrophil 3.3 1.7 - 7.0 01/21/2020 [facility] Absolute 10(9)/L 10:29 AM CDT LABORATORY Lymphocyte 1.9 1.0 - 4.8 01/21/2020 [facility] Absolute 10(9)/L 10:29 AM CDT LABORATORY Monocytes 0.6 0.2 - 0.9 01/21/2020 [facility] Absolute 10(9)/L 10:29 AM CDT LABORATORY Eosinophil 0.2 0.0 - 0.5 01/21/2020 [facility] Absolute 10(9)/L 10:29 AM CDT LABORATORY Basophil 0.1 0.0 - 0.3 01/21/2020 [facility] Absolute 10(9)/L 10:29 AM CDT LABORATORY Immature Gran % 0.3 0.0 - 0.5 01/21/2020 [facility] % 10:29 AM CDT LABORATORY Specimen Anatomical Collection Method / Collection Time Recei rg Time (Source) Location / Volume Laterality Blood Venipuncture / 01/21/2020 10:07 0 Unknown AM CDT 10:25 AM CDT Hugh Chaudhary MD LAB_1 Performing Organization Address [facility] Phon e Number [facility] [address] [place] [address] CREAT - Creatinine - standing Q3 months (01/21/2020 10:07 AM CDT) P athologist Signature Creatinine 0.80 0.55 - 01/21/2020 [facility] 1.02 mg/dL 11:34 AM CDT LABORATORY GFR, Estimated >60 >60 01/21/2020 [facility] mL/min/1.7 11:34 AM CDT LABORATORY 3m2 Specimen Anatomical Collection Method / Collection Time Recei rg Time (Source) Location / Volume Laterality Blood Venipuncture / 01/21/2020 10:07 0 Unknown AM CDT 10:25 AM CDT Hugh Chaudhary MD LAB_1 Performing Organization Address [facility] Phon e Number [facility] [address] [place] [address] ALT - Alanine Aminotransferase - standing Q3 months (01/21/2020 10:07 AM CDT) P athologist Signature ALT (SGPT) 17 0 - 55 U/L 01/21/2020 [facility] 11:34 AM CDT LABORATORY Specimen Anatomical Collection Method / Collection Time Recei rg Time (Source) Location / Volume Laterality Blood Venipuncture / 01/21/2020 10:07 0 Unknown AM CDT 10:25 AM CDT Huhg Chaudhary MD LAB_1 Performing Organization Address [facility] Phon e Number [facility] [address] [place] [address] documented in this encounter Visit Diagnoses Diagnosis High risk medication use Encounter for long-term (current) use of other medications documented in this encounter Care Teams Wellness Director Relationship Specialty Start Date End Date Micki Arzate MD PCP - General Internal Medicine 01/29/[address] [place] [address] documented as of this encounter
--- OUTSIDE RECORDS SUMMARY | 2022-03-06 14:29 | XMS_ITS | Encounter Summary ---
:1955 Author Organization [email or web address] Address [address] [place] [address] Care Team Providers Name Role Phone Micki Arzate MD Primary Care Provider Reason for Visit Reason Comments Revisit Encounter Details Date Type Department Care Team Description 04/18/2020 Office Visit [facility] 401 Manuel Albarado MD Prepatellar bursitis [facility] [address] of left knee (Primary [address] [place], [place] Dx) [place] [address] [phone] Social History Tobacco Use Types Packs/Day Years [...] HIP KNEE SHOULDER () Giorgio Albarado MD BUILDING MACHINE OPERATOR documented in this encounter Plan of Treatment Not on filedocumented as of this encounter Procedures Procedure Name Priority Date/Time Associated Diagnosis Comme nts BODY FLUID AEROBIC Routine 04/18/2020 10:05 Prepatellar bursit is Results for this CULTURE AM TUBE BUILDING MACHINE OPERATOR of left knee procedure are i n the results section. BODY FLUID CELL COUNT Routine 04/18/2020 10:04 Prepatellar bur sitis Results for this AND DIFFERENTIAL AM TUBE BUILDING MACHINE OPERATOR of left knee procedure a re in the results section. BODY FLUID, Routine 04/18/2020 10:04 Prepatellar bursitis Res ults for this DIFFERENTIAL AM TUBE BUILDING MACHINE OPERATOR of left knee procedure are i n the results section. CELL COUNT & DIFF, Routine 04/18/2020 10:04 Prepatellar bursit is Results for this BODY FLUID AM TUBE BUILDING MACHINE OPERATOR of left knee procedure are i n the results section. documented in this encounter Results Body Fluid Aerobic Culture (04/18/2020 10:05 AM TUBE BUILDING MACHINE OPERATOR) Patholo gist Method Time Signature Body Fluid No Growth 04/21/2020 [facility] Culture After 3 Days 3:53 PM TUBE BUILDING MACHINE OPERATOR [facility]OS[facility] Gram Smear No PMN's 04/21/2020 [facility] Present 3:53 PM TUBE BUILDING MACHINE [facility]PER[facility] Gram Smear No Organisms 04/21/2020 [facility] Seen 3:53 PM TUBE BUILDING MACHINE OPERATOR [facility] Specimen Anatomical Collection Method Collection Time Receive d Time (Source) Location / / Volume Laterality Synovial Fluid ENTIRE KNEE REGION 04/18/2020 10:05 / Unknown AM TUBE BUILDING MACHINE OPERATOR 10:41 AM TUBE BUILDING MACHINE OPERATOR Giorgio Albarado MD LAB_1 Performing Organization Address City/[facility] Phon e Number [address] [address] Body Fluid, Differential (04/18/2020 10:04 AM TUBE BUILDING MACHINE OPERATOR) P athologist Signature Body Fluid 4 % 04/18/2020 [facility] Neutrophils % 1:39 PM TUBE BUILDING MACHINE OPER[facility]OS[facility] Body Fluid 17 % 04/18/2020 [facility] Lymphocytes % 1:39 PM TUBE BUILDING MACHINE OPERATOR [facility] Body Fluid 79 % 04/18/2020 [facility] Mononuclear 1:39 PM TUBE BUILDING MACHINE OPERATOR [facility] Cells % Body Fluid 2 % 04/18/2020 [facility] Eosinophils % 1:39 PM TUBE BUILDING MACHINE OPERATOR [facility]OSP[facility] TOTAL CELLS 200 04/18/2020 [facility] COUNTED IN BODY 1:39 PM TUBE BUILDING MACHINE OPERATOR [facility]OS[facility] FLUID Specimen Anatomical Collection Method Collection Time Receive d Time (Source) Location / / Volume Laterality Synovial Fluid ENTIRE KNEE REGION 04/18/2020 10:04 / Unknown AM TUBE BUILDING MACHINE OPERATOR 10:41 AM TUBE BUILDING MACHINE OPERATOR Giorgio Albarado MD LAB_1 Performing Organization Address [facility] Phon e Number [address] [address] (ABNORMAL) Cell Count & Diff, Body Fluid (04/18/2020 10:04 AM TUBE BUILDING MACHINE OPERATOR) [facility] gist Method Time Signature Body Fluid Synovial 04/18/2020 [facility] Type Fluid 1:39 PM [facility] BF Source Knee, left 04/18/2020 [facility] 1:39 PM [facility] Body Fluid Bloody (A) Clear 04/18/2020 [facility] Appearance 1:39 PM [facility] Body Fluid RBC 12,076 /uL 04/18/2020 [facility] 1:39 PM [facility] Comment: The reference interval is unava ilable for this body fluid. Comparison of the result with concentration in the blood i s recommended. Body Fluid WBC 447 (H) 0 - 200 /ul 04/18/2020 1:39 PM [facility] Specimen Anatomical Collection Method Collection Time Receive d Time (Source) Location / / Volume Laterality Synovial Fluid ENTIRE KNEE REGION 04/18/2020 10:04 / Unknown AM TUBE BUILDING MACHINE OPERATOR 10:41 AM TUBE BUILDING MACHINE OPERATOR Giorgio Albarado MD LAB_1 Performing Organization Address City/State/ZIP Code Phon e Number [address] [address] documented in this encounter Visit Diagnoses Diagnosis Prepatellar bursitis of left knee - Prim maral Prepatellar bursitis documented in this encounter Care Teams Intern Brand Relationship Specialty Start Date End Date Micki Arzate MD PCP - General Internal Medicine 01/29/17[address] [place] [address] documented as of this encounter
--- OUTSIDE RECORDS SUMMARY | 2022-03-06 14:29 | XMS_ITS | Encounter Summary ---
:1955 Author Organization [facility] Address [address], [place] [address] Care Team Providers Name Role Phone Micki Arzate MD Primary Care Provider Reason for Visit Reason Comments Prior Authorization Request Encounter Details Date Type Department Care Team Description 10/15/2019 Telephone [facility] [address] [place], Prior Au thorization Rheumatology MD Hugh Request 3800 [facility] 3800 [facility] [place] [address] [phone] (Wo rk) Social History Tobacco Use Types [...] on filedocumented in this encounter Care Teams Design Release Engineer Relationship Specialty Start Date End Date Micki Arzate MD PCP - General Internal Medicine 01/29/[address] [place] [address] documented as of this encounter
--- OUTSIDE RECORDS SUMMARY | 2022-03-06 14:29 | XMS_ITS | Encounter Summary ---
:1955 Author Organization [facility] Address [address], [place] [address] Care Team Providers Name Role Phone Micki Arzate MD Primary Care Provider Encounter Details Date Type Department Care Team Description 06/09/2019 Lab Visit [facility] High risk medication use [address] [place] [address] Social History Tobacco Use Types [...] risk Res ults for this PANEL AM [employer]AURANT DISTRICT MANAGER medication use procedure are in the results section. CREATININE / GFR Routine 06/09/2019 10:41 High risk Results for this AM [employer]ANT [employer] MANAGER medication use procedure are in the results section. COMPLETE BLOOD Routine 06/09/2019 10:41 High risk Results f or this COUNT-W/DIFF AM [employer]ANT [employer] MANAGER medication use procedure are in the results section. ALT (SGPT) Routine 06/09/2019 10:41 High risk Results for this AM [employer]ANT DISTRICT MANAGER medication use procedure are in the results section. documented in this encounter Results Complete Blood Count-W/Diff (06/09/2019 10:41 AM RESTAURANT DISTRICT MANAGER) P athologist Signature WBC 6.4 3.5 - 10.5 06/09/2019 [facility] x10(9)/L 10:45 AM [facility] RBC 4.66 3.90 - 06/09/2019 [facility] 5.03 10:45 AM [facility] x10(12)/L Hemoglobin 14.2 12.0 - 06/09/2019 [facility] 15.5 g/dL 10:45 AM [facility]NA[facility] HCT 43.5 34.9 - 06/09/2019 [facility] 44.5 % 10:45 AM [facility] MCV 93.3 80.0 - 06/09/2019 [facility] 100.0 fL 10:45 AM [facility] MCH 30.5 27.6 - 06/09/2019 [facility] 33.3 pg 10:45 AM [facility] MCHC 32.6 31.5 - 06/09/2019 [facility] 35.2 g/dL 10:45 AM [facility]NA[facility] RDW 13.5 11.9 - 06/09/2019 [facility] 15.5 % 10:45 AM [facility]NA[facility] Platelets 229 150 - 450 06/09/2019 [facility] [place] x10(9)/L 10:45 AM [facility] Automated NRBC 0 <=0 /100 06/09/2019 [facility] WBC 10:45 AM [facility] Neutrophil 3.3 1.7 - 7.0 06/09/2019 [facility] Absolute 10(9)/L 10:45 AM [facility] Lymphocyte 2.3 1.0 - 4.8 06/09/2019 [facility] Absolute 10(9)/L 10:45 AM [facility] Monocytes 0.6 0.2 - 0.9 06/09/2019 [facility] [place] Absolute 10(9)/L 10:45 AM [facility] Eosinophil 0.2 0.0 - 0.5 06/09/2019 [facility] Absolute 10(9)/L 10:45 AM [facility] Basophil 0.1 0.0 - 0.3 06/09/2019 [facility] Absolute 10(9)/L 10:45 AM [facility] Immature Gran % 0.3 0.0 - 0.5 06/09/2019 [facility] % 10:45 AM [facility]NA[facility] Specimen Anatomical Collection Method / Collection Time Recei rg Time (Source) Location / Volume Laterality Blood Venipuncture / 06/09/2019 10:41 0 Unknown AM [employer]ANT DISTRICT MANAGER 10:41 AM [employer]ANT DISTRICT MANAGER Hugh Chaudhary MD LAB_1 Performing Organization Address City/State/ZIP Code Phon e Number [facility] [address] [place] [address] CREAT - Creatinine - standing Q3 months (06/09/2019 10:41 AM RESTA[employer]ANT DISTRICT MANAGER) athologist Signature Creatinine 0.90 0.55 - 06/09/2019 [facility] 1.02 mg/dL 11:03 AM [facility] GFR, Estimated >60 >60 06/09/2019 [facility] [place] mL/min/1.7 11:03 AM [facility] 3m2 GFR, Est If >60 >60 06/09/2019 [facility] mL/min/1.7 11:03 AM [facility] MANAGER [facility] [place] 3m2 Specimen Anatomical Collection Method / Collection Time Recei rg Time (Source) Location / Volume Laterality Blood Venipuncture / 06/09/2019 10:41 0 Unknown AM [employer]ANT DISTRICT MANAGER 10:41 AM [employer]ANT DISTRICT MANAGER Hugh Chaudhary MD LAB_1 Performing Organization Address [facility]/ZIP [facility] Phon e Number [facility] [address] [place] [address] ALT - Alanine Aminotransferase - standing Q3 months (06/09/2019 10:41 AM RESTAURANT DISTRICT MANAGER) athologist Signature ALT (SGPT) 23 0 - 55 U/L 06/09/2019 [facility] 11:03 AM [facility] DISTRICT MANAGER [facility] Specimen Anatomical Collection Method / Collection Time Recei rg Time (Source) Location / Volume Laterality Blood Venipuncture / 06/09/2019 10:41 0 Unknown AM [employer]ANT DISTRICT MANAGER 10:41 AM [employer]ANT DISTRICT MANAGER Hugh Chaudhary MD LAB_1 Performing Organization Address City/[facility] Phon e Number [facility] [address] [place] [address] documented in this encounter Visit Diagnoses Diagnosis High risk medication use Encounter for long-term (current) use of other medications documented in this encounter Care Teams Hazardous Material Specialist Relationship Specialty Start Date End Date Micki Arzate MD PCP - General Internal Medicine 01/29/[address] [place] [address] documented as of this encounter
--- OUTSIDE RECORDS SUMMARY | 2022-03-06 14:29 | XMS_ITS | Encounter Summary ---
:1955 Author Organization [facility] Address [address] [place] [address] Care Team Providers Name Role Phone Micki Arzate MD Primary Care Provider Encounter Details Date Type Department Care Team Description 08/27/2018 Lab Visit [facility] High risk medication use [address] [place] [address] Social History Tobacco Use Types [...] athologist Signature Creatinine 0.80 0.55 - 08/27/2018 [facility] 1.02 mg/dL 9:16 AM CDT LABORATORY GFR, Estimated >60 >60 08/27/2018 [facility] mL/min/1.7 9:16 AM CDT LABORATORY 3m2 GFR, Est If >60 >60 08/27/2018 [facility] mL/min/1.7 9:16 AM CDT LABORATORY [place] 3m2 Specimen Anatomical Collection Method Collection Time Receive d Time (Source) Location / / Volume Laterality Blood 08/27/2018 8:52 AM 9 8:52 CDT AM CDT Hugh Chaudhary MD LAB_1 Performing Organization Address City/State/ZIP Code Phon e Number [facility] [address] [place] [address] CBC - Complete Blood Count W/Diff - standing every 2 - 3 months (08/27/2018 8:52 AM CDT) P athologist Signature WBC 5.8 3.5 - 10.5 08/27/2018 [facility] x10(9)/L 9:04 AM CDT LABORATORY RBC 4.22 3.90 - 08/27/2018 [facility] 5.03 9:04 AM CDT LABORATORY x10(12)/L Hemoglobin 12.8 12.0 - 08/27/2018 [facility] 15.5 g/dL 9:04 AM [facility] LABORATORY HCT 38.2 34.9 - 08/27/2018 [facility] 44.5 % 9:04 AM [facility] LABORATORY MCV 90.5 80.0 - 08/27/2018 [facility] 100.0 fL 9:04 AM [facility] LABORATORY MCH 30.3 27.6 - 08/27/2018 [facility] 33.3 pg 9:04 AM CDT LABORATORY MCHC 33.5 31.5 - 08/27/2018 [facility] 35.2 g/dL 9:04 AM CDT LABORATORY RDW 14.1 11.9 - 08/27/2018 [facility] 15.5 % 9:04 AM CDT LABORATORY Platelets 202 150 - 450 08/27/2018 [facility] x10(9)/L 9:04 AM CDT LABORATORY Automated NRBC 0 <=0 /100 08/27/2018 [facility] WBC 9:04 AM CDT LABORATORY Neutrophil 3.5 1.7 - 7.0 08/27/2018 [facility] Absolute 10(9)/L 9:04 AM CDT LABORATORY Lymphocyte 1.4 1.0 - 4.8 08/27/2018 [facility] Absolute 10(9)/L 9:04 AM CDT LABORATORY Monocytes 0.6 0.2 - 0.9 08/27/2018 [facility] Absolute 10(9)/L 9:04 AM CDT LABORATORY Eosinophil 0.2 0.1 - 0.5 08/27/2018 [facility] Absolute 10(9)/L 9:04 AM CDT LABORATORY Basophil 0.1 0.0 - 0.3 08/27/2018 [facility] Absolute 10(9)/L 9:04 AM CDT LABORATORY Immature Gran % 0.2 0.0 - 0.5 08/27/2018 [facility] % 9:04 AM CDT LABORATORY Specimen Anatomical Collection Method Collection Time Receive d Time (Source) Location / / Volume Laterality Blood 08/27/2018 8:52 AM 9 8:52 CDT AM CDT Hugh Chaudhary MD LAB_1 Performing Organization Address City/[facility]/ZIP Code Phon e Number [facility] [address] [place], [place] [phone] ALT - Alanine Aminotransferase - standing every 2 - 3 months (08/27/2018 8:52 AM CDT) P athologist Signature ALT (SGPT) 16 0 - 55 U/L 08/27/2018 [facility] 9:16 AM CDT LABORATORY Specimen Anatomical Collection Method Collection Time Receive d Time (Source) Location / / Volume Laterality Blood 08/27/2018 8:52 AM 9 8:52 CDT AM CDT Hugh Chaudhary MD LAB_1 Performing Organization Address City/[facility]/ZIP [facility] Phon e Number [facility] [address] [place], [place] [phone] documented in this encounter Visit Diagnoses Diagnosis High risk medication use Encounter for long-term (current) use of other medications documented in this encounter Care Teams Mold Repair Technician Relationship Specialty Start Date End Date Micki Arzate MD PCP - General Internal Medicine 01/29/17[address] [place] [address] documented as of this encounter
--- OUTSIDE RECORDS SUMMARY | 2022-03-06 14:29 | XMS_ITS | Encounter Summary ---
:1955 Author Organization [email or web address] Address [address] [address] Care Team Providers Name Role Phone Micki Arzate MD Primary Care Provider Encounter Details Date Type Department Care Team Description 11/09/2020 Lab Visit [facility] Seropositive rheumatoid [address] [facility] arthritis ([facility]) [place] [address] Social History Tobacco Use Types [...] CDT rheumatoid arthritis procedu re are in ([facility]) the results section. COMPLETE BLOOD Routine 11/09/2020 2:28 PM Seropositive Results for this COUNT-NO DIFF CDT rheumatoid arthritis proced ure are in ([facility]) the results section. ALT (SGPT) Routine 11/09/2020 2:28 PM Seropositive Results f or this CDT rheumatoid arthritis procedu re are in ([facility]) the results section. AST Routine 11/09/2020 2:28 PM Seropositive Results f or this CDT rheumatoid arthritis procedu re are in ([facility]) the results section. documented in this encounter Results Creatinine / GFR (11/09/2020 2:28 PM CDT) athologist Signature Creatinine 0.90 0.55 - 11/09/2020 [facility] 1.02 mg/dL 3:33 PM CDT LABORATORY GFR, Estimated >60 >60 11/09/2020 [facility] mL/min/1.7 3:33 PM CDT LABORATORY 3m2 Specimen Anatomical Collection Method / Collection Time Recei rg Time (Source) Location / Volume Laterality Blood Venipuncture / 11/09/2020 2:28 11/09/2020 2:28 Unknown PM CDT PM CDT Giorgio Albarado MD LAB_1 Performing Organization Address City/[facility] Code Phon e Number [facility] [address] [place] [address] ALT (SGPT) (11/09/2020 2:28 PM CDT) athologist Signature ALT (SGPT) 17 0 - 55 U/L 11/09/2020 [facility] 3:33 PM CDT LABORATORY Specimen Anatomical Collection Method / Collection Time Recei rg Time (Source) Location / Volume Laterality Blood Venipuncture / 11/09/2020 2:28 11/09/2020 2:28 Unknown PM CDT PM CDT Giorgio Albarado MD LAB_1 Performing Organization Address [facility] Phon e Number [facility] [address] [place] [address] AST (11/09/2020 2:28 PM CDT) athologist Signature AST (SGOT) 20 10 - 40 U/L 11/09/2020 [facility] 3:33 PM CDT LABORATORY Specimen Anatomical Collection Method / Collection Time Recei rg Time (Source) Location / Volume Laterality Blood Venipuncture / 11/09/2020 2:28 11/09/2020 2:28 Unknown PM CDT PM CDT Giorgio Albarado MD LAB_1 Performing Organization Address [facility] Phon e Number [facility] [address] [place] [address] Complete Blood Count-No Diff (11/09/2020 2:28 PM CDT) P athologist Signature WBC 6.2 3.5 - 10.5 11/09/2020 [facility] x10(9)/L 2:31 PM CDT LABORATORY RBC 4.42 3.90 - 11/09/2020 [facility] 5.03 2:31 PM CDT LABORATORY x10(12)/L Hemoglobin 13.3 12.0 - 11/09/2020 [facility] 15.5 g/dL 2:31 PM CDT LABORATORY HCT 40.6 34.9 - 11/09/2020 [facility] 44.5 % 2:31 PM CDT LABORATORY MCV 91.9 80.0 - 11/09/2020 [facility] 100.0 fL 2:31 PM CDT LABORATORY MCH 30.1 27.6 - 11/09/2020 [facility] 33.3 pg 2:31 PM CDT LABORATORY MCHC 32.8 31.5 - 11/09/2020 [facility] 35.2 g/dL 2:31 PM CDT LABORATORY RDW 13.3 11.9 - 11/09/2020 [facility] 15.5 % 2:31 PM CDT LABORATORY Platelets 197 150 - 450 11/09/2020 [facility] x10(9)/L 2:31 PM CDT LABORATORY Automated NRBC 0 <=0 /100 11/09/2020 [facility] WBC 2:31 PM CDT LABORATORY Specimen Anatomical Collection Method / Collection Time Recei rg Time (Source) Location / Volume Laterality Blood Venipuncture / 11/09/2020 2:28 11/09/2020 2:28 Unknown PM CDT PM CDT Giorgio Albarado MD LAB_1 Performing Organization Address City/State/ZIP Code Phon e Number [facility] [address] [place] [phone] documented in this encounter Visit Diagnoses Diagnosis Seropositive rheumatoid arthritis (HRC) Rheumatoid arthritis documented in this encounter Care Teams Refurbish Technician Relationship Specialty Start Date End Date Micki Arzate MD PCP - General Internal Medicine 01/29/[address] [place] [address] documented as of this encounter
--- OUTSIDE RECORDS SUMMARY | 2022-03-06 14:29 | XMS_ITS | Encounter Summary ---
:1955 Author Organization [facility] Address [address] [place] [address] Care Team Providers Name Role Phone Micki Arzate MD Primary Care Provider Reason for Visit Reason Comments Refill methotrexate 2.5 MG tablet [ Pharmacy Med Name: Methotrexate Sodium Oral Tablet 2.5 MG] Encounter Details Date Type Department Care Team Description 12/31/2020 Refill [facility] [address] Manuel Stevenson MD Refill (methotrexate 2.5 [facility] [address] MG tablet [Pharmacy Med [address] [place], [place] Name: [place] [address] Sodium Oral Tablet 2.5 [phone] MG]) (Work) Social History Tobacco Use Types [...] visit: 03/02/2021 (in Rheumatology) Last ordered by ELLIE STEVENSON H: 09/03/2020 (119 days ago) QTY: 84, Refills: 0, Sig: take 7 tablets bymouth once every week. (changed but equivalent) Cr: 0.9 mg/dL on 11/09/2020 AST: 20 U/L on 11/09/2020 ALT: 17 U/L on 11/09/2020 HCT: 40.6 % on 11/09/2020 HGB: 13.3 g/dL on 11/09/2020 PLT: 197 k/cmm on 11/09/2020 RBC: 4.42 m/cmm on 11/09/2020 WBC: 6.2 k/cmm on 11/09/2020 Powered by [employer], Reference: [id number], 12/31/2020 7:51:26 AM CDT, Pool:Per [facility] Care Team ([id number]) documented in this encounter Plan of Treatment Not on filedocumented as of this encounter Visit Diagnoses Not on filedocumented in this encounter Care Teams Accounts Payable Processor Relationship Specialty Start Date End Date Micki Arzate MD PCP - General Internal Medicine 01/29/[address] [place] [address] documented as of this encounter
--- OUTSIDE RECORDS SUMMARY | 2022-03-06 14:29 | XMS_ITS | Encounter Summary ---
:1955 Author Organization [facility] Address [address] [place] [address] Care Team Providers Name Role Phone Micki Arzate MD Primary Care Provider Encounter Details Date Type Department Care Team Description 04/18/2020 Lab Visit [facility] Seroposi tive rheumatoid Laboratory arthritis (HRC) [address] [facility] [place] [address] Social History Tobacco Use Types [...] 9:57 AM Seropositive Resul ts for this BOTT[facility] IRONER rheumatoid arthritis procedu re are in ([facility]) the results section. COMPLETE BLOOD Routine 04/18/2020 9:57 AM Seropositive Results for this COUNT-NO DIFF BOTTOM IRONER rheumatoid arthritis proced ure are in ([facility]) the results section. ALT (SGPT) Routine 04/18/2020 9:57 AM Seropositive Results f or this BOTTOM IRONER rheumatoid arthritis procedu re are in ([facility]) the results section. AST Routine 04/18/2020 9:57 AM Seropositive Results f or this BOTTOM IRONER rheumatoid arthritis procedu re are in ([facility]) the results section. documented in this encounter Results Creatinine / GFR (04/18/2020 9:57 AM BOTTOM IRONER) [facility] Method Time Signature Creatinine 0.77 0.55 - 04/18/2020 [facility] 1.02 1:09 PM [facility] mg/dL GFR, Estimated >60 >60 04/18/2020 [facility] mL/min/1. 1:09 PM [facility] 73m2 Specimen Anatomical Collection Method / Collection Time Recei rg Time (Source) Location / Volume Laterality Blood Venipuncture / 04/18/2020 9:57 04/18/2020 9:57 Unknown AM BOTTOM IRONER AM [facility] IRONER Giorgio Albarado MD LAB_1 Performing Organization Address [facility] Phon e Number [facility] [address] [place] [phone] ALT (SGPT) (04/18/2020 9:57 AM BOTTOM IRONER) athologist Signature ALT (SGPT) 15 0 - 55 U/L 04/18/2020 [facility] 1:09 PM [facility] C[facility]AL [facility] Specimen Anatomical Collection Method / Collection Time Recei rg Time (Source) Location / Volume Laterality Blood Venipuncture / 04/18/2020 9:57 04/18/2020 9:57 Unknown AM BOTTOM IRONER AM B[facility] IRONER Giorgio Albarado MD LAB_1 Performing Organization Address [facility] Phon e Number [facility] [address] [place] [address] AST (04/18/2020 9:57 AM BOTTOM IRONER) athologist Signature AST (SGOT) 19 10 - 40 04/18/2020 [facility] U/L 1:09 PM [facility] C[facility] Specimen Anatomical Collection Method / Collection Time Recei rg Time (Source) Location / Volume Laterality Blood Venipuncture / 04/18/2020 9:57 04/18/2020 9:57 Unknown AM BOTTOM IRONER AM [facility] IRONER Giorgio Albarado MD LAB_1 Performing Organization Address [facility] Phon e Number [facility] [address] [place] [address] Complete Blood Count-No Diff (04/18/2020 9:57 AM BOTTOM IRONER) athologist Signature WBC 6.4 3.5 - 10.5 04/18/2020 [facility] x10(9)/L 10:09 AM [facility] RBC 4.50 3.90 - 5.03 04/18/2020 [facility] x10(12)/L 10:09 AM [facility] Hemoglobin 13.8 12.0 - 15.5 04/18/2020 [facility] g/dL 10:09 AM [facility] HCT 40.8 34.9 - 44.5 04/18/2020 [facility] % 10:09 AM [facility] MCV 90.7 80.0 - 04/18/2020 [facility] 100.0 fL 10:09 AM [facility] MCH 30.7 27.6 - 33.3 04/18/2020 [facility] pg 10:09 AM [facility] MCHC 33.8 31.5 - 35.2 04/18/2020 [facility] g/dL 10:09 AM [facility] RDW 13.6 11.9 - 15.5 04/18/2020 [facility] % 10:09 AM [facility] Platelets 232 150 - 450 04/18/2020 [facility] x10(9)/L 10:09 AM [facility] Specimen Anatomical Collection Method / Collection Time Recei rg Time (Source) Location / Volume Laterality Blood Venipuncture / 04/18/2020 9:57 04/18/2020 9:57 Unknown AM BOTTOM IRONER AM B[facility] IRONER Giorgio Albarado MD LAB_1 Performing Organization Address City/State/ZIP Code Phon e Number [facility] [address] [place] [address] documented in this encounter Visit Diagnoses Diagnosis Seropositive rheumatoid arthritis (HRC) Rheumatoid arthritis documented in this encounter Care Teams Leather Worker Relationship Specialty Start Date End Date Micki Arzate MD PCP - General Internal Medicine 01/29/17[address] [place] [address] documented as of this encounter
--- OUTSIDE RECORDS SUMMARY | 2022-03-06 14:29 | XMS_ITS | Encounter Summary ---
:1955 Author Organization [facility] Address [address], [place] [address] Care Team Providers Name Role Phone Micki Arzate MD Primary Care Provider Encounter Details Date Type Department Care Team Description 07/28/2020 Lab Visit [facility] Seropositive rheumatoid [address] [facility] arthritis ([facility]) [place] [address] Social History Tobacco Use Types [...] 9:10 AM Seropositive Resul ts for this GROUP PRESIDENT rheumatoid arthritis procedu re are in ([facility]) the results section. COMPLETE BLOOD Routine 07/28/2020 9:10 AM Seropositive Results for this COUNT-NO DIFF GROUP PRESIDENT rheumatoid arthritis proced ure are in ([facility]) the results section. ALT (SGPT) Routine 07/28/2020 9:10 AM Seropositive Results f or this GROUP PRESIDENT rheumatoid arthritis procedu re are in ([facility]) the results section. AST Routine 07/28/2020 9:10 AM Seropositive Results f or this GROUP PRESIDENT rheumatoid arthritis procedu re are in ([facility]) the results section. documented in this encounter Results Creatinine / GFR (07/28/2020 9:10 AM GROUP PRESIDENT) athologist Signature Creatinine 0.90 0.55 - 07/28/2020 [facility] 1.02 mg/dL 9:42 AM GROUP PRESIDENT LABORATORY GFR, Estimated >60 >60 07/28/2020 [facility] mL/min/1.7 9:42 AM GROUP PRESIDENT LABORATORY 3m2 Specimen Anatomical Collection Method / Collection Time Recei rg Time (Source) Location / Volume Laterality Blood Venipuncture / 07/28/2020 9:10 07/28/2020 9:10 Unknown AM GROUP PRESIDENT AM GROUP PRESIDENT Giorgio Albarado MD LAB_1 Performing Organization Address [facility] LABORATORY [address] [place] [phone] ALT (SGPT) (07/28/2020 9:10 AM GROUP PRESIDENT) athologist Signature ALT (SGPT) 13 0 - 55 U/L 07/28/2020 [facility] 9:42 AM GROUP PRESIDENT LABORATORY Specimen Anatomical Collection Method / Collection Time Recei rg Time (Source) Location / Volume Laterality Blood Venipuncture / 07/28/2020 9:10 07/28/2020 9:10 Unknown AM GROUP PRESIDENT AM GROUP PRESIDENT Giorgio Albarado MD LAB_1 Performing Organization Address [facility] LABORATORY [address] [place] [phone] AST (07/28/2020 9:10 AM GROUP PRESIDENT) athologist Signature AST (SGOT) 16 10 - 40 U/L 07/28/2020 [facility] 9:42 AM GROUP PRESIDENT LABORATORY Specimen Anatomical Collection Method / Collection Time Recei rg Time (Source) Location / Volume Laterality Blood Venipuncture / 07/28/2020 9:10 07/28/2020 9:10 Unknown AM GROUP PRESIDENT AM GROUP PRESIDENT Giorgio Albarado MD LAB_1 Performing Organization Address [facility] LABORATORY [address] [place] [phone] Complete Blood Count-No Diff (07/28/2020 9:10 AM GROUP PRESIDENT) athologist Signature WBC 5.9 3.5 - 10.5 07/28/2020 [facility] x10(9)/L 9:18 AM GROUP PRESIDENT LABORATORY RBC 4.44 3.90 - 07/28/2020 [facility] 5.03 9:18 AM GROUP PRESIDENT LABORATORY x10(12)/L Hemoglobin 13.6 12.0 - 07/28/2020 [facility] 15.5 g/dL 9:18 AM GROUP PRESIDENT LABORATORY HCT 40.8 34.9 - 07/28/2020 [facility] 44.5 % 9:18 AM GROUP PRESIDENT LABORATORY MCV 91.9 80.0 - 07/28/2020 [facility] 100.0 fL 9:18 AM GROUP PRESIDENT LABORATORY MCH 30.6 27.6 - 07/28/2020 [facility] 33.3 pg 9:18 AM GROUP PRESIDENT LABORATORY MCHC 33.3 31.5 - 07/28/2020 [facility] 35.2 g/dL 9:18 AM GROUP PRESIDENT LABORATORY RDW 13.0 11.9 - 07/28/2020 [facility] 15.5 % 9:18 AM GROUP PRESIDENT LABORATORY Platelets 220 150 - 450 07/28/2020 [facility] x10(9)/L 9:18 AM GROUP PRESIDENT LABORATORY Automated NRBC 0 <=0 /100 07/28/2020 [facility] WBC 9:18 AM GROUP PRESIDENT LABORATORY Specimen Anatomical Collection Method / Collection Time Recei rg Time (Source) Location / Volume Laterality Blood Venipuncture / 07/28/2020 9:10 07/28/2020 9:10 Unknown AM GROUP PRESIDENT AM GROUP PRESIDENT Giorgio Albarado MD LAB_1 Performing Organization Address City/State/ZIP Code Phon e Number [facility] [address] [place] [address] documented in this encounter Visit Diagnoses Diagnosis Seropositive rheumatoid arthritis (HRC) Rheumatoid arthritis documented in this encounter Care Teams Director Of Channel Marketing Relationship Specialty Start Date End Date Micki Arzate MD PCP - General Internal Medicine 01/29/[address] [place] [address] documented as of this encounter
--- OUTSIDE RECORDS SUMMARY | 2022-03-06 14:29 | XMS_ITS | Encounter Summary ---
:1955 Author Organization [facility] Address [address] [place] [address] Care Team Providers Name Role Phone Micki Arzate MD Primary Care Provider Encounter Details Date Type Department Care Team Description 11/28/2018 Lab Visit [facility] High risk medication use [address] [place] [address] Social History Tobacco Use Types [...] athologist Signature Creatinine 0.80 0.55 - 11/28/2018 [facility] 1.02 mg/dL 10:12 AM CDT LABORATORY GFR, Estimated >60 >60 11/28/2018 [facility] mL/min/1.7 10:12 AM CDT LABORATORY 3m2 GFR, Est If >60 >60 11/28/2018 [facility] mL/min/1.7 10:12 AM CDT LABORATORY Venezuelan 3m2 Specimen Anatomical Collection Method Collection Time Receive d Time (Source) Location / / Volume Laterality Blood 11/28/2018 9:06 AM 9 9:06 CDT AM CDT Hugh Chaudhary MD LAB_1 Performing Organization Address City/State/ZIP Code Phon e Number [facility] [address] [place] [address] CBC - Complete Blood Count W/Diff - standing every 2 - 3 months (11/28/2018 9:06 AM CDT) P athologist Signature WBC 6.7 3.5 - 10.5 11/28/2018 [facility] x10(9)/L 9:12 AM CDT LABORATORY RBC 4.43 3.90 - 11/28/2018 [facility] 5.03 9:12 AM CDT LABORATORY x10(12)/L Hemoglobin 13.3 12.0 - 11/28/2018 [facility] 15.5 g/dL 9:12 AM CDT LABORATORY HCT 40.3 34.9 - 11/28/2018 [facility] 44.5 % 9:12 AM CDT LABORATORY MCV 91.0 80.0 - 11/28/2018 [facility] 100.0 fL 9:12 AM CDT LABORATORY MCH 30.0 27.6 - 11/28/2018 [facility] 33.3 pg 9:12 AM CDT LABORATORY MCHC 33.0 31.5 - 11/28/2018 [facility] 35.2 g/dL 9:12 AM CDT LABORATORY RDW 13.2 11.9 - 11/28/2018 [facility] 15.5 % 9:12 AM CDT LABORATORY Platelets 238 150 - 450 11/28/2018 [facility] x10(9)/L 9:12 AM CDT LABORATORY Automated NRBC 0 <=0 /100 11/28/2018 [facility] WBC 9:12 AM CDT LABORATORY Neutrophil 3.8 1.7 - 7.0 11/28/2018 [facility] Absolute 10(9)/L 9:12 AM CDT LABORATORY Lymphocyte 2.1 1.0 - 4.8 11/28/2018 [facility] Absolute 10(9)/L 9:12 AM CDT LABORATORY Monocytes 0.5 0.2 - 0.9 11/28/2018 [facility] Absolute 10(9)/L 9:12 AM CDT LABORATORY Eosinophil 0.2 0.0 - 0.5 11/28/2018 [facility] Absolute 10(9)/L 9:12 AM CDT LABORATORY Basophil 0.1 0.0 - 0.3 11/28/2018 [facility] Absolute 10(9)/L 9:12 AM CDT LABORATORY Immature Gran % 0.5 0.0 - 0.5 11/28/2018 [facility] % 9:12 AM CDT LABORATORY Specimen Anatomical Collection Method Collection Time Receive d Time (Source) Location / / Volume Laterality Blood 11/28/2018 9:06 AM 9 9:06 CDT AM CDT Hugh Chaudhary MD LAB_1 Performing Organization Address City/[facility]/ZIP Code Phon e Number [facility] [address] [place], [place] [phone] ALT - Alanine Aminotransferase - standing every 2 - 3 months (11/28/2018 9:06 AM CDT) P athologist Signature ALT (SGPT) 14 0 - 55 U/L 11/28/2018 [facility] 10:12 AM CDT LABORATORY Specimen Anatomical Collection Method Collection Time Receive d Time (Source) Location / / Volume Laterality Blood 11/28/2018 9:06 AM 9 9:06 CDT AM CDT Hugh Chaudhary MD LAB_1 Performing Organization Address City/[facility]/ZIP [facility] Phon e Number [facility] [address] [place], [place] [phone] documented in this encounter Visit Diagnoses Diagnosis High risk medication use Encounter for long-term (current) use of other medications documented in this encounter Care Teams Wheel Loader Operator Relationship Specialty Start Date End Date Micki Arzate MD PCP - General Internal Medicine 01/29/[address] [place] [address] documented as of this encounter
--- OUTSIDE RECORDS SUMMARY | 2022-03-06 14:29 | XMS_ITS | Encounter Summary ---
:1955 Author Organization [facility] Address [address], [place] [address] Care Team Providers Name Role Phone Micki Arzate MD Primary Care Provider Reason for Visit Reason Onset Date Comments Refill 11/12/2018 Encounter Details Date Type Department Care Team Description 11/12/2018 Refill [facility] Hugh Hinojosa, Refill [address] [facility] [place], [place] [address] [address] [facility] [phone] [facility] N [address] (Wo rk) Social History Tobacco [...] on filedocumented in this encounter Care Teams Supervisor Blast Furnace Relationship Specialty Start Date End Date Micki Arzate MD PCP - General Internal Medicine 01/[address] [place] [address] documented as of this encounter
--- OUTSIDE RECORDS SUMMARY | 2022-03-06 14:29 | XMS_ITS | Encounter Summary ---
:1955 Author Organization [facility] Address [address] [address] Care Team Providers Name Role Phone Micki Arzate MD Primary Care Provider Reason for Visit Reason Comments Symptoms Encounter Details Date Type Department Care Team Description 04/12/2020 Telephone [facility] 401 Manuel Albarado MD Symptoms [facility] [address] [facility] [address] [facility] [address] [place] [address] [phone] Social History Tobacco Use Types Packs/Day Years [...] masking and social distancing. Nanette Sanchez RN LE GRINDER Joe, Max Mclaughlin CMA - 04/12/2020 1:32 PM CST Left message for patient to return call back to clinic. Please inform patient with provider's message and offer appt time. Max Diaz CMA 04/12/2020, 1:32 PM LE GRINDER Giorgio Albarado MD - 04/12/2020 12:50 PM CST Can have her do a short course of prednisone, and then have her schedule next Wednesday 04/18 at 9am for possible injection and/or change or meds. Let me know if she would like the prednisone sent. LE GRINDER Krissy Ybarra RN - 04/12/2020 11:44 AM CST Routing to Dr. Albarado's care team. Krissy Ybarra RN 04/12/2020, 11:44 AM LE GRINDER Tee Bray - 04/12/2020 8:11 AM CST Miscellaneous Questions & FYI's [ Appt Center/Rehabilitation Inspector: If this call is after 3 p.m., communicate to patient: If we are not able to get back to you by the end of the day and your symptoms worsen please contact the Careline at [phone] OR at .] Is this a symptom? [...] message on your voicemail? Yes Tee Bray LE GRINDER documented in this encounter Plan of Treatment Not on filedocumented as of this encounter Visit Diagnoses Not on filedocumented in this encounter Care Teams Nuclear Medicine Specialist Relationship Specialty Start Date End Date Micki Arzate MD PCP - General Internal Medicine 01/29/[address] [place] [address] documented as of this encounter
--- OUTSIDE RECORDS SUMMARY | 2022-03-06 14:29 | XMS_ITS | Encounter Summary ---
:1955 Author Organization [facility] Address [address] [place] [address] Care Team Providers Name Role Phone Micki Arzate MD Primary Care Provider Reason for Visit Reason Onset Date Comments Refill 06/22/2020 Methotrexate Encounter Details Date Type Department Care Team Description 06/22/2020 Refill Specialty Center 401 JackelynManuel crook MD Refill (Methotrexate) Rheumatology Clinic [address] [place] [address]. [place] [phone] (Wo rk) Social History Tobacco Use Types Packs/Day Years Used Date Smoking Tobacco: Never Smokeless Tobacco: Never Alcohol Use Standard Drinks/Week Comments Not Currently 0 (1 standard drink = 0.6 oz pure alcoho l) Sex Assigned at Date Recorded Not on file documented as of this encounter Nursing Notes Nanette Sanchez RN - 06/22/2020 10:49 AM CST Per standing order Nanette Sanchez RN DRESSING ENGINEER Interface, Out Surescripts Prov Query - 06/22/2020 [...] WBC: 6.4 k/cmm on 04/18/2020 Powered by [employer], Reference: [id number], 06/22/2020 10:18:19 AM Robin QURESHI: Per [place] Care Team ([id number]) Anne Snider - 06/22/2020 10:17 AM CST Patient is hoping to pick this up today. DRESSING ENGINEER documented in this encounter Plan of Treatment Not on filedocumented as of this encounter Visit Diagnoses Not on filedocumented in this encounter Care Teams Qa Software Tester Relationship Specialty Start Date End Date Micki Arzate MD PCP - General Internal Medicine [address] [place] [address] documented as of this encounter
--- OUTSIDE RECORDS SUMMARY | 2022-03-06 14:29 | XMS_ITS | Encounter Summary ---
:1955 Author Organization [facility] Address [address], [place] [address] Care Team Providers Name Role Phone Micki Arzate MD Primary Care Provider Reason for Visit Reason Comments ERRONEOUS ENTRY Encounter Details Date Type Department Care Team Description 11/18/2018 Telephone [facility] [address] Chaudhary ENTRY Rheumatology MD Hugh [address] [place] [address] [phone] Social History Tobacco Use Types Packs/Day Years [...] on filedocumented in this encounter Care Teams Manager Business Development Hospice Relationship Specialty Start Date End Date Micki Arzate MD PCP - General Internal Medicine 01/29/[address] [place] [address] documented as of this encounter
--- OUTSIDE RECORDS SUMMARY | 2022-03-06 14:29 | XMS_ITS | Encounter Summary ---
:1955 Author Organization [facility] Address [address], [place] [address] Care Team Providers Name Role Phone Micki Arzate MD Primary Care Provider Reason for Visit Reason Onset Date Comments Refill 04/30/2019 Encounter Details Date Type Department Care Team Description 04/30/2019 Refill [facility] [address] Chaudhary i, Refill Rheumatology [address] [place] [address] [place], [place] [address] (Wo rk) Social History Tobacco Use Types Packs/Day Years Used Date Smoking Tobacco: Never Smokeless Tobacco: Never Sex Assigned at Date Recorded Not on file documented as of this encounter Nursing Notes Melba Orlando RN - 04/30/2019 2:56 PM CST LV 08-05-2018 F[facility] 05-12-2019 Medication refill approved per protocol EY CREW CHIEF Carlota Stanley LPN - 04/30/2019 12:41 PM CST Refill folic acid. EY CREW CHIEF documented in this encounter Plan of Treatment Not on filedocumented as of this encounter Visit Diagnoses Not on filedocumented in this encounter Care Teams Hospital Pharmacy Technician Relationship Specialty Start Date End Date Micki Arzate MD PCP - General Internal Medicine [address]/29/[address] [place] [address] documented as of this encounter
--- OUTSIDE RECORDS SUMMARY | 2022-03-06 14:29 | XMS_ITS | Encounter Summary ---
:1955 Author Organization [facility] Address [address] [address] Care Team Providers Name Role Phone Micki Arzate MD Primary Care Provider Reason for Visit Reason Comments Injection shingrix Encounter Details Date Type Department Care Team Description 11/18/2018 Nursing Visit [facility] Encounter for Rheumatology immunization (Primary [address] Dx) [place], [place] [address] Social History Tobacco Use Types Packs/Day Years Used Date Smoking Tobacco: Never Smokeless Tobacco: Never Sex Assigned at Date Recorded Not on file documented as of this encounter Plan of Treatment Not on filedocumented as of this encounter Visit Diagnoses Diagnosis Encounter for immunization - Primary Need for other specified prophylactic va ccination against single bacterial disease documented in this encounter Care Teams Piano Sounding Board Matcher Relationship Specialty Start Date End Date Micki Arzate MD PCP - General Internal Medicine 01/29/[address] [place] [address] documented as of this encounter
--- OUTSIDE RECORDS SUMMARY | 2022-03-06 14:30 | XMS_ITS | Encounter Summary ---
:1955 Author Organization [facility] Address [address] [place] [address] Care Team Providers Name Role Phone Micki Arzate MD Primary Care Provider Reason for Visit Reason Comments Follow-up Encounter Details Date Type Department Care Team Description 11/15/2017 Office Visit [facility] Chaudhary art hritis with positive rheumatoid factor, involving unspecified site (HRC) (Primary Dx); Rheumatology MD Hugh Positive anti-CCP test; [address] [employer] [address] [place] [address] [facility] [phone] [place], [place] [phone] (Wo rk) Social History Tobacco Use Types [...] Not on filedocumented as of this encounter Results (ABNORMAL) CBC - Complete Blood Count W/Diff (11/15/2017 12:18 PM CDT) [facility] Method Time Signature White Blood Cell 8.6 [...] - 11/15/2017 12:20 PM CDT Performed at [facility], [address] [place] [address] CLIA number [id number] Hugh Chaudhary MD LAB_1 Performing Organization Address City/State/ZIP Code Phon e Number PN SOFT [address] [place] [address] [phone] ALT - Alanine Aminotransferase (11/15/2017 12:18 PM CDT) [facility] Method Time Signature Alanine 16 9 - 55 PN SO[facility] Aminotransferase U/L Specimen Anatomical Collection Method Collection Time Receive d Time (Source) Location / / Volume Laterality 11/15/2017 12:18 11/15/2017 PM CDT 12:18 PM CDT Narrative PN SOFT - 11/15/2017 2:54 PM CDT Performed at [facility], [facility] [address] [place] [id number] CLIA number [id number] Hugh Chaudhary MD LAB_1 Performing Organization Address [facility] Phon e Number [facility] [address] [place] [address] [phone] CREAT - Creatinine (11/15/2017 12:18 PM CDT) athologist Signature Creatinine Serum 0.90 [...] - 11/15/2017 2:54 PM CDT Performed at [facility], [facility] [address] [place] [address] CLIA number [id number] Hugh Chaudhary MD LAB_1 Performing Organization Address [facility] Phon e Number PN [facility] [address] [place] [address] documented in this encounter Visit Diagnoses Diagnosis Rheumatoid arthritis with positive rheum atoid factor, involving unspecified site (HRC) - Primary Positive anti-CCP test High risk medication use Encounter for long-term (current) use of other medications High risk medication use Encounter for long-term (current) use of other medications documented in this encounter Care Teams Accountant Machine Processing Relationship Specialty Start Date End Date Micki Arzate MD PCP - General Internal Medicine 01/29/[address] [place] [address] documented as of this encounter
--- OUTSIDE RECORDS SUMMARY | 2022-03-06 14:30 | XMS_ITS | Encounter Summary ---
:1955 Author Organization [facility] Address [address] [place] [address] Care Team Providers Name Role Phone Micki Arzate MD Primary Care Provider Encounter Details Date Type Department Care Team Description 05/30/2018 Lab Visit [facility] High risk medication use [address] [place] [address] Social History Tobacco Use Types Packs/Day Years Used Date Smoking Tobacco: Never Smokeless Tobacco: Never Sex Assigned at Date Recorded Not on file documented as of this encounter Plan of Treatment Not on filedocumented as of this encounter Procedures Procedure Name Priority Date/Time Associated Comments Diagnosis CREATININE / GFR Routine 05/30/2018 9:54 AM High risk Resul ts for this MANAGER REGISTRATION medication use procedure are in the results section. COMPLETE BLOOD Routine 05/30/2018 9:54 AM High risk Results for this COUNT-W/DIFF MANAGER REGISTRATION medication use procedure are in the results section. DIFFERENTIAL Routine 05/30/2018 9:54 AM Results f or this MANAGER REGISTRATION procedure are i n the results section. ALT (SGPT) Routine 05/30/2018 9:54 AM High risk Results f or this MANAGER REGISTRATION medication use procedure are in the results section. documented in this encounter Results Differential (05/30/2018 9:54 AM MANAGER REGISTRATION) P athologist Signature Absolute 4.7 1.8 - [...] Volume Laterality 05/30/2018 9:54 AM 9 9:54 MANAGER REGISTRATION AM MANAGER REGISTRATION Narrative PN SOFT - 05/30/2018 10:04 AM MANAGER REGISTRATION Performed at [facility], [facility] [address] [place] [address] CLIA number [id number] Hugh Chaudhary MD LAB_1 Performing Organization Address [facility] Phon e Number PN SOFT [address] [place] [address] [phone] CREAT - Creatinine - standing every 2 - 3 months (05/30/2018 9:54 AM MANAGER REGISTRATION) P athologist Signature Creatinine Serum 0.80 0.55 [...] Volume Laterality 05/30/2018 9:54 AM 9 9:54 MANAGER REGISTRATION AM MANAGER REGISTRATION Narrative PN SOFT - 05/30/2018 10:27 AM MANAGER REGISTRATION Performed at [facility], [address] [place] [address] CLIA number [id number] Hugh Chaudhary MD LAB_1 Performing Organization Address [facility] Phon e Number PN [facility] [address] [place] [address] CBC - Complete Blood Count W/Diff - standing every 2 - 3 months (05/30/2018 9:54 AM MANAGER REGISTRATION) athologist Signature White Blood Cell 6.9 3.8 [...] Volume Laterality 05/30/2018 9:54 AM 9 9:54 MANAGER REGISTRATION AM MANAGER REGISTRATION Narrative PN SOFT - 05/30/2018 10:04 AM MANAGER REGISTRATION Performed at [facility], [address] [place] [address] CLIA number [id number] Hugh Chaudhary MD LAB_1 Performing Organization Address City/[facility] Phon e Number PN SOFT [address] [place] [address] ALT - Alanine Aminotransferase - standing every 2 - 3 months (05/30/2018 9:54 AM MANAGER REGISTRATION) Patholo gist Method Time Signature Alanine 18 9 - 55 PN SOFT Aminotransferase U/L Specimen Anatomical Collection Method Collection Time Receive d Time (Source) Location / / Volume Laterality 05/30/2018 9:54 AM 9 9:54 MANAGER REGISTRATION AM MANAGER REGISTRATION Narrative PN SOFT - 05/30/2018 10:27 AM MANAGER REGISTRATION Performed at [facility], [address] [place] [address] CLIA number [id number] Hugh Chaudhary MD LAB_1 Performing Organization Address [facility] Phon e Number PN [facility] [address] [place] [address] documented in this encounter Visit Diagnoses Diagnosis High risk medication use Encounter for long-term (current) use of other medications documented in this encounter Care Teams Tuck Pointer Helper Relationship Specialty Start Date End Date Micki Arzate MD PCP - General Internal Medicine 01/29/[address] [place], [place] [phone] documented as of this encounter
--- OUTSIDE RECORDS SUMMARY | 2022-03-06 14:30 | XMS_ITS | Encounter Summary ---
:1955 Author Organization [facility] Address [address] [place] [address] Care Team Providers Name Role Phone Micki Arzate MD Primary Care Provider Reason for Visit Reason Comments Follow-up Encounter Details Date Type Department Care Team Description 02/25/2018 Office Visit [facility] Rheumatoid art hritis with positive rheumatoid factor, involving unspecified site (HRC) (Primary Dx); Rheumatology MD Hugh Positive anti-CCP test; [address] [place] [address] [facility] [phone] [place], [place] 5[address] (Wo rk) Social History Tobacco Use Types [...] medications documented in this encounter Care Teams Proof Load Mechanic Relationship Specialty Start Date End Date Micki Arzate MD PCP - General Internal Medicine 01/29/[address] [place] [address] documented as of this encounter
--- OUTSIDE RECORDS SUMMARY | 2022-03-06 14:30 | XMS_ITS | Encounter Summary ---
:1955 Author Organization [facility] Address [address], [place] [address] Care Team Providers Name Role Phone Micki Arzate MD Primary Care Provider Reason for Visit Reason Onset Date Comments Refill 07/16/2017 Encounter Details Date Type Department Care Team Description 07/16/2017 Refill [facility] [address] i, Refill Rheumatology [address] [place] [address] [place], [place] [address]356 (Wo rk) Social History Tobacco Use Types [...] Please check, sign and send. Thank you. ITUTIONAL NUTRITION CONSULTANT documented in this encounter Plan of Treatment Not on filedocumented as of this encounter Visit Diagnoses Not on filedocumented in this encounter Care Teams International Trade Teacher Relationship Specialty Start Date End Date Micki Arzate MD PCP - General Internal Medicine 01/29/[address] [place] [address] documented as of this encounter
--- OUTSIDE RECORDS SUMMARY | 2022-03-06 14:30 | XMS_ITS | Encounter Summary ---
:1955 Author Organization [employer] Address [address], [place] [address] Care Team Providers Name Role Phone Micki Arzate MD Primary Care Provider Reason for Visit Reason Comments Other Encounter Details Date Type Department Care Team Description 03/29/2017 Telephone [facility] [address] i, Other Rheumatology [address] [place] [address] [place], [place] [address] (Wo rk) Social History Tobacco Use Types Packs/Day Years Used Date Smoking Tobacco: Never Assessed Sex Assigned at Date Recorded Not on file documented as of this encounter Nursing Notes Franca Oseguera LPN - 03/29/2017 10:31 AM CST Contacted patient. States she understands. Will start the increased dose of methotrexate today. TIONS HANDLER Hugh Chaudhary MD - 03/29/2017 10:12 AM CST She will increase prednisone to 20 mg/d x 2 wk, 17.5 mg/d x 2 wk, then stay at 15 mg/d. At the same time, increase methotrexate to 20 mg/week (8 tabs). Faxed Rx of methotrexate to her Rx. TIONS HANDLER Lanny Spence LPN - 03/29/2017 9:41 AM CST Franca tells me that while on the taper of prednisone she has been experiencing some recurrent symptoms. Currently she is taking 15 mg daily and wonders if she should increase her current dose while waiting for the methotrexate to kick in. TIONS HANDLER documented in this encounter Plan of Treatment Not on filedocumented as of this encounter Visit Diagnoses Not on filedocumented in this encounter Care Teams Chocolate Dipper Relationship Specialty Start Date End Date Micki Arzate MD PCP - General Internal Medicine 01/29/[address] [place] [address] documented as of this encounter
--- OUTSIDE RECORDS SUMMARY | 2022-03-06 14:30 | XMS_ITS | Encounter Summary ---
:1955 Author Organization [facility] Address [address] [place] [address] Care Team Providers Name Role Phone Unavailable Primary Care Provider Unavailable Encounter Details Date Type Department Care Team Description 01/03/2021 Orders Only [facility] PCP [facility] Sa lux Morgan M.D. [address] [place], [place] [phone] (Wo rk) Social History Tobacco Use Types Packs/Day Years Used Date Smoking Tobacco: Never Sex Assigned at Date Recorded Not on file documented as of this encounter Plan of Treatment Not on filedocumented as of this encounter Visit Diagnoses Not on filedocumented in this encounter
--- OUTSIDE RECORDS SUMMARY | 2022-03-06 14:30 | XMS_ITS | Encounter Summary ---
:1955 Author Organization [employer] Address [address] [address] Care Team Providers Name Role Phone Micki Arzate MD Primary Care Provider Reason for Visit Reason Comments Medication Questions Encounter Details Date Type Department Care Team Description 07/16/[address] [facility] [address] on Questions Rheumatology MD Hugh [address] [place] [address] [phone] (Wo rk) Social History Tobacco Use Types Packs/Day Years Used Date Smoking Tobacco: Never Smokeless Tobacco: Never Sex Assigned at Date Recorded Not on file documented as of this encounter Nursing Notes Mary Gross MA - 07/16/2017 9:50 AM CST I called and left a message for patient with this information. STER ARBITRATOR Hugh Chaudhary MD - 07/16/2017 9:30 AM [...] Renetta to fax it with above instruction. STER ARBITRATOR Mary Gross MA - 07/16/2017 9:19 AM [...] back to 20 MG daily. Please advise. STER ARBITRATOR documented in this encounter Plan of Treatment Not on filedocumented as of this encounter Visit Diagnoses Not on filedocumented in this encounter Care Teams Parts Counter Salesperson Relationship Specialty Start Date End Date Micki Arzate MD PCP - General Internal Medicine 01/29/[address] [place] [address] documented as of this encounter
--- OUTSIDE RECORDS SUMMARY | 2022-03-06 14:30 | XMS_ITS | Encounter Summary ---
:1955 Author Organization [facility] Address [address] [place] [address] Care Team Providers Name Role Phone Micki Arzate MD Primary Care Provider Encounter Details Date Type Department Care Team Description 11/15/2017 Lab Visit [facility] High risk medication use [address] [place] [address] Social History Tobacco Use Types [...] Results (ABNORMAL) Differential (11/15/2017 12:18 PM CDT) [facility] Method Time Signature Absolute 6.2 1.8 - [...] - 11/15/2017 12:20 PM CDT Performed at [facility], [facility] [address] [place] [address] CLIA number [id number] Hugh Chaudhary MD LAB_1 Performing Organization Address [facility] [[email or web address] Code Phon e Number PN SOFT [address] [place], [place] [address] (ABNORMAL) CBC - Complete Blood Count W/Diff (11/15/2017 12:18 PM CDT) [facility] Method Time Signature White Blood Cell 8.6 [...] - 11/15/2017 12:20 PM CDT Performed at [facility], [address] [place] [address] CLIA number [id number] Hugh Chaudhary MD LAB_1 Performing Organization Address City/[facility]/ZIP Code Phon e Number PN SOFT [address] [place] [address] [phone] ALT - Alanine Aminotransferase (11/15/2017 12:18 PM CDT) Patholo gist Method Time Signature Alanine 16 9 - 55 PN SOFT Aminotransferase U/L Specimen Anatomical Collection Method Collection Time Receive d Time (Source) Location / / Volume Laterality 11/15/2017 12:18 11/15/2017 PM CDT 12:18 PM CDT Narrative PN SOFT - 11/15/2017 2:54 PM CDT Performed at [facility], [address] [place], [place] [address] CLIA number [id number] Hugh Chaudhary MD LAB_1 Performing Organization Address [facility] Phon e Number PN SOFT [address] [place] [address] [phone] CREAT - Creatinine (11/15/2017 12:18 PM CDT) [...] - 11/15/2017 2:54 PM CDT Performed at [facility], [address] [place] [address] CLIA number [id number] Hugh Chaudhary MD LAB_1 Performing Organization Address [facility] Phon e Number PN SOFT [address] [place] [address] documented in this encounter Visit Diagnoses Diagnosis High risk medication use Encounter for long-term (current) use of other medications documented in this encounter Care Teams Cloth Tester Quality Relationship Specialty Start Date End Date Micki Arzate MD PCP - General Internal Medicine 01/29/[address] [place] [address] documented as of this encounter
--- OUTSIDE RECORDS SUMMARY | 2022-03-06 14:30 | XMS_ITS | Encounter Summary ---
:1955 Author Organization [facility] Address [address] [address] Care Team Providers Name Role Phone Micki Arzate MD Primary Care Provider Reason for Visit Reason Comments Medication Questions Encounter Details Date Type Department Care Team Description 09/11/2017 Telephone [facility] [address] on Questions Rheumatology MD Hugh [address] [address] [phone] (Wo rk) Social History Tobacco Use Types [...] any biologics could potentially have copayment assistant accounting manager programs for her. She will read about these more and will call me back with her decisions. Carlota Stanley LPN - 09/11/2017 3:13 PM CDT Patient wants to discuss Actemra with you. This is the best number to reach her.[phone] Okay for . documented in this encounter Plan of Treatment Not on filedocumented as of this encounter Visit Diagnoses Not on filedocumented in this encounter Care Teams Net Sql Developer Relationship Specialty Start Date End Date Micki Arzate MD PCP - General Internal Medicine 01/29/171999 [place] [address] documented as of this encounter
--- OUTSIDE RECORDS SUMMARY | 2022-03-06 14:30 | XMS_ITS | Encounter Summary ---
:1955 Author Organization [facility] Address [address], [place] [address] Care Team Providers Name Role Phone Micki Arzate MD Primary Care Provider Encounter Details Date Type Department Care Team Description 02/20/2017 Lab Visit [facility] [address] Rheumato[address] d arthritis, involving unspecified site, unspecified rheumatoid factor presence (HRC); Laboratory High risk medication use [address] [place], [place] [address] Social History Tobacco Use Types Packs/Day Years [...] Results (ABNORMAL) Differential (02/20/2017 8:47 AM CDT) [facility] gist Method Time Signature Absolute 6.9 1.8 [...] - 02/20/2017 8:56 AM CDT Performed at [facility], [address] [place] [address] CLIA number [id number] Hugh Chaudhray MD LAB_1 Performing Organization Address [facility] Phon e Number PN SOFT [address] [place] [address] HCAB - Hepatitis C Virus Kimberly with Reflex In-House (02/20/2017 8:47 AM CDT) [facility] Method Time Signature Hepatitis C Nonreactive Nonreactive PN SOFT Antibody Specimen Anatomical Collection Method Collection Time Receive d Time (Source) Location / / Volume Laterality 02/20/2017 8:47 AM 7 CDT 11:21 AM CDT Narrative PN SOFT - 02/20/2017 12:52 PM CDT Performed at [address] [address] CLIA number [id number] Hugh Chaudhary MD LAB_1 Performing Organization Address [facility] Phon e Number PN SOFT [address] [place] [address] HBAG - Hepatitis B Surf Ag (02/20/2017 8:47 AM CDT) [facility] Method Time Signature Hep B Surf Ag Nonreactive Nonreactive PN SOFT Specimen Anatomical Collection Method Collection Time Receive d Time (Source) Location / / Volume Laterality 02/20/2017 8:47 AM 7 CDT 11:20 AM CDT Narrative PN SOFT - 02/20/2017 12:46 PM CDT Performed at [place] [address] [place] [address] CLIA number [id number] Hugh Chaudhary MD LAB_1 Performing Organization Address [facility] Phon e Number PN SOFT [address] [place] [address] HBCB - Hepatitis B Core Antibody Total (02/20/2017 8:47 AM CDT) [facility] Method Time Signature Hepatitis B Nonreactive PN SOFT Core Total Antibody Specimen Anatomical Collection Method Collection Time Receive d Time (Source) Location / / Volume Laterality 02/20/2017 8:47 AM 7 CDT 11:20 AM CDT Narrative PN SOFT - 02/20/2017 12:46 PM CDT Performed at [facility], [address] [place] [address] CLIA number [id number] Hugh Chaudhary MD LAB_1 Performing Organization Address [facility] Phon e Number PN SOFT [address] [place] [address] (ABNORMAL) ESR - Sedimentation Rate (02/20/2017 8:47 AM CDT) [facility] gist Method Time Signature Sedimentation Rate 64 (H) 0 - 20 PN SOFT mm/hr Specimen Anatomical Collection Method Collection Time Receive d Time (Source) Location / / Volume Laterality 02/20/2017 8:47 AM 7 8:47 CDT AM CDT Narrative PN SOFT - 02/20/2017 9:29 AM CDT Performed at [facility], [address] [place] [address] CLIA number [id number] Hugh Chaudhary MD LAB_1 Performing Organization Address [facility] Phon e Number PN SOFT [address] [place] [address] (ABNORMAL) CRP - C Reactive Protein (02/20/2017 8:47 AM CDT) P athologist Signature CRP 16.4 (H) 0.0 - 0.5 PN SOFT mg/dL Specimen Anatomical Collection Method Collection Time Receive d Time (Source) Location / / Volume Laterality 02/20/2017 8:47 AM 7 8:47 CDT AM CDT Narrative PN SOFT - 02/20/2017 10:21 AM CDT Performed at [facility], [address] [place] [address] CLIA number [id number] Hugh Chaudhary MD LAB_1 Performing Organization Address [facility] Phon e Number PN SOFT [address] [place] [address] CBC - Complete Blood Count W/Diff (02/20/2017 [...] - 02/20/2017 8:56 AM CDT Performed at [facility], [address] [place] [address] CLIA number [id number] Hugh Chaudhary MD LAB_1 Performing Organization Address City/State/ZIP Code Phon e Number PN SOFT [address] [place] [address] CREAT - Creatinine (02/20/2017 8:47 AM CDT) [...] - 02/20/2017 10:21 AM CDT Performed at [facility], [address] [place], [place] [id number] CLIA number [id number] Hugh Chaudhary MD LAB_1 Performing Organization Address [facility] Phon e Number PN SOFT [address] [place] [address] ALT - Alanine Aminotransferase (02/20/2017 8:47 AM CDT) [facility] gist Method Time Signature Alanine 20 9 - 55 PN SOFT Aminotransferase U/L Specimen Anatomical Collection Method Collection Time Receive d Time (Source) Location / / Volume Laterality 02/20/2017 8:47 AM 7 8:47 CDT AM CDT Narrative PN SOFT - 02/20/2017 10:21 AM CDT Performed at [address] [address] CLIA number [id number] Hugh Chaudhary MD LAB_1 Performing Organization Address [facility] Phon e Number PN SOFT [address] [place] [address] [phone] documented in this encounter Visit Diagnoses Diagnosis Rheumatoid arthritis, involving unspecif ied site, unspecified rheumatoid factor presence (HRC) High risk medication use Encounter for long-term (current) use of other medications documented in this encounter Care Teams Stave Bolt Equalizer Relationship Specialty Start Date End Date Micki Arzate MD PCP - General Internal Medicine 01/29/17[address] [place] [address] documented as of this encounter
--- OUTSIDE RECORDS SUMMARY | 2022-03-06 14:30 | XMS_ITS | Encounter Summary ---
:1955 Author Organization [employer] Address [address] [place] [address] Care Team Providers Name Role Phone Micki Arzate MD Primary Care Provider Reason for Visit Reason Comments Follow-up Encounter Details Date Type Department Care Team Description 09/03/2017 Office Visit Temo [place]co Chaudhary art hritis with positive rheumatoid factor, involving unspecified site (HRC) (Primary Dx); Rheumatology MD Hugh High risk medication use [address] [address] [facility] [phone] [place] [address] (Wo rk) Social History Tobacco [...] on filedocumented as of this encounter Results T SPOT [...] - 09/09/2017 4:11 PM CDT Performed at [facility], [address] [place] [address] CLIA number [id number] Hugh Chaudhary MD LAB_1 Performing Organization Address City/State/ZIP Code [facility] e Number PN SOFT [address] [place] [address] documented in this encounter Visit Diagnoses Diagnosis Rheumatoid arthritis with positive rheum atoid factor, involving unspecified site (HRC) - Primary High risk medication use Encounter for long-term (current) use of other medications High risk medication use Encounter for long-term (current) use of other medications documented in this encounter Care Teams Optical Instrument Assembly Supervisor Relationship Specialty Start Date End Date Micki Arzate MD PCP - General Internal Medicine 01/29/[address] [place] [address] documented as of this encounter
--- OUTSIDE RECORDS SUMMARY | 2022-03-06 14:30 | XMS_ITS | Clinical Summary ---
:1955 Author Organization [facility] Address [address] [place] [address] Care Team Providers Name Role Phone Unavailable Primary Care Provider Unavailable Source Comments Patient records contain information from all sites at [facility]. For routine questions regarding patient records, call [phone] during business hours, M-F 8:00 AM - 5:00 PM Central Time. Record requests for emergency care only can be directed to [phone] at any time.[facility] Allergies Active Allergy Reactions Severity Noted Date [...] 05/20/2021 PHQ-2) Fall Risk Screen (Annual) 05/20/2021 COVID-19 Vaccine (6 - Booster for 01/05/2022 11/10/2021, , Moderna series) 01/20/2021, Additional history exists Influenza Vaccine (#1) 2022 03/16/2021, 02/13/2020, 03/03/2019, Additional history exists Pneumococcal vaccine (65+ years) 03/03/2024 03/03/2019, 10/2017 (3 - PPSV23 if available, else PCV20) DTaP,Tdap,and Td Vaccines (3 - Td 01/01/2029 01/01/2019, or Tdap) Zoster Vaccines Completed 11/18/2018, 08/05/2018 Cervical Cancer Screening Discontinued 01/01/2019 Insurance Payer Benefit Plan Subscriber ID Effective Phone Address Typ e / Group Dates MEDICARE MEDICARE A [id number] 2020-Pre [address] [place] [address] BLUE CROSS BCBS HOONAH [id number] 2020-Pres [phone] PO CAROLINE X Cost Share BLUE SHIELD BLUE COST ent [phone] [address] [place] [id number]
--- OUTSIDE RECORDS SUMMARY | 2022-03-06 14:30 | XMS_ITS | Encounter Summary ---
:1955 Author Organization [employer] Address [address] [place] [address] Care Team Providers Name Role Phone Micki Arzate MD Primary Care Provider Reason for Visit Reason Comments Follow-up Encounter Details Date Type Department Care Team Description 06/25/2017 Office Visit Temo Nimco Chaudhary art hritis with positive rheumatoid factor, involving unspecified site (HRC) (Primary Dx); Rheumatology MD Hugh Rheumatoid factor positive; [address] [place] [address] High risk medication use; [place] [address] [facility] Positive anti-CCP test [phone] [place], [place] [address] (Wo rk) Social History Tobacco Use Types Packs/Day Years Used Date Smoking Tobacco: Never Smokeless Tobacco: Never Sex Assigned at Date Recorded Not on file documented as of this encounter Last Filed Vital Signs Vital Sign Reading Time Taken Comments Blood Pressure 135/78 06/25/2017 3:26 PM GENERAL SERVICE TECHNICIAN Pulse 72 06/25/2017 3:26 PM GENERAL SERVICE TECHNICIAN Temperature - - Respiratory Rate - - Oxygen Saturation - - Inhaled Oxygen Concentration - - Weight 61.2 kg (135 lb) 06/25/2017 3:26 PM GENERAL SERVICE TECHNICIAN Height - - Body Mass Index 25.51 [...] time is 15 minutes, 10 minutes counseling. RAL SERVICE TECHNICIAN documented in this encounter Plan of Treatment Not on filedocumented as of this encounter Visit Diagnoses Diagnosis Rheumatoid arthritis with positive rheum atoid factor, involving unspecified site (HRC) - Primary Rheumatoid factor positive Other and unspecified nonspecific immuno logical findings High risk medication use Encounter for long-term (current) use of other medications Positive anti-CCP test documented in this encounter Care Teams Personnel Analyst Relationship Specialty Start Date End Date Micki Arzate MD PCP - General Internal Medicine 01/29/171999 [place] [address] documented as of this encounter
--- OUTSIDE RECORDS SUMMARY | 2022-03-06 14:30 | XMS_ITS | Encounter Summary ---
:1955 Author Organization [facility] Address [address] [place] [address] Care Team Providers Name Role Phone Micki Arzate MD Primary Care Provider Reason for Visit Reason Onset Date Comments Refill 05/06/2018 Encounter Details Date Type Department Care Team Description 05/06/2018 Refill [facility] [address] i, Refill Rheumatology [address] [place] [address] [place], [place] [address] (Wo rk) Social History Tobacco Use Types [...] Value Date/Time Creatinine Serum 0.90 02/25/2018 1307 SUGAR OPERATOR HEAD Karime Schuster - 05/06/2018 5:53 PM CST Last Visit: 02/25/18 Future Visit: 06/20/18 SUGAR OPERATOR HEAD documented in this encounter Plan of Treatment Not on filedocumented as of this encounter Visit Diagnoses Not on filedocumented in this encounter Care Teams Early Childhood Associate Relationship Specialty Start Date End Date Micki Arzate MD PCP - General Internal Medicine 01/29/[address] [place] [address] documented as of this encounter
--- OUTSIDE RECORDS SUMMARY | 2022-03-06 14:30 | XMS_ITS | Encounter Summary ---
:1955 Author Organization [facility] Address [address] [place] [address] Care Team Providers Name Role Phone Micki Arzate MD Primary Care Provider Encounter Details Date Type Department Care Team Description 09/03/2017 Lab Visit [facility] High risk medication use [address] [place] [address] Social History Tobacco Use Types Packs/Day Years Used Date Smoking Tobacco: Never Smokeless Tobacco: Never Sex Assigned at Date Recorded Not on file documented as of this encounter Plan of Treatment Not on filedocumented as of this encounter Visit Diagnoses Diagnosis High risk medication use Encounter for long-term (current) use of other medications documented in this encounter Care Teams Aircraft Log Clerk Relationship Specialty Start Date End Date Micki Arzate MD PCP - General Internal Medicine 01/29/17[address] [place] [address] documented as of this encounter
--- OUTSIDE RECORDS SUMMARY | 2022-03-06 14:30 | XMS_ITS | Encounter Summary ---
:1955 Author Organization [facility] Address [address], [place] [address] Care Team Providers Name Role Phone Micki Arzate MD Primary Care Provider Reason for Visit Reason Onset Date Comments Refill 04/23/2017 Encounter Details Date Type Department Care Team Description 04/23/2017 Refill [facility] [address] Chaudhary i, Refill Rheumatology [address] [place] [address] [place] [address] [phone] (Wo rk) Social History Tobacco Use Types [...] Please sign order if appropriate. Thank you. R PIPE SORTER documented in this encounter Plan of Treatment Not on filedocumented as of this encounter Visit Diagnoses Diagnosis Rheumatoid arthritis, involving unspecif ied site, unspecified rheumatoid factor presence (HRC) - Primary High risk medication use Encounter for long-term (current) use of other medications documented in this encounter Care Teams College Specialist Relationship Specialty Start Date End Date Micki Arzate MD PCP - General Internal Medicine 01/29/[address] [place] [address] documented as of this encounter
--- OUTSIDE RECORDS SUMMARY | 2022-03-06 14:30 | XMS_ITS | Encounter Summary ---
:1955 Author Organization [facility] Address [address], [place] [address] Care Team Providers Name Role Phone Micki Arzate MD Primary Care Provider Encounter Details Date Type Department Care Team Description 04/23/2017 Notes/Orders [facility] [address], Rheumatology MD Hugh [address] [facility] [address] [place] [address] [place] [address] [phone] (Wo rk) Social History Tobacco Use Types Packs/Day Years Used Date Smoking Tobacco: Never Smokeless Tobacco: Never Sex Assigned at Date Recorded Not on file documented as of this encounter Plan of Treatment Not on filedocumented as of this encounter Visit Diagnoses Not on filedocumented in this encounter Care Teams Equipment Installation Professional Relationship Specialty Start Date End Date Micki Arzate MD PCP - General Internal Medicine 01/29/[address] [place] [address] documented as of this encounter
--- OUTSIDE RECORDS SUMMARY | 2022-03-06 14:30 | XMS_ITS | Encounter Summary ---
:1955 Author Organization [facility] Address [address] [place] [address] Care Team Providers Name Role Phone Micki Arzate MD Primary Care Provider Encounter Details Date Type Department Care Team Description 03/26/2017 Lab Visit [facility] High risk medication use [address] [place] [address] Social History Tobacco Use Types Packs/Day Years Used Date Smoking Tobacco: Never Assessed Sex Assigned at Date Recorded Not on file documented as of this encounter Plan of Treatment Not on filedocumented as of this encounter Procedures Procedure Name Priority Date/Time Associated Comments Diagnosis CREATININE / GFR Routine 03/26/2017 2:08 PM High risk Resul ts for this AUTO INSPECTOR medication use procedure are in the results section. COMPLETE BLOOD Routine 03/26/2017 2:08 PM High risk Results for this COUNT-W/DIFF AUTO INSPECTOR medication use procedure are in the results section. DIFFERENTIAL Routine 03/26/2017 2:08 PM Results f or this AUTO INSPECTOR procedure are i n the results section. ALT (SGPT) Routine 03/26/2017 2:08 PM High risk Results f or this AUTO INSPECTOR medication use procedure are in the results section. documented in this encounter Results Differential (03/26/2017 2:08 PM AUTO INSPECTOR) P athologist Signature Absolute 5.4 1.8 - [...] Volume Laterality 03/26/2017 2:08 PM 7 2:08 AUTO INSPECTOR PM AUTO INSPECTOR Narrative PN SOFT - 03/26/2017 2:11 PM AUTO INSPECTOR Performed at [facility], [address] [place] [address] CLIA number [id number] Hugh Chaudhary MD LAB_1 Performing Organization Address [facility] [place] Phon e Number PN SOFT [address] [place] [address] CREAT - Creatinine - standing every 2 - 3 months (03/26/2017 2:08 PM AUTO INSPECTOR) P athologist Signature Creatinine Serum 0.80 0.55 [...] Volume Laterality 03/26/2017 2:08 PM 7 2:08 AUTO INSPECTOR PM AUTO INSPECTOR Narrative PN SOFT - 03/26/2017 4:08 PM AUTO INSPECTOR Performed at [facility], [address] [place] [address] CLIA number [id number] Hugh Chaudhary MD LAB_1 Performing Organization Address [facility] [place] Phon e Number PN SOFT [address] [place] [address] (ABNORMAL) CBC - Complete Blood Count W/Diff - standing every 2 - 3 months (03/26/2017 2:08 PM AUTO INSPECTOR) Patholo gist Method Time Signature White Blood Cell 7.5 [...] Volume Laterality 03/26/2017 2:08 PM 7 2:08 AUTO INSPECTOR PM AUTO INSPECTOR Narrative PN SOFT - 03/26/2017 2:11 PM AUTO INSPECTOR Performed at [facility], [address] [place], [place] [address] CLIA number [id number] Hugh Chaudhary MD LAB_1 Performing Organization Address City[facility] [place] Phon e Number PN SOFT [address] [place] [address] ALT - Alanine Aminotransferase - standing every 2 - 3 months (03/26/2017 2:08 PM AUTO INSPECTOR) [facility] gist Method Time Signature Alanine 21 9 - 55 PN SOFT Aminotransferase U/L Specimen Anatomical Collection Method Collection Time Receive d Time (Source) Location / / Volume Laterality 03/26/2017 2:08 PM 7 2:08 AUTO INSPECTOR PM AUTO INSPECTOR Narrative PN SOFT - 03/26/2017 4:08 PM AUTO INSPECTOR Performed at [facility], [address] [place] [address] CLIA number [id number] Hugh Chaudhary MD LAB_1 Performing Organization Address [facility] [place] Phon e Number PN SOFT [address] [place] [address] documented in this encounter Visit Diagnoses Diagnosis High risk medication use Encounter for long-term (current) use of other medications documented in this encounter Care Teams Tile Molder Relationship Specialty Start Date End Date Micki Arzate MD PCP - General Internal Medicine 01/29/[address] [place] [address] documented as of this encounter
--- OUTSIDE RECORDS SUMMARY | 2022-03-06 14:30 | XMS_ITS | Encounter Summary ---
:1955 Author Organization [facility] Address [address] [place] [address] Care Team Providers Name Role Phone Micki Arzate MD Primary Care Provider Encounter Details Date Type Department Care Team Description 09/04/2017 Lab Visit [facility] High risk medication use [address] [place] [address] Social History Tobacco Use Types [...] Results (ABNORMAL) Differential (09/04/2017 8:46 AM CDT) [facility] Method Time Signature Absolute 6.7 1.8 - [...] - 09/04/2017 8:56 AM CDT Performed at [facility], [address] [place] [address] CLIA number [id number] Hugh Chaudhary MD LAB_1 Performing Organization Address [facility] Phon e Number PN SOFT [address] [place] [address] Creatinine / GFR (09/04/2017 8:46 AM CDT) athologist Signature Creatinine Serum 0.80 0.55 - [...] - 09/04/2017 10:10 AM CDT Performed at [facility], [address] [place] [address] CLIA number [id number] Hugh Chaudhary MD LAB_1 Performing Organization Address [facility] Phon e Number PN SOFT [address] [place] [address] Alanine Aminotransferase - ALT (SGPT) (09/04/2017 8:46 AM CDT) [facility] gist Method Time Signature Alanine 14 9 - 55 PN SOFT Aminotransferase U/L Specimen Anatomical Collection Method Collection Time Receive d Time (Source) Location / / Volume Laterality 09/04/2017 8:46 AM 8 8:46 CDT AM CDT Narrative PN SOFT - 09/04/2017 10:10 AM CDT Performed at [facility], [facility] [address] [place] [address] CLIA number [id number] Hugh Chaudhary MD LAB_1 Performing Organization Address [facility] Phon e Number PN SOFT [address] [place] [address] CBC - Complete Blood Count-W/Diff (09/04/2017 8:46 AM CDT) athologist Signature White Blood Cell 8.0 3.8 [...] - 09/04/2017 8:56 AM CDT Performed at [facility], [facility] 0 [place] [address] CLIA number [id number] Hugh Chaudhary MD LAB_1 Performing Organization Address [facility] Phon e Number PN SOFT [address] [place] [address] [phone] T SPOT TB Test (09/04/2017 8:46 AM [...] - 09/09/2017 4:11 PM CDT Performed at [facility], [address] [place] [address] CLIA number [id number] Hugh Chaudhary MD LAB_1 Performing Organization Address City/State/ZIP Code Phon e Number PN SOFT [address] [place] [address] [phone] documented in this encounter Visit Diagnoses Diagnosis High risk medication use Encounter for long-term (current) use of other medications documented in this encounter Care Teams Microphone Operator Relationship Specialty Start Date End Date Micki Arzate MD PCP - General Internal Medicine 01/29/[address] [place] [address] documented as of this encounter
--- OUTSIDE RECORDS SUMMARY | 2022-03-06 14:30 | XMS_ITS | Encounter Summary ---
:1955 Author Organization [facility] Address [address] [place] [address] Care Team Providers Name Role Phone Micki Arzate MD Primary Care Provider Encounter Details Date Type Department Care Team Description 09/03/2017 Notes/Orders [place] shahbaz Chaudhary, [address] [facility] [place] [address] [address] [facility] [phone] [facility] N 889736 (Wo rk) Social History Tobacco Use Types Packs/Day Years Used Date Smoking Tobacco: Never Smokeless Tobacco: Never Sex Assigned at Date Recorded Not on file documented as of this encounter Plan of Treatment Not on filedocumented as of this encounter Visit Diagnoses Not on filedocumented in this encounter Care Teams Track Repairer Helper Relationship Specialty Start Date End Date Micki Arzate MD PCP - General Internal Medicine 01/29/[address] [place] [address] documented as of this encounter
--- OUTSIDE RECORDS SUMMARY | 2022-03-06 14:30 | XMS_ITS | Encounter Summary ---
:1955 Author Organization [facility] Address [address] [place] [address] Care Team Providers Name Role Phone Micki Arzate MD Primary Care Provider Encounter Details Date Type Department Care Team Description 09/03/2017 Notes/Orders [facility] [place], High risk medication [address] [facility] MD Hugh use (Primary Dx) [place] [address] [facility] [phone] [place], [place] [phone] (Wo rk) Social History Tobacco Use Types Packs/Day Years Used Date Smoking Tobacco: Never Smokeless Tobacco: Never Sex Assigned at Date Recorded Not on file documented as of this encounter Plan of Treatment Not on filedocumented as of this encounter Results Creatinine / [...] - 09/04/2017 10:10 AM CDT Performed at [facility] [address] [place] [address] CLIA number [id number] Hugh Chaudhary MD LAB_1 Performing Organization Address [facility] Phon e Number PN SOFT [address] [place] [address] Alanine Aminotransferase - ALT (SGPT) (09/04/2017 8:46 AM CDT) Patholo gist Method Time Signature Alanine 14 9 - 55 PN SOFT Aminotransferase U/L Specimen Anatomical Collection Method Collection Time Receive d Time (Source) Location / / Volume Laterality 09/04/2017 8:46 AM 8 8:46 CDT AM CDT Narrative PN SOFT - 09/04/2017 10:10 AM CDT Performed at [facility]), [facility] 0 [place] [address] CLIA number [id number] Hugh Chaudhary MD LAB_1 Performing Organization Address [facility] Phon e Number PN SOFT [address] [place] [address] CBC - Complete Blood Count-W/Diff (09/04/2017 8:46 [...] - 09/04/2017 8:56 AM CDT Performed at [facility] [address] [facility], [place] [address] CLIA number [id number] Hugh Chaudhary MD LAB_1 Performing Organization Address City/State/ZIP Code Phon e Number PN SOFT [address] [place] [address] [phone] documented in this encounter Visit Diagnoses Diagnosis High risk medication use - Primary Encounter for long-term (current) use of other medications High risk medication use Encounter for long-term (current) use of other medications documented in this encounter Care Teams Lockstitcher Relationship Specialty Start Date End Date Micki Arzate MD PCP - General Internal Medicine 01/29/[address] [place] [address] documented as of this encounter
--- OUTSIDE RECORDS SUMMARY | 2022-03-06 14:30 | XMS_ITS | Encounter Summary ---
:1955 Author Organization [facility] Address [address] [place] [address] Care Team Providers Name Role Phone Micki Arzate MD Primary Care Provider Encounter Details Date Type Department Care Team Description 02/25/2018 Lab Visit [facility] High risk medication use [address] [place] [address] Social History Tobacco Use Types [...] encounter Results Differential (02/25/2018 1:07 PM CDT) P athologist Signature Absolute 2.6 1.8 - 8.0 [...] - 02/25/2018 1:11 PM CDT Performed at [facility], [facility] 0 [place] [address] CLIA number [id number] Hugh Chaudhary MD LAB_1 Performing Organization Address [facility] [place] [facility] Phon e Number PN SOFT [address] [place] [address] [phone] CREAT - Creatinine - standing every 2 [...] - 02/25/2018 2:23 PM CDT Performed at [facility], [address] [place] [address] CLIA number [id number] Hugh Chaudhary MD LAB_1 Performing Organization Address [facility] [place] [facility] Phon e Number PN SOFT [address] [place] [address] (ABNORMAL) CBC - Complete Blood Count W/Diff - standing every 2 - 3 months (02/25/2018 1:07 PM CDT) [facility] Method Time Signature White Blood Cell 5.0 [...] - 02/25/2018 1:11 PM CDT Performed at [facility], [address] [place] [address] CLIA number [id number] Hugh Chaudhary MD LAB_1 Performing Organization Address [facility] [place] [facility] Phon e Number PN SOFT [address] [place] [address] ALT - Alanine Aminotransferase - standing every 2 - 3 months (02/25/2018 1:07 PM CDT) [facility] Method Time Signature Alanine 21 9 - 55 PN SOFT Aminotransferase U/L Specimen Anatomical Collection Method Collection Time Receive d Time (Source) Location / / Volume Laterality 02/25/2018 1:07 PM 8 1:07 CDT PM CDT Narrative PN SOFT - 02/25/2018 2:23 PM CDT Performed at [place] [address] [address] [place] [address] CLIA number [id number] Hugh Chaudhary MD LAB_1 Performing Organization Address [facility] Phon e Number PN SOFT [address] [place] [address] documented in this encounter Visit Diagnoses Diagnosis High risk medication use Encounter for long-term (current) use of other medications documented in this encounter Care Teams Pack Mule Worker Relationship Specialty Start Date End Date Micki Arzate MD PCP - General Internal Medicine 01/29/[address] [place] [address] documented as of this encounter
--- OUTSIDE RECORDS SUMMARY | 2022-03-06 14:30 | XMS_ITS | Encounter Summary ---
:1955 Author Organization [facility] Address [address] [place] [address] Care Team Providers Name Role Phone Micki Arzate MD Primary Care Provider Reason for Visit Reason Comments CONSULT Encounter Details Date Type Department Care Team Description 02/20/2017 Initial Consult [facility] [address], Rheum atoid arthritis, involving unspecified site, unspecified rheumatoid factor presence (HRC) (Primary Dx); Rheumatology MD Hugh Rheumatoid factor positive; [address] [place] [address] [place] Pos itive anti-CCP test; [facility]. 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 Nonsmoker. Social drinker once a week. [...] joints. Laboratory exams: No laboratory evaluation within [facility] system. Outside records: On 01/20/2017, rheumatoid factor [...] blood test monitoring. We also discussed about atmaerbfp-ei-trqckm approach and association of rheumatoid arthritis with [...] 40 minutes counseling. CC: [place] [address] documented in this encounter Plan of Treatment Not on filedocumented as of this encounter Results HCAB - Hepatitis C Virus Kimberly with Reflex In-House (02/20/2017 8:47 AM CDT) [facility] gist Method Time Signature Hepatitis C Nonreactive Nonreactive PN SOFT Antibody Specimen Anatomical Collection Method Collection Time Receive d Time (Source) Location / / Volume Laterality 02/20/2017 8:47 AM 7 CDT 11:21 AM CDT Narrative PN SOFT - 02/20/2017 12:52 PM CDT Performed at [place] [id number] CLIA number [id number] Hugh Chaudhary MD LAB_1 Performing Organization Address [facility] Phon e Number MELIA BARON [address] [place] [address] HBAG - Hepatitis B Surf Ag (02/20/2017 8:47 AM CDT) [facility] Method Time Signature Hep B Surf Ag Nonreactive Nonreactive PN SOFT Specimen Anatomical Collection Method Collection Time Receive d Time (Source) Location / / Volume Laterality 02/20/2017 8:47 AM 7 CDT 11:20 AM CDT Narrative PN SOFT - 02/20/2017 12:46 PM CDT Performed at [address] [address] CLIA number [id number] Hugh Chaudhary MD LAB_1 Performing Organization Address [facility] [place] [facility] Phon e Number MELIA BARON [address] [place] [address] HBCB - Hepatitis B Core Antibody Total (02/20/2017 8:47 AM CDT) [facility] Signature Hepatitis B Nonreactive PN SOFT Core Total Antibody Specimen Anatomical Collection Method Collection Time Receive d Time (Source) Location / / Volume Laterality 02/20/2017 8:47 AM 7 CDT 11:20 AM CDT Narrative PN SOFT - 02/20/2017 12:46 PM CDT Performed at [address] [address] CLIA number [id number] Hugh Chaudhary MD LAB_1 Performing Organization Address [facility] [place] [facility] Phon e Number MELIA BARON [address] [place] [address] (ABNORMAL) ESR - Sedimentation Rate (02/20/2017 8:47 AM CDT) [facility] Method Time Signature Sedimentation Rate 64 (H) 0 - 20 PN SOFT mm/hr Specimen Anatomical Collection Method Collection Time Receive d Time (Source) Location / / Volume Laterality 02/20/2017 8:47 AM 7 8:47 CDT AM CDT Narrative PN SOFT - 02/20/2017 9:29 AM CDT Performed at [facility], [address] [place] [address] CLIA number [id number] Hugh Chaudhary MD LAB_1 Performing Organization Address [facility] [place] [facility] Phon e Number PN SOFT [address] [place] [address] (ABNORMAL) CRP - C Reactive Protein (02/20/2017 8:47 AM CDT) P athologist Signature CRP 16.4 (H) 0.0 - 0.5 PN SOFT mg/dL Specimen Anatomical Collection Method Collection Time Receive d Time (Source) Location / / Volume Laterality 02/20/2017 8:47 AM 7 8:47 CDT AM CDT Narrative PN SOFT - 02/20/2017 10:21 AM CDT Performed at [facility], [address] [place] [address] CLIA number [id number] Hugh Chaudhary MD LAB_1 Performing Organization Address [facility] [place] [facility] Phon e Number PN SOFT [address] [place] [address] CBC - Complete Blood Count W/Diff (02/20/2017 [...] 02/20/2017 8:56 AM CDT Performed at [facility], [address] [place] [address] CLIA number [id number] Hugh Chaudhary MD LAB_1 Performing Organization Address [facility] [place] [facility] Phon e Number PN SOFT [address] [place] [address] CREAT - Creatinine (02/20/2017 8:47 AM CDT) [...] 02/20/2017 10:21 AM CDT Performed at [facility], [address] [place] [address] CLIA number [id number] Hugh Chaudhary MD LAB_1 Performing Organization Address [facility] [place] [facility] Phon e Number PN SOFT [address] [place] [address] ALT - Alanine Aminotransferase (02/20/2017 8:47 AM CDT) Patholo gist Method Time Signature Alanine 20 9 - 55 PN SOFT Aminotransferase U/L Specimen Anatomical Collection Method Collection Time Receive d Time (Source) Location / / Volume Laterality 02/20/2017 8:47 AM 7 8:47 CDT AM CDT Narrative PN SOFT - 02/20/2017 10:21 AM CDT Performed at [facility], [address] [place] [address] CLIA number [id number] Hugh Chaudhary MD LAB_1 Performing Organization Address City/State/ZIP Code Phon e Number PN SOFT [address] [place] [address] documented in this encounter Visit Diagnoses Diagnosis Rheumatoid arthritis, involving unspecif ied site, unspecified rheumatoid factor presence (HRC) - Primary Rheumatoid factor positive Other and unspecified nonspecific immuno logical findings Positive anti-CCP test High risk medication use Encounter for long-term (current) use of other medications Rheumatoid arthritis, involving unspecif ied site, unspecified rheumatoid factor presence (HRC) High risk medication use Encounter for long-term (current) use of other medications documented in this encounter Care Teams Business Account Leader Relationship Specialty Start Date End Date Micki Arzate MD PCP - General Internal Medicine 01/29/171999 [place] [address] documented as of this encounter
--- OUTSIDE RECORDS SUMMARY | 2022-03-06 14:30 | XMS_ITS | Encounter Summary ---
:1955 Author Organization [facility] Address [address], [place] [address] Care Team Providers Name Role Phone Micki Arzate MD Primary Care Provider Encounter Details Date Type Department Care Team Description 09/16/2017 Notes/Orders [facility] [address], Rheumatology MD Hugh [address] [facility] [address] [place] [address] [place] [address] [phone] (Wo rk) Social History Tobacco Use Types Packs/Day Years Used Date Smoking Tobacco: Never Smokeless Tobacco: Never Sex Assigned at Date Recorded Not on file documented as of this encounter Plan of Treatment Not on filedocumented as of this encounter Visit Diagnoses Not on filedocumented in this encounter Care Teams Teletype Clerk Relationship Specialty Start Date End Date Micki Arzate MD PCP - General Internal Medicine 01/29/17[address] [place] [address] documented as of this encounter
--- OUTSIDE RECORDS SUMMARY | 2022-03-06 14:30 | XMS_ITS | Encounter Summary ---
:1955 Author Organization [facility] Address [address] [place] [address] Care Team Providers Name Role Phone Micki Arzate MD Primary Care Provider Reason for Visit Reason Comments Refill Encounter Details Date Type Department Care Team Description 03/19/2018 Telephone [facility] [address], Refill Rheumatology [address] [place] [address] [place], [place] [id number] (Wo rk) Social History Tobacco Use Types [...] on filedocumented in this encounter Care Teams Criminal Defense Lawyer Relationship Specialty Start Date End Date Micki Arzate MD PCP - General Internal Medicine 01/29/[address] [place] [address] documented as of this encounter
--- OUTSIDE RECORDS SUMMARY | 2022-03-06 14:31 | XMS_ITS | Encounter Summary ---
:1955 Author Organization [facility] Address [address] [place] [address] Care Team Providers Name Role Phone Unavailable Primary Care Provider Unavailable Encounter Details Date Type Department Care Team Description 10/25/2009 Hospital Encounter HX [facility] Darrick Flannery M.D. [address] [place] [address] (Wo rk) Social History Tobacco Use Types Packs/Day Years Used Date Smoking Tobacco: Never Assessed Sex Assigned at Date Recorded Not on file documented as of this encounter Plan of Treatment Not on filedocumented as of this encounter Visit Diagnoses Not on filedocumented in this encounter
--- OUTSIDE RECORDS SUMMARY | 2022-03-06 14:31 | XMS_ITS | Encounter Summary ---
:1955 Author Organization [facility] Address [address] [place] [address] Care Team Providers Name Role Phone Unavailable Primary Care Provider Unavailable Encounter Details Date Type Department Care Team Description 01/20/2009 Hospital Encounter HX NO MAPPING Melba Flannery M.D. [address] [place] [phone] (Wo rk) Social History Tobacco Use [...]
--- OUTSIDE RECORDS SUMMARY | 2022-03-06 14:31 | XMS_ITS | Encounter Summary ---
:1955 Author Organization [facility] Address [address] [place] [address] Care Team Providers Name Role Phone Unavailable Primary Care Provider Unavailable Encounter Details Date Type Department Care Team Description 05/25/2009 Hospital Encounter HX NO MAPPING Melba Flannery M.D. [address] [place] [address] (Wo rk) Social History Tobacco Use Types Packs/Day Years Used Date Smoking Tobacco: Never Assessed Sex Assigned at Date Recorded Not on file documented as of this encounter Plan of Treatment Not on filedocumented as of this encounter Procedures Procedure Name Priority Date/Time Associated Diagnosis Comme nts DX TIBIA FIBULA Routine 05/25/2009 4:25 PM Result s for this LEFT 2 VIEWS COMPUTER AIDED DESIGN OPERATOR procedure are i n the results section. DX KNEE LEFT 1 VIEW Routine 05/25/2009 4:25 PM Re sults for this COMPUTER AIDED DESIGN OPERATOR procedure are i n the results section. documented in this encounter Results DX Knee Left 1 View (05/25/2009 4:25 PM COMPUTER AIDED DESIGN OPERATOR) Anatomical Region Laterality Modality Lower Extremity, Knee Left Radiographic Imagi ng Specimen (Source) Anatomical Collection Method Collection Time Re ceived Time Location / / Volume Laterality 05/25/2009 4:25 PM COMPUTER AIDED DESIGN OPERATOR Addenda Addendum by ProviderDontrell M.D. o n 05/25/2009 4:25 PM COMPUTER AIDED DESIGN OPERATOR RAD^^^OW XR Knee Left 2 or less views 05/25/2009 16:25:00 Addendum by ProviderDontrell M.D. o n 05/25/2009 4:25 PM COMPUTER AIDED DESIGN OPERATOR RAD^^^MA XR KNEE LEFT 2 OR LESS VIEWS 05/25/2009 16:25:00 Impressions 05/25/2009 4:54 PM COMPUTER AIDED DESIGN OPERATOR No acute findings. Minimal degenerative change. Narrative 05/25/2009 4:54 PM COMPUTER AIDED DESIGN OPERATOR HISTORY: Left knee pain. ?? FINDINGS: There [...] Fibula Left 2 Views (05/25/2009 4:25 PM COMPUTER AIDED DESIGN OPERATOR) Anatomical Region Laterality Modality Lower Extremity, TibFib Left Radiographic Viridiana ging Specimen (Source) Anatomical Collection Method Collection Time Re ceived Time Location / / Volume Laterality 05/25/2009 4:25 PM COMPUTER AIDED DESIGN OPERATOR Addenda Addendum by Dontrell Kiser M.D. o n 05/25/2009 4:25 PM COMPUTER AIDED DESIGN OPERATOR RAD^^^OW XR Tibia and Fibula Left 2 views 05/25/2009 16:25:00 Addendum by Dontrell Kiser M.D. o n 05/25/2009 4:25 PM COMPUTER AIDED DESIGN OPERATOR RAD^^^MA XR TIBIA AND FIBULA LEFT 2 VIEWS 05/25/2009 16:25:00 Impressions 05/25/2009 4:55 PM COMPUTER AIDED DESIGN OPERATOR No acute findings. Minimal ankle degenerative change. Narrative 05/25/2009 4:55 PM COMPUTER AIDED DESIGN OPERATOR HISTORY: Left lower leg pain. ?? FINDINGS: There is no evidence of an acu te displaced fracture, dislocation, or significant incidental l ytic/blastic osseous lesion. Minimal ankle degenerative change. No fo annetta soft tissue abnormality is evident. ?? Procedure Note Abdirizak Zeng M.D. / Hairs Kiser M.D. - 10/11/2016 HISTORY: Left lower [...]
--- OUTSIDE RECORDS SUMMARY | 2022-03-06 14:31 | XMS_ITS | Encounter Summary ---
:1955 Author Organization [facility] Address [address] [place] [address] Care Team Providers Name Role Phone Unavailable Primary Care Provider Unavailable Encounter Details Date Type Department Care Team Description 02/07/2010 Hospital Encounter HX [facility] Darrick Flannery M.D. [address] [place] [phone] (Wo rk) Social History Tobacco Use Types Packs/Day Years Used Date Smoking Tobacco: Never Assessed Sex Assigned at Date Recorded Not on file documented as of this encounter Progress Notes Melba Flannery M.D. - 02/07/2010 12:00 AM CDT [id number] IMPRESSION/REPORT/PLAN 1. Hypertension. 2. Hyperlipidemia. 3. Hypothyroidism. [...] his 70s. Paternal grandmother: Was in a group home with dementia dying in her 90s. Paternal [...] Reflexes 2+ triceps, biceps, knees and ankles. [facility]/kmk Signed Melba Flannery M.D. Family Medicine Electronically Signed By:MELBA FLANNERY MD On 02/20/2010 07:33 pm Modified by:MELBA FLANNERY MD On 02/20/2010 07:33 pm Source: [facility] MHSDOLBEYNONRADSYS Document Id: [id number] documented in this encounter Nursing Notes Rai Romo L.P.N. - 02/09/2010 11:25 AM CDT Labs 02-07-10 Result card sent per Dr. Flannery. Electronically Signed By:RAI ROMO LPN On 02/09/2010 11:25 am Source: [employer] Document Id: [id number] documented in this encounter Miscellaneous Notes Miscellaneous - Rai Romo L.P.N. - 02/07/2010 9:15 AM CDT Adult Paper Cone Maker Intake/History Adult Paper Cone Maker Intake/History Entered On: 02/07/2010 9:16 CDT Performed [...] MD; Reviewed Date: 02/06/2010 17:09 CDT Source: [employer] Document Id: [id number] CDT!16 documented in this encounter Plan of Treatment Not on filedocumented as of this encounter Visit Diagnoses Not on filedocumented in this encounter
--- OUTSIDE RECORDS SUMMARY | 2022-03-06 14:31 | XMS_ITS | Encounter Summary ---
:1955 Author Organization [facility] Address [address] [place] [address] Care Team Providers Name Role Phone Unavailable Primary Care Provider Unavailable Encounter Details Date Type Department Care Team Description 08/14/2013 Hospital Encounter HX [facility] Joshi M.D. [address] [place] [address], [address] [place] [address] (Wo rk) Social History Tobacco [...] 08/14/2013 4:02 PM CDT Ambulatory Patient Summary [facility] [address] [place] [phone] Visit Information Name: EVANGELINA GONZALEZ [facility] Number: [id number] Current Date: 08/14/2013 16:02:09 Physicians [...] appointment detail needed. Your Goals/Additional instructions: Source: [facility] POWERCHART Document Id: [id number] Miscellaneous - Feroz Joshi M.D. - 08/14/2013 4:02 PM CDT Ambulatory Discharge Medication List [address] [phone] Visit Information Name: EVANGELINA GONZALEZ [facility] Number: [id number] Visit Date: 08/14/2013 16:02:08 Attending [...] in case of emergency. Additional Information: Source: [facility] [employer]ART Document Id: [id number] Miscellaneous - Lucio Travis P.A.-C. - 08/14/2013 3:00 PM CDT Adult Value Advisor Intake/History Adult Value Advisor Intake/History Entered On: 08/14/2013 15:01 CDT Performed [...] Preferred Communication Mode : Verbal Languages : Faroese LUCIO TRAVIS - 08/14/2013 15:00 CDT Subjective Pain Symptoms : No LUCIO TRAVIS - 08/14/2013 15:00 CDT Dependent Habits Tobacco Use/Currently Using : No Exposure to Tobacco Smoke : Other: never Smoking Status : Never smoker LUCIO TRAVIS - 08/14/2013 15:00 CDT [facility] Document Id: [id number] CDT!20 documented in this encounter Plan of Treatment Not on filedocumented as of this encounter Visit Diagnoses Not on filedocumented in this encounter
--- OUTSIDE RECORDS SUMMARY | 2022-03-06 14:31 | XMS_ITS | Encounter Summary ---
:1955 Author Organization [facility] Address [address] [place] [address] Care Team Providers Name Role Phone Unavailable Primary Care Provider Unavailable Encounter Details Date Type Department Care Team Description 09/08/2008 Hospital Encounter HX NO MAPPING Melba Flannery M.D. [address] [place] [phone] (Wo rk) Social History Tobacco [...]
--- OUTSIDE RECORDS SUMMARY | 2022-03-06 14:31 | XMS_ITS | Encounter Summary ---
:1955 Author Organization [facility] Address [address] [place] [address] Care Team Providers Name Role Phone Unavailable Primary Care Provider Unavailable Reason for Visit Reason Comments Skin Problem left cheek and right eye Appointment Request (Routine) - Closed Specialty Diagnoses / Procedures Referred By Contact Refer red To Contact Dermatology Referral ID Status Reason Start Date Expiration Date Visits Requ ested Visits Authorized [id number] Closed 01/20/2020 01/19/2021 1 1 Encounter Details Date Type Department Care Team Description 03/22/2020 Office Visit Department of Herminia Parkinson, Keratosis Seborrheic Dermatology in [place] (Primary Dx) [place], [place] [address] [address] [phone] Social History Tobacco Use Types Packs/Day Years [...] clinic today. She was last seen by [facility] in 2013. The patient denies a [...] have recommended she follow up with her prestidigitator for evaluation of this lesion and potential [...] Signed: jesse De La Cruz. 03/22/2020. Herminia Valdez M.D., personally performed the services described in this documentation. All medical record entries made by the scribe were at my direction and in my presence. I have reviewed the chart and discharge instructions (if applicable) and agree that the record reflects my personal performance and is accurate and complete. Herminia Parkinson M.D. 03/22. RTMENT SUPERVISOR documented in this encounter Plan of Treatment Not on filedocumented as of this encounter Visit Diagnoses Diagnosis Keratosis Seborrheic - Primary documented in this encounter
--- OUTSIDE RECORDS SUMMARY | 2022-03-06 14:31 | XMS_ITS | Encounter Summary ---
:1955 Author Organization [facility] Address [address] [place] [address] Care Team Providers Name Role Phone Unavailable Primary Care Provider Unavailable Encounter Details Date Type Department Care Team Description 07/20/2020 Orders Only [facility]CP [facility] Sa lux Morgan M.D. [address] [place], [place] [phone] (Wo rk) Social History Tobacco Use Types Packs/Day Years Used Date Smoking Tobacco: Never Sex Assigned at Date Recorded Not on file documented as of this encounter Plan of Treatment Not on filedocumented as of this encounter Visit Diagnoses Not on filedocumented in this encounter
--- NOTE | 2022-03-06 14:40 | CRLHL7_ITS ---
For Patients: As a result of the Century Cures Act, medical imaging exams and procedure reports are released immediately into your electronic medical record. You may view this report before your referring provider. If you have questions, please contact your health care provider. BILATERAL SCREENING MAMMOGRAM WITH COMPUTER-AIDED DETECTION TECHNIQUE: CC and MLO views were obtained. These mammographic images have been obtained using full-field digital technique. These mammographic images were interpreted with the benefit of computer-aided detection. COMPARISON FILM: 01/07/19, 03/09/15, 07/02/13. FINDINGS: There are scattered areas of fibroglandular density. IMPRESSION: There is no radiographic evidence for malignancy. ASSESSMENT: BI-RADS Category 1: Negative RECOMMENDATION: Routine screening mammogram in 1 year. A lay language report of this examination will be provided to the patient. JUVENTINO LOWE M.D. Diagnostic Radiologist [email or web address] Transcribed: 2:[address]/Dictated by: Juventino Lowe MD @ 03/07/2022 9:13:00 AM (Electronically Signed)
== END 2022-03-06 14:27 | disposition home or self-care (01) ==
LOC: MAMMO 14:27
PROVIDERS: PCP Family Medicine; Visit Provider Family Medicine
DX: Z12.31 Encounter for screening mammogram for malignant neoplasm of breast (principal)
CPT/HCPCS: 77067

== ENCOUNTER 2023-07-26 13:40 | Outpatient (CLI) | payer MEDICARE, BC, SELFPAY ==
--- NOTE | 2023-07-26 14:00 | MM_ITS ---
Patient: KARIE GONZALEZ Facility:?[facility] RIS Patient ID:?[id number] Site Patient ID:?[id number]. Site :?[id number] Study:?XRay-Breast Bilateral 3D screening mammogram w/cad-07/26/2023 2:23:29 PM Ordering Physician:laura Final Report: BILATERAL SCREENING MAMMOGRAM WITH COMPUTER-AIDED DETECTION AND TOMOSYNTHESIS TECHNIQUE: CC and MLO views were obtained. These mammographic images have been obtained using full-field digital technique. These mammographic images were interpreted with the benefit of computer-aided detection. Breast Tomosynthesis was used in this interpretation. COMPARISON FILM: 03/06/22, 01/07/19, 03/09/15. FINDINGS: There are scattered areas of fibroglandular density IMPRESSION: There is no radiographic evidence for malignancy. ASSESSMENT: BI-RADS Category 1: Negative RECOMMENDATION: Routine screening mammogram in 1 year. A lay language report of this examination will be provided to the patient. Juventino Robledo M.D. Diagnostic Radiologist [email or web address] RACHELLE/ghanshyam / be/Dictated by: Juventino Robledo MD @ 07/30/2023 11:58:00 AM Signed by:?Juventino Robledo MD @07/30/2023 4:21:18 PM (Electronic Signature)
== END 2023-07-26 13:41 | disposition home or self-care (01) ==
LOC: MAMMO 13:42
PROVIDERS: PCP Family Medicine; Visit Provider Family Medicine
DX: Z12.31 Encounter for screening mammogram for malignant neoplasm of breast (principal)
CPT/HCPCS: 77063; 77067

== ENCOUNTER 2023-08-21 07:30 | Outpatient (CLI) | payer MEDICARE, BC, SELFPAY | END 2023-08-21 07:31 | disposition home or self-care (01) | PROVIDERS: PCP Family Medicine; Referring Provider Family Medicine; Visit Provider Family Medicine | DX: E03.9 Hypothyroidism, unspecified (principal); I10 Essential (primary) hypertension; E78.5 Hyperlipidemia, unspecified | CPT/HCPCS: 80053; 80061; 84439; 84443 ==

== ENCOUNTER 2023-08-26 09:14 | Outpatient (CLI) | payer MEDICARE, BC, SELFPAY ==
--- OUTSIDE RECORDS SUMMARY | 2023-09-03 07:43 | XMS_ITS | Encounter Summary ---
Author Name Unknown Organization [facility] Address [address], [place] [address] Care Team Providers Care Supervisor Home Energy Consultant Name Role Phone Micki Arzate MD Primary Care Provider [phone] Encounter Details Date Type Department Care Team (Late st Contact Info) Description 07/26/2023 8:50 AM [facility] [employer]ENANT Lab Visit [facility] [address] [place] [address] Seropositive rheumatoid arthritis (HRC) Social History Tobacco Use Types Packs/Day Years Used Date Smoking Tobacco: Never Smokeless Tobacco: Never Alcohol Use Standard Drinks/Week Comments Not Currently 0 (1 standard drink = 0.6 oz pur e alcohol) Sex and Gender Information Value Date Recorded Sex Assigned at Not on file Gender Identity Not on file Sexual Orientation Not on file documented as of this encounter Plan of Treatment Upcoming Encounters Date Type Department Care Team (Late st Contact Info) Description 11/06/2023 9:00 AM CDT Appointment [facility] [address] [place] [address] Sylvia Bains MD [address] [place] [phone] documented as of this encounter Procedures Procedure Name Priority Date/Time Associated Diagnosis Comments CBC AND DIFFERENTIAL PANEL Routine 07/26/2023 8:49 AM [employer] Seropositive rheumatoid arthritis (HRC) CREATININE / GFR Routine 07/26/2023 8:49 AM [employer] Seropositive rheumatoid arthritis (HRC) COMPLETE BLOOD COUNT-W/DIFF Routine 07/26/2023 8:49 AM [employer] Seropositive rheumatoid arthritis (HRC) ALT (SGPT) Routine 07/26/2023 8:49 AM [employer] Seropositive rheumatoid arthritis (HRC) AST Routine 07/26/2023 8:49 AM [employer] Seropositive rheumatoid arthritis (HRC) documented in this encounter Results * Complete Blood Count-W/Diff (07/26/2023 8:49 AM [employer]) WBC 6.9 3.5 - 10.5 x10(9)/L 07/26/2023 9:03 AM [facility] RBC 4.27 3.90 - 5.03 x10(12)/L 07/26/2023 9:03 AM [facility] Hemoglobin 13.0 12.0 - 15.5 g/dL 07/26/2023 9:03 AM [facility] HCT 38.2 34.9 - 44.5 % 07/26/2023 9:03 AM [facility] MCV 89.5 80.0 - 100.0 fL 07/26/2023 9:03 AM [facility] MCH 30.4 27.6 - 33.3 pg 07/26/2023 9:03 AM [facility] MCHC 34.0 31.5 - 35.2 g/dL 07/26/2023 9:03 AM [facility] RDW 13.3 11.9 - 15.5 % 07/26/2023 9:03 AM [facility] Platelets 222 150 - 450 x10(9)/L 07/26/2023 9:03 AM [facility] Automated NRBC 0 <=0 /100 WBC 07/26/2023 9:03 AM [facility] Neutrophil Absolute 4.7 1.7 - 7.0 10(9)/L 07/26/2023 9:03 AM [facility] Lymphocyte Absolute 1.3 1.0 - 4.8 10(9)/L 07/26/2023 9:03 AM [facility] Monocyte Absolute 0.7 0.2 - 0.9 10(9)/L 07/26/2023 9:03 AM [facility] Eosinophil Absolute 0.1 0.0 - 0.5 10(9)/L 07/26/2023 9:03 AM [facility] Basophil Absolute 0.1 0.0 - 0.3 10(9)/L 07/26/2023 9:03 AM [facility] Immature Granulocyte % 0.3 0.0 - 0.5 % 07/26/2023 9:03 AM [facility] Blood Venipuncture / Unknown 07/26/2023 8:49 AM [employer] [employer] 07/26/2023 8:49 AM [facility] Sylvia Bains MD LAB_1 Performing Organization Address [facility] de Phone Number [address] [phone] * (ABNORMAL) Creatinine / GFR (every 3 months) (07/26/2023 8:49 AM [employer]) Creatinine 1.10(H) 0.55 - 1.02 mg/dL 07/26/2023 10:12 AM [facility] GFR, Estimated 55(L) >60 mL/min/1.7 3m2 07/26/2023 10:12 AM [facility] Blood Venipuncture / Unknown 07/26/2023 8:49 AM [employer] [employer] 07/26/2023 8:49 AM [employer] Narrative [facility] - 07/26/2023 10:12 AM [employer] The National Kidney Disease Education Program suggests measuring Cystatin C in patients with eGFRcrea of 45 to 59 ml/min/1.73^2 who do not have other markers of kidney damage (i.e. elevated urine Albumin/Creatinine Ratio or a prior Cystatin C confirming the presence of chronic kidney disease). Sylvia Bains MD LAB_1 Performing Organization Address [facility] de Phone Number [facility] [address] [place] [address] * AST (every 3 months) (07/26/2023 8:49 AM [employer]) AST (SGOT) 16 10 - 40 U/L 07/26/2023 10:12 AM [employer] [employer] Blood Venipuncture / Unknown 07/26/2023 8:49 AM [facility] [employer] 07/26/2023 8:49 AM [facility] Sylvia Bains MD LAB_1 Performing Organization Address [facility] Co de Phone Number [place] [phone] * ALT (SGPT) (every 3 months) (07/26/2023 8:49 AM [employer]) ALT (SGPT) 13 <=55 U/L 07/26/2023 10:12 AM [employer] [facility] Blood Venipuncture / Unknown 07/26/2023 8:49 AM [employer] 07/26/2023 8:49 AM [employer] Sylvia Bains MD LAB_1 Performing Organization Address [facility] de Phone Number [address] documented in this encounter Visit Diagnoses Diagnosis Seropositive rheumatoid arthritis (HRC) Rheumatoid arthritis documented in this encounter Care Teams Supervisor Home Energy Consultant Relationship Specialty Start Date End Date Micki Arzate MD [address] [place] [address] PCP - General Internal Medicine 01/29/17 documented as of this encounter
--- OUTSIDE RECORDS SUMMARY | 2023-09-03 07:43 | XMS_ITS | Clinical Summary ---
Author Name Unknown Organization [facility] Address [address], [place] [address] Care Team Providers Care Etcher Photoengraving Name Role Phone Micki Arzate MD Primary Care Provider [phone] Source Comments You are receiving this document as you are listed as the primary care provider,follow-up provider, or the patient has been referred to you for consultation.This is in compliance with the Medicare and[facility] EHR Incentive Program,which states Providers who transition their patient to another setting of careor provider of care or refers their patient to another provider of care shouldprovide summary care record for each transition of care or referral. [facility] CommunicationPres[facility] Center[facility] Allergies Active Allergy Reactions Criticality Noted Date Comments Penicillins Rash Medium 02/20/2017 Medications Medication Sig Dispensed Refills Start Date End Date Status Bioflavonoid Products (VITAMIN C PLUS) 1000 MG 1 Tablet (1,000 mg). Once daily Active Cholecalciferol (VITAMIN D) 50 MCG (2000 UT) CAPS 2,000 mg. Every other day Active lisinopril (ZESTRIL) 5 MG tablet Take 1 Tablet (5 mg) by mouth daily. 12/26/2021 Active Erkisql-Grxwencpm-T itamin D (CALCIUM 1200+D3 OR) 01/18/2022 Active predniSONE (DELTASONE) 2.5 MG tablet Take 2-4 Tablets (5-10 mg) by mouth daily as needed (arthritis). 60 Tablet 2 03/02/2022 Active diclofenac (VOLTAREN) 1 % gel Apply to affected joints up to 4 times daily as needed 100 g 1 12/27/2022 Active folic acid 1 MG tablet Take 1 Tablet (1 mg) by mouth daily. 90 Tablet 3 05/01/2023 04/30/2024 Active methotrexate 2.5 MG tablet Take 8 Tablets (20 mg) by mouth once every week. 96 Tablet 1 05/01/2023 Active Active Problems Problem Noted Date Diagnosed Date Rheumatoid arthritis with positive rheumatoid fa ctor 06/25/2017 High risk medication use 04/23/2017 Hypothyroidism 02/20/2017 Essential hypertension 02/20/2017 Obesity 02/20/2017 Hyperlipidemia 02/20/2017 S/p nephrectomy 02/20/2017 Rheumatoid arthritis 02/20/2017 Rheumatoid factor positive 02/20/2017 Positive anti-CCP test 02/20/2017 Encounters Date Type Department Care Team Description 07/26/2023 8:50 AM DOCUMENTATION SPECIALIST Lab Visit [facility] [address] [place], [place] [id number] Seropositive rheumatoid arthritis (HRC) from Last 3 Months Immunizations Name Administration Dates Next Due Influenza IIV4 (Quadrivalent) 0.5mL (22945) 02/17,02/20/2017 Moderna Monovalent 12+ 08/19/2020,07/22/2020 PPSV23 (Pneumovax) 03/03/2019 Zoster RZV (Shingrix) 11/18/2018,08/05/2018 Social History Tobacco Use Types Packs/Day Years Used Date Smoking Tobacco: Never Smokeless Tobacco: Never Alcohol Use Standard Drinks/Week Comments Not Currently 0 (1 standard drink = 0.6 oz pur e alcohol) Sex and Gender Information Value Date Recorded Sex Assigned at Not on file Gender Identity Not on file Sexual Orientation Not on file Last Filed Vital Signs Vital Sign Reading Time Taken Comments Blood Pressure 131/76 05/01/2023 8:54 AM DOCUMENTATION SPECIALIST Pulse 76 05/01/2023 8:54 AM DOCUMENTATION SPECIALIST Temperature - - Respiratory Rate - - Oxygen Saturation - - Inhaled Oxygen Concentration - - Weight 66 kg (145 lb 6.4 oz) 05/01/2023 8:54 AM DOCUMENTATION SPECIALIST Height 154.9 cm (5' 1) 12/27/2022 12:48 PM CDT Body Mass Index 27.47 12/27/2022 12:48 PM CDT Plan of Treatment Upcoming Encounters Date Type Department Care Team (Late st Contact Info) Description 11/06/2023 9:00 AM CDT Appointment [facility] [address] [place] [address] Sylvia Bains MD [facility] [place], [place] [id number] Health Maintenance Due Date Last Done Comments Colon Cancer Screening Plan Due 1955 Diabetes Screening- (based on age and BMI) 1955 Medicare Annual Wellness Visit 1955 Mammogram 1955 Cholesterol 01/23/2000 Dexa 01/23/2020 Pneumococcal 65+ Yrs (3 - PPSV23 or PCV20) 03/03/2024 03/03/2019, 03/25/2018 DTaP/Tdap/Td (3 - Tdap) 01/01/2029 01/01/2019, 05/22 Hep C Screening (Preventive Services) Completed 02/20/2017 Zoster/Shingles Completed 11/18/2018, 08/05/2018 Influenza Completed 02/01/2023, 02/18, 03/16/2021, Additional history exists COVID-19 Vaccine Completed 02/28/2023, , 11/10/2021, Additional history exists HepA Aged Out No longer eligi ble based on patient's age to complete this topic HepB Aged Out No longer eligi ble based on patient's age to complete this topic Hib Aged Out No longer eligi ble based on patient's age to complete this topic IPV (Polio) Aged Out No longer eligi ble based on patient's age to complete this topic MCV4 Aged Out No longer eligi ble based on patient's age to complete this topic Procedures Procedure Name Priority Date/Time Associated Diagnosis Comments COMPLETE BLOOD COUNT-W/DIFF Routine 07/26/2023 8:49 AM DOCUMENTATION SPECIALIST Seropositive rheumatoid arthritis (HRC) CREATININE / GFR Routine 07/26/2023 8:49 AM DOCUMENTATION SPECIALIST Seropositive rheumatoid arthritis (HRC) CBC AND DIFFERENTIAL PANEL Routine 07/26/2023 8:49 AM DOCUMENTATION SPECIALIST Seropositive rheumatoid arthritis (HRC) AST Routine 07/26/2023 8:49 AM DOCUMENTATION SPECIALIST Seropositive rheumatoid arthritis (HRC) ALT (SGPT) Routine 07/26/2023 8:49 AM DOCUMENTATION SPECIALIST Seropositive rheumatoid arthritis (HRC) HEPATITIS C ANTIBODY, WITH REFLEX Routine 02/20/2017 8:47 AM CDT Rheumatoid arthritis, involving unspecified site, unspecified rheumatoid factor presence (HRC) High risk medication use from Last 3 Months or Most Recently Relevant to Health Maintenance Results * (ABNORMAL) Creatinine / GFR (every 3 months) (07/26/2023 8:49 AM DOCUMENTATION SPECIALIST) Creatinine 1.10(H) 0.55 - 1.02 mg/dL 07/26/2023 10:12 AM [facility] GFR, Estimated 55(L) >60 mL/min/1.7 3m2 07/26/2023 10:12 AM [facility] Blood Venipuncture / Unknown 07/26/2023 8:49 AM DOCUMENTATION SPECIALIST 07/26/2023 8:49 AM [facility] Narrative [facility] - 07/26/2023 10:12 AM [facility] The National Kidney Disease Education Program suggests measuring Cystatin C in patients with eGFRcrea of 45 to 59 ml/min/1.73^2 who do not have other markers of kidney damage (i.e. elevated urine Albumin/Creatinine Ratio or a prior Cystatin C confirming the presence of chronic kidney disease). Sylvia Bains MD LAB_1 [facility] [address] [place] [address], [facility] * Complete Blood Count-W/Diff (07/26/2023 8:49 AM DOCUMENTATION SPECIALIST) WBC 6.9 3.5 - 10.5 x10(9)/L 07/26/2023 9:03 AM [facility] RBC 4.27 3.90 - 5.03 x10(12)/L 07/26/2023 9:03 AM [facility] Hemoglobin 13.0 12.0 - 15.5 g/dL 07/26/2023 9:03 AM [facility] HCT 38.2 34.9 - 44.5 % 07/26/2023 9:03 AM [facility] MCV 89.5 80.0 - 100.0 fL 07/26/2023 9:03 AM [facility] MCH 30.4 27.6 - 33.3 pg 07/26/2023 9:03 AM [facility] MCHC 34.0 31.5 - 35.2 g/dL 07/26/2023 9:03 AM [facility] RDW 13.3 11.9 - 15.5 % 07/26/2023 9:03 AM [facility] Platelets 222 150 - 450 x10(9)/L 07/26/2023 9:03 AM [facility] Automated NRBC 0 <=0 /100 WBC 07/26/2023 9:03 AM [facility] Neutrophil Absolute 4.7 1.7 - 7.0 10(9)/L 07/26/2023 9:03 AM [facility] Lymphocyte Absolute 1.3 1.0 - 4.8 10(9)/L 07/26/2023 9:03 AM [facility] Monocyte Absolute 0.7 0.2 - 0.9 10(9)/L 07/26/2023 9:03 AM [facility] Eosinophil Absolute 0.1 0.0 - 0.5 10(9)/L 07/26/2023 9:03 AM [facility] Basophil Absolute 0.1 0.0 - 0.3 10(9)/L 07/26/2023 9:03 AM [facility] Immature Granulocyte % 0.3 0.0 - 0.5 % 07/26/2023 9:03 AM [facility] Blood Venipuncture / Unknown 07/26/2023 8:49 AM DOCUMENTATION SPECIALIST 07/26/2023 8:49 AM [facility] Sylvia Bains MD LAB_1 [facility] [address] [place] [address], [facility] * ALT (SGPT) (every 3 months) (07/26/2023 8:49 AM DOCUMENTATION SPECIALIST) ALT (SGPT) 13 <=55 U/L 07/26/2023 10:12 AM DOCUMENTATION SPECIALIST [facility] Blood Venipuncture / Unknown 07/26/2023 8:49 AM DOCUMENTATION SPECIALIST 07/26/2023 8:49 AM DOCUMENTATION SPECIALIST Sylvia Bains MD LAB_1 Performing Organization Address [facility]/ZIP Co de Phone Number [facility] [address] [place] [address] * AST (every 3 months) (07/26/2023 8:49 AM DOCUMENTATION SPECIALIST) AST (SGOT) 16 10 - 40 U/L 07/26/2023 10:12 AM DOCUMENTATION SPECIALIST [facility] Blood Venipuncture / Unknown 07/26/2023 8:49 AM DOCUMENTATION SPECIALIST 07/26/2023 8:49 AM DOCUMENTATION SPECIALIST Sylvia Bains MD LAB_1 Performing Organization Address [facility] de Phone Number [facility] [address] [place] [address] * HCAB - Hepatitis C Virus Kimberly with Reflex In-House (02/20/2017 8:47 AM CDT) Hepatitis C Antibody Nonreactive Nonreactive PN SOFT 02/20/2017 8:47 AM CDT 02/20/2017 11:21 AM CDT Narrative PN SOFT - 02/20/2017 12:52 PM CDT Performed at [address] [address] CLIA number [id number] Hugh Chaudhary MD LAB_1 Performing Organization Address [facility] Co de Phone Number PN SOFT [address] [place] [phone] from Last 3 Months or Most Recently Relevant to Health Maintenance Care Teams Etcher Photoengraving Relationship Specialty Start Date End Date Micki Arzate MD [address] [place] [address] PCP - General Internal Medicine 01/29/17
--- OUTSIDE RECORDS SUMMARY | 2023-09-03 07:43 | XMS_ITS | Clinical Summary ---
Author Name Unknown Organization [facility] Address [place], [place] [address] Care Team Providers Care Fish Butcher Name Role Phone Zena Faith MD Primary Care Provider + Allergies Active Allergy Reactions Criticality Noted Date Comments Penicillins Rash Medium 10/09/2012 Medications Medication Sig Dispensed Refills Start Date End Date Status lisinopril (PRINIVIL; ZESTRIL) 10 mg tablet Take 5 mg by mouth once daily. 30 tablet 0 10/09/2012 Active adalimumab (HUMIRA) 40 mg/0.8 mL injection Inject 0.8 mL subcutaneous every 2 weeks. 1 Kit 01/14/2018 Active methotrexate 2.5 mg/mL soln Take 22.5 tablets by mouth once weekly. 60 Tab 01/14/2018 Active predniSONE (DELTASONE) 2.5 mg tablet 1 tablet once daily with a meal. 30 tablet 01/14/2018 Active predniSONE (DELTASONE) 5 mg tablet 1 tablet once daily with a meal. 30 tablet 01/14/2018 Active folic acid 1 mg tablet Take 1 tablet by mouth once daily. 30 tablet 01/14/2018 Active hydrOXYchloroQUINE (PLAQUENIL) 200 mg tablet Take 1.5 Tablets (300 mg) by mouth daily Active cholecalciferol (VITAMIN D3) 2,000 unit capsule 25 mcg once daily. Acti ve methotrexate (RHEUMATREX) 2.5 mg tablet Take 25 mg by mouth once weekly. 10/18/2022 Active durable medical equipment (DME)Indications:Ta ilor's bunionette, left,Hammertoe of second toe of left foot,S/P foot surgery, left [id number] Squared toe post op shoe, Small 1 Each 04/30/2023 Active ascorbic acid, vitamin C, (Vitamin C) 1,000 mg tablet Take 1,000 mg by mouth once daily. Active oxyCODONE (ROXICODONE) 5 mg immediate release tabletIndications:H ammertoe of right foot Take 1-2 Tablets (5-10 mg) by mouth every 4 hours if needed for Pain. 20 Tablet 05/17/2023 Active polyethylene glycol-electrolyte (GOLYTELY) 236-22.74-6.74 -5.86 gram suspensionIndicatio ns:Encounter for screening colonoscopy Drink 2 liters the day before the procedure and 2 liters 6 hours prior to procedure. 4000 mL 10/01/2023 Active Active Problems Problem Noted Date Diagnosed Date Adenomatous colon polyp 10/14/2012 Overview: Colonoscopy 09/2012 polyps repeat in 5 years Colonoscopy 12/2017 polyp, repeat in 5 years Encounters Date Type Department Care Team Description 08/28/2023 Telephone [facility] [address] [place] [address] Chito Pierce MD PHARMACY - [facility] 07/02/2023 1:15 PM ARTS ADMINISTRATOR OR MANAGER Ancillary Procedure [facility] [address] [place] [address] 07/02/2023 1:00 PM ARTS ADMINISTRATOR OR MANAGER Office Visit [facility] [address] [place] [address] Augustin Carrillo DPM Post-op (Left foot, DOS 05/17/23, 6 week post op) 07/02/2023 Travel from Last 3 Months Social History Tobacco Use Types Packs/Day Years Used Date Smoking Tobacco: Never Smokeless Tobacco: Never Tobacco Cessation:Counseling Given: Yes Alcohol Use Standard Drinks/Week Comments Not Currently 0 (1 standard drink = 0.6 oz pur e alcohol) Sex and Gender Information Value Date Recorded Sex Assigned at Not on file Gender Identity Not on file Sexual Orientation Not on file Obstetrics History Last Filed Vital Signs Vital Sign Reading Time Taken Comments Blood Pressure 119/58 05/17/2023 12:15 PM ARTS ADMINISTRATOR OR MANAGER Pulse 70 07/02/2023 1:13 PM ARTS ADMINISTRATOR OR MANAGER Temperature 36.4 ??C (97.6 ??F) 05/23/2023 9:05 AM CS T Respiratory Rate 16 05/17/2023 12:15 PM ARTS ADMINISTRATOR OR MANAGER Oxygen Saturation 100% 07/02/2023 1:13 PM ARTS ADMINISTRATOR OR MANAGER Inhaled Oxygen Concentration - - Weight 65.3 kg (144 lb) 07/02/2023 1:13 PM ARTS ADMINISTRATOR OR MANAGER Height 154.9 cm (5' 1) 05/17/2023 8:13 AM ARTS ADMINISTRATOR OR MANAGER Body Mass Index 27.21 05/17/2023 8:13 AM ARTS ADMINISTRATOR OR MANAGER Plan of Treatment Upcoming Encounters Date Type Department Care Team (Late st Contact Info) Description 09/03/2023 1:00 PM CDT Office Visit [facility] [address] [place] [address] Augustin Carrillo DPM [address] [place] [address] 10/18/2023 10:30 AM CDT Office Visit [facility] [address] [place] [address] Chito Pierce MD [address] [place] [address] Health Maintenance Due Date Last Done Comments Tdap 1966 Depression screening for age 12+ 1967 BMI (ht and wt on same day) for age 18+ 1973 Hepatitis C screening for ag e 18-79 1973 Tetanus booster 1975 Lipids for age 45-75 01/23/2000 Mammogram for age 45-75 01/23/2000 Zoster (shingles) series for age 50+ (1 of 2) 2005 DEXA/DXA scan for age 65+ 01/23/2020 Medicare Wellness for age 65+ 01/23/2020 Pneumococcal series for age 65+ (1 of 1 - PCV) 01/23/2020 Colonoscopy through age 75 01/14/202301/14, 01/14/2018, 10/09/2012 Influenza for age 65+ 01/19/2024 COVID-19 vaccine series Completed 02/29/20, 07/30/2022, 11/10/2021, Additional history exists Medical Devices Implanted Type Area Laboratory Coordinator Device Identifier Shelf Expiration Date Model / Serial / Lot Retrofusion Screw, 20 Mm Implanted:Qty: 1 on 05/17/2023 by Augustin Carrillo DPM at [facility] Left: Toe [employer] 02/16/2025 / [id number] / [id number] Description:2nd toe Procedures Procedure Name Priority Date/Time Associated Diagnosis Comments XR FOOT 3 VIEWS LEFT Routine 07/02/2023 1:08 PM ARTS ADMINISTRATOR OR MANAGER S/P foot surgery, left COLONOSCOPY 01/14/2018 10:36 AM CDT from Last 3 Months or Most Recently Relevant to Health Maintenance Results * XR FOOT 3 VIEWS LEFT (07/02/2023 1:08 PM ARTS ADMINISTRATOR OR MANAGER) Anatomical Region Laterality Modality FEET, FOOT L Computed Radiogr aphy Narrative 07/02/2023 2:34 PM ARTS ADMINISTRATOR OR MANAGER Indication: Status post foot surgery Comparison: 05/23/2023 Technique: 3 views left foot Findings: Fixation screw hardware across the left second toe PIP joint again noted. ??Resection of the distal fifth metatarsal is also similar. ?? Midfoot degenerative joint disease. ??Calcaneal spurs. ??Mild degenerative changes at the first MTP joint. Impression: Stable foot films postsurgery. ??Intact fixation screw. Augustin Carrillo DPM GENERAL IMAGING * COLONOSCOPY (01/14/2018 10:36 AM CDT) 01/14/2018 10:3 6 AM CDT Narrative Transcriptions Chito Pierce MD - 01/14/2018 12:14 PM CDT Patient Name: Evangelina Garcia Procedure Date: 01/14/2018 Gender: Female Date of : 1955 Admit Type: Outpatient Procedure: Colonoscopy Proceduralist: Chito Pierce MD , Ariana Mckoy (Nurse) Indications/Pre-Op Diagnosis: Surveillance: Personal history ofadenomatous polyps on last colonoscopy 5 years ago, Last colonoscopy: September 2012 Medications: Fentanyl 100 micrograms IV, Midazolam 2 mgIV, The level of sedation administered wasmoderate Procedure Description: The patient had risks, benefits and alternatives explained to andgave informed consent. The patient had a stable cardiopulmonary status and judged an adequate candidate for conscious sedation. The [id number] was passed through the anus and advanced tothe cecum, identified by appendiceal orifice and ileocecal valve. The colonoscopy was performed without difficulty. The patient toleratedthe procedure well. The quality of the bowel preparation was good. The ileocecal valve, appendiceal orifice, and rectum were photographed. Complications: No immediate complications. Estimated Blood Loss & Specimen: Estimated blood loss: none. Specimen collected - Yes and sent to Laboratory Findings: The perianal and digital rectal examinations were normal. A 8 mm polyp was found in the descending colon. The polyp was pedunculated. The polyp was removed with a hot snare. Resection and retrieval were complete. Multiple small and large-mouthed diverticula were found in thesigmoid colon and descending colon. The colon (entire examined portion) was mildly redundant. The exam was otherwise without abnormality on direct and retroflexion views. Impressions/Post-Op Diagnosis: - One 8 mm polyp in the descending colon, removed with a hot snare. Resected and retrieved. - Diverticulosis in the sigmoid colon and in the descending colon. - Redundant colon. - The examination was otherwise normal on direct and retroflexionviews. Recommendation: - Patient has a contact number available for emergencies. The signsand symptoms of potential delayed complications were discussed with the patient. Return to normal activities tomorrow. Written discharge instructions were provided to the patient. - Resume previous diet. - Continue present medications. - Await pathology results. - Repeat colonoscopy in 5 years for surveillance. - Soft diet for two days. Avoid heavy lifting greater than 20 lbs., asprin/ nonsteroidal medicines, exercise and strenuous activity for 2 weeks. Moderate Sedation: Moderate (conscious) sedation was administered by the endoscopy nurse and supervised by the endoscopist. The following parameters were monitored: oxygen saturation, heart rate, respiratory rate, blood pressure, adequacy of pulmonary ventilation and reponse to care. [facility] flowsheets and nursing notes for moderate sedation details. Total physician intraservice time was 27 minutes. Chito Pierce MD 01/14/2018 12:14:17 PM This report has been signed electronically. Note Initiated On: 01/14/2018 10:36 AM Procedure Code(s): --- Professional --- 54185, Colonoscopy, flexible; with removalof tumor(s), polyp(s), or other lesion(s) bysnare technique Diagnosis Code(s): --- Professional --- Z86.010, Personal history of colonicpolyps D12.4, Benign neoplasm of descending colon K57.30, Diverticulosis of large intestine without perforation or abscess withoutbleeding Q43.8, Other specified congenitalmalformations of intestine CPT copyright 2017 [employer]. All rights reserved. The codes documented in this report are preliminary and upon entry specialists reviewmay be revised to meet current compliance requirements. Scope In: 11:44:09 AM Scope Withdrawal Time 0 hours 13 minutes 0 seconds Scope Out: 12:09:23 PM Chito Pierce MD PROCEDURE ORD from Last 3 Months or Most Recently Relevant to Health Maintenance Advance Directives * Full Code (Latest Code Status on File) Date Activated Date Inactivated Comments 05/17/2023 11:57 AM 05/17/2023 2:54 PM Question Answer Comments Code Status Discussion: Reviewed Preferences * Full Code Date Activated Date Inactivated Comments 05/17/2023 7:57 AM 05/17/2023 11:57 AM Question Answer Comments Code Status Discussion: Reviewed Preferences Care Teams Fish Butcher Relationship Specialty Start Date End Date Zena Faith MD [address] [place] [address] PCP - General Family Practice 11/21/22
== END 2023-08-26 09:15 | disposition home or self-care (01) ==
LOC: NFLDREF 09-03 07:41
PROVIDERS: PCP Family Medicine; Visit Provider Family Medicine
DX: E05.90 Thyrotoxicosis, unspecified without thyrotoxic crisis or storm (principal); M85.80 Other specified disorders of bone density and structure, unspecified site
CPT/HCPCS: 82306; 84439; 84443; 84445; 84480; 86376; 86800

== ENCOUNTER 2024-01-08 12:36 | Outpatient (CLI) | payer MEDICARE, BC, SELFPAY ==
--- OUTSIDE RECORDS SUMMARY | 2024-01-08 12:39 | XMS_ITS | Encounter Summary ---
Author Organization [employer] Address [address], [place] [address] Care Team Providers Care Department Head [employer] Name Role Phone Micki Arzate MD Primary Care Provider [phone]- [phone] Encounter Details Date Type Department Care Team (Late st Contact Info) Description 10/30/2023 8:50 AM CDT Lab Visit [facility] [address] [place] [address] Seropositive rheumatoid arthritis (HRC) Social History Tobacco [...] Care Team (Late st Contact Info) Description 01/09/2024 8:20 AM CDT Appointment [facility] [address] [place] [address] 03/04/2024 2:00 PM CDT Appointment [facility] [address] [place] [address] Sylvia Bains MD [address] [place] [address] documented as of this encounter Procedures Procedure Name Priority Date/Time Associated Diagnosis Comments CBC AND DIFFERENTIAL PANEL Routine 10/30/2023 9:02 AM CDT Seropositive rheumatoid arthritis (HRC) CREATININE / GFR Routine 10/30/2023 9:02 AM CDT Seropositive rheumatoid arthritis (HRC) COMPLETE BLOOD COUNT-W/DIFF Routine 10/30/2023 9:02 AM CDT Seropositive rheumatoid arthritis (HRC) ALT (SGPT) Routine 10/30/2023 9:02 AM CDT Seropositive rheumatoid arthritis (HRC) AST Routine 10/30/2023 9:02 AM CDT Seropositive rheumatoid arthritis (HRC) documented in this encounter Results * Complete Blood Count-W/Diff (10/30/2023 9:02 AM CDT) WBC 5.9 3.5 - 10.5 x10(9)/L 10/30/2023 9:08 AM T [facility] RBC 4.54 3.90 - 5.03 x10(12)/L 10/30/2023 9:08 AM [facility] Hemoglobin 13.5 12.0 - 15.5 g/dL 10/30/2023 9:08 AM [facility] HCT 40.2 34.9 - 44.5 % 10/30/2023 9:08 AM [facility] MCV 88.5 80.0 - 100.0 fL 10/30/2023 9:08 AM [facility] MCH 29.7 27.6 - 33.3 pg 10/30/2023 9:08 AM [facility] MCHC 33.6 31.5 - 35.2 g/dL 10/30/2023 9:08 AM [facility] RDW 13.6 11.9 - 15.5 % 10/30/2023 9:08 AM [facility] Platelets 207 150 - 450 x10(9)/L 10/30/2023 9:08 AM [facility] Automated NRBC 0 <=0 /100 WBC 10/30/2023 9:08 AM [facility] Neutrophil Absolute 4.1 1.7 - 7.0 10(9)/L 10/30/2023 9:08 AM [facility] Lymphocyte Absolute 1.2 1.0 - 4.8 10(9)/L 10/30/2023 9:08 AM [facility] Monocyte Absolute 0.5 0.2 - 0.9 10(9)/L 10/30/2023 9:08 AM [facility] Eosinophil Absolute 0.1 0.0 - 0.5 10(9)/L 10/30/2023 9:08 AM [facility] Basophil Absolute 0.0 0.0 - 0.3 10(9)/L 10/30/2023 9:08 AM [facility] Immature Granulocyte % 0.3 0.0 - 0.5 % 10/30/2023 9:08 AM [facility] Blood Venipuncture / Unknown 10/30/2023 9:02 AM CDT 10/30/2023 9:02 AM CDT Sylvia Bains MD LAB_1 Performing Organization Address [facility] Co de Phone Number [place] [phone] [place] [address] * Creatinine / GFR (every 3 months) (10/30/2023 9:02 AM CDT) Pathologist [facility] Creatinine 0.91 0.55 - 1.02 mg/dL 10/30/2023 11:44 AM T [facility] GFR, Estimated >60 >60 mL/min/1.7 3m2 10/30/2023 11:44 AM [facility] Blood Venipuncture / Unknown 10/30/2023 9:02 AM CDT 10/30/2023 9:02 AM CDT Sylvia Bains MD LAB_1 Performing Organization Address City/[facility]/ZIP Co de Phone Number [facility] [address] [place] [phone] * AST (every 3 months) (10/30/2023 9:02 AM CDT) AST (SGOT) 20 10 - 40 U/L 10/30/2023 11:44 AM CDT [facility] Blood Venipuncture / Unknown 10/30/2023 9:02 AM CDT 10/30/2023 9:02 AM CDT Sylvia Bains MD LAB_1 Performing Organization Address [facility]/ZIP Co de Phone Number [facility] [address] [place] [address] * ALT (SGPT) (every 3 months) (10/30/2023 9:02 AM CDT) ALT (SGPT) 17 <=55 U/L 10/30/2023 11:44 AM CDT [facility] Blood Venipuncture / Unknown 10/30/2023 9:02 AM CDT 10/30/2023 9:02 AM CDT Sylvia Bains MD LAB_1 Performing Organization Address [facility] Co de Phone Number [place] [id number] [place] [address] documented in this encounter Visit Diagnoses Diagnosis Seropositive rheumatoid arthritis (HRC) Rheumatoid arthritis documented in this encounter Care Teams Department Head [employer] Relationship Specialty Start Date End Date Micki Arzate MD [address] [place] [address] PCP - General Internal Medicine 01/29/17 documented as of this encounter
--- OUTSIDE RECORDS SUMMARY | 2024-01-08 12:39 | XMS_ITS | Encounter Summary ---
Author Organization [facility] Address [address], [place] [address] Care Team Providers Care Concrete Technician Name Role Phone Micki Arzate MD Primary Care Provider [phone]- [phone] Reason for Visit * Reason Comments Follow-up, NOS Entered automaticall y based on patient selection in [employer]. Encounter Details Date Type Department Care Team (Late Contact Info) Description 11/07/2023 9:00 AM CDT E-Visit [facility] [address] [place] [address] Sylvia Bains MD [address] [place] [address] Chief Comp: Follow-up, NOS Social History Tobacco Use Types Packs/Day Years [...] Encounters Date Type Department Care Team (Late Contact Info) Description 01/09/2024 8:20 AM CDT Appointment [facility] [address] [place] [address] 03/04/2024 2:00 PM CDT Appointment [facility] [address] [place] [address] Sylvia Bains MD [address] [place] [address] documented as of this encounter Visit Diagnoses Not on filedocumented in this encounter Care Teams Concrete Technician Relationship Specialty Start Date End Date Micki Arzate MD [address] [place] [address] PCP - General Internal Medicine 01/29/17 documented as of this encounter
--- OUTSIDE RECORDS SUMMARY | 2024-01-08 12:39 | XMS_ITS | Clinical Summary ---
Author Organization [facility] Address [address], [place] [address] Care Team Providers Care Research Programmer Name Role Phone Micki Arzate MD Primary Care Provider [phone]- [phone] Source Comments You are receiving this document as you are listed as the primary care provider,follow-up provider, or the patient has been referred to you for consultation.This is in compliance with the Medicare and[facility] Cent[facility]aid EHR Incentive Program,which states Providers who transition their patient to another setting of careor provider of care or refers their patient to another provider of care shouldprovide summary care record for each transition of care or referral. [employer] Allergies Active Allergy Reactions Criticality Noted Date [...] (5 mg) by mouth daily. 12/26/2021 Active Igbdnzl-Epyesezju-Q itamin D (CALCIUM 1200+D3 OR) 01/18/2022 Active predniSONE (DELTASONE) 2.5 MG tablet Take 2-4 Tablets (5-10 mg) by mouth daily as needed (arthritis). 60 Tablet 2 03/02/2022 Active Ascorbic Acid (VITAMIN C OR) Take 1,000 mg by mouth daily. Active methotrexate 2.5 MG tablet Take 10 Tablets (25 mg) by mouth once every week. 120 Tablet 1 11/06/2023 Active hydroxychloroquine (PLAQUENIL) 200 MG tablet Take 1.5 Tablets (300 mg) by mouth daily. 300 mg daily 135 Tablet 1 11/06/2023 Active folic acid 1 MG tablet Take 3 Tablets (3 mg) by mouth daily. 270 Tablet 3 11/06/2023 11/05/2024 Active Active Problems Problem Noted Date Diagnosed Date Rheumatoid arthritis with positive rheumatoid fa ctor 06/25/2017 High risk medication use 04/23/2017 Hypothyroidism 02/20/2017 Essential hypertension 02/20/2017 Obesity 02/20/2017 Hyperlipidemia 02/20/2017 S/p nephrectomy 02/20/2017 Rheumatoid arthritis 02/20/2017 Rheumatoid factor positive 02/20/2017 Positive anti-CCP test 02/20/2017 Encounters Date Type Department Care Team Description 11/07/2023 9:00 AM CDT E-Visit [facility] [address] [place] [address] Sylvia Bains MD Chief Comp: Follow-up, NOS 11/06/2023 9:00 AM CDT Office Visit [facility] [address] [place] [address] Sylvia Bains MD Seropositive rheumatoid arthritis (HRC) (Primary Dx); Osteopenia, unspecified location; Osteoarthritis of multiple joints, unspecified osteoarthritis type; Tailor's bunion of both feet; 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) 10/30/2023 8:50 AM CDT Lab Visit [facility] [address] [place] [address] Seropositive rheumatoid arthritis (HRC) from Last 3 Months Immunizations Name Administration Dates Next Due Influenza IIV4 (Quadrivalent) 0.5mL (93808) 02/17,02/20/2017 Moderna Monovalent 12+ 08/19/2020,07/22/2020 PPSV23 (Pneumovax) [...] Sign Reading Time Taken Comments Blood Pressure 127/72 11/06/2023 9:02 AM CDT Pulse 68 11/06/2023 9:02 AM CDT Temperature - - Respiratory Rate - - Oxygen Saturation - - Inhaled Oxygen Concentration - - Weight 64 kg (141 lb) 11/06/2023 9:02 AM CDT Height 154.9 cm (5' 1) 12/27/2022 12:48 PM CDT Body Mass Index 26.64 12/27/2022 12:48 PM CDT Plan of Treatment Upcoming Encounters Date Type Department Care Team (Late st Contact Info) Description 01/09/2024 8:20 AM CDT Appointment [facility] [address] [place] [address] 03/04/2024 2:00 PM CDT Appointment [facility] [address] [place] [address] Sylvia Bains MD [facility] [place], [place] [id number] Health Maintenance Due Date Last Done Comments Colon Cancer Screening Plan Due 1955 Medicare Annual Wellness Visit 1955 Mammogram 1955 Cholesterol 01/23/2000 Dexa 01/23/2020 Influenza (#1) 2024 02/01/2023, 02/18, 03/16/2021, Additional history exists Pneumococcal 65+ Yrs (3 - PPSV23 or PCV20) 03/03/2024 03/03/2019, 03/25/2018 DTaP/Tdap/Td (3 - Tdap) 01/01/2029 01/01/2019, 05/22 Hep C Screening (Preventive Services) Completed 02/20/2017 Zoster/Shingles Completed 11/18/2018, 08/05/2018 COVID-19 Vaccine Completed 07/19/2023, 04/2023, 07/30/2022, Additional history exists HepA Aged Out No [...] Associated Diagnosis Comments COMPLETE BLOOD COUNT-W/DIFF Routine 10/30/2023 9:02 AM CDT Seropositive rheumatoid arthritis (HRC) CREATININE / GFR Routine 10/30/2023 9:02 AM CDT Seropositive rheumatoid arthritis (HRC) CBC AND DIFFERENTIAL PANEL Routine 10/30/2023 9:02 AM CDT Seropositive rheumatoid arthritis (HRC) AST Routine 10/30/2023 9:02 AM CDT Seropositive rheumatoid arthritis (HRC) ALT (SGPT) Routine 10/30/2023 9:02 AM CDT Seropositive rheumatoid arthritis (HRC) HEPATITIS C ANTIBODY, WITH REFLEX Routine 02/20/2017 8:47 AM CDT Rheumatoid arthritis, involving unspecified site, unspecified rheumatoid factor presence (HRC) High risk medication use from Last 3 Months or Most Recently Relevant to Health Maintenance Results * Creatinine / GFR (every 3 months) (10/30/2023 9:02 AM CDT) Creatinine 0.91 0.55 - 1.02 mg/dL 10/30/2023 11:44 AM CDT [facility] GFR, Estimated >60 >60 mL/min/1.7 3m2 10/30/2023 11:44 AM CDT [facility] Blood Venipuncture / Unknown 10/30/2023 9:02 AM CDT 10/30/2023 9:02 AM CDT Sylvia Bains MD LAB_1 [facility] [address] [place] [address], [facility] * Complete Blood Count-W/Diff (10/30/2023 9:02 AM [facility]) WBC 5.9 3.5 - 10.5 x10(9)/L 10/30/2023 9:08 AM [facility] RBC 4.54 3.90 - 5.03 x10(12)/L 10/30/2023 9:08 AM [facility] Hemoglobin 13.5 12.0 - 15.5 g/dL 10/30/2023 9:08 AM [facility] HCT 40.2 34.9 - 44.5 % 10/30/2023 9:08 AM [facility] MCV 88.5 80.0 - 100.0 fL 10/30/2023 9:08 AM [facility] MCH 29.7 27.6 - 33.3 pg 10/30/2023 9:08 AM [facility] MCHC 33.6 31.5 - 35.2 g/dL 10/30/2023 9:08 AM [facility] RDW 13.6 11.9 - 15.5 % 10/30/2023 9:08 AM [facility] Platelets 207 150 - 450 x10(9)/L 10/30/2023 9:08 AM [facility] Automated NRBC 0 <=0 /100 WBC 10/30/2023 9:08 AM [facility] Neutrophil Absolute 4.1 1.7 - 7.0 10(9)/L 10/30/2023 9:08 AM [facility] Lymphocyte Absolute 1.2 1.0 - 4.8 10(9)/L 10/30/2023 9:08 AM [facility] Monocyte Absolute 0.5 0.2 - 0.9 10(9)/L 10/30/2023 9:08 AM [facility] Eosinophil Absolute 0.1 0.0 - 0.5 10(9)/L 10/30/2023 9:08 AM [facility] Basophil Absolute 0.0 0.0 - 0.3 10(9)/L 10/30/2023 9:08 AM CDT [facility] Immature Granulocyte % 0.3 0.0 - 0.5 % 10/30/2023 9:08 AM CDT [facility] Blood Venipuncture / Unknown 10/30/2023 9:02 AM CDT 10/30/2023 9:02 AM CDT Sylvia Bains MD LAB_1 Performing Organization Address [facility] Co de Phone Number [facility] [address] * ALT (SGPT) (every 3 months) (10/30/2023 9:02 AM CDT) ALT (SGPT) 17 <=55 U/L 10/30/2023 11:44 AM CDT [facility] Blood Venipuncture / Unknown 10/30/2023 9:02 AM CDT 10/30/2023 9:02 AM CDT Sylvia Bains MD LAB_1 Performing Organization Address [facility] de Phone Number [facility] [id number] [place] [address] * AST (every 3 months) (10/30/2023 9:02 AM CDT) AST (SGOT) 20 10 - 40 U/L 10/30/2023 11:44 AM CDT [facility] Blood Venipuncture / Unknown 10/30/2023 9:02 AM CDT 10/30/2023 9:02 AM CDT Sylvia Bains MD LAB_1 Performing Organization Address [facility] de Phone Number [facility] [phone] [place] [address] * [facility] - Hepatitis C Virus Kimberly with Reflex In-House (02/20/2017 8:47 AM CDT) Hepatitis C Antibody Nonreactive Nonreactive PN SOFT 02/20/2017 8:47 AM CDT 02/20/2017 11:21 AM CDT Narrative MELIA SOFT - 02/20/2017 12:52 PM CDT Performed at [facility] [address] [place] [address] CLIA number [id number] Hugh Chaudhary MD LAB_1 [facility] [address] [place] [address] from Last 3 Months or Most Recently Relevant to Health Maintenance Care Teams Research Programmer Relationship Specialty Start Date End Date Micki Arzate MD [address] [place] [address] PCP - General Internal Medicine 01/29/17
--- OUTSIDE RECORDS SUMMARY | 2024-01-08 12:39 | XMS_ITS | Encounter Summary ---
Author Organization [facility] Address [address] [place] [id number] Care Team Providers Care Forming Acid Dumper Name Role Phone Micki Arzate MD Primary Care Provider [phone] Reason for Visit * Reason Comments Follow-up Encounter Details Date Type Department Care Team (Late st Contact Info) Description 11/06/2023 9:00 AM CDT Office Visit [facility] [address] [place] [address] Sylvia Bains MD [facility] [place] [address] Seropositive rheumatoid arthritis (HRC) (Primary Dx); Osteopenia, unspecified location; Osteoarthritis of multiple joints, unspecified osteoarthritis type; Tailor's bunion of both feet; 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 Continue hydroxycholoroquine 300 mg daily Due in January for eye exam Good luck with your surgery! Continue methotrexate, INCREASE to 10 tabs once weekly Continue folic acid, INCREASE to 3 mg daily, refilled Schedule bone density for December 2023! Continue your calcium and vitamin D Continue gentle exercise Hold methotrexate the week of your surgery and if healing well can restart the following Saturday! START prednisone taper, 20 mg x 3 days then 10 mg x 3 days then 5 mg x 3 days Try topical diclofenac gel as needed for the joints, can take tylenol 1-2 tablets twice a day as needed Blood work every 3 months Follow up in 4 months Rheumatoid arthritis By [facility] staff Definition Rheumatoid arthritis is an inflammatory form of arthritis that causes joint pain and damage. Rheumatoid arthritis attacks the lining of your joints (synovium) causing swelling that can result in aching and throbbing and eventually deformity. Sometimes rheumatoid arthritis symptoms make even the simplest activities -- such as opening a jar or taking a walk -- difficult to manage. Rheumatoid arthritis is two to three times more common in women than in men and generally occurs between the ages of 40 and 60. But rheumatoid arthritis can also affect young children and older adults. There's no cure for rheumatoid arthritis. With proper treatment, a strategy for joint protection and changes in lifestyle, you can live a long, productive life with rheumatoid arthritis. Symptoms Signs and symptoms of rheumatoid arthritis may include: Joint pain Joint swelling Joints that are tender to the touch Red and puffy hands Firm bumps of tissue under the skin on your arms (rheumatoid nodules) Fatigue Morning stiffness that lasts at least 30 minutes Fever Weight loss Signs and symptoms appear in smaller joints first Rheumatoid arthritis usually causes problems in several joints at the same time. Early rheumatoid arthritis tends to affect your smaller joints first -- the joints in your wrists, hands, ankles and feet. As the disease progresses, your shoulders, elbows, knees, hips, jaw and neck can also become involved. Signs and symptoms of a rheumatoid arthritis flare Rheumatoid arthritis signs and symptoms may vary in severity and may even come and go. Periods of increased disease activity -- called flare-ups or flares -- alternate with periods of relative remission, during which the swelling, pain, difficulty sleeping, and weakness fade or disappear. Causes Rheumatoid arthritis occurs when white blood cells -- whose usual job is to attack unwanted invaders, such as bacteria and viruses -- move from your bloodstream into the membranes that surround your joints (synovium). The blood cells appear to play a role in causing the synovium to become inflamed.The inflammation causes the release of proteins that, over months or years, cause the synovium to thicken. The proteins can also damage the cartilage, bone, tendons and ligaments near your joint. Gradually, the joint loses its shape and alignment. Eventually, it may be destroyed. Doctors don't know what causes this process that leads to rheumatoid arthritis. It's likely that rheumatoid arthritis occurs as a result of a complex combination of factors, including your genes, your lifestyle choices, such as smoking, and things in your environment, such as viruses. Risk factors Factors that may increase your risk of rheumatoid arthritis include: Sex. Women are more likely to develop rheumatoid arthritis than men are. Age. Rheumatoid arthritis occurs most commonly between the ages of 40 and 60. However, it can also occur in older adults and in children (juvenile rheumatoid arthritis). Family history. If a member of your family has rheumatoid arthritis, you may have an increased riskof the disease. Doctors don't believe you can directly inherit rheumatoid arthritis. Instead, it's believed that you can inherit a predisposition to rheumatoid arthritis. Smoking. Smoking cigarettes increases your risk of rheumatoid arthritis. Quitting can reduce your risk. Tests and diagnosis Diagnosing rheumatoid arthritis usually begins with a physical exam. Your doctor will ask you aboutyour signs and symptoms and examine your affected joints. In addition, your doctor may recommend: Blood tests. People with rheumatoid arthritis tend to have an elevated erythrocyte sedimentation rate (ESR, or sed rate), which indicates the presence of an inflammatory process in the body. Other common blood tests look for antibodies called rheumatoid factor and anti-cyclic citrullinated peptide (anti- CCP) antibodies in the blood. While commonly found in the blood of people with rheumatoid arthritis, rheumatoid factor and anti-CCP antibodies aren't present in all cases. In early rheumatoid arthritis, the presence of rheumatoid factor and anti-CCP antibodies in the blood may be associated with an increased risk of joint damage. Rheumatoid factor and anti-CCP antibodies can be present in people who have chronic infections, such as active tuberculosis, and other autoimmune rheumatic diseases, such as lupus and Sjogren's syndrome. Joint fluid analysis. Your doctor may draw fluid from your joint using a needle. The fluid can be tested to help rule out other diseases and conditions. X-rays. Your doctor may recommend X-rays to help track the progression of rheumatoid arthritis in your joint over time. Complications Rheumatoid arthritis causes joint damage that can be both debilitating and disfiguring. Damage to your joints may make it difficult or impossible to go about your daily activities. You may find at first that tasks take more energy to accomplish. With time you may find you are no longer able to do them at all. Newer treatments may stop joint damage or prevent it so you can continue the activities you enjoy. Treatments and drugs There is no cure for rheumatoid arthritis. Treatment for rheumatoid arthritis aims to reduce inflammation in your joints in order to relieve pain and prevent or slow joint damage. Early and aggressive rheumatoid arthritis treatments may slow joint damage and help reduce the risk of disability. Treatment typically involves medications, though surgery may be necessary in cases of severe joint damage. Medications Rheumatoid arthritis medications can relieve pain and slow or halt the progression of joint damage.Medications used to treat rheumatoid arthritis include: NSAIDs. Nonsteroidal anti-inflammatory drugs (NSAIDs) can relieve pain and reduce inflammation. Vaqa-ewk-qoxfvje NSAIDs include ibuprofen (Advil, Motrin, others) and naproxen sodium (Aleve). Strongerversions of these NSAIDs and others are available by prescription. NSAIDs have risks of side effects that increase when used at high dosages for long-term treatment. Side effects may include ringing in your ears, gastric ulcers, heart problems, stomach bleeding, and liver and kidney damage. Consuming alcohol or taking corticosteroids while using NSAIDs also increases your risk of gastrointestinalbleeding. Steroids. Corticosteroid medications, such as prednisone and methylprednisolone (Medrol), reduce inflammation and pain, and slow joint damage. In the short term, corticosteroids can make you feel dramatically better. But when used for many months or years, they may become less effective and cause serious side effects. Side effects may include easy bruising, thinning of bones, cataracts, weight gain, a round face and diabetes. Doctors often prescribe a corticosteroid to relieve acute symptoms, with the goal of gradually tapering off the medication. Disease-modifying antirheumatic drugs (DMARDs). Doctors prescribe DMARDs to limit the amount of joint damage that occurs in rheumatoid arthritis. These drugs are typically used in the early stages ofrheumatoid arthritis in an effort to slow the disease and save the joints and other tissues from permanent damage. You may need to take DMARDs for weeks or months before you notice any benefit. For that reason, they may be combined with other medications that give you more immediate relief from signs and symptoms, such as NSAIDs or corticosteroids. Common DMARDs include hydroxychloroquine (Plaquenil), the gold compound auranofin (Ridaura), sulfasalazine (Azulfidine), minocycline (Dynacin, Minocin) and methotrexate (Rheumatrex). Immunosuppressants. These medications act to tame your immune system, which is out of control in rheumatoid arthritis. In addition, some of these drugs attack and eliminate cells that are associated with the disease. Some of the commonly used immunosuppressants include leflunomide (Arava), azathioprine (Imuran), cyclosporine (Neoral, Sandimmune) and cyclophosphamide (Cytoxan). These medications can have potentially serious side effects such as increased susceptibility to infection. TNF-alpha inhibitors. TNF-alpha is a cytokine, or cell protein, that acts as an inflammatory agent in rheumatoid arthritis. TNF inhibitors target or block this cytokine and can help reduce pain, morning stiffness, and tender or swollen joints -- usually within one or two weeks after treatment begins. There is evidence that TNF inhibitors may stop progression of disease. These medications often are taken with methotrexate. TNF inhibitors approved for treatment of rheumatoid arthritis are etanercept (Enbrel), infliximab (Remicade) and adalimumab (Humira). Potential side effects include injection site irritation (adalimumab and etanercept), worsening congestive heart failure (infliximab), blood disorders, lymphoma, demyelinating diseases, and increased risk of infection, including serious infection leading to if treatment is delayed. Infections due to tuberculosis and certain types of invasive fungi, such as histoplasmosis, coccidioidomycosis and blastomycosis, have been associatedwith the use of TNF-alpha inhibitors. If you have an active infection, don't take these medications. Anakinra (Kineret). Anakinra is similar to a naturally occurring chemical in your body -- interleukin-1 receptor antagonist (IL-1Ra) -- that stops a certain chemical signal from causing inflammation.You might consider anakinra if you have moderate to severe rheumatoid arthritis and haven't been helped by conventional DMARD therapy. Anakinra is given as a daily self-administered injection under the skin, and is sometimes combined with methotrexate. Potential side effects include injection site reactions, decreased white blood cell counts, headache and an increase in upper respiratory infections. There may be a slightly higher rate of respiratory infections in people who have asthma or chronic obstructive pulmonary disease. If you have an active infection, don't use anakinra. Abatacept (Orencia). Abatacept reduces the inflammation and joint damage caused by rheumatoid arthritis by inactivating T cells -- a type of white blood cell. People who haven't been helped by TNF-alpha inhibitors might consider abatacept, which is administered monthly through a vein in your arm (intravenously). Side effects may include headache, nausea and mild infections, such as upper respiratory tract infections. Serious infections, such as pneumonia, can occur. Rituximab (Rituxan). Rituximab reduces the number of B cells in your body. B cells are involved in inflammation. People who haven't found relief using TNF inhibitors might consider using rituximab, which is usually given along with methotrexate. Rituximab is administered as an infusion into a vein in your arm. Side effects include flu-like signs and symptoms, such as fever, chills and nausea. Some people experience extreme reactions to the infusion, such as difficulty breathing and heart problems. Ritixumab has been linked to a fatal brain infection in one person with rheumatoid arthritis. What medications you can consider will depend on the severity of your rheumatoid arthritis, the length of time that you've been experiencing signs and symptoms, results from blood tests and X-rays, your overall physical function, and other medical problems you have. Doctors use these factors to determine the duration of your disease, its severity and your prognosis, which help to develop a treatment plan. Surgery If medications fail to prevent or slow joint damage, you and your doctor may consider surgery to repair damaged joints. Surgery may help restore your ability to use your joint. It can also reduce pain and correct deformities. Rheumatoid arthritis surgery may involve one or more of the following procedures: Total joint replacement (arthroplasty). During joint replacement surgery, your surgeon removes the damaged parts of your joint and inserts a metal and plastic prosthesis. Tendon repair. Inflammation and joint damage may cause tendons around your joint to loosen or tighten. Your surgeon may be able to repair the tendons around your joint. Removal of the joint lining (synovectomy). If the lining around your joint (synovium) is inflamed and causing pain, your surgeon may recommend removing the lining of the joint. Surgery carries a risk of bleeding, infection and pain. Discuss the benefits and risks with your doctor. Lifestyle and home remedies You can take steps to care for your body if you have rheumatoid arthritis. These self-care measures, when used along with your rheumatoid arthritis medications, can help you cope with your signs and symptoms. Consider trying to: Exercise regularly. Gentle exercise can help strengthen the muscles around your joints, and it can help fight fatigue you might feel. Check with your doctor before you start exercising. If you're just getting started, begin by taking a walk. Try swimming or gentle water aerobics. Public pools and health clubs in your area may offer classes. Avoid exercising tender, injured or severely inflamed joints. If you feel new joint pain, stop. New pain that lasts more than two hours after you exercise probably means you've overdone it. If pain persists for more than a few days, call your doctor. Eat a healthy diet. A healthy diet emphasizing fruit, vegetables and whole grains can help you control your weight and maintain your overall health. However, there's no special diet that can be used to treat rheumatoid arthritis. It hasn't been proved that eating any particular food will make your joint pain or inflammation better or worse. Protect your joints. Find different ways to approach everyday tasks in order to take stress off your painful joints. For instance, if your fingers are sore, coal picker an object using your forearms. Lean into a glass door to force it open, rather than pushing on the door with sore arms. Use assistive devices. Assistive devices can make it easier to go about your day without stressing your painful joints. For instance, using specially designed gripping and grabbing tools may make it easier to work in the kitchen if you have pain in your fingers. Try a cane to help you get around. Your doctor or occupational therapist may have ideas about what sorts of assistive devices may be helpful to you. Catalogs and medical supply stores may also be places to look for ideas. Apply heat. Heat can help ease your pain and relax tense, painful muscles. One of the easiest and most effective ways to apply heat is to take a hot shower or bath for 15 minutes. Other options include using a hot pack or an electric heat pad set on its lowest setting. If your skin has poor sensation or if you have poor circulation, don't use heat treatments. Apply cold. Cold may dull the sensation of pain. Cold also has a numbing effect and decreases muscle spasms. Don't use cold treatments if you have poor circulation or numbness. Techniques may includeusing cold packs, soaking the affected joints in cold water and ice massage. Relax. Find ways to cope with pain by reducing stress in your life. Techniques such as hypnosis, guided imagery, deep breathing and muscle relaxation can all be used to control pain. documented in this encounter Progress Notes * Sylvia Bains MD - 11/06/2023 9:00 AM CDT RHEUMATOLOGY FOLLOW-UP CC: Seropositive rheumatoid arthritis, immunosuppression due to drug therapy Encounter date: 11/06/2023 Date of last office visit: 05/01/2023 Rheumatologic history: The patient is a 68 y.o. female with medical history of seropositive rheumatoid arthritis, hypothyroidism, hyperlipidemia, and hypertension presenting to our clinic initially in December 2022 to establish care. From initial visit in December 2022: She was previously following with [facility], Dr. Cuellar. She was initially diagnosed with rheumatoid arthritis at our clinic in 2017. Last visit was in February 2022. She has a history of seropositive rheumatoid arthritis, currently on methotrexate 25 mg once weekly, hydroxychloroquine 300 mg daily. She was previously on Humira though this was discontinued in 2019 when she switched to Medicare. Her primary care physician is at [facility]. She recently had an x-ray of the right foot that showed a dislocation of the 5th toe. This was donein November 2022. She was seen by Podiatry for tailor bunions and is considering surgery. Additional outside records show that she had a bone density test done in December 2021 which showed osteopenia with a elevated FRAX score of 3.3% for a 10 year risk for hip fracture. She states that her symptoms have been kind of touch and go. She was actually supposed to see in July, but has been having issues with her feet. She did see the blankbook stitching machine operator and is interested in getting surgery. Walking is what she enjoys and she feels limited from this. She has gained about 8 pounds Otherwise, she has been doing well. She woke up a little stiff in general, usually she feels stiff for about 20 minutes. No recent flare like episodes of joint pain. She did get flares with her COVIDvaccines. She had COVID last fall and had to hold her methotrexate and did not a flare. No other recent illness. She had a booster around July 2022. No new rashes. No recent fevers or chills. No ulceration. No issues with methotrexate or hydroxychloroquine. Will sometimes feel nauseous if takes them on a empty stomach. Takes folic acid daily. Shetakes 800 mcg. She does take calcium and vitamin D. No known family history of RA. Additional blood work 2022: MATTHEW negative Complement normal Thyroid peroxidase antibody positive CCP positive Rheumatoid factor positive Additional GWENDOLYN antibodies negative ELP normal ESR and CRP normal Interim history: She had a RSV shot in July and held her methotrexate and then had a flare. She did take prednisonein September because she was having pain in the hands and swelling in the right hand mostly. She completed her prednisone. She felt this was very helpful. She is now feeling better. Her surgery is scheduled for December 2023 to have her talor bunion of the right side removed as wellas the hammer toes fixed. She has been noticing some migrating of the left first toe since her She is back on methotrexate 8 tabs once weekly. She actually increased her methotrexate to 9 tabs once weekly. NO issues with the methotrexate. ROS: Review of systems for today's visit was reviewed, and is as noted above PMH: Updated in EMR Outpatient Encounter Medications as of 11/06/2023 Medication Sig Dispense Refill Bioflavonoid Products (VITAMIN C PLUS) 1000 MG 1 Tablet (1,000 mg). Once daily Oyfjhhd-Ogfxeyxyj-Jalqjcq D (CALCIUM 1200+D3 OR) Cholecalciferol (VITAMIN D) 50 MCG (2000 UT) CAPS 2,000 mg. Every other day diclofenac (VOLTAREN) 1 % gel Apply to affected joints up to 4 times daily as needed 100 g 1 folic acid 1 MG tablet Take 1 Tablet (1 mg) by mouth daily. 90 Tablet 3 lisinopril (ZESTRIL) 5 MG tablet Take 1 Tablet (5 mg) by mouth daily. methotrexate 2.5 MG tablet Take 8 Tablets (20 mg) by mouth once every week. 96 Tablet 1 predniSONE (DELTASONE) 2.5 MG tablet Take 2-4 Tablets (5-10 mg) by mouth daily as needed (arthritis). 60 Tablet 2 No facility-administered encounter medications on file as of 11/06/2023. ALLERGIES: Updated in EMR Social History Tobacco Use Smoking Status Never Smokeless Tobacco Never Social History Substance and Sexual Activity Alcohol Use Not Currently MEDS: Reviewed and updated in the computerized record. Physical exam: There were no vitals taken for this visit. General: Alert, no distress, appears comfortable Eyes: anicteric, no erythema ENT:oral mucosa not examined Resp: breathing comfortably on room air. CV: Not examined Abd: Not examined Skin: No rashes noted on visible skin Neuro: normal gait. Grossly normal strength. MSK: A focused joint exam was performed. The joint exam was negative for synovitis, deformity, tenderness, deformity with the exception of: Full range of motion of the shoulders without pain. There is no tenderness to palpation of the shoulder, elbows, wrists. There is a ganglion cyst on ulnar aspect of the left wrist without tenderness to palpation. She does have pannus formation of multiple MCPjoints which is chronic, though does have some active fullness and tenderness to palpation of the right middle finger, 4th digit, 5th digit PIP and D IP joint. Continues to have Herberdens and Cristy's nodes and squaring of the CMC joints. Pannus formation of the 1st MCP joint bilaterally without tenderness to palpation. There is no pain with hip flexion. No tenderness to palpation of the knees. Significant improvement in previously noted tailor bunion with well-healed surgical scar of the left foot. There is some in were deviation of the 1st MTP joint of the left foot. Continues to have a large tailor bunion of the right 5th MTP joint region. Labs: Lab Results Component Value Date WBC 5.9 10/30/2023 RBC 4.54 10/30/2023 Hemoglobin 13.5 10/30/2023 HCT 40.2 10/30/2023 MCV 88.5 10/30/2023 RDW 13.6 10/30/2023 Platelets 207 10/30/2023 Lab Results Component Value Date CREATININE 0.91 10/30/2023 Lab Results Component Value Date ALT 17 10/30/2023 ALT 18 05/30/2018 Lab Results Component Value Date AST (SGOT) 20 10/30/2023 No components found for: CKTOTAL No results found for: UTYP, URAP, BILIU, BLDU, GLUUC, KETU, LEUKU, NITRU, PHUR, PROU, SPGU, UBGQ, UEPI, UTRAN, GALEANO, UWBC, UWC, URBC, UBACT, UBYST, UHYST, UMUC, TRICHOMONAS, SPERM, UOFB, UHYC, UGRC, UWCST, UWBCT, UCAOX, UTRPH, UURCA, UAMOR, UCRYS Lab Results Component Value Date CRP <0.5 04/25/2023 Lab Results Component Value Date RFQ 605 (H) 04/25/2023 ESR 7 04/25/2023 No results found for: TSH Imaging: XR hands b/l 12/27/2022: IMPRESSION COMPARISON: None. FINDINGS: Single view showing both hands. There are tiny cystic and/or erosive changes in the headsof the left third metacarpal and right first and second metacarpals. There is right first MCP jointspace narrowing. Bones appear somewhat demineralized. XR left foot 11/21/2022: Impression: Malalignment at the 5th MTP joint with dorsal medial subluxation of the little toe proximal phalanxat the 5th MTP joint with overlying soft tissue swelling. Multifocal degenerative joint disease and calcaneal spurs. XR right foot 11/21/2022: Impression: Dislocation deformity at the 5th MTP joint with overlying soft tissue swelling. Multifocal degenerative joint disease and calcaneal spurs. ASSESSMENT/PLAN: # seropositive rheumatoid arthritis # immunosuppression due to drug therapy # osteopenia # tailor bunion with hammertoe deformities Ms. Garcia is a very pleasant 68-year-old female presenting today for follow-up. We discussed the following below: 1. Seropositive rheumatoid arthritis. Diagnosed in 2017. She was overall been doing well though hada flare for symptoms after she received the RSV vaccine. She did do a low-dose prednisone taper with some slight improvement though continues to have some mild synovitis of the right hand in comparison to the left. We discussed some additional options moving forward. Given she has upcoming surgery in December, I would recommend that we work to get her rheumatoid arthritis back under good control. Iwould increase her methotrexate to 10 tablets once weekly, increase folic acid to 3 mg daily, prednisone taper 20 mg x 3 days then 10 mg x 3 days then 5 mg x 3 days. Advised to call symptoms do not improve. She recently had monitoring blood work which we reviewed is stable. She is due for her Plaquenil eye exam in January 2024. Encouraged to continue hydroxychloroquine 300 mg daily. 2. Tailor bunions. Surgery of the left foot went very well in April 2023. She has her left foot scheduled for December 2023. Reviewed how to hold her methotrexate for surgery. Can use Tylenol as needed for pain. No need to hold hydroxychloroquine. 3. Osteoarthritis of multiple sites. Continue [id number] options for pain including topical diclofenac gel and Tylenol. Continue exercise 4. Osteopenia. Outside bone density from December 2021 showed evidence of osteopenia with an elevatedFRAX score of 3.3% of 10 year fracture risk for a hip fracture. Reviewed that she is due for her updated bone density, she would like to have this done at her primary care office, advised to schedulethis. Will plan on follow-up in 4 months or sooner if needed. Patient advised to call clinic if symptoms change or worsen or if new symptoms develop. All of the patient's questions were answered to the best of my ability. Billing based on complexity. MD Lien Madsen [facility] documented in this encounter Plan of Treatment Upcoming Encounters Date Type Department Care Team (Late st Contact Info) Description 01/09/2024 8:20 AM CDT Appointment [facility] [address] [place] [address] 03/04/2024 2:00 PM CDT Appointment [facility] [address] [place] [address] Sylvia Bains MD [address] [place] [address] Scheduled Orders Name Type Priority Associated Diagnoses Orde r Schedule ALT (SGPT) (every 3 months) Lab Routine Seropositive rheumatoid arthritis (HRC) Every 3 Months for 4 Occurrences starting 11/06/2023 until 11/05/2024 AST (every 3 months) Lab Routine Seropositive rheumatoid arthritis (HRC) Every 3 Months for 4 Occurrences starting 11/06/2023 until 11/05/2024 CBC -W/Diff (every 3 months) Lab Routine Seropositive rheumatoid arthritis (HRC) Every 3 Months for 4 Occurrences starting 11/06/2023 until 11/05/2024 Creatinine / GFR (every 3 months) Lab Routine Seropositive rheumatoid arthritis (HRC) Every 3 Months for 4 Occurrences starting 11/06/2023 until 11/05/2024 documented as of this encounter Visit Diagnoses Diagnosis Seropositive rheumatoid arthritis (HRC)- Primary Rheumatoid arthritis Osteopenia, unspecified location Osteoarthritis of multiple joints, unspecified osteoarthritis type Tailor's bunion of both feet 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) documented in this encounter Care Teams Forming Acid Dumper Relationship Specialty Start Date End Date Micki Arzate MD [address] [place] [address] PCP - General Internal Medicine 01/29/17 documented as of this encounter
--- OUTSIDE RECORDS SUMMARY | 2024-01-08 12:39 | XMS_ITS | Clinical Summary ---
Author Organization [facility] Address [place], [place] [address] Care Team Providers Care Flavor Extractor Name Role Phone Zena Faith MD Primary [...] toe of left foot,S/P foot surgery, left [phone] Squared toe post op shoe, Small 1 [...] Colonoscopy 12/2017 polyp, repeat in 5 years Colonoscopy 09/2023 TA, repeat in 5 years Encounters Date Type Department Care Team Description 01/02/2024 8:30 AM CDT Ancillary Procedure [facility] [address] [place] [address] 01/02/2024 Travel 12/05/2023 Telephone [facility] [address] [place] [address] Augustin Carrillo, DPM Questions 10/09/2023 9:30 AM CDT Office Visit [facility] [address] [place] [address] Chito Pierce MD Procedure (Colonoscopy) 10/09/2023 Travel from Last 3 Months Social History Tobacco Use Types Packs/Day Years Used Date Smoking Tobacco: Never Smokeless Tobacco: Never Tobacco Cessation:Counseling Given: Yes Alcohol Use Standard Drinks/Week Comments Not Currently 0 (1 standard drink = 0.6 oz pur e alcohol) Social Connections Answer Date Recorded Frequency of Communication with Friends and Fami ly Not on file 10/09/2023 Sex and Gender Information Value Date Recorded Sex Assigned at Not on file Gender Identity Not on file Sexual Orientation Not on file Obstetrics History Last Filed Vital Signs Vital Sign Reading Time Taken Comments Blood Pressure 109/55 10/09/2023 10:42 AM CDT Pulse 69 10/09/2023 10:42 AM CDT Temperature 36.4 ??C (97.6 ??F) 05/23/2023 9:05 AM CS T Respiratory Rate 14 10/09/2023 10:42 AM CDT Oxygen Saturation 98% 10/09/2023 10:42 AM CDT Inhaled Oxygen Concentration - - Weight 65.3 kg (144 lb) 07/02/2023 1:13 PM KAYAKING INSTRUCTOR Height 154.9 cm (5' 1) 05/17/2023 8:13 AM KAYAKING INSTRUCTOR Body Mass Index 27.21 05/17/2023 8:13 AM KAYAKING INSTRUCTOR Plan of Treatment Upcoming Encounters Date Type Department Care Team (Late st Contact Info) Description 01/13/2024 9:50 AM CDT Hospital Encounter [facility] [address] [place] [address] Augustin Carrillo DPM [address] [place] [address] 01/13/2024 9:50 AM CDT - 01/13/2024 11:[address] [facility] [address] [place] [address] Augustin Carrillo DPM [address] [place] [address] REPAIR HAMMER TOE 2nd right 01/16/2024 8:00 AM CDT Office Visit [facility] [place] [address] [address] [place] [address] Augustin Carrillo DPM [address] [place] [address] 01/28/2024 8:00 AM CDT Office Visit [facility] [address] [address] [place] [address] Augustin Carrillo DPM [address] [place] [address] 02/25/2024 8:00 AM CDT Office Visit [facility] [address] [place] [address] Augustin Carrillo DPM [address] [facility] [place] [address] Scheduled Procedures Name Priority Associated Diagnoses Date/Ti me REPAIR HAMMER TOE Elective Tailor's bunionette, right Hammertoe of second toe of right foot 01/13/2024 9:50 AM CDT EXCISION METATARSAL HEAD Elective Tailor's bunionette, right Hammertoe of second toe of right foot 01/13/2024 9:50 AM CDT Health Maintenance Due Date Last Done Comments Tdap 1966 Depression screening for age 12+ 1967 BMI (ht and wt on same day) for age 18+ 1973 Hepatitis C screening for ag e 18-79 1973 Zoster (shingles) series for age 50+ (1 of 2) 1974 Tetanus booster 1975 Lipids for age 45-75 01/23/2000 Mammogram for age 45-75 01/23/2000 DEXA/DXA scan for age 65+ 01/23/2020 Medicare Wellness for age 65+ 01/23/2020 Pneumococcal series for age 65+ (1 of 1 - PCV) 01/23/2020 COVID-19 vaccine series (2022-24 season) 2023 07/19/2023, 02/28/2023, 07/30/2022, Additional history exists Influenza for age 65+ 01/19/2024 Colonoscopy through age 75 10/08/202810/08, 10/09/2023, 01/14/2018, Additional history exists Medical Devices Implanted Type Area Patient Access Specialist Device Identifier Shelf Expiration Date Model / Serial / Lot Retrofusion Screw, 20 Mm Implanted:Qty: 1 on 05/17/2023 by Augustin Carrillo DPM at [facility] Left: Toe [employer] 02/16/2025 / [id number] / [id number] Description:2nd toe Procedures Procedure Name Priority Date/Time Associated Diagnosis Comments XR FOOT 3 VIEWS RIGHT Routine 01/02/2024 8:43 AM CDT Tailor's bunionette, right Hammertoe of second toe of right foot PATH TISSUE EXAM Routine 10/09/2023 10:1 2 AM CDT History of colon polyps Polyp of colon, unspecified part of colon, unspecified type Diverticulosis of large intestine without hemorrhage COLONOSCOPY 10/09/2023 9:24 AM CDT from Last 3 Months Results * XR FOOT 3 VIEWS RIGHT (01/02/2024 8:43 AM CDT) Anatomical Region Laterality Modality FEET, FOOT R Computed Radiogr aphy 01/03/2024 1:14 PM CDT Narrative 01/03/2024 1:14 PM CDT For Patients: ??As a result of the Cures Act, medical imaging exams and procedure reports are released immediately into your electronic medical record. ??You may view this report before your referring provider. ??If you have questions, please contact your health care provider. Indication: Tailor`s bunionette. Hammertoe. Technique: Right foot, three views. Comparison: 11/21/2022. 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 Hammertoe deformity of the 2nd toe. Degenerative changes in the ankle, navicular cuneiform, 2nd and 3rd TMT joints, 1st and 2nd MTP joints. Findings are stable. Dictated by Tucker Kiser MD @ 01/03/2024 1:14:11 PM (Electronically Signed) Procedure Note Tucker Kiser MD - 01/03/2024 For Patients: As a result of the Cures Act, medical imagingexams and procedure reports are released immediately into your electronicmedical record. You may view this report before your referring provider.If you have questions, please contact your health care provider. Indication: Tailor`s bunionette. Hammertoe. Technique: Right foot, three views. Comparison: 11/21/2022. 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 Hammertoe deformity of the 2nd toe. Degenerative changes inthe ankle, navicular cuneiform, 2nd and 3rd TMT joints, 1st and 2nd MTPjoints. Findings are stable. Dictated by Tucker Kiser MD @ 01/03/2024 1:14:11 PM (Electronically Signed) Augustin Carrillo DPM GENERAL IMAGING * PATH TISSUE EXAM (10/09/2023 10:12 AM CDT) Case Report Pathology Report ?Case: [id number] ? Authorizing Provider: ??Chito Pierce MD ?? Collected: ? 10/09/2023 1012 ? Ordering Location: ? [facility] ?? Received: ?10/09/2023 1327 ? Clinic ? Pathologist: ? Manuel Bennett MD ? Specimen: ?Ascending Colon Polyp ? 10/11/2023 4:48 PM CDT [facility] Final Diagnosis A) COLON, ASCENDING, POLYPECTOMY: 1. Tubular adenoma 2. Negative for high grade dysplasia 3. Per the colonoscopy report: ?? a. Polyp size: 2 mm ?? b. Resection: Complete ?? c. Retrieval: Complete 10/11/2023 4:48 PM CDT [facility] Comment Case seen in consultation with Dr. Fox. 10/11/2023 4:48 PM CDT [facility] Clinical Information Ms. Garcia is a 68 y.o. with personal history of adenoma, who presents for high risk colon cancer surveillance. Colonoscopy shows one 2 mm polyp in the ascending colon. 10/11/2023 4:48 PM CDT [facility] Gross Description A) Received in formalin is a 4 mm moore-pink rubbery polypoid tissue. Entirely submitted in a single cassette. It is labeled with the patient's name and designated A. ERUM Johnston 10/10/2023 9:11 AM 10/11/2023 4:48 PM CDT [facility] Microscopic Description The final diagnosis is based on microscopic examination of appropriate sections of all specimens. 10/11/2023 4:48 PM CDT [facility] Additional Information Interpreted at [facility] Central Laboratory - [address] [facility] [address], [place] [address] 10/11/2023 4:48 PM CDT [facility] Other (Ascending Colon Polyp) Non-Blood / Unknown 10/09/2023 10:12 AM CDT 10/09/2023 1:27 PM CDT Chito Pierce MD PATHOLOGY/CYTOLOG Y [facility] [address] [place] [address], * COLONOSCOPY (10/09/2023 9:24 AM CDT) 10/09/2023 9:24 AM CDT Narrative Transcriptions Chito Pierce MD - 10/09/2023 10:28 AM CDT Patient Name: Evangelina Lenox Procedure Date: 10/09/2023 Gender: Female Date of : 1955 Admit Type: Outpatient Procedure: Colonoscopy Proceduralist: Chito Pierce MD , Darlene Awad, TERRY(Nurse), Adela Muñoz (Nurse) Indications/Pre-Op Diagnosis: High risk colon cancer surveillance:Personal history of adenoma less than 10 mm in size, High risk colon cancer surveillance:Personal history of sessile serrated colon polyp(less than 10 mm in size) with no dysplasia, Last colonoscopy: December 2017 Medications: Fentanyl 100 micrograms IV, Midazolam 2 mgIV, The level of sedation administered wasmoderate Procedure Description: The patient had risks, benefits and alternatives explained to andgave informed consent. The patient had a stable cardiopulmonary status and judged an adequate candidate for conscious sedation. The endoscope PCF-H190L [id number] was passed through the anus andadvanced to the cecum, identified by appendiceal orifice and ileocecal valve.The colonoscopy was performed without difficulty. The patient toleratedthe procedure well. The quality of the bowel preparation was good. The ileocecal valve, appendiceal orifice, and rectum were photographed. Complications: No immediate complications. Estimated Blood Loss & Specimen: Estimated blood loss: none. Specimen collected - Yes and sent to Laboratory Findings: The perianal and digital rectal examinations were normal. A 2 mm polyp was found in the ascending colon. The polyp was sessile. The polyp was removed with a cold biopsy forceps. Resection and retrieval were complete. Multiple small-mouthed diverticula were found in the sigmoid colon. There was narrowing of the colon in association with the diverticular opening. The exam was otherwise without abnormality on direct and retroflexion views. Impressions/Post-Op Diagnosis: - One 2 mm polyp in the ascending colon, removed with a cold biopsy forceps. Resected and retrieved. - Moderate diverticulosis in the sigmoid colon. There was narrowingof the colon in association with the diverticular opening. - The examination was otherwise normal on [...] Repeat colonoscopy in 5 years for surveillance. Moderate Sedation: A time out was performed before the procedure. Moderate (conscious) sedation was administered by the endoscopy nurse and supervised bythe endoscopist. The following parameters were monitored: oxygensaturation, heart rate, blood pressure, EKG, CO2, respiratory rate, adequacy of pulmonary ventilation and reponse to care. Please refer to the patient's medical record flowsheets and nursing notes for moderate sedation details. Total physician intraservice time was 23 minutes. Chito Pierce MD 10/09/2023 10:28:17 AM This report has been signed electronically. Note Initiated On: 10/09/2023 9:24 AM Procedure Code(s): --- Professional --- 22298, Colonoscopy, flexible; with biopsy, single or multiple Diagnosis Code(s): --- Professional --- D12.2, Benign neoplasm of ascending colon Z86.010, Personal history of colonicpolyps K57.30, Diverticulosis of large intestine without perforation or abscess withoutbleeding CPT copyright 2022 [employer]. All rights reserved. The codes documented in this report are preliminary and upon fire information officer reviewmay be revised to meet current compliance requirements. Scope In: 10:00:42 AM Scope Withdrawal Time 0 hours 11 minutes 6 seconds Scope Out: 10:21:54 AM Chito Pierce MD PROCEDURE ORD from Last 3 Months Advance Directives * Full Code (Latest Code Status on File) Date Activated Date Inactivated Comments 05/17/2023 11:57 AM 05/17/2023 2:54 PM Question Answer Comments Code Status Discussion: Reviewed Preferences * Full Code Date Activated Date Inactivated Comments 05/17/2023 7:57 AM 05/17/2023 11:57 AM Question Answer Comments Code Status Discussion: Reviewed Preferences Care Teams Flavor Extractor Relationship Specialty Start Date End Date Zena Faith MD [address] [place] [address] PCP - General Family Practice 12/24/23
--- NOTE | 2024-01-08 13:00 | CRLHL7_ITS ---
For Patients: As a result of the Century Cures Act, medical imaging exams and procedure reports are released immediately into your electronic medical record. You may view this report before your referring provider. If you have questions, please contact your health care provider. DXA BONE MINERAL DENSITY STUDY Current height (in): 61.5. Weight (lb): 140.0. Menopause age: 52. Ethnicity: White. 1. Have you had a previous hip or vertebral fracture? No. 2. Have you had any fractures during your adult life which did not result from significant trauma (e.g., auto accident)? No. 3. Did either of your parents have a hip fracture? No. 4. Do you smoke? No. 5. Have you ever taken Glucocorticoids? No. 6. Do you have rheumatoid arthritis? Yes. 7. Do you have secondary osteoporosis? No. 8. Do you drink 3 or more alcoholic drinks per day? No. 9. Are you being treated for osteoporosis? No. 10. Have you ever taken any of the following medications: Actonel, Evista, Fosamax, Miacalcin, Reclast, Boniva, Forteo, HRT (i.e. estrogen/hormone therapy), Protelos, Prolia, Vitamin D, Calcium, other ??? please specify. ANSWER: Yes, Vitamin D, Calcium. 11. Do you have any of the following medical conditions: Anorexia or bulimia, asthma or emphysema, end stage renal disease, hyperparathyroidism, any seizure disorders, cancer, inflammatory bowel diseases, hysterectomy, other ??? please specify. ANSWER: No. 12. What was your maximum height (inches)? 62. 13. Do you perform weight bearing exercise regularly? Yes. 14. Do you regularly consume dairy products? Yes. 15. Do you drink caffeinated beverages? Yes. If female: 16. At what age did your period start? 11. 17. Are you premenopausal? Yes. 18. How many full term pregnancies have you had? 1. 19. Have you ever missed your period for more than 6 months in a row (not including or menopause)? No. TECHNIQUE: Bone mineral density study was performed using the [employer]. FINDINGS: The results of the study expressed as bone mineral density (BMD) are as follows: Lumbar spine L1 to L3: BMD: 0.989 g/cm2. T-score: -0.3. Z-score: 1.7. Neck Left: BMD: 0.617 g/cm2. T-score: 2.1 . Z-score: -0.4. Right: BMD: 0.605 g/cm2. T-score: -2.2 . Z-score: -0.5. Total Left: BMD: 0.745 g/cm2. T-score: -1.6 . Z-score: -0.2. Right: BMD: 0.777 g/cm2. T-score: -1.3 . Z-score: 0.1 IMPRESSION: Osteopenia. *Comparison exams done prior to 10/2019 were performed on different unit, [facility]. COMPARISON: Compared with scan of 01/04/2022, the bone mineral density has decreased by 1.0 percent at the spine and decreased by 1.5 percent at the hip. Juventino Robledo M.D. Diagnostic Radiologist [email or web address] RACHELLE/varun JR/Dictated by: Juventino Robledo MD @ 01/09/2024 10:02:00 AM (Electronically Signed)
== END 2024-01-08 12:37 | disposition home or self-care (01) ==
LOC: RAD 12:37
PROVIDERS: PCP Family Medicine; Visit Provider Family Medicine
DX: M85.859 Other specified disorders of bone density and structure, unspecified thigh (principal); M85.89 Other specified disorders of bone density and structure, multiple sites
CPT/HCPCS: 77080

== ENCOUNTER 2024-08-06 09:23 | Outpatient (CLI) | payer MEDICARE, BC, SELFPAY | END 2024-08-06 09:24 | disposition home or self-care (01) | LOC: NFLDREF 09:24 | PROVIDERS: PCP Family Medicine; Visit Provider Family Medicine | DX: I10 Essential (primary) hypertension (principal); N23 Unspecified renal colic; Z90.5 Acquired absence of kidney | CPT/HCPCS: 80053; 87086 ==

== ENCOUNTER 2024-08-10 14:26 | Outpatient (CLI) | payer MEDICARE, BC, SELFPAY ==
--- NOTE | 2024-08-10 14:40 | CRLHL7_ITS ---
For Patients: As a result of the Century Cures Act, medical imaging exams and procedure reports are released immediately into your electronic medical record. You may view this report before your referring provider. If you have questions, please contact your health care provider. BILATERAL SCREENING MAMMOGRAM WITH COMPUTER-AIDED DETECTION AND TOMOSYNTHESIS TECHNIQUE: CC and MLO views were obtained. These mammographic images have been obtained using full-field digital technique. These mammographic images were interpreted with the benefit of computer-aided detection. Breast tomosynthesis was used in this interpretation. COMPARISON FILM: 07/26/23, 03/06/22, 01/07/19. FINDINGS: There are scattered areas of fibroglandular density. IMPRESSION: There is no radiographic evidence for malignancy. ASSESSMENT: BI-RADS Category 2: Benign RECOMMENDATION: Routine screening mammogram in 1 year. A lay language report of this examination will be provided to the patient. JUVENTINO LOWE M.D. Diagnostic Radiologist [email or web address] RACHELLE/dontae Transcribed: 08/17/2024, 5:[address]/Dictated by: Juventino Lowe MD @ 08/17/2024 10:48:00 AM (Electronically Signed)
== END 2024-08-10 14:27 | disposition home or self-care (01) ==
LOC: MAMMO 14:27
PROVIDERS: PCP Family Medicine; Visit Provider Family Medicine
DX: Z12.31 Encounter for screening mammogram for malignant neoplasm of breast (principal)
CPT/HCPCS: 77063; 77067

== ENCOUNTER 2024-09-18 07:32 | Outpatient (CLI) | payer MEDICARE, BC, SELFPAY | END 2024-09-18 07:33 | disposition home or self-care (01) | LOC: NFLDREF 09-23 18:29 | PROVIDERS: PCP Family Medicine; Referring Provider Family Medicine; Visit Provider Family Medicine | DX: M81.0 Age-related osteoporosis without current pathological fracture (principal); M85.88 Other specified disorders of bone density and structure, other site; E78.5 Hyperlipidemia, unspecified; I10 Essential (primary) hypertension; E03.9 Hypothyroidism, unspecified | CPT/HCPCS: 80053; 80061; 82306; 84439; 84443 ==

== ENCOUNTER 2024-12-23 07:30 | Outpatient (CLI) | payer MEDICARE, BC, SELFPAY | END 2024-12-23 07:31 | disposition home or self-care (01) | LOC: NFLDREF 12-24 15:51 | PROVIDERS: PCP Family Medicine; Referring Provider Family Medicine; Visit Provider Family Medicine | DX: E78.5 Hyperlipidemia, unspecified (principal) | CPT/HCPCS: 80061 ==